=== PATIENT | male | born 1960 | race Caucasian/White ===

== ENCOUNTER → 2017-12-29 07:41 | Outpatient (CLI) | payer BC, SELFPAY ==
--- NOTE | 2017-12-29 13:41 | PFT ---
INTRODUCTION: The patient is a 57-year-old male currently under the care of Bravo Aleman NP that presents for pulmonary function testing secondary to a diagnosis of dyspnea on exertion. Respiratory therapy reports good patient effort. Bronchodilators were used during testing. INTERPRETATION: Forced expiration spirometry demonstrates no evidence of a large airways obstructive ventilatory defect. There was no significant response to aerosolized bronchodilators. Spirograms are of good quality and plateau normally. The respiratory flow volume loop appears normal. Body plethysmography was performed and reveals lung volumes to be within normal limits. Diffusing capacity by single breath CO is preserved at 78% of predicted. IMPRESSION: Grossly normal pulmonary function testing.
== END ==
PROVIDERS: Family Provider Family Medicine; PCP Family Medicine; Visit Provider Nurse Practitioner Family
DX: R06.09 Other forms of dyspnea (principal)
CPT/HCPCS: 94060; 94726; 94729

== ENCOUNTER → 2018-03-06 07:36 | Outpatient (CLI) | payer BC, SELFPAY ==
[2018-03-06 08:53] LABS: AST(SGOT) 19 U/L (15-37); Alanine Aminotransfer ALT/SGPT 20 U/L (16-61); Albumin, Serum 3.3 g/dL (3.2-5.0); Alkaline Phosphatase 61 U/L (45-117); Bilirubin, Direct 0.11 mg/dL (0.00-0.30); Cholesterol 194 mg/dL (200); Globulin 3.7 g/dL (2.2-4.2); High Density Lipoprotein 40 mg/dL; Triglycerides 145 mg/dL; Very Low Density Lipoprotein 29 mg/dL (5-40)
== END ==
PROVIDERS: Family Provider Family Medicine; PCP Family Medicine; Visit Provider Internal Medicine Cardiovascular Disease
DX: E78.00 Pure hypercholesterolemia, unspecified (principal)
CPT/HCPCS: 36415; 80061; 80076

== ENCOUNTER → 2019-02-15 11:13 | Outpatient (CLI) | payer BC, SELFPAY ==
[2019-02-15 11:04] VITALS: BMI 27.2
--- NOTE | 2019-02-15 11:15 | RAD_ITS ---
We are attempting to reach an attending provider to discuss findings. An addendum with communication details will be sent when the communication is complete. STUDY: X-RAY - THORACIC SPINE REASON FOR EXAM: Male, 58 years old. Right posterior shoulder pain 6 weeks TECHNIQUE: 3 view(s) of the thoracic spine were obtained. COMPARISON: None. FINDINGS: Oval masslike process at the right lung apex measuring 5.[address] chest with contrast recommended. Mild thoracic scoliosis. Normal vertebral body height and alignment. No significant spondylosis. Normal cardiomediastinal silhouette. RAD/Thoracic Spine 3 Views IMPRESSION: Mild thoracic spine scoliosis. No significant spondylosis. Ovoid masslike process at the right lung apex. Follow-up CT chest with IV contrast is recommended. Electronically Signed: Clement Queen MD at 12:06 EDT Tel , Service support ,
== END ==
PROVIDERS: Family Provider Family Medicine; PCP Family Medicine; Referring Provider Nurse Practitioner Family; Visit Provider Nurse Practitioner Family
DX: M54.6 Pain in thoracic spine (principal)
CPT/HCPCS: 72072

== ENCOUNTER → 2019-02-16 16:01 | Outpatient (CLI) | payer BC, SELFPAY ==
[2019-02-15 11:04] VITALS: BMI 27.2
--- NOTE | 2019-02-16 16:03 | CT_ITS ---
STUDY: CT CHEST WITH CONTRAST REASON FOR EXAM: Male, 58 years old. Right lung mass RADIATION DOSAGE (If Supplied By Facility): CTDIvol = ( 11.91 ) mGy, DLP = ( 563.19 ) mGycm TECHNIQUE: Transaxial imaging was performed following intravenous administration of 100 IV Isovue 300. Individualized dose optimization techniques were used for this CT. COMPARISON: Chest x-ray 02/15/2019. FINDINGS: There is a 5.1 x 4.7 x 4 cm right apical heterogeneous solid mass. There is mild centrilobular emphysema. There is mild bibasilar linear atelectasis and/or scarring. There is no demonstrated pleural abnormality. Normal heart and pericardium. There is anterior mediastinal adenopathy measuring up to 2.3 x 1.5 cm. There is no hilar or axillary adenopathy. Normal hilar regions. Normal enhanced pulmonary arteries. Normal aorta arch and descending thoracic aorta. Normal osseous structures. No lytic or blastic osseous lesions. There is diffuse fatty infiltration of the liver. There is a subcentimeter right hepatic lobe hypodense lesion too small to characterize. There is a subcentimeter left renal midpole hypodense lesion, likely cyst. CT/Chest WITH Contrast IMPRESSION: * 5.1 x 4.7 x 4 cm right apical heterogeneous solid mass consistent with malignancy. Anterior mediastinal adenopathy is consistent with jass metastases. * Hepatic steatosis. Electronically Signed: Yang Fry, at 16:39 EDT Tel , Service support ,
== END ==
PROVIDERS: Family Provider Family Medicine; PCP Family Medicine; Referring Provider Nurse Practitioner Family; Visit Provider Nurse Practitioner Family
DX: R91.8 Other nonspecific abnormal finding of lung field (principal)
CPT/HCPCS: 71260; Q9967

== ENCOUNTER → 2019-02-27 08:50 | Outpatient (CLI) | payer BC, SELFPAY ==
[2019-02-21 14:56] VITALS: BMI 25.2
--- NOTE | 2019-02-27 14:02 | PFTCOMP ---
COMPLETE PULMONARY FUNCTION TEST INTERPRETATION Brief HPI: Patient is a 58 year old male, currently under the care of Dr. Rodgers, who presents to [facility] for complete pulmonary function tests secondary to diagnosis of chemotherapy. Respiratory therapist reports good effort and reproducible results. Interpretation: Forced expiration spirometry shows no large airways obstructive ventilatory defect with an FEV1 of 81% predicted. There is no significant bronchodilator response by strict ATS criteria. Spirograms are of good quality and plateau normally. The respiratory flow volume loop shows a normal pattern. Lung volumes by body plethysmography show a normal total lung capacity at 5.33 L, 86% predicted. All other lung volumes are within normal limits. Diffusion capacity by carbon monoxide is normal at 85% predicted. The airway resistance is normal. Compared to previous pulmonary function tests from 12/29/2017, there is been a significant reduction in FVC and FEV1 by 19% and 16% respectively. Impression: Pulmonary function tests are grossly within normal limits, but there has been changes compared to previous study.
== END ==
PROVIDERS: Family Provider Family Medicine; PCP Family Medicine; Referring Provider Internal Medicine Hematology & Oncology; Visit Provider Internal Medicine Hematology & Oncology
DX: C34.11 Malignant neoplasm of upper lobe, right bronchus or lung (principal)
CPT/HCPCS: 94060; 94726; 94729

== ENCOUNTER → 2019-03-02 09:56 | Outpatient (CLI) | payer BC, SELFPAY ==
[2019-02-21 14:56] VITALS: BMI 25.2
--- NOTE | 2019-03-02 09:59 | MRI_ITS ---
STUDY: MRI BRAIN WITH AND WITHOUT CONTRAST REASON FOR EXAM: Male, 58 years old. Lung cancer TECHNIQUE: Standardized multiplanar fat and water weighted pulse sequences were obtained. 15 IV Dotarem was administered for the contrast portion of the examination. COMPARISON: None. FINDINGS: Normal size of the ventricles and extra-axial spaces for the patient's age. Normal white matter tracts of the supratentorial brain. There is no evidence for recent intracranial ischemia or other cause of cytotoxic edema on diffusion weighted imaging (DWI). Normal bilateral basal ganglia. Normal thalami. There is no extra-axial fluid accumulation. Normal flow voids within the major intracranial circulation suggesting patency by spin echo criteria. Normal venous enhancement. There is no enhancing intra-axial or extra-axial abnormality. Normal sella turcica, pituitary gland, infundibular stalk, optic chiasm and hypothalamus. Normal tectal plate and pineal gland. Normal midbrain, tsering and medulla. Normal cerebellum. Normal basal cisterns. Normal bilateral temporal bones. Normal bilateral internal auditory canals. No demonstrated orbital abnormality, within the constraints of a routine brain study. Mucous retention cyst in the left maxillary sinus consistent with chronic sinusitis. Normal calvarium and skull base. Normal visualized soft tissue structures. Normal visualized upper cervical spine. MRI/Brain W/WO Contrast IMPRESSION: Normal unenhanced and enhanced MRI of the brain. No MR evidence of metastatic disease. Electronically Signed: Clement Tavares MD at 13:32 EDT Tel , Service support ,
--- NOTE | 2019-03-02 09:59 | MRI_ITS ---
STUDY: MR CHEST WITH T WITHOUT CONTRAST REASON FOR EXAM: Male, 58 years old. Right lung mass TECHNIQUE: Standardized fat and water weighted pulse sequences were obtained in all 3 orthogonal planes, pre-and post contrast administration. 15 IV Dotarem was administered for the contrast portion of the examination. COMPARISON: CT 02/16/2019, PET CT 02/26/2019 FINDINGS: 5 cm T1 isointense, T2 hyperintense and peripherally enhancing mass with central necrosis in the apex of the right lung consistent with known bronchogenic carcinoma. No definite extension of tumor beyond the pleura into the adjacent chest wall or subclavian space. There is no demonstrated pleural abnormality. Normal heart and pericardium. Normal mediastinum. Normal hilar regions. Normal unenhanced pulmonary arteries. Normal aorta arch and descending thoracic aorta. Normal osseous structures. There is no demonstrated abnormality of the visualized upper abdomen. MRI/Upper Ext No Joint W/WO Cont IMPRESSION: Known 5 cm bronchogenic carcinoma in the apex of the right lung as seen on recent CT the chest and PET/CT without invasion of the adjacent chest wall and subclavian space. Electronically Signed: Clement Tavares MD at 13:26 EDT Tel , Service support ,
== END ==
PROVIDERS: Family Provider Family Medicine; PCP Family Medicine; Referring Provider Internal Medicine Hematology & Oncology; Visit Provider Internal Medicine Hematology & Oncology
DX: C34.11 Malignant neoplasm of upper lobe, right bronchus or lung (principal)
CPT/HCPCS: 70553; 73220

== ENCOUNTER → 2019-03-05 08:10 | Outpatient (CLI) | payer BC, SELFPAY ==
[2019-02-21 14:56] VITALS: BMI 25.2
[2019-03-05] VITALS (11 sets, daily range): BP systolic 131–176; BP diastolic 71–96; PULSE 60–70; RESP 16–23; TEMP 36.6; O2SAT 93–97; BMI 25.5
--- NOTE | 2019-03-05 | IMM_PTH ---
PATIENT: HARIKA SALEH LOC: CT U#:[id number] AGE/SX: 64/M ROOM: RE03/05/[address]: Dr. Delilah Rodgers MD : 1960 BED: DIS: SPEC #: [id number] RECD: 03/06/19 10:41 STATUS: DENNIS REQ #: [id number] MORGAN: 03/05/19 00:[address]: Delilah Rodgers DEPT: IMMUNOHISTOCHEMISTRY RECD BY: Obey Menchaca ENTERED: 03/06/19 10:44 SP TYPE: IMMUNO OTHR DR: Dr. Brett Alexander, DO Tissues: Lung, NOS Procedures: RCC (add) NAPSIN A (add) CK20 (add) CK5-6 (add) CK7 (add) CK8 (add) HEP PAR (add) TTF1 (add) Pankeratin (initial) P40 (add) PSAP (add) PHYSICIAN & [address] [address] SPECIMEN INFORMATION: Tissue Source: Right lung biopsy Clinical Info: Right lung biopsy Specimen Number: [id number] CPT code: 85476, 55137 x10 METHODOLOGY: Deparaffinized sections of prefer/formalin-fixed tissue or PAP/DQ stained slides are incubated with monoclonal/polyclonal antibodies/oligonucleotide probes. Localization is made via biotin free immunoperoxidase method. Appropriate controls are performed and reacted as expected. Results on target cell population are indicated in the following table: RESULTS: ANTIBODY / CLONE RESULT AE1-3 (AE1/AE3/PCK26) positive, focal and weak CK7 (OV-TL12/30) negative CK8 (42snibA79) positive, focal and weak CK20 (KS20.8) negative TTF-1 (8G7G3/1) positive Napsin A (Rabbit Polyclonal) negative HepPar (OCh1E5) negative RCC (PN-15) negative PSAP (PASE/4LJ) negative CK5-6 (D5 & 1684) negative P40 (BC28) negative These tests were developed and their performance characteristics determined by [facility]. They may not have been cleared or approved by the U.S. Food and Drug Administration. The FDA has determined that such clearance or approval is not necessary. INTERPRETATION: Right lung, CT guided core biopsy: Non-small cell carcinoma, favor poorly differentiated adenocarcinoma. This case has been reviewed in consultation with Dr. Conley who concurs with the above diagnosis. SJ:cc 03/07/19
--- NOTE | 2019-03-05 | ASPIGT_PTH ---
PATIENT: HARIKA SALEH LOC: CT U#:[id number] AGE/SX: 64/M ROOM: RE03/05/[address]: Dr. Delilah Rodgers MD : 1960 BED: DIS: SPEC #: [id number] RECD: 03/05/19 13:34 STATUS: DENNIS RESamia #: [id number] MORGAN: 03/05/19 00:[address]: Delilah Rodgers DEPT: SURGICAL PATHOLOGY RECD BY: Anthony Babcock ENTERED: 03/05/19 13:35 SP TYPE: ASP RAD OTHR DR: Dr. Brett Alexander, DO Tissues: Lung, NOS Procedures: FNA Specimen Adequacy Special Stain Group II Surgery Specimen Level IV Imprint (control) HEADER OPERATION: Ct guided right lung biopsy PRE-OP DIAGNOSIS: Right lung biopsy TISSUE SUBMITTED: Right lung biopsy MICROSCOPIC DIAGNOSIS Right lung, CT-guided core biopsy: Non-small cell carcinoma, favor poorly differentiated adenocarcinoma. See comment. SUGEY:kacey 03/06/19 COMMENT Immediate evaluation during CT biopsy by Dr. Oshea 03/05/19. Malignant cells present derived from non small cell carcinoma. Immunohistochemistry ([id number]) supports the above diagnosis. Molecular studies on the tumor can be performed, if clinically indicated, please notify the laboratory if they are needed. This case is discussed with Dr. Rodgers on 03/07/19. Case has been reviewed in consultation with Dr. Conley who concurs with the above diagnosis. IDC:AM MICROSCOPIC DESCRIPTION Slides are reviewed. GROSS DESCRIPTION Received is one container labeled with the patient name and designated right lung CT guided core biopsy. The specimen consists of multiple irregular fragments of martinez soft tissue that in aggregate measure 1 x 0.1 x less than 0.1 cm. The specimen is entirely submitted in one cassette. Three touch imprints are prepared at the time of core biopsy. /SUGEY:kacey 03/05/19 TC:0 CPT: 67448, 11296
--- NOTE | 2019-03-05 08:18 | RAD_ITS ---
STUDY: X-RAY CHEST REASON FOR EXAM: Male, 58 years old. 2 hour post right apical lung biopsy. TECHNIQUE: AP inspiration and expiration views. COMPARISON: Comparison is made with prior study done earlier today. FINDINGS: There is no evidence of pneumothorax on the delayed postright apical lung biopsy. Mild degree of increased markings at the lung bases suggestive of bibasilar atelectasis. Blunting of the right costophrenic angle. RAD/Chest Insp/Exp 2 View IMPRESSION: No pneumothorax on the 2 hour post right apical lung biopsy. Electronically Signed: Darrick Delarosa, at 13:34 EDT , Service support ,
--- NOTE | 2019-03-05 08:18 | RAD_ITS ---
STUDY: X-RAY CHEST REASON FOR EXAM: Male, 58 years old. Immediate post right lung biopsy. TECHNIQUE: AP inspiration and expiration views. COMPARISON: Comparison is made with prior examination dated March 02, 2019. FINDINGS: The patient is status post percutaneous biopsy of the right apical nodule. There is no evidence of pneumothorax. RAD/Chest Insp/Exp 2 View IMPRESSION: No evidence of pneumothorax on the immediate post right lung biopsy radiographs. Electronically Signed: Darrick Delarosa, at 11:21 EDT , Service support ,
--- NOTE | 2019-03-05 08:19 | CT_ITS ---
PROCEDURE: CT GUIDED CORE NEEDLE BIOPSY OF A right apical LUNG LESION INDICATION: Male, 58 years old. 5 cm right apical mass. PHYSICIAN: Dr. Washington Spence CONSENT: Written informed consent was obtained having explained the risks, benefits and alternatives in detail with the patient who accepted the risks and agreed to proceed. Laboratory review and clinical assessment was performed. CONSCIOUS SEDATION PROTOCOL: The Drugs used were: 2 mg Versed, IV., and 100 mcg Fentanyl, IV. The sedation time was: 23 minutes. Conscious sedation was started at 10:02 AM and terminated at 10:25 AM. The conscious sedation protocol was independently monitored. RADIATION DOSAGE (If Supplied By Facility): CTDIvol = ( 14 ) mGy, DLP = ( 371.3 ) mGycm Individualized dose optimization techniques were used for this CT. TECHNIQUE: The patient was placed in the prone position. A noncontrast CT was performed to localize the lesion in the right lung apex . The skin surface was prepped and draped in a sterile fashion. 1% lidocaine was used for local anesthesia. Using CT guidance, a 19-gauge coaxial biopsy device was advanced to the periphery of the lesion. A total of 4 core specimens were obtained. The specimens were placed in a formalin solution. A post procedure CT demonstrated no adverse sequelae or pneumothorax. The patient tolerated the procedure well without adverse event. A negative biopsy does not exclude malignancy. Further imaging or clinical followup based on patient condition and degree of clinical suspicion for malignancy. Suggest rebiopsy, if biopsy results do not match with clinical scenario. CT/Biopsy/Inj or Needle Placement IMPRESSION: 1. CT directed core needle biopsy of the right apical pulmonary lesion using CT image guidance with image documentation as described. Pathology results are pending. 2. Conscious Sedation protocol utilized with independent monitoring. Electronically Signed: Darrick Delarosa, at 11:23 EDT , Service support ,
[2019-03-05 08:22] LABS: Absolute Lymphocyte Count 3.93 X10^3/uL (0.83-4.51); Absolute Neutrophil Count 9.4 X10^3/uL (2.0-7.7); Basophil# 0.11 X10^3/uL; Basophil% 0.7 % (0-1); Eosinophil# 0.17 X10^3/uL; Eosinophils% 1.1 % (0-5); Hematocrit 44.9 % (40-54); Hemoglobin 15.1 g/dL (13.0-16.5); Lymphocyte # 3.93 X10^3/ul (4.0); Lymphocyte % 25.5 % (19-41); Mean Corp Hgb Conc 33.6 g/dL (32-36); Mean Corpuscular Hgb 30.8 pg (27.0-32.0); Mean Corpuscular Volume 91.6 fL (80-94); Mean Platelet Vol. 8.7 fl (6.2-12.0); Monocyte# 1.81 X10^3/uL; Monocyte% 11.7 % (0-10); NRBC Flagged by Analyzer 0 % (0-5); Neutrophil # 9.35 X10^3/uL (2.7-7.7); Neutrophil % 60.6 % (47-70); POSITIVE DIFFERENTIAL YES; Platelet Count 445 K/mm3 (150-450); RBC Distribution Width CV 12.8 % (11.6-14.6); RBC Distribution Width SD 43.3 fl (35.1-43.9); White Blood Count 15.4 K/mm3 (4.4-11.0)
[2019-03-05 08:24] LABS: Differential Indicated SCAN CRITERIA MET
[2019-03-05 08:30] LABS: Prothrombin Time (Protime)PT. 13.3 SECONDS (11.7-14.9)
[2019-03-05 08:31] LABS: Partial Thromboplast Time 33.2 Seconds (24.1-36.2)
[2019-03-05 08:46] LABS: Atypical Lymphocyte 1+ %
[2019-03-05] MEDS: fentaNYL 100 MCG/2 ML Ampul IV (10:02)
[2019-03-05] MEDS: Midazolam 2 MG/2 ML Syringe IV (10:02)
[2019-03-07 09:24] LABS: Pathologist Review Reviewed
== END ==
PROVIDERS: Family Provider Family Medicine; PCP Family Medicine; Referring Provider Internal Medicine Hematology & Oncology; Visit Provider Internal Medicine Hematology & Oncology
DX: C34.91 Malignant neoplasm of unspecified part of right bronchus or lung (principal)
CPT/HCPCS: 32405; 36415; 71046; 77012; 85025; 85610; 85730; 88172; 88305; 88313; 88341; 88342; 99156; 99157; J7040

== ENCOUNTER 2019-03-13 09:12 | Day surgery (SDC) | payer BC, SELFPAY ==
[2019-03-06 08:56] VITALS: BMI 24.6
--- NOTE | 2019-03-07 02:01 | HP_ITS ---
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 Is patient in pain?: No Allergies No Known Allergies Allergy (Verified 03/07/19 12:50) Medications nitroglycerin 0.4 mg sublingual tablet 0.4 mg SUBLINGUAL Q5M PRN #21 tab 12/07/17 [Rx Confirmed 03/07/19] aspirin 81 mg tablet,delayed release 81 mg PO QDAY #90 tab 09/07/18 [Rx Confirmed 03/07/19] clopidogrel 75 mg tablet 75 mg PO DAILY #90 tab 09/07/18 [Rx Confirmed 03/07/19] metoprolol tartrate 25 mg tablet 25 mg PO BID #180 tab 09/07/18 [Rx Confirmed 03/07/19] rosuvastatin 10 mg tablet 10 mg PO DAILY #90 tab 09/07/18 [Rx Confirmed 03/07/19] olmesartan 20 mg tablet See Rx Instructions .ROUTE .COMPLEX #90 tab 01/21/19 [Rx Confirmed 03/07/19] oxycodone-acetaminophen 7.5 mg-325 mg tablet 1 tab PO Q6H PRN #60 tab 02/19/19 [Rx Confirmed 03/07/19] Fentanyl 1 ea TD UD 03/06/19 [History Confirmed 03/07/19] PFSH Medical History 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) Hypertension (Chronic) Hyperlipidemia (Chronic) Nicotine dependence (Chronic) Diverticulitis (Chronic) EtOH dependence (Chronic) GERD (gastroesophageal reflux disease) (Chronic) Surgical History History of coronary artery stent placement (Resolved 10/26/16) History of appendectomy (Resolved) History of colonoscopy (Resolved) History of vasectomy (Resolved) Family History Grandfather Cancer Lung cancer Uncle Cancer Lung cancer Social History (Updated 03/07/19 @ 14:01 by Douglas Bueno MD) Smoking Status: Former smoker alcohol intake: current alcohol intake frequency: holidays/special occasions only substance use type: does not use HPI HPI HPI: HARIKA SAELH, is a 58 M who presents to the office today for HPI HPI Surgical H&P: Yes HPI: HARIKA SALEH, is a 58 M who presents to the office today for port placement. Patient has a Pancoast tumor of the right lung. He needs port placement for chemotherapy. Patient will also be undergoing radiation. ROS General General: Yes weight change and fatigue; no appetite, colon cancer, breast cancer or weakness HEENT HEENT: No difficulty swallowing, eye injury, eye surgery, swollen glands or hoarseness Endo Endocrine: No thyroid disease, diabetes mellitus, thyroid cancer, Hair loss, heat intolerance or cold intolerance Skin Skin: No rash or changing moles Breast Breast: No left breast lump, right breast lump, nipple discharge, breast pain, abnormal mammogram, abnormal US or breast enlargement Musc Musculoskeletal: No back problems, arthritis, rheumatoid arthritis, gout or joint pain Cardio Cardiovascular: Yes high blood pressure, heart attack and heart stent; no murmur, pacemaker, heart disease, atrial fibrillation, palpitations, shortness of breat with exertion or chest pain Psych Psychiatric: No depression, anxiety or hearing voices Resp Respiratory: Yes shortness of breath, No sleep apnea, Yes cough, No COPD, No asthma, No emphysema, No wheezing Gastro Gastrointestinal: No abdominal pain, No nausea or vomiting, No diarrhea, Yes constipation, No blood in stool, No acid reflux, No hemorrhoids, No ulcers, No gallbladder problem, No black,tarry stools Alexandro Hematologic: Yes blood thinners, No blood disorders, No bleeding, No anemia, No blood clots Neuro Neurologic: No system reviewed and no additional complaints, except as docu, No as per HPI, No abnormal walking, No abnormal hearing, No abnormal movements, No abnormal speech, No behavioral changes, No burning sensations, No confusion, No seizure-like activity, No unsteadiness, No dizziness, No localized weakness, No frequent falls, No headache(s), No lack of coordination, No loss of vision, No memory loss, No numbness, No other visual disturbances, No radiating pain, No restless legs, No sensory deficit, No fainting, No tingling, No tremor(s), No weakness, No other Exam Const General: cooperative Orientation: alert, oriented x3 Chest Breast Palpation: No nipple discharge Resp Effort & Inspection: normal respiratory effort Auscultation: clear to auscultation bilaterally Cardio Rate: regular rate Rhythm: regular rhythm Heart Sounds: no murmurs GI Inspection: non-distended Palpation: soft, nontender Assessment & Plan Problems 1. Pancoast tumor of right lung C34.11 2. Encounter for insertion of venous access port Z45.2 Plan Patient has tumor in the right lung and needs port for chemotherapy. I will place a left chest port in the patient. The back plan will be to place a right chest port. I discussed port placement with the patient in detail. I discussed the risks including but not limited to bleeding, infection, pneumothorax, line infection, DVT. Patient understands and is willing to proceed with port placement. I will place port next Tuesday and leave the port accessed and he will start treatment on Tuesday. Douglas Bueno MD Pager: [facility] [address] [place] [address], [address] [place] [address] Office: Coding Level of Care Code Off vis,new,level 3 Diagnoses Pancoast tumor of right lung C34.11 Encounter for insertion of venous access port Z45.2 03/07/19 1401 <Electronically signed by Douglas vasquez MD> Date _ Douglas Bolton I have re-examined the patient. There are no clinical changes since date of exam.
[2019-03-07 12:50] VITALS: BMI 24.6
[2019-03-13 08:23] VITALS: BMI 25.1
[2019-03-13 09:28] VITALS: BP 132/74; PULSE 69; RESP 17; TEMP 36.6; O2SAT 98; BMI 25.0
[2019-03-13] MEDS: Lactated Ringers 1,000 ML 75 ML IV (09:48)
[2019-03-13] MEDS: Cefazolin 2 GM in 0.9% Normal Saline 100 ML IV (11:00)
[2019-03-13] MEDS: Bupiv/Epi 0.5% Mpf 30 ML Vial (11:20)
[2019-03-13 11:43] VITALS: BP 110/66; BP 132/74; PULSE 63; RESP 16; TEMP 36.3; O2SAT 94
--- NOTE | 2019-03-13 11:44 | PCM.OPRPT ---
Problem List (1) Encounter for adjustment or management of vascular access device Status: Acute (2) Pancoast tumor of right lung Status: Acute Report of Operation Date of Procedure: 03/13/19 Pre-Operative Diagnosis: Right lung cancer need for vascular access port Post-Operative Diagnosis: Same Surgery/Procedure Performed:: Ultrasound and fluoroscopy guided left chest port placement utilizing left IJ Description of Procedure: After obtaining informed consent patient was brought back to the operating room MAC anesthesia was induced and the left chest and neck were prepped in normal sterile fashion. Ultrasound was used to evaluate both IJs and the left IJ was selected. Next, using a needle, the left IJ was accessed and a guidewire was passed on into the superior vena cava under fluoroscopy guidance. A small incision was made over the puncture site and the dilator introducer was placed over the guidewire. Next this was capped and the pocket was made for the port. 1% lidocaine with epinephrine was injected in the proposed port site. An incision was made with scalpel. Electrocautery was used to make a pocket under the skin and subcutaneous tissue. Hemostasis was obtained. Next, the catheter was tunneled up to the neck incision site and placed through the introducer. The peel-away introducer was removed and the position of the catheter was confirmed on fluoroscopy. Next, the catheter was trimmed and attached to the port with the locking device. Interrupted 2-0 Vicryl sutures were used to anchor the port to the chest wall and then the port was placed inside the pocket. The pocket was then flushed with saline and the port irrigated with saline. There was good blood return and the port flushed easily. The skin was closed with subcutaneous interrupted 3-0 Vicryl sutures and interrupted skin 3-0 nylon sutures. A single 3-0 Vicryl sutures placed under the skin at the neck incision site. The port was then accessed using the included access needle and there was good draw and good flush. Next it was flushed with heparin. Patient's port was left accessed. Steri-Strips were placed as well as op sites. Patient tolerated procedure well, was taken to PACU in stable condition. Chest x-ray will be obtained. Grafts/Implants Used: 8 [place] [employer]
--- NOTE | 2019-03-13 11:46 | DCINST_ITS ---
Discharge Diet: No Restrictions - Pain medication may cause nausea. You should typically eat light foods as you take your pain medication. Discharge Activity: Return to Normal Activity, May Shower - with your bandage in place in 1-2 days after surgery. DO NOT SHOWER WHEN YOUR PORT IS ACCESSED. Call your doctor if your incision/area has: Continuous Slow Oozing, Sudden Increased Bleeding, Increased Pain/ Swelling, Increased Redness Call your doctor if you observe: Fever of 101 or Higher Remove Dressing in (days):: 2 - When you remove the bandage, leave the steri- strips intact until they fall off. Cleanse incision/area with: Soap & Water Allergies/Adverse Reactions: Allergies No Known Allergies Allergy (Verified 03/13/19 09:18) Medications to take at Discharge nitroglycerin 0.4 mg sublingual tablet 0.4 mg SUBLINGUAL Q5M PRN #21 tab 12/07/17 aspirin 81 mg tablet,delayed release 81 mg PO QDAY #90 tab 09/07/18 clopidogrel 75 mg tablet 75 mg PO DAILY #90 tab 09/07/18 oxycodone-acetaminophen 7.5 mg-325 mg tablet 1 tab PO Q6H PRN #60 tab 02/19/19 Fentanyl 1 ea TD UD 03/06/19 Gabapentin [Neurontin] 300 mg PO BID 03/08/19 Metoprolol Tartrate [Lopressor (beta zachary)] 25 mg PO BID 03/08/19 Olmesartan Medoxomil 40 mg PO DAILY 03/08/19 Rosuvastatin Calcium 10 mg PO QHS 03/08/19 Primary Care Physician: Brett Alexander DO [Primary Care Provider] - Test Results: Test results from this visit will be discussed in further detail at your follow- up appointment, if applicable. Please Follow Up With: Codi Newman PA-C When: 1 week for suture removal. call for appt [phone]
[2019-03-13 11:47] VITALS: BP 107/70; BP 132/74; PULSE 61; RESP 16; O2SAT 93
[2019-03-13 11:50] VITALS: BP 119/71; BP 132/74; PULSE 65; RESP 16; O2SAT 93
--- NOTE | 2019-03-13 11:52 | RAD_ITS ---
STUDY: X-RAY CHEST REASON FOR EXAM: Male, 58 years old. Right apical lung mass. Line placement verification. TECHNIQUE: Single frontal view of the chest. COMPARISON: March 05, 2019 FINDINGS: Left internal jugular catheter has been inserted with no complications. Tip is projected over the mid-SVC. Low volume inspiration with bibasilar atelectasis. Stable 6.7 cm mass in the right apex. There is no demonstrated pleural abnormality. Cardiomegaly unchanged. Normal mediastinum and charles. Normal visualized pulmonary arteries. Normal visualized aortic arch and descending thoracic aorta. Normal visualized thoracic spine. Normal visualized ribs, clavicles, and shoulders. There is no demonstrated abnormality of the visualized soft tissue structures of the upper abdomen. RAD/CXR for Line Placement IMPRESSION: Placement of left internal jugular catheter without complications. Cardiomegaly with low volume inspiration. Stable right apical mass. Electronically Signed: Mauricio Javier MD at 12:13 EDT , Service support ,
[2019-03-13 11:58] VITALS: BP 112/84; BP 132/74; PULSE 60; RESP 16; TEMP 36.8; O2SAT 94
[2019-03-13 12:46] VITALS: BP 115/61; BP 132/74; PULSE 62; RESP 18; TEMP 36.9; O2SAT 95
== END 2019-03-13 12:48 | disposition home or self-care (01) ==
LOC: SDC 09:12 → AC 09:14
PROVIDERS: Family Provider Family Medicine; PCP Family Medicine; Referring Provider Surgery; Visit Provider Surgery
PROC: (CPT 36561; principal; 2019-03-13 10:45)
DX: Z45.2 Encounter for adjustment and management of vascular access device (principal); C34.11 Malignant neoplasm of upper lobe, right bronchus or lung; E78.00 Pure hypercholesterolemia, unspecified; I25.10 Atherosclerotic heart disease of native coronary artery without angina pectoris; I25.2 Old myocardial infarction; I10 Essential (primary) hypertension; F10.20 Alcohol dependence, uncomplicated; Y90.9 Presence of alcohol in blood, level not specified; Z95.5 Presence of coronary angioplasty implant and graft; Z87.891 Personal history of nicotine dependence; Z79.82 Long term (current) use of aspirin; E78.5 Hyperlipidemia, unspecified; K21.9 Gastro-esophageal reflux disease without esophagitis
CPT/HCPCS: 00532; 36561; 71045; 77001; J7120; C1788; J2405

== ENCOUNTER → 2019-03-21 09:31 | Outpatient (CLI) | payer BC, SELFPAY ==
[2019-03-06 08:56] VITALS: BMI 24.6
[2019-03-20 08:29] VITALS: BMI 25.7
--- NOTE | 2019-03-21 09:55 | NURSING ---
Sutures x4 removed from port placement incision. Incision well approximated, free from drainage.
== END ==
PROVIDERS: Family Provider Family Medicine; PCP Family Medicine; Referring Provider Surgery; Visit Provider Surgery
DX: Z48.02 Encounter for removal of sutures (principal)

== ENCOUNTER → 2019-04-27 06:53 | Outpatient (CLI) | payer BC, SELFPAY ==
[2019-03-06 08:56] VITALS: BMI 24.6
[2019-04-03 08:42] VITALS: BMI 25.3
[2019-04-10 08:46] VITALS: BMI 25.3
--- NOTE | 2019-04-27 14:19 | STRESSREP ---
Stress Test Report Date: [04/27/2019] Procedure: Pharmacologic stress nuclear imaging study Indications: Preop evaluation Consent: Per the patient Procedure: The patient underwent pharmacologic (Regadenoson) evaluation with a peak heart rate of 107 beats per minute (65 %predicted maximal heart rate) and a peak blood pressure of 128/64 mmHg. The baseline ECG demonstrated normal sinus rhythm. EKG during lexiscan infusion revealed thickened ischemic changes. EKG post infusion revealed significant ischemic changes [There were no cardiac dysrhythmias pretest, during pharmacologic infusion, or recovery]. [There was no complaint of chest discomfort during pharmacologic infusion or recovery]. The examination was discontinued secondary to completion of protocol. Impression: 1. Lexiscan stress test test is negative for Lexiscan infusion induced EKG changes of ischemia. 2. Lexiscan stress test test is negative for Lexiscan infusion induced chest pain. 3. Results of the nuclear portion of the test is as below Myocardial perfusion imaging study: Technique: The patient was injected with 12 millicuries of technetium 99m Cardiolite and subsequently rest SPECT Cardiolite nuclear imaging was obtained in the horizontal long, vertical long, and short axis views. The patient underwent pharmacologic (Regadenoson) evaluation. Please see above for details. The patient was injected with 36 millicuries of technetium 99m Cardiolite and subsequently stress SPECT Cardiolite nuclear imaging was obtained in the horizontal long, vertical long, and short axis views. A gated Cardiolite study at peak stress was obtained. Interpretation: Rest and stress SPECT Cardiolite nuclear imaging status post realignment, normalization, and attenuation correction demonstrate mild decrease in the radioisotope uptake in the apex on both the rest and stress images after attenuation correction. Gated images reveal no significant regional wall motion abnormalities. These findings are suggestive of apical thinning, normal variant. There is no evidence of significant ischemia or infarction. The reported LVEF is 68 %. Impression: 1. There is no evidence of significant ischemia or infarction. 2. Estimated ejection fraction is 68%. This note was generated with [employer] software. It may contain incorrect words, spelling, and punctuation that were not noted in checking the note before signing.
== END ==
PROVIDERS: Family Provider Family Medicine; PCP Family Medicine; Referring Provider Internal Medicine Hematology & Oncology; Visit Provider Internal Medicine Hematology & Oncology
DX: Z01.810 Encounter for preprocedural cardiovascular examination (principal); C34.11 Malignant neoplasm of upper lobe, right bronchus or lung
CPT/HCPCS: 78452; 93017; A9500; A4216; J2785

== ENCOUNTER → 2019-05-01 07:46 | Outpatient (CLI) | payer BC, SELFPAY ==
[2019-03-06 08:56] VITALS: BMI 24.6
[2019-04-03 08:42] VITALS: BMI 25.3
[2019-04-10 08:46] VITALS: BMI 25.3
--- NOTE | 2019-05-01 07:49 | CT_ITS ---
STUDY: CT CHEST WITH CONTRAST REASON FOR EXAM: Male, 58 years old. Follow-up lung cancer RADIATION DOSAGE (If Supplied By Facility): CTDIvol = ( 10.12 ) mGy, DLP = ( 425.79 ) mGycm TECHNIQUE: Transaxial imaging was performed following intravenous administration of IV Isovue 370 100mL. Individualized dose optimization techniques were used for this CT. COMPARISON: 02/16/2019 FINDINGS: Left internal jugular chest port Mild emphysematous changes. There is no change in the size of the mass in the medial aspect the apex of the right lung measuring 4.2 x 4.8 cm consistent with known bronchogenic carcinoma. However, now the mass is of uniformly decreased attenuation suggestive of necrosis. No new noncalcified nodule or mass. There is no demonstrated pleural abnormality. Normal heart and pericardium. Normal mediastinum. Normal hilar regions. Normal enhanced pulmonary arteries. Normal aorta arch and descending thoracic aorta. Normal osseous structures. There is no demonstrated abnormality of the visualized upper abdomen. CT/Chest WITH Contrast IMPRESSION: Suspect interval treatment of right upper lobe bronchogenic carcinoma with no decrease in size but interval development of marked necrosis of the mass. No CT evidence of metastatic disease. Electronically Signed: Clement Tavares MD at 11:42 EDT Tel , Service support ,
== END ==
PROVIDERS: Family Provider Family Medicine; PCP Family Medicine; Referring Provider Internal Medicine Hematology & Oncology; Visit Provider Internal Medicine Hematology & Oncology
DX: Z01.811 Encounter for preprocedural respiratory examination (principal); C34.11 Malignant neoplasm of upper lobe, right bronchus or lung
CPT/HCPCS: 71260; Q9967

== ENCOUNTER → 2019-07-13 16:02 | Outpatient (CLI) | payer BC, SELFPAY ==
[2019-03-06 08:56] VITALS: BMI 24.6
[2019-06-25 14:18] VITALS: BMI 27.1
--- NOTE | 2019-07-13 16:06 | CT_ITS ---
STUDY: CT ABDOMEN WITHOUT CONTRAST REASON FOR EXAM: Male, 59 years old. PT STATED RT SIDE ABDOMEN SWELLING, POST PARTIAL LUNG REMOVAL RADIATION DOSAGE (If Supplied By Facility): CTDIvol = ( 8.91 ) mGy, DLP = ( 293.85 ) mGycm TECHNIQUE: Transaxial images were obtained without intravenous contrast, and without oral contrast. Sagittal and coronal images were reconstructed. Individualized dose optimization techniques were used for this CT. COMPARISON: Whole body PET CT scan 02/26/2019. FINDINGS: The visualized lung bases are unremarkable. The visualized portions of the heart are within normal limits. Normal liver. Normal gallbladder and extrahepatic biliary system. Normal spleen. Normal pancreas. Normal bilateral adrenal glands. Normal right kidney. Normal left kidney. Normal visualized stomach. Normal small intestine. Normal colon. The appendix is not visualized. Mild atherosclerotic calcifications of the abdominal aorta. Normal inferior vena cava. Normal retroperitoneum. Normal abdominal wall. Normal osseous structures. CT/Abdomen without IV Contrast IMPRESSION: 1. Normal unenhanced CT of the abdomen. 2. Minimal right lateral skin and subcutaneous induration is presumably scarring from prior surgery (series 2, images 11-13). This was not present previously. Electronically Signed: Ricci Leal MD at 10:24 EST , Service support ,
== END ==
PROVIDERS: Family Provider Family Medicine; PCP Family Medicine
DX: R14.0 Abdominal distension (gaseous) (principal)
CPT/HCPCS: 74150

== ENCOUNTER → 2019-07-30 12:02 | Outpatient (CLI) | payer BC, SELFPAY ==
[2019-03-06 08:56] VITALS: BMI 24.6
[2019-06-25 14:18] VITALS: BMI 27.1
--- NOTE | 2019-07-30 12:05 | US_ITS ---
STUDY: ABDOMINAL ULTRASOUND REASON FOR EXAM: Male, 59 years old. ABDOMIN PAIN POST SURGERY/ SWELLING RT SIDE TECHNIQUE: Transabdominal ultrasound was performed with real-time and static mason scale imaging. TECHNICAL QUALITY: Adequate. COMPARISON: None. FINDINGS: Liver: The liver measures 17.5 cm. There is increased echogenicity consistent with fatty infiltration. The bile ducts are within normal limits. There is hepatic color flow. The direction of portal flow is hepatopetal. There is no demonstrated mass lesion. Portal vein measurement: Gallbladder: Normal distended gallbladder. The gallbladder wall measures 1.9 mm. There is a negative sonographic Huggins''s sign. There is no pericholecystic fluid. There are no gallstones. Common Bile Duct (C.B.D.): The common bile duct measures 2.2 mm. Pancreas: Normal size of the head, body and tail of the pancreas. There is normal echogenicity of the pancreas. There is no demonstrated pancreatic mass or cyst. Spleen: Normal size of the spleen. The spleen measures 9.1 cm x 3.2 cm x 4.3 cm. Right Kidney: Normal size of the right kidney. The right kidney measures 10.5 cm x 5 cm x 5.4 cm. Normal renal cortex. The right cortex measures 1.4 cm. There is a 1.1 cm x 1.1 cm x 1.2 cm cyst. There is no right hydronephrosis. Left Kidney: Normal size of the left kidney. The left kidney measures 11.4 cm x 6 cm x 6.7 cm. Normal renal cortex. The left cortex measures 1.9 cm. There is no demonstrated renal mass or cyst. There is no left hydronephrosis. Aorta: Unremarkable I.V.C.: The IVC is patent. There is no ascites. US/Abdomen Complete IMPRESSION: Mild degree of fatty infiltration of the liver. Electronically Signed: Darrick Delarosa, at 11:05 EST , Service support ,
== END ==
PROVIDERS: PCP Family Medicine; Referring Provider Student in an Organized Health Care Education/Training Program; Visit Provider Student in an Organized Health Care Education/Training Program
DX: R10.9 Unspecified abdominal pain (principal)
CPT/HCPCS: 76700

== ENCOUNTER → 2019-10-01 | Outpatient (CLI) | payer BC, SELFPAY ==
[2019-03-06 08:56] VITALS: BMI 24.6
[2019-06-25 14:18] VITALS: BMI 27.1
[2019-08-23 15:28] VITALS: BMI 27.8
--- NOTE | 2019-10-01 07:47 | CT_ITS ---
STUDY: CT ABDOMEN WITH CONTRAST REASON FOR EXAM: Male, 59 years old. 3 MON CHEMO CHECK- HAD RT PARTIAL LOBECTOMY, CHEMO, AND RAD TX, HX-HTN RADIATION DOSAGE (If Supplied By Facility): CTDIvol = ( 14.16 ) mGy, DLP = ( 1082.84 ) mGycm TECHNIQUE: Transaxial images were obtained post I.V. administration of 100ML ISOVUE 300, and oral contrast. Sagittal and coronal images were reconstructed. Individualized dose optimization techniques were used for this CT. COMPARISON: Comparison is made with prior examination dated July 13, 2019. FINDINGS: Minimal increased markings in the lateral aspect of the right lower lobe suggestive of atelectasis and/or scarring. Coronary artery calcification. 4 mm hypodensity in the dome of the right lobe of the liver suggestive of probable tiny cyst. 4 mm hypodensity in the right lobe of the liver at the level of the gallbladder fossa suggestive of a small cyst. Diffuse fatty infiltration of the liver. Normal gallbladder and extrahepatic biliary system. Normal spleen. Normal pancreas. Normal bilateral adrenal glands. There is a 9.3 mm cyst in the midportion of the right kidney. There is a 1.3 cm cyst in the lateral anterior aspect of the left kidney. There is a small hiatal hernia. Normal small intestine. There are multiple colonic diverticula consistent with diverticulosis. The appendix is visualized and appears normal. There is diffuse atherosclerotic calcification of the abdominal aorta, without a demonstrated aneurysm. Normal inferior vena cava. Normal retroperitoneum. There is a small umbilical hernia containing fat. Marked degree of disc space narrowing and disc degeneration with subchondral sclerosis and spondylosis at the L5-S1 level. CT/Abdomen WITH IV Contrast IMPRESSION: Fatty infiltration of the liver. 2. Subcentimeters cysts in the liver. Sigmoid diverticulosis. Electronically Signed: Darrick Delarosa, at 9:15 EDT , Service support ,
--- NOTE | 2019-10-01 07:47 | CT_ITS ---
STUDY: CT CHEST WITH CONTRAST REASON FOR EXAM: Male, 59 years old. 3 MON CHEMO CHECK- HAD RT PARTIAL LOBECTOMY, CHEMO, AND RAD TX, HX-HTN RADIATION DOSAGE (If Supplied By Facility): CTDIvol = ( 14.16 ) mGy, DLP = ( 1082.84 ) mGycm TECHNIQUE: Transaxial imaging was performed following intravenous administration of IV 100mL Isovue-300. Multiplanar coronal and sagittal images were reformatted. Individualized dose optimization techniques were used for this CT. COMPARISON: Comparison is made with prior examination dated May 01, 2019. FINDINGS: A left-sided portacatheter is seen with the tip in the superior vena cava. Stable small benign-appearing bilateral axillary lymph nodes. Stable mild degree of emphysematous changes. The previously seen mass in the medial aspect of the right lung apex has been surgically removed. Mild degree of postsurgical scarring is seen in the medial aspect of the right upper lobe. Minimal increased markings at the right lung base laterally suggestive of scarring. Normal heart and pericardium. Normal mediastinum. Normal hilar regions. Normal enhanced pulmonary arteries. Normal aorta arch and descending thoracic aorta. There are mild degenerative changes of the thoracic spine. Stable 6 mm hypodensity in the dome of the right lobe of the liver suggestive of a small cyst. CT/Chest WITH Contrast IMPRESSION: Status post resection of the right upper lobe mass with mild postoperative scarring. Mild scarring at the right lung base. Electronically Signed: Darrick Delarosa, at 9:03 EDT , Service support ,
[2019-10-01 08:01] LABS: CREATININE FINGERSTICK 0.8 mg/dL (0.70-1.30); EGFR FINGERSTICK > 60.0000 mL/min (>60)
[2019-10-01] MEDS: 0.9% Saline Lock 10 ML Syringe IV (08:07)
== END | disposition home or self-care (01) ==
LOC: CT 07:40
PROVIDERS: Family Provider Family Medicine; PCP Family Medicine; Referring Provider Internal Medicine Hematology & Oncology; Visit Provider Internal Medicine Hematology & Oncology
DX: C34.11 Malignant neoplasm of upper lobe, right bronchus or lung (principal)
CPT/HCPCS: 71260; 74160; Q9967; A4216

== ENCOUNTER 2019-12-18 07:19 | Day surgery (SDC) | payer BC, SELFPAY ==
[2019-03-06 08:56] VITALS: BMI 24.6
[2019-11-22 08:34] VITALS: BMI 30.2
[2019-12-18 07:38] VITALS: BP 135/82; PULSE 70; RESP 15; TEMP 36.3; O2SAT 100; BMI 28.8
[2019-12-18] MEDS: Lactated Ringers 1,000 ML 100 ML IV (07:46)
--- NOTE | 2019-12-18 08:15 | HP.PCM_ITS ---
History of Present Illness Date of Admission: 12/18/19 The patient is a 59 year old M presents for colonoscopy due to abnormal imaging. The patient had lung cancer and underwent chemotherapy for this. The patient had a PET scan during that time which revealed increased uptake in the area of the rectum. The patient had his last colonoscopy a few years ago and there were polyps. He is not having any abdominal pain at this time. Past Medical/Surgical History - Planned Operation Planned Operative Procedure/s: cscope Date of Operative Procedure: 12/18/19 Permit Signed: No S.O.S: No Is This Patient Having a Total Joint: No - Previous Hospitalizations/Surgeries HX Hospitalizations: No HX of Surgeries: APPENDECTOMY. HEART STENT 2016. VASECTOMY. COLONOSCOPY. port insertion 2018. port removed 2019. right upper lobectomy for lung ca Any Problems With Anesthesia: No You/Your Family Experience Fever (Hyperthermia) With Anes: No Cholinesterase deficiency: No - Cardiovascular Hx Chest Pain within Last 2 months: No - LUNG CA Hx of Irregular Heartbeat and/or Afib: No - cad/saw dr eng last 07/2019 Hx Heart Attack: Yes - 2017/STENTED Hx Congestive Heart Failure: No Hx Rheumatic Fever: No Hx Hypertension: Yes - states controlled with med Hx Internal Defibrillator: No Hx Pacemaker: No Hx Cardiac Catheterization: Yes - 2017/ [facility] What facility was last heart cath performed: [facility] Date of last Heart Cath: 2016 Hx Cardiac Surgery/Stents/Etc.: Yes - stents 2016 Hx Stress Test: Yes - stress 2018 HX Edema: No Hx Pain in Legs when Walking/Leg Cramps: No - Respiratory Chronic Cough: No HX of Shortness of Breath: Yes - sob with 2 flights stairs Hoarseness: No Hx Chronic Obstructive Pulmonary Disease (COPD): No - LUNG CA/ Hx Asthma: No Hx Emphysema: No Hx Sleep Apnea: No CPAP: No BIPAP: Yes Hx Oxygen Use at Home: No Hx Respiratory Tract Infection/Cold (presently): No Do You Snore Loudly (louder than talking or can be heard): No Do You Often Feel Tired/ Fatigued/ Sleepy Dring Daytime?: No Has Anyone Observed You Stop Breathing During Sleep?: No Result (for STOP score): Negative Hx Smoking: Yes - quit 02/2019. former 25 yr hx Smoking Status: Former smoker - Gastrointestinal Hx Gastroesophageal Reflux: Yes - not recent Controlled With Meds: No - states controlled Hx Gastrointestinal Disorders: Yes - diverticulitis per hx Hx Gastrointestinal Bleed: No Hx Ulcer: No Hx Hiatal Hernia: No Difficulty Chewing/Swallowing: No Recent Onset of Swallowing Problems: No Special diet followed at home: No Hx Unplanned Weight Loss of 20#: No HX Unplanned Weight Gain of 20#: No - Neurological Hx Seizures: No HX Syncope/Blackout Spells/Unconsciousness: No Hx CVA/Stroke: No Hx Transient Ischemic Attacks (TIA): No Hx Multiple Sclerosis: No Hx Parkinson's Disease: No Hx Head/Neck Injury: No - . Hx Headaches: No Hx Back Injury/Pain: No Recent Onset of Speech Difficulty: No Restless Legs: No Does patient have nerve stimulator: No Patient instructed to have device shut off: No Rep notified?: No - Blood Disorder Hx Leukemia: No Bleeding Tendencies: No - not prior to plavix or asa Hx Deep Vein Thrombosis: No Hx High Cholesterol: Yes - on med Blood Transmitted Disease: No Hx Hepatitis: No Hx Cirrhosis: No Hx Anemia: No Hx Blood Disorders: No - Genitourinary Hx Renal Disease: No Hx Dialysis: No - Musculoskeletal Hx Arthritis: No Hx Rheumatoid Arthritis: No Hx Gout: No Recent Onset of an Orthopedic Problem: No - Endocrine Hx Diabetes: No Thyroid Disease: No Hx Steroid Therapy: No - Psycho/Social Hx Substance Use: No Hx Alcohol Use: Yes - 2 beers daily Hx Anxiety: No Hx Depression: No Mental Illness: No Hx Dementia: No - Miscellaneous Hx Cancer: Yes - new dx lung ca/chemo/radiation/last 04/2019 Recent Exposure to Contagious Disease: No Active MRSA: No Hx of C-Diff: No Any Loose Teeth: No Allergies sulfamethoxazole [From Bactrim] Allergy (Intermediate, Verified 12/18/19 07:26) hives trimethoprim [From Bactrim] Allergy (Intermediate, Verified 12/18/19 07:26) hives Maternal Family History: Family History (Last Reviewed 11/22/19 @ 10:28 by Tere Church) Grandfather Cancer Lung cancer Uncle Cancer Lung cancer - - mother with diverticulitis Paternal Family History: Family History (Last Reviewed 11/22/19 @ 10:28 by Tere Church) Grandfather Cancer Lung cancer Uncle Cancer Lung cancer - - father had some type of cancer - Discharge Is Pt Admitted From a [facility], or a Senior Living: No After D/C, Where Do you Plan to Go: Return Home - Physical Exam Vitals/I&O's: Vital Signs Temp Pulse Resp BP Pulse Ox 97.3 F L 70 15 135/82 H 100 12/18/19 07:38 12/18/19 07:38 12/18/19 07:38 12/18/19 07:38 12/18/19 07:38 Oxygen Delivery Method Room Air Weight: 189 lb 9.561 oz Body Mass Index (BMI) 28.8 General: Alert, Oriented x3 Neck: No JVD Lungs: Normal air movement Cardiovascular: Regular rate, Regular Rhythm Abdomen: Soft, Non Tender, Non-Distended Laboratory Results 12/17/19 09:10: COVID-19 (BRISA) Not Detected Current Medications Lactated Ringer's () 1,000 mls @ 100 mls/hr IV .Q10H YA Last Admin: 12/18/19 07:46 Dose: 100 mls/hr Documented by: Assessment/Plan All Active Problems (Last Reviewed 11/22/19 @ 10:28 by Tere Church) History of lobectomy of lung (Resolved) History of coronary artery stent placement (Resolved 10/26/16) Encounter for adjustment or management of vascular access device (Resolved) 59-year-old male for colonoscopy due to abnormal imaging 1. Patient had a PET scan during his work-up for his lung cancer which showed increased uptake in the rectum and the patient's oncologist would like a colonos copy. His last colonoscopy was a few years ago and there were polyps found. I explained endoscopy in detail to the patient. I explained the risks including but not limited to stroke or heart attack with anesthesia, perforation of the GI tract, bleeding, infection. I explained that any of these could necessitate further emergency surgery. The patient understands and all questions were answered sufficiently. The patient wishes to proceed with procedure. We discussed the current risks associated with COVID-19. While it is understood that there is a community spread of COVID-19, the risk of shaniqua COVID-19 while at [facility] ([facility]) is very low; however, the risk cannot be completely mitigated because of the community spread of the disease. We discussed in detail the risk of exposure to and/or potential harm posed by the COVID-19 virus with having a surgery/procedure at this time versus the risk of delaying the surgery/procedure. It is not possible to know either the risk of delaying the surgery or procedure or chance of getting an infection with perfect accuracy, but a joint decision was made to proceed at this time with the scheduled surgery/procedure as indicated on the consent form. Patient was notified that we will need to comply with any screening or testing [facility] wishes to perform or that surgery may be delayed for any positive results. Douglas Bueno MD Pager: [facility] [address] [place] [address] [address] [place] [address] Office: Surgery Risks - Colonoscopy Risks Include but are not Limited To: Risks include but are not limited to: Bleeding, perforation requiring further surgery, inability to complete colonoscopy requiring barium enema.
--- NOTE | 2019-12-18 08:42 | OP.COLON_ITS ---
Patient Name: Tim Sahu Procedure Date: 12/18/2019 8:13 AM Date of : 1960 Age: 59 Procedure: Colonoscopy Indications: Abnormal PET scan of the GI tract Providers: Douglas Bueno MD Referring MD: Brett Alexander Medicines: Monitored Anesthesia Care Patient Profile: This is a 59 year old male. Refer to note in patient chart for documentation of history and physical. Last Colonoscopy: more than 3 years ago. Complications: No immediate complications. Procedure: Pre-Anesthesia Assessment: - Prior to the procedure, a History and Physical was performed, and patient medications and allergies were reviewed. The patient's tolerance of previous anesthesia was also reviewed. The risks and benefits of the procedure and the sedation options and risks were discussed with the patient. All questions were answered, and informed consent was obtained. Prior Anticoagulants: The patient has taken Plavix (clopidogrel), last dose was 5 days prior to procedure. After reviewing the risks and benefits, the patient was deemed in satisfactory condition to undergo the procedure. After I obtained informed consent, the scope was passed under direct vision. Throughout the procedure, the patient's blood pressure, pulse, and oxygen saturations were monitored continuously. The pediatric colonoscope was introduced through the anus and advanced to the cecum, identified by appendiceal orifice and ileocecal valve. The colonoscopy was performed without difficulty. The patient tolerated the procedure well. The quality of the bowel preparation was good. Scope In: 8:24:01 AM Scope Withdrawal Time 0 hours 8 minutes 47 seconds Scope Out: 8:38:37 AM Total Procedure Duration Time 0 hours 14 minutes 36 seconds Findings: The entire examined colon appeared normal on direct and retroflexion views. Impression: - The entire examined colon is normal on direct and retroflexion views. - No specimens collected. Recommendation: - Discharge patient to home. - Resume previous diet. - Continue present medications. - Repeat colonoscopy in 10 years for screening purposes. - Resume Plavix (clopidogrel) at prior dose today. Procedure Code(s): --- Professional --- 27679, Colonoscopy, flexible; diagnostic, including collection of specimen(s) by brushing or washing, when performed (separate procedure) Diagnosis Code(s): --- Professional --- R93.3, Abnormal findings on diagnostic imaging of other parts of digestive tract CPT copyright 2017 [employer]. All rights reserved. The codes documented in this report are preliminary and upon medical office secretary review may be revised to meet current compliance requirements. Douglas Bueno MD 12/18/2019 8:41:37 AM This report has been signed electronically. Number of Addenda: 0 Note Initiated On: 12/18/2019 8:13 AM
--- NOTE | 2019-12-18 08:42 | OP.CCLET_ITS ---
12/18/2019 Brett Alexander Re : Colonoscopy procedure for Tim Sahu Dear Dr. Alexander This procedure was performed on Wednesday, December 18, 2019. My impressions and recommendations are as follows: Impressions : - The entire examined colon is normal on direct and retroflexion views. - No specimens collected. Recommendations : - Discharge patient to home. - Resume previous diet. - Continue present medications. - Repeat colonoscopy in 10 years for screening purposes. - Resume Plavix (clopidogrel) at prior dose today. My findings are described in the full procedure note, which is enclosed. If I can be of further assistance, please feel free to contact me at Doctor phone number(s): , Work: . Sincerely, Douglas Bueno MD 12/18/2019 8:41:37 AM This report has been signed electronically.
[2019-12-18 08:43] VITALS: BP 112/73; BP 135/82; PULSE 64; RESP 16; TEMP 36.4; O2SAT 97
[2019-12-18 08:48] VITALS: BP 117/78; BP 135/82; PULSE 59; RESP 16; O2SAT 99
[2019-12-18 08:53] VITALS: BP 126/84; BP 135/82; PULSE 57; RESP 16; O2SAT 100
[2019-12-18 08:58] VITALS: BP 132/72; BP 135/82; PULSE 55; RESP 16; TEMP 36.4; O2SAT 100
[2019-12-18 09:18] VITALS: BP 135/82
== END 2019-12-18 09:21 | disposition home or self-care (01) ==
LOC: EN 07:20 → AC 07:20
PROVIDERS: Physician Assistant; PCP Family Medicine; Referring Provider Family Medicine; Visit Provider Surgery
PROC: 0DJD8ZZ Inspection of Lower Intestinal Tract, Via Natural or Artificial Opening Endoscopic (ICD-10-PCS; CPT 45378; principal; 2019-12-18 08:25)
DX: R93.3 Abnormal findings on diagnostic imaging of other parts of digestive tract (principal); I25.10 Atherosclerotic heart disease of native coronary artery without angina pectoris; I25.2 Old myocardial infarction; I10 Essential (primary) hypertension; E78.00 Pure hypercholesterolemia, unspecified; C34.90 Malignant neoplasm of unspecified part of unspecified bronchus or lung; Z95.5 Presence of coronary angioplasty implant and graft; Z86.010 Personal history of colon polyps; Z79.02 Long term (current) use of antithrombotics/antiplatelets; Z79.82 Long term (current) use of aspirin; Z79.899 Other long term (current) drug therapy; Z87.891 Personal history of nicotine dependence; Z11.59 Encounter for screening for other viral diseases
CPT/HCPCS: 45378; 87635; G2023; J7120; U0003

== ENCOUNTER → 2020-01-02 | Outpatient (CLI) | payer BC, SELFPAY ==
[2019-03-06 08:56] VITALS: BMI 24.6
[2019-11-22 08:34] VITALS: BMI 30.2
[2019-12-18 07:38] VITALS: BMI 28.8
--- NOTE | 2020-01-02 14:12 | PFTCOMP_ITS ---
COMPLETE PULMONARY FUNCTION TEST INTERPRETATION Brief HPI: Patient is a 59 year old male, currently under the care of myself, who presents to [facility] [place] for complete pulmonary function tests secondary to diagnosis of status post lung resection. Respiratory therapist reports good effort and reproducible results. Interpretation: Forced expiration spirometry shows no large airways obstructive ventilatory defect with an FEV1 of 77% predicted. There is no significant bronchodilator response by strict ATS criteria. Spirograms are of good quality and plateau normally. The respiratory flow volume loop shows a normal pattern. Lung volumes by body plethysmography show a normal total lung capacity at 7.1 L, 114% predicted. FRC and RV are elevated out of proportion. Lung volume measurements are consistent with hyperinflation and air-trapping. Diffusion capacity by carbon monoxide is normal at 74% predicted. The airway resistance is normal. Compared to previous pulmonary function tests from 02/27/2019, there is been a significant improvement in total lung capacity by 33%. Impression: Grossly normal pulmonary function testing with improvement compared to previous study in February 2019
== END | disposition home or self-care (01) ==
LOC: PSN 09:51
PROVIDERS: PCP Family Medicine; Referring Provider Internal Medicine Critical Care Medicine; Visit Provider Internal Medicine Critical Care Medicine
DX: C34.11 Malignant neoplasm of upper lobe, right bronchus or lung (principal); Z90.2 Acquired absence of lung [part of]
CPT/HCPCS: 94060; 94726; 94729

== ENCOUNTER → 2020-01-14 | Outpatient (CLI) | payer BC, SELFPAY ==
[2019-03-06 08:56] VITALS: BMI 24.6
[2019-11-22 08:34] VITALS: BMI 30.2
[2019-12-18 07:38] VITALS: BMI 28.8
[2020-01-14 10:38] VITALS: PULSE 67; PULSE 69; PULSE 78; PULSE 79; O2SAT 95; O2SAT 96; O2SAT 97; O2SAT 98
--- NOTE | 2020-01-14 12:05 | PCM.PSN.6M ---
PSN 6 Minute Walk Test - 6 Minute Walk Test 6 Minute Walk Test: 6 Minute Walk Test PSN:6-Minute Walk Test Start: 01/14/20 10:38 Freq: Status: Active Protocol: RESP.6MINW Document 01/14/20 10:38 DEBORAGOLDY (Rec: 01/14/20 10:40 SABAFLAQUITAGOLDY [id number]) 6 Minute Walk Test Date Performed 01/14/20 Time Performed 10:30 Height 5 ft 8 in Weight: 88.451 kg Weight in Pounds 195.[address]: Nilton Parker Assistive device used: None Pre-test Oxygen Delivery Method Room Air Pulse Ox (%) 96 Pulse Rate (60-100 beats/min) 67 Dyspnea Melvin Scale (0-10) 0 Exertion Melvin Scale (6-20) 6 1st minute Oxygen Delivery Method Room Air Pulse Ox (%) 97 Pulse Rate (60-100 beats/min) 78 2nd minute Oxygen Delivery Method Room Air Pulse Ox (%) 96 Pulse Rate (60-100 beats/min) 78 3rd minute Oxygen Delivery Method Room Air Pulse Ox (%) 96 Pulse Rate (60-100 beats/min) 78 4th minute Oxygen Delivery Method Room Air Pulse Ox (%) 96 Pulse Rate (60-100 beats/min) 79 5th minute Oxygen Delivery Method Room Air Pulse Ox (%) 97 Pulse Rate (60-100 beats/min) 79 6th minute Oxygen Delivery Method Room Air Pulse Ox (%) 95 Pulse Rate (60-100 beats/min) 79 Dyspnea Melvin Scale (0-10) 1 Exertion Melvin Scale (6-20) 11 Post-test Oxygen Delivery Method Room Air Pulse Ox (%) 98 Pulse Rate (60-100 beats/min) 69 Full Laps Walked 24 Partial Lap, Number of Tiles Walked 4 Total Distance Walked (ft) 1420 - Interpretation Interpretation: The patient was able to ambulate 1420 feet over the course of 6 minutes on room air with no assistive devices or breaks. The patient experienced no significant desaturation or tachycardia. These findings are consistent with a normal walking oximetry. - Recommendations Recommendations: No supplemental oxygen is indicated at this time.
== END | disposition home or self-care (01) ==
LOC: PSN 10:20
PROVIDERS: PCP Family Medicine; Referring Provider Internal Medicine Critical Care Medicine; Visit Provider Internal Medicine Critical Care Medicine
DX: C34.11 Malignant neoplasm of upper lobe, right bronchus or lung (principal); Z90.2 Acquired absence of lung [part of]
CPT/HCPCS: 94618

== ENCOUNTER → 2020-04-18 | Outpatient (CLI) | payer BC, SELFPAY ==
[2019-03-06 08:56] VITALS: BMI 24.6
[2020-03-06 16:00] VITALS: BMI 30.1
== END | disposition home or self-care (01) ==
LOC: MTDU 17:34
PROVIDERS: PCP Family Medicine; Referring Provider Internal Medicine; Visit Provider Internal Medicine
DX: Z20.828 Contact with and (suspected) exposure to other viral communicable diseases (principal)
CPT/HCPCS: 87635; C9803; U0003

== ENCOUNTER → 2020-05-06 | Outpatient (CLI) | payer BC, SELFPAY ==
[2019-03-06 08:56] VITALS: BMI 24.6
[2020-02-12 15:19] VITALS: BMI 30.4
[2020-03-06 16:00] VITALS: BMI 30.1
--- NOTE | 2020-05-06 14:12 | CT_ITS ---
STUDY: CT ABDOMEN WITH CONTRAST REASON FOR EXAM: Male, 59 years old. Lung cancer follow up, 1 year post treatment-chemotherapy and amp; radiation, partial right lobectomy, Power Port removal. RADIATION DOSAGE (If Supplied By Facility): CTDIvol = ( 15.74 ) mGy, DLP = ( 1143.86 ) mGycm TECHNIQUE: Transaxial images were obtained post I.V. administration of IV 100mL Isovue-300, and oral contrast. Sagittal and coronal images were reconstructed. Individualized dose optimization techniques were used for this CT. COMPARISON: 07/13/2019 and 10/01/2019. FINDINGS: There is stable bibasilar atelectasis and/or scarring. There is a stable right basilar 3 mm nodule which may reflect an underlying lymph node. There are coronary artery calcifications present. There is a stable too small to characterize low-attenuation focus within segment 4 the liver which may reflect a cyst or hemangioma. Normal gallbladder and extrahepatic biliary system. Normal spleen. Normal pancreas. Normal bilateral adrenal glands. There are bilateral renal cysts. Normal visualized stomach. Normal small intestine. There are multiple colonic diverticula consistent with diverticulosis. There is non-visualization of the appendix. There is diffuse atherosclerotic calcification of the abdominal aorta, without a demonstrated aneurysm. Normal inferior vena cava. Normal retroperitoneum. Normal abdominal wall. There are diffuse degenerative changes of the visualized lumbar spine. CT/Abdomen WITH IV Contrast IMPRESSION: Atherosclerosis. Colonic diverticulosis. Bilateral renal cysts. Electronically Signed: Anh Harkins MD at 21:49 EDT Tel , Service support ,
--- NOTE | 2020-05-06 14:16 | CT_ITS ---
STUDY: CT CHEST WITH CONTRAST REASON FOR EXAM: Male, 59 years old. Lung cancer follow up, 1 year post treatment-chemotherapy and amp; radiation, partial right lobectomy, Power Port removal. RADIATION DOSAGE (If Supplied By Facility): CTDIvol = ( 15.74 ) mGy, DLP = ( 1143.86 ) mGycm TECHNIQUE: Transaxial imaging was performed following intravenous administration of IV 100mL Isovue-300. Multiplanar coronal and sagittal images were reformatted. Individualized dose optimization techniques were used for this CT. COMPARISON: Comparison is made with prior study dated 10/01/2019. FINDINGS: Stable small benign-appearing bilateral axillary lymph nodes. Stable mild increased linear markings at the right lung base. The patient has a history of prior resection at the right lung apex. There has been no change. There is no demonstrated pleural abnormality. Normal heart and pericardium. There are multiple small lymph nodes within the mediastinum, which are normal in size and morphology most compatible with reactive lymph hyperplasia. Normal hilar regions. Normal enhanced pulmonary arteries. Normal aorta arch and descending thoracic aorta. There are mild degenerative changes of the thoracic spine. There is a 1.4 cm enhancing nodule in the dome of the left lobe of the liver. This is unchanged and may represent a small hemangioma. CT/Chest WITH Contrast IMPRESSION: Stable examination. Electronically Signed: Darrick Delarosa, at 15:21 EDT , Service support ,
[2020-05-06 14:36] LABS: CREATININE FINGERSTICK 0.8 mg/dL (0.70-1.30)
== END | disposition home or self-care (01) ==
LOC: CT 14:12
PROVIDERS: PCP Family Medicine; Referring Provider Internal Medicine Hematology & Oncology; Visit Provider Internal Medicine Hematology & Oncology
DX: C34.11 Malignant neoplasm of upper lobe, right bronchus or lung (principal)
CPT/HCPCS: 71260; 74160; Q9967

== ENCOUNTER → 2021-03-06 07:48 | Outpatient (CLI) | payer BC, SELFPAY ==
[2019-03-06 08:56] VITALS: BMI 24.6
--- NOTE | 2021-03-06 07:49 | MRI_ITS ---
EXAM: MR HEAD WITHOUT AND WITH INTRAVENOUS CONTRAST CLINICAL INDICATION: follow up treated brain metastasis, Surgery October 2020 TECHNIQUE: Multiplanar and multisequence MR images of the brain were obtained without and with intravenous contrast. This report was created using [employer] report [employer] technology. CONTRAST: IV 19cc Dotarem COMPARISON: MRI brain with and without contrast 11/30/2018. The MRI brain with the brain metastases was not submitted for comparison. FINDINGS: BRAIN AND EXTRA-AXIAL SPACES: Tiny 2 mm enhancing metastatic mass in the left central pontine tegmentum (series 10, images 9). No intra- or extra-axial hemorrhage. SELLA: Unremarkable. Normal sella turcica, pituitary gland, infundibular stalk, optic chiasm and hypothalamus. AUDITORY SYSTEM: Unremarkable. The internal auditory canals are patent. BONES/JOINTS: Right parietal convexity craniotomy defect with focal atrophy and encephalomalacia of the right prior lobe convexity. No discrete lytic or blastic abnormalities. SINUSES: Unremarkable as visualized. Clear. MASTOID AIR CELLS: Unremarkable as visualized. Clear. ORBITS: Unremarkable as visualized. Both globes, extraocular muscles, optic nerves and retrobulbar fat appear unremarkable. VASCULATURE: Unremarkable as visualized. Normal flow voids in the major intracranial circulation. MRI/Brain W/WO Contrast IMPRESSION: 1. 2 mm enhancing metastatic mass in the left central pontine tegmentum (series 10, image 9). 2. Focal atrophy in the left parietal lobe convexity underneath the craniotomy site from previous metastatic tumor resection. 3. No other additional findings or changes when compared to 03/02/2019. COMMENT: The previous MRI of the brain that demonstrated the metastatic mass in the left parietal lobe was not submitted for comparison. Only MRI brain of 03/02/2019 without visible brain metastases was submitted for comparison. Electronically Signed: Ricci Leal MD at 12:40 EDT , Service support ,
== END ==
PROVIDERS: PCP Family Medicine; Referring Provider Student in an Organized Health Care Education/Training Program; Visit Provider Student in an Organized Health Care Education/Training Program
DX: C34.11 Malignant neoplasm of upper lobe, right bronchus or lung (principal); C79.31 Secondary malignant neoplasm of brain
CPT/HCPCS: 70553; A9575

== ENCOUNTER → 2021-03-26 17:43 | Outpatient (CLI) | payer BC, SELFPAY ==
[2019-03-06 08:56] VITALS: BMI 24.6
--- NOTE | 2021-03-26 17:57 | MRI_ITS ---
STUDY: MRI LUMBAR SPINE WITH AND WITHOUT CONTRAST REASON FOR EXAM: Male, 60 years old. LE numbness, eval for metastatic disease TECHNIQUE: Standardized fat and water weighted pulse sequences were obtained in the sagittal and axial planes. IV DOTAREM 20ML was administered for the contrast portion of the examination. COMPARISON: None FINDINGS: T12-L1: Normal endplates. Normal disc height, hydration and morphology. Normal bilateral facet joints. Normal central canal and bilateral lateral recesses. Normal bilateral intervertebral neural foramina. Normal lumbar lordosis. There is no substantial scoliosis. Normal conus medullaris that terminates at the L1/L2. L1-2: Normal endplates. Normal disc height, hydration and morphology. Normal bilateral facet joints. Normal central canal and bilateral lateral recesses. Normal bilateral intervertebral neural foramina. L2-3: Normal endplates. Normal disc height, hydration and morphology. Normal bilateral facet joints. Normal central canal and bilateral lateral recesses. Normal bilateral intervertebral neural foramina. L3-4: Normal endplates. Normal disc height, hydration and morphology. Normal bilateral facet joints. Normal central canal and bilateral lateral recesses. Normal bilateral intervertebral neural foramina. L4-5: Normal endplates. Normal disc height, hydration and morphology. Normal bilateral facet joints. Normal central canal and bilateral lateral recesses. Normal bilateral intervertebral neural foramina. L5-S1: Severe loss of disc height with a moderate broad disc protrusion and a moderate left paracentral disc protrusion produces moderate spinal stenosis, moderate right lateral recess stenosis with abutment of the right S1 nerve root, severe left lateral recess stenosis with effacement of the left S1 nerve root and moderate bilateral neural foraminal stenosis with abutment of the exiting L5 nerve roots bilaterally. Normal visualized sacral ala. Normal visualized paraspinous soft tissue structures. There is no demonstrated abnormal enhancement. MRI/Spine Lumbar W/WO Contrast IMPRESSION: Focal degenerative disc disease at L5/S1 as described above. Electronically Signed: Clement Tavares MD at 13:11 EDT Tel , Service support ,
== END ==
PROVIDERS: PCP Family Medicine; Referring Provider Student in an Organized Health Care Education/Training Program; Visit Provider Student in an Organized Health Care Education/Training Program
DX: R20.0 Anesthesia of skin (principal); C34.11 Malignant neoplasm of upper lobe, right bronchus or lung
CPT/HCPCS: 72158; A9575

== ENCOUNTER → 2021-05-01 10:03 | Outpatient (CLI) | payer BC, SELFPAY ==
[2019-03-06 08:56] VITALS: BMI 24.6
--- NOTE | 2021-05-01 10:04 | MRI_ITS ---
EXAM: MR HEAD WITHOUT AND WITH INTRAVENOUS CONTRAST : 1960 CLINICAL INDICATION: brain metastasis -- evaluate tsering lesion and for any new changes TECHNIQUE: Multiplanar and multisequence MR images of the brain were obtained without and with intravenous contrast. This report was created using [employer] report generation technology. CONTRAST: IV 19cc dotarem COMPARISON: March 06, 2021 FINDINGS: BRAIN AND EXTRA-AXIAL SPACES: Small focus of increased T2 signal intensity within the left frontal white matter unchanged likely representing an area of gliosis. No change in the increased T2 signal intensity within the region of biopsy left parietal lobe. No intracranial mass. No abnormal contrast enhancement. No intra- or extra-axial hemorrhage. No evidence of acute infarct. There is preservation of the mason/white matter interface. Posterior fossa structures are unremarkable. Ventricles are appropriate for age. No hydrocephalus. Basal cisterns are patent. SELLA: Unremarkable. Normal sella turcica, pituitary gland, infundibular stalk, optic chiasm and hypothalamus. AUDITORY SYSTEM: Unremarkable. The internal auditory canals are patent. BONES/JOINTS: Unremarkable. No discrete lytic or blastic abnormalities. SINUSES: Mucus retention cyst again noted within both maxillary sinuses. MASTOID AIR CELLS: Unremarkable as visualized. Clear. ORBITS: Unremarkable as visualized. Both globes, extraocular muscles, optic nerves and retrobulbar fat appear unremarkable. VASCULATURE: Unremarkable as visualized. Normal flow voids in the major intracranial circulation. MRI/Brain W/WO Contrast IMPRESSION: 1. No evidence of metastatic brain disease. 2. No pontine lesion noted on the current exam. 3. Postoperative changes of left parietal lobe. at 1631 Reported and signed by: Andrews Portillo MD Electronically Signed: Andrews Portillo MD at 16:30 EDT Tel , Service support ,
[2021-05-01 10:25] LABS: EGFR FINGERSTICK > 60.0000 mL/min (>60)
== END ==
PROVIDERS: PCP Family Medicine; Referring Provider Student in an Organized Health Care Education/Training Program; Visit Provider Student in an Organized Health Care Education/Training Program
DX: C79.31 Secondary malignant neoplasm of brain (principal)
CPT/HCPCS: 70553; A9585

== ENCOUNTER → 2021-06-10 08:59 | Outpatient (CLI) | payer BC, SELFPAY ==
[2019-03-06 08:56] VITALS: BMI 24.6
--- NOTE | 2021-06-10 09:00 | RAD_ITS ---
STUDY: X-RAY CHEST REASON FOR EXAM: Male, 60 years old. Cough. History of resection of right lung cancer. TECHNIQUE: Frontal and lateral views of the chest. COMPARISON: 03/05/2019. FINDINGS: Stable postsurgical changes of the right lung with loss of volume. There is no demonstrated pleural abnormality. Normal size heart. Normal mediastinum and charles. Normal visualized pulmonary arteries. Normal visualized aortic arch and descending thoracic aorta. Normal visualized thoracic spine. Normal visualized ribs, clavicles, and shoulders. There is no demonstrated abnormality of the visualized soft tissue structures of the upper abdomen. RAD/Chest PA and Lateral IMPRESSION: Stable chest with no acute abnormality. No focal consolidation. Electronically Signed: Mauricio Javier MD at 11:56 EST , Service support ,
== END ==
PROVIDERS: PCP Family Medicine; Visit Provider Nurse Practitioner Family
DX: J40 Bronchitis, not specified as acute or chronic (principal)
CPT/HCPCS: 71046

== ENCOUNTER 2021-08-07 12:25 | Outpatient (CLI) | payer BC, SELFPAY ==
[2019-03-06 08:56] VITALS: BMI 24.6
--- NOTE | 2021-08-07 12:28 | MRI_ITS ---
EXAM: MR HEAD WITHOUT AND WITH INTRAVENOUS CONTRAST CLINICAL INDICATION: brain metastases -- monitoring, please compare to prior TECHNIQUE: Multiplanar and multisequence MR images of the brain were obtained without and with intravenous contrast. This report was created using [employer] report [employer] technology. CONTRAST: IV 19mL Dotarem COMPARISON: 05.01.21 FINDINGS: BRAIN AND EXTRA-AXIAL SPACES: No enhancing pontine lesion. No intra- or extra-axial hemorrhage. No evidence of acute infarct. No intracranial mass or mass effect. There is preservation of the mason/white matter interface. Posterior fossa structures are unremarkable. Ventricles are appropriate for age. No hydrocephalus. Basal cisterns are patent. SELLA: Unremarkable. Normal sella turcica, pituitary gland, infundibular stalk, optic chiasm and hypothalamus. AUDITORY SYSTEM: Unremarkable. The internal auditory canals are patent. BONES/JOINTS: Left occipital craniotomy changes. No discrete lytic or blastic abnormalities. SINUSES: Unremarkable as visualized. Clear. MASTOID AIR CELLS: There is left mastoid air cell disease. There is mastoid sinus disease. ORBITS: Unremarkable as visualized. Both globes, extraocular muscles, optic nerves and retrobulbar fat appear unremarkable. VASCULATURE: Unremarkable as visualized. Normal flow voids in the major intracranial circulation. OTHER FINDINGS: Stable areas of GRE signal. MRI/Brain W/WO Contrast IMPRESSION: 1. There is left mastoid air cell disease. There is mastoid sinus disease. 2. No enhancing pontine lesion. Electronically Signed: nAoop Tsai MD at 14:15 EST ,
== END 2021-08-07 23:59 | disposition short-term general hospital (02) ==
PROVIDERS: PCP Family Medicine; Referring Provider Student in an Organized Health Care Education/Training Program; Visit Provider Student in an Organized Health Care Education/Training Program
DX: C79.31 Secondary malignant neoplasm of brain (principal)
CPT/HCPCS: 70553; A9575

== ENCOUNTER 2021-09-08 12:05 | Outpatient (CLI) | payer BC, SELFPAY ==
[2019-03-06 08:56] VITALS: BMI 24.6
--- NOTE | 2021-09-08 12:07 | RAD_ITS ---
STUDY: X-RAY - LEFT ELBOW REASON FOR EXAM: Male, 61 years old. Left elbow pain. TECHNIQUE: 3 view(s) of the elbow. COMPARISON: None. FINDINGS: Normal visualized humerus, radius and ulna. Normal radiocapitellar and ulnotrochlear articulations. The soft tissue structures are unremarkable. RAD/Elbow min 3 Views IMPRESSION: Normal x-ray examination of the elbow. Electronically Signed: Mauricio Javier MD at 12:33 EST ,
== END 2021-09-08 23:59 | disposition home or self-care (01) ==
LOC: MTRAD 12:05
PROVIDERS: PCP Family Medicine; Referring Provider Nurse Practitioner Family; Visit Provider Nurse Practitioner Family
DX: M25.552 Pain in left hip (principal)
CPT/HCPCS: 73080

== ENCOUNTER 2021-10-02 07:16 | Outpatient (CLI) | payer BC, SELFPAY ==
[2019-03-06 08:56] VITALS: BMI 24.6
--- NOTE | 2021-10-02 07:29 | NM_ITS ---
CLINICAL: 61-year-old male with reported history of primary lung carcinoma. WHOLE BODY 99m Tc MDP RADIONUCLIDE BONE SCINTIGRAPHY COMPARISON: None available FINDINGS: Following the intravenous administration of 26.0 mCi of 99m Tc MDP, whole body bone images reveal: 1. Increased radiopharmaceutical concentration is identified in the left proximal humeral metaphysis. 2. Enhanced tracer activity is visualized in the mid cervical spine posteriorly on the left, third thoracic vertebra posteriorly on the left, the acromioclavicular and sternoclavicular compartments of both shoulders, glenohumeral compartment of the right shoulder, bilateral knees. 3. The remaining skeletal structures are scintigraphically unremarkable with normal-appearing renal images and urinary bladder activity identified. NM/Bone Scan Whole Body IMPRESSION: 1. The increase in tracer concentration observed in the left proximal humeral metaphysis may be further investigated with plain film radiography in the setting of known lung carcinoma. 2. Degenerative arthritis appears expressed in the cervical and thoracic spine, bilateral shoulders, right and left knee articulations. 3. There is no definitive typical scintigraphic evidence of diffuse axial skeletal metastatic disease on the current examination. Electronically Signed: Clement Dejesus DO at 7:42 EDT ,
== END 2021-10-02 23:59 | disposition home or self-care (01) ==
PROVIDERS: PCP Family Medicine; Referring Provider Internal Medicine Hematology & Oncology; Visit Provider Internal Medicine Hematology & Oncology
DX: C34.90 Malignant neoplasm of unspecified part of unspecified bronchus or lung (principal); C79.51 Secondary malignant neoplasm of bone; M47.812 Spondylosis without myelopathy or radiculopathy, cervical region; M47.814 Spondylosis without myelopathy or radiculopathy, thoracic region; M17.0 Bilateral primary osteoarthritis of knee; M19.011 Primary osteoarthritis, right shoulder; M19.012 Primary osteoarthritis, left shoulder
CPT/HCPCS: 78306; A9503

== ENCOUNTER 2021-10-06 12:33 | Outpatient (CLI) | payer BC, SELFPAY ==
[2019-03-06 08:56] VITALS: BMI 24.6
--- NOTE | 2021-10-06 12:36 | CT_ITS ---
STUDY: CT CHEST T ABDOMEN WITH CONTRAST REASON FOR EXAM: Male, 61 years old. RESTAGING NSCLC. History of brain metastasis. Status post radiation and chemotherapy. RADIATION DOSAGE (If Supplied By Facility): CTDIvol = ( 15.04 ) mGy, DLP = ( 1347.43 ) mGycm TECHNIQUE: Transaxial imaging was performed following intravenous administration of IV 100mL Isovue-300. Individualized dose optimization techniques were used for this CT. COMPARISON: Comparison is made with prior study dated 05/06/2020. FINDINGS: CHEST Stable small benign-appearing bilateral axillary lymph nodes. Stable mild degree of increased linear markings at the right lung base suggestive of scarring. The patient is status post resection of the right lung apex. There is no demonstrated pleural abnormality. Normal heart and pericardium. Normal mediastinum. Normal hilar regions. Normal unenhanced pulmonary arteries. There is atherosclerotic calcification of the aortic arch. There are mild degenerative changes of the thoracic spine. Stable 1.4 cm enhancing nodule in the dome of the left lobe of the liver laterally. ABDOMEN Stable 1.4 cm enhancing nodule in the dome of the left lobe of the liver laterally. Fatty infiltration of the liver. Normal gallbladder and extrahepatic biliary system. Normal spleen. Normal pancreas. Normal bilateral adrenal glands. There is a 1.1 cm cyst in the midportion of the right kidney. There is a 1.3 cm cyst in the lateral aspect of the left kidney. Normal visualized stomach. Normal small intestine. There are multiple colonic diverticula consistent with diverticulosis. The appendix is visualized and appears normal. There is scattered atherosclerotic calcification of the abdominal aorta, without a demonstrated aneurysm. Normal inferior vena cava. Normal retroperitoneum. There is a small umbilical hernia containing fat. Disc space narrowing and degenerative changes at the L5-S1 level. CT/CT Chest AND Abd W/ Contrast IMPRESSION: Stable 1.4 cm enhancing nodule in the left lobe of the liver laterally. Mild degree of fatty infiltration of the liver. Electronically Signed: Darrick Delarosa MD at 15:17 EDT ,
[2021-10-06 12:56] LABS: CREATININE FINGERSTICK 0.9 mg/dL (0.70-1.30); EGFR FINGERSTICK > 60.0000 mL/min (>60)
== END 2021-10-06 23:59 | disposition home or self-care (01) ==
PROVIDERS: PCP Family Medicine; Referring Provider Internal Medicine Hematology & Oncology; Visit Provider Internal Medicine Hematology & Oncology
DX: I10 Essential (primary) hypertension (principal); C79.31 Secondary malignant neoplasm of brain; C34.90 Malignant neoplasm of unspecified part of unspecified bronchus or lung; D13.4 Benign neoplasm of liver; Z92.21 Personal history of antineoplastic chemotherapy
CPT/HCPCS: 71260; 74160; Q9967

== ENCOUNTER 2021-10-14 15:35 | Outpatient (CLI) | payer BC, SELFPAY ==
[2019-03-06 08:56] VITALS: BMI 24.6
--- NOTE | 2021-10-14 15:41 | RAD_ITS ---
STUDY: X-RAY - LEFT HUMERUS REASON FOR EXAM: Male, 61 years old. PAIN -- COMPARE TO BONE SCAN 10-02-21 TECHNIQUE: 2 view(s) of the humerus. COMPARISON: None. FINDINGS: BONES: No fracture demonstrated. No lytic or blastic lesion. No periosteal reaction. JOINTS: No dislocation. SOFT TISSUES: Unremarkable. RAD/Humerus min 2 Views IMPRESSION: No acute findings. No evidence of bone lesion. Electronically Signed: Teresa Buchanan MD at 5:04 EDT ,
--- NOTE | 2021-10-14 15:41 | RAD_ITS ---
STUDY: X-RAY - LEFT SHOULDER REASON FOR EXAM: Male, 61 years old. PAIN -- PLEASE COMPARE TO BONE SCAN 10-02-21 TECHNIQUE: 4 view(s) of the shoulder. COMPARISON: None. FINDINGS: There is mild degenerative arthrosis of the glenohumeral articulation. There is mild arthrosis of the acromioclavicular joint without inferior osseous spur formation. Normal acromion. Normal humeral head and visualized proximal humerus. The soft tissue structures are unremarkable. Normal visualized pulmonary apex. RAD/Shoulder min 2 Views IMPRESSION: Mild arthrosis, no demonstrated fracture or suspicious osseous lesion. No plain film evidence to suspect metastasis Electronically Signed: Nikolas Key MD at 16:13 EDT ,
== END 2021-10-14 23:59 | disposition home or self-care (01) ==
LOC: RAD 15:36
PROVIDERS: PCP Family Medicine; Visit Provider Internal Medicine Hematology & Oncology
DX: M25.519 Pain in unspecified shoulder (principal)
CPT/HCPCS: 73030; 73060

== ENCOUNTER → 2021-11-05 | Outpatient (CLI) | payer BC, SELFPAY ==
[2019-03-06 08:56] VITALS: BMI 24.6
--- NOTE | 2021-11-05 12:54 | MRI_ITS ---
EXAM: MR HEAD WITHOUT AND WITH INTRAVENOUS CONTRAST CLINICAL INDICATION: brain metastases, monitor, no new complaints TECHNIQUE: Multiplanar and multisequence MR images of the brain were obtained without and with intravenous contrast. This report was created using [employer] report generation technology. CONTRAST: IV 19CC DOTAREM COMPARISON: August 07, 2021 report from March 02, 2019 showed no acute abnormality, but 2 mm enhancing lesion in the left central pontine tegmentum was described on March 09, 2021, with focal atrophy in left parietal lobe consistent with prior metastatic tumor resection. FINDINGS: BRAIN AND EXTRA-AXIAL SPACES: There are stable postoperative changes of left posterior parietal region. No residual or new enhancing lesions. No intra- or extra-axial hemorrhage. No evidence of acute infarct. No intracranial mass or mass effect. There is preservation of the mason/white matter interface. Posterior fossa structures are unremarkable. Ventricles are appropriate for age. No hydrocephalus. Basal cisterns are patent. SELLA: Unremarkable. Normal sella turcica, pituitary gland, infundibular stalk, optic chiasm and hypothalamus. AUDITORY SYSTEM: Unremarkable. The internal auditory canals are patent. BONES/JOINTS: Unremarkable. No discrete lytic or blastic abnormalities. SINUSES: Similar mucous retention cyst in the left maxillary sinus. MASTOID AIR CELLS: Unremarkable as visualized. Clear. ORBITS: Unremarkable as visualized. Both globes, extraocular muscles, optic nerves and retrobulbar fat appear unremarkable. VASCULATURE: Unremarkable as visualized. Normal flow voids in the major intracranial circulation. OTHER FINDINGS: MRI/Brain W/WO Contrast IMPRESSION: No suspicious intracranial lesions. Stable postoperative changes. Electronically Signed: Vonnie Campos MD at 6:31 EDT ,
== END | disposition home or self-care (01) ==
LOC: MRI 12:54
PROVIDERS: PCP Family Medicine; Referring Provider Student in an Organized Health Care Education/Training Program; Visit Provider Student in an Organized Health Care Education/Training Program
DX: C79.31 Secondary malignant neoplasm of brain (principal); C80.1 Malignant (primary) neoplasm, unspecified
CPT/HCPCS: 70553; A9575

== ENCOUNTER → 2022-01-02 | Outpatient (CLI) | payer BC, SELFPAY ==
[2019-03-06 08:56] VITALS: BMI 24.6
--- NOTE | 2022-01-02 07:51 | MRI_ITS ---
EXAM: MR CERVICAL SPINE WITHOUT INTRAVENOUS CONTRAST CLINICAL INDICATION: pain TECHNIQUE: Multiplanar and multisequence MR images of the cervical spine without intravenous contrast were performed. This report was created using [employer] report generation technology. COMPARISON: None. FINDINGS: VERTEBRAE: Straightening and mild reversal of the usual lordotic curvature centered at C4-C6. SPINAL CORD: Abnormal cord signal intensity. SOFT TISSUES: Unremarkable. No prevertebral soft tissue swelling. LYMPH NODES: Unremarkable. There is no cervical adenopathy. SINUSES: Mucous retention cyst in the left maxillary sinus. DISCS/SPINAL CANAL/NEURAL FORAMINA: C2-C3: Decreased T2 signal intensity. Normal disc height and morphology. Normal spinal canal. Normal neuroforamina. C3-C4: Decreased T2 signal intensity. Normal disc height and morphology. Normal spinal canal. Normal neuroforamina. C4-C5: Decreased T2 signal intensity. Normal disc height and morphology. Normal spinal canal. Normal neuroforamina. C5-C6: Marked disc space narrowing at C5-C6 with mild anterior spondylosis. Mild narrowing of the canal at C5-C6, roughly 8 mm AP but there is a thin line CSF anterior and posterior to the cord, no nidhi cord impingement. Marked right and moderate left neural foraminal stenosis at C5-C6 due to uncovertebral osteophytes. At least moderate left and mild right C6-7 neural foraminal stenosis. C6-C7: See above. C7-T1: Unremarkable. Normal disc height and morphology. Normal spinal canal. Normal neuroforamina. MRI/Spine Cervical (Routine) IMPRESSION: Marked disc space narrowing at C5-6. No significant herniated disc. Mild spinal stenosis without nidhi cord impingement at C5-6. Marked bilateral C5-6 neural foraminal stenosis. Milder changes at other levels. Electronically Signed: Vonnie Campos MD at 6:09 EDT ,
== END | disposition home or self-care (01) ==
PROVIDERS: PCP Family Medicine; Visit Provider Nurse Practitioner
DX: M48.02 Spinal stenosis, cervical region (principal); M54.12 Radiculopathy, cervical region
CPT/HCPCS: 72141

== ENCOUNTER → 2022-03-08 | Outpatient (CLI) | payer BC, SELFPAY ==
[2019-03-06 08:56] VITALS: BMI 24.6
--- NOTE | 2022-03-08 13:09 | MRI_ITS ---
STUDY: MRI BRAIN WITH AND WITHOUT CONTRAST REASON FOR EXAM: Male, 61 years old. follow up treated brain metastasis Past medical history: CHEMO CHECK- HAD RT PARTIAL LOBECTOMY, CHEMO, AND RAD TX, HX-HTN TECHNIQUE: Standardized multiplanar fat and water weighted pulse sequences were obtained. 18ML IV CLARISCAN was administered for the contrast portion of the examination. COMPARISON: MRI of the brain dated NOVEMBER 05, 2021. FINDINGS: Stable craniotomy defect in the superior and posterior aspect of the left parietal bone and the underlying parenchymal gliotic changes and slight atrophy in the surgical bed in the posterior superior aspect of the left parietal lobe. There are no focal or recurrent lesions or enhancement or edema or effacement of the parenchyma in the surgical bed or in the remaining aspects of the brain. No abnormal thickening or dura or meninges is seen on the current study. There is mild cerebral atrophy with widening of the extra-axial spaces and ventricular dilatation. There are a limited number of small white matter hyperintensities, distributed throughout the deep white matter tracts of the cerebral hemispheres, consistent with mild chronic white matter ischemic changes. Normal bilateral basal ganglia. Normal thalami. There is no extra-axial fluid accumulation. Normal flow voids within the major intracranial circulation suggesting patency by spin echo criteria. Normal venous enhancement. There is no enhancing intra-axial or extra-axial abnormality. Normal sella turcica, pituitary gland, infundibular stalk, optic chiasm and hypothalamus. Normal tectal plate and pineal gland. Normal midbrain, tsering and medulla. Normal cerebellum. Normal basal cisterns. Normal bilateral temporal bones. Normal bilateral internal auditory canals. No demonstrated orbital abnormality, within the constraints of a routine brain study. Moderate size mucus retention cyst of the left maxillary sinus noted. There is moderate opacification of the bilateral mastoid air cells. Normal visualized soft tissue structures. Normal visualized upper cervical spine. MRI/Brain W/WO Contrast IMPRESSION: 1. Stable craniotomy defect in the superior and posterior aspect of the left parietal bone and the underlying parenchymal gliotic changes and slight atrophy in the surgical bed in the posterior superior aspect of the left parietal lobe. 2. There are no focal or recurrent lesions or enhancement or edema or effacement of the parenchyma in the surgical bed or in the remaining aspects of the brain. 3. No abnormal thickening or dura or meninges is seen on the current study. Electronically Signed: Tian Ling MD at 15:39 EDT ,
[2022-03-08 13:40] LABS: EGFR FINGERSTICK > 60.0000 mL/min (>60)
== END | disposition home or self-care (01) ==
PROVIDERS: PCP Family Medicine; Referring Provider Student in an Organized Health Care Education/Training Program; Visit Provider Student in an Organized Health Care Education/Training Program
DX: C79.31 Secondary malignant neoplasm of brain (principal)
CPT/HCPCS: 70553; A9575

== ENCOUNTER → 2022-04-01 | Outpatient (CLI) | payer BC, SELFPAY ==
[2019-03-06 08:56] VITALS: BMI 24.6
--- NOTE | 2022-04-01 13:55 | CT_ITS ---
INDICATION: NSCLC F/U EXAMINATION: CT CHEST AND ABDOMEN WITH CONTRAST - CT Chest And Abdomen W/ Contrast Injection TECHNIQUE: Helically acquired images were obtained of the chest and abdomen. A radiation dose optimization technique was used for this scan. IV Contrast dosage and agent: 100 ml of isovue 300. Oral contrast: Yes. COMPARISON: 10/06/2021. FINDINGS: ----Chest: LUNGS, PLEURA AND LARGE AIRWAYS: Subtle emphysematous changes visualized. No masses, consolidation, or edema. No pleural effusion or thickening. No pneumothorax. THYROID: No thyroid lesions. HEART AND PERICARDIUM: Heart size is normal. No pericardial effusion. VESSELS: Thoracic aorta is not dilated. MEDIASTINUM AND MICHELE: Well-circumscribed area of low attenuation/water density visualized in the right anterior superior mediastinum measuring 3.4 x 1.8 x 1.6 cm seen on axial series 2 image 60 and coronal series 601 image 89 demonstrates no significant change in comparison to the prior study. Esophagus is unremarkable. No hiatal hernia. BONES: No suspicious lytic or blastic abnormality. Prominence of the right nipple and subareolar soft tissues best visualized on axial series 2 image 60 measuring 2.1 x 1.0 cm, this demonstrates slight prominence/increase in size in comparison to the prior study would recommend further evaluation. ----Abdomen (without Pelvis): LIVER: Homogeneous. 1.4 cm hypervascular lesion visualized in the left lobe of the liver demonstrates no significant change in comparison to the prior study, differential diagnosis would include a hemangioma. GALLBLADDER AND BILIARY TREE: No calcified gallstones. No gallbladder distension or wall edema. No intra- or extrahepatic biliary ductal dilation. PANCREAS: No focal cystic or solid mass. SPLEEN: Normal size without focal cystic or solid mass. ADRENAL GLANDS: No nodules. KIDNEYS AND URETERS: Normal renal size and position. No hydronephrosis. Subtle simple cyst visualized in bilateral kidneys. PERITONEUM: No ascites or free air. No other fluid collection. BOWEL: No stomach or bowel distension. No focal inflammatory change. LYMPH NODES: No enlarged mesenteric or retroperitoneal lymph nodes. VESSELS: Aorta is non-dilated. ABDOMINAL WALL: No discrete abdominal wall hernia. BONES: No lytic or blastic abnormality. CT/CT Chest AND Abd W/ Contrast IMPRESSION: 3.4 cm superior mediastinal cystic lesion demonstrates no change in comparison to the prior study. 1.4 cm hypervascular area in the left lobe of the liver demonstrates no change in comparison to the prior study most likely representing a hemangioma. Prominence of the right nipple and subareolar soft tissues, this demonstrates slight prominence/increase in size in comparison to the prior study would recommend further evaluation. Electronically Signed: Tyler Davis MD at 8:12 EDT Reading Location ID and State: [facility] / [place] Tel , Service support ,
[2022-04-01 14:35] LABS: EGFR FINGERSTICK > 60.0000 mL/min (>60)
== END | disposition home or self-care (01) ==
PROVIDERS: PCP Family Medicine; Visit Provider Internal Medicine Hematology & Oncology
DX: N28.1 Cyst of kidney, acquired (principal); R91.8 Other nonspecific abnormal finding of lung field; K76.9 Liver disease, unspecified
CPT/HCPCS: 71260; 74160; Q9967

== ENCOUNTER 2022-04-08 12:56 | Outpatient (CLI) | payer BC, SELFPAY ==
[2019-03-06 08:56] VITALS: BMI 24.6
--- NOTE | 2022-04-08 13:15 | BI_ITS ---
MAMMOGRAPHY - BILATERAL DIAGNOSTIC REASON FOR EXAM: Male, 61 years old. History of non-small cell lung cancer. Prominence of the right subareolar region. PERTINENT HISTORY: Non-contributory. TECHNIQUE: Digital bilateral breast arturo (3D mammographic acquisition) in the CC and MLO projections. 2-D mediolateral oblique (MLO) and craniocaudad (CC) views of both breasts were obtained. CAD: Full Field Digital Mammography with Computer Added Detection was performed. COMPARISON: None. Baseline examination. FINDINGS: Breast Composition: There are scattered areas of fibroglandular density. There are no dominant masses or suspicious calcifications. No other significant abnormalities are identified. BI/DIAG MAMM W/CAD, BILAT IMPRESSION: Negative diagnostic mammogram. With the patient''s history of prominence of the right retroareolar region, correlation with ultrasound is recommended. ASSESSMENT CATEGORY: BIRADS Category 0: Incomplete. Need additional imaging evaluation. A letter regarding these results will be sent to the patient by the facility within 30 days. Approximately 10% of breast cancers are not detected by mammography. A normal mammogram should not delay biopsy of a clinically suspicious abnormality. Electronically Signed: Darrick Delarosa MD at 14:17 EDT ,
[2022-04-08 13:26] LABS: Absolute Lymphocyte Count 2.62 X10^3/uL (0.83-4.51); Basophil# 0.11 X10^3/uL; Basophil% 1.1 % (0-1); Eosinophil# 0.08 X10^3/uL; Eosinophils% 0.8 % (0-5); Hematocrit 50.7 % (40-54); Hemoglobin 17.7 g/dL (13.0-16.5); Lymphocyte # 2.62 X10^3/ul (0.83-4.51); Lymphocyte % 26.6 % (19-41); Mean Corp Hgb Conc 34.9 g/dL (32-36); Mean Corpuscular Hgb 31.9 pg (27.0-32.0); Mean Corpuscular Volume 91.5 fL (80-94); Mean Platelet Vol. 9.2 fl (6.2-12.0); Monocyte# 1.02 X10^3/uL; Monocyte% 10.4 % (0-10); NRBC Flagged by Analyzer 0 % (0-5); Neutrophil # 5.97 X10^3/uL (2.7-7.7); Neutrophil % 60.6 % (47-70); Platelet Count 297 K/mm3 (150-450); RBC Distribution Width CV 14.1 % (11.6-14.6); RBC Distribution Width SD 47.5 fl (35.1-43.9); Red Blood Count 5.54 M/mm3 (4.6-6.2); White Blood Count 9.9 K/mm3 (4.4-11.0)
[2022-04-08 13:38] LABS: ALB/GLOB Ratio 0.9 RATIO (0.9-2.4); AST(SGOT) 17 U/L (15-37); Alanine Aminotransfer ALT/SGPT 23 U/L (16-61); Albumin, Serum 3.5 g/dL (3.2-5.0); Alkaline Phosphatase 75 U/L (45-117); Anion Gap 6 (5-15); BUN 13 mg/dL (7-18); BUN/Creat Ratio 13.5 RATIO (10-20); Calcium,Total 9.1 mg/dL (8.5-10.1); Chloride 107 mmol/L (98-107); Creatinine, Serum 0.96 mg/dL (0.70-1.30); EST Glomerular Filtration Rate 84 mL/min (>60); Est Glom Filt Rate - Afr Amer 102 mL/min (>60); Globulin 3.9 g/dL (2.2-4.2); Glucose 101 mg/dL (74-106); Potassium 4.3 mmol/L (3.5-5.1); Protein, Total 7.4 g/dL (6.4-8.2); Sodium Level 141 mmol/L (136-145)
--- NOTE | 2022-04-08 14:08 | US_ITS ---
STUDY: ULTRASOUND BREAST - RIGHT REASON FOR EXAM: Male, 61 years old. Right areolar prominence. TECHNIQUE: Axial and longitudinal images of the RIGHT breast were performed with a high resolution ultrasound transducer. # OF IMAGES: 21 COMPARISON: Comparison is made with prior mammogram done earlier today. FINDINGS: RIGHT Breast: The retroareolar region of the breast was examined with ultrasound. Small amount of fibroglandular tissue. No significant abnormality is seen. US/Breast Limited Unilateral IMPRESSION: No significant abnormality is seen. ASSESSMENT CATEGORY: BIRADS Category 1: Negative. A letter regarding these results will be sent to the patient by the facility within 30 days. Electronically Signed: Darrick Delarosa MD at 15:11 EDT ,
[2022-04-08 21:07] LABS: Xtra Tube EP Lab EXTRA TUBE
== END 2022-04-08 23:59 | disposition home or self-care (01) ==
PROVIDERS: PCP Family Medicine; Referring Provider Internal Medicine Hematology & Oncology; Visit Provider Internal Medicine Hematology & Oncology
DX: C79.31 Secondary malignant neoplasm of brain (principal); C34.11 Malignant neoplasm of upper lobe, right bronchus or lung; R93.89 Abnormal findings on diagnostic imaging of other specified body structures
CPT/HCPCS: 36415; 76642; 77062; 77066; 80053; 85025; G0279

== ENCOUNTER → 2022-06-23 | Outpatient (CLI) | payer BC, SELFPAY ==
[2019-03-06 08:56] VITALS: BMI 24.6
== END | disposition home or self-care (01) ==
LOC: LABSPEC 14:56
PROVIDERS: PCP Family Medicine; Referring Provider Nurse Practitioner Family; Visit Provider Nurse Practitioner Family
DX: Z20.822 Contact with and (suspected) exposure to COVID-19 (principal)
CPT/HCPCS: 87635; U0003; U0005

== ENCOUNTER → 2022-07-14 | Outpatient (CLI) | payer BC, SELFPAY ==
[2019-03-06 08:56] VITALS: BMI 24.6
--- NOTE | 2022-07-14 08:29 | RAD_ITS ---
HISTORY: constipation. TECHNIQUE: XR Abdomen 1 View. COMPARISON: CT 04/01/2022. FINDINGS: BOWEL GAS PATTERN: No dilated bowel loops identified. Mild stool in the rectum. FREE AIR: Not assessed on supine view. CALCIFICATIONS: No abnormal calcifications observed. BONES: Unremarkable. SOFT TISSUES: Clear lung bases. Chronic mild elevation of the right hemidiaphragm. RAD/Abdomen Single View IMPRESSION: Non-obstructive bowel gas pattern. Electronically Signed: Liberty Valencia MD at 9:43 EST ,
--- NOTE | 2022-07-14 08:35 | RAD_ITS ---
HISTORY: cough. TECHNIQUE: XR Chest 2 Views. COMPARISON: 06/10/2021. CT 04/01/2022. FINDINGS: CARDIOMEDIASTINAL BORDERS: Cardiac silhouette within normal limits in size. Unchanged right hilar fullness with suture and mild adjacent scarring. LUNGS: Mild scarring in the right lung base noted. PLEURA: No pleural effusion or pneumothorax seen. OSSEOUS STRUCTURES: Unremarkable. RAD/Chest PA and Lateral IMPRESSION: No acute cardiopulmonary process identified. Chronic postoperative changes with scarring in the right lung. Electronically Signed: Liberty Valencia MD at 9:12 EST ,
== END | disposition home or self-care (01) ==
LOC: RAD 08:28
PROVIDERS: PCP Family Medicine; Visit Provider Nurse Practitioner Family
DX: R06.00 Dyspnea, unspecified (principal); K59.00 Constipation, unspecified
CPT/HCPCS: 71046; 74018

== ENCOUNTER → 2022-07-24 | Outpatient (CLI) | payer BC, SELFPAY ==
[2019-03-06 08:56] VITALS: BMI 24.6
[2022-07-24 08:23] LABS: Absolute Lymphocyte Count 2.27 X10^3/uL (0.83-4.51); Absolute Neutrophil Count 7.4 X10^3/uL (2.0-7.7); Basophil# 0.13 X10^3/uL; Basophil% 1.1 % (0-1); Eosinophil# 0.11 X10^3/uL; Eosinophils% 0.9 % (0-5); Hematocrit 44.4 % (40-54); Hemoglobin 15.1 g/dL (13.0-16.5); Lymphocyte # 2.27 X10^3/ul (0.83-4.51); Lymphocyte % 19.4 % (19-41); Mean Corpuscular Hgb 31.5 pg (27.0-32.0); Mean Corpuscular Volume 92.5 fL (80-94); Mean Platelet Vol. 9.1 fl (6.2-12.0); Monocyte# 1.72 X10^3/uL; Monocyte% 14.7 % (0-10); NRBC Flagged by Analyzer 0 % (0-5); Neutrophil # 7.37 X10^3/uL (2.7-7.7); POSITIVE DIFFERENTIAL YES; Platelet Count 321 K/mm3 (150-450); RBC Distribution Width CV 13.1 % (11.6-14.6); RBC Distribution Width SD 44.8 fl (35.1-43.9); White Blood Count 11.7 K/mm3 (4.4-11.0)
[2022-07-24 08:28] LABS: Differential Indicated SCAN CRITERIA MET
[2022-07-24 08:41] LABS: ALB/GLOB Ratio 0.9 RATIO (0.9-2.4); AST(SGOT) 9 U/L (15-37); Alanine Aminotransfer ALT/SGPT 19 U/L (16-61); Albumin, Serum 3.1 g/dL (3.2-5.0); Alkaline Phosphatase 76 U/L (45-117); Anion Gap 3 (5-15); BUN 10 mg/dL (7-18); BUN/Creat Ratio 12.2 RATIO (10-20); Calcium,Total 8.3 mg/dL (8.5-10.1); Chloride 109 mmol/L (98-107); Creatinine, Serum 0.82 mg/dL (0.70-1.30); EST Glomerular Filtration Rate 102 mL/min (>60); Est Glom Filt Rate - Afr Amer 123 mL/min (>60); Globulin 3.6 g/dL (2.2-4.2); Glucose 108 mg/dL (74-106); Protein, Total 6.7 g/dL (6.4-8.2); Sodium Level 140 mmol/L (136-145)
[2022-07-24 08:42] LABS: BNP,B-Type NATRIURETIC PEPTIDE 6.1 pg/mL (0-100)
[2022-07-24 08:48] LABS: AST(SGOT) 9 U/L (15-37); Alanine Aminotransfer ALT/SGPT 18 U/L (16-61); Alkaline Phosphatase 74 U/L (45-117); Anion Gap 5 (5-15); BUN 11 mg/dL (7-18); BUN/Creat Ratio 14.2 RATIO (10-20); Bilirubin, Direct 0.14 mg/dL (0.00-0.30); Calcium,Total 8.2 mg/dL (8.5-10.1); Chloride 108 mmol/L (98-107); Cholesterol 205 mg/dL (200); Creatinine, Serum 0.77 mg/dL (0.70-1.30); EST Glomerular Filtration Rate 109 mL/min (>60); Est Glom Filt Rate - Afr Amer 132 mL/min (>60); Globulin 3.8 g/dL (2.2-4.2); Glucose 107 mg/dL (74-106); High Density Lipoprotein 38 mg/dL; Protein, Total 6.8 g/dL (6.4-8.2); Sodium Level 140 mmol/L (136-145); Triglycerides 88 mg/dL; Very Low Density Lipoprotein 18 mg/dL (5-40)
[2022-07-24 09:28] LABS: Platelet Estimate ADEQUATE (ADEQ); Red Cell Morphology NORM C+C NORMAL (NORM C&C)
[2022-07-27 09:23] LABS: Pathologist Review Reviewed
== END | disposition home or self-care (01) ==
LOC: LAB 07:26
PROVIDERS: Internal Medicine Hematology & Oncology; PCP Family Medicine; Visit Provider Nurse Practitioner Gerontology
DX: C34.11 Malignant neoplasm of upper lobe, right bronchus or lung (principal); C79.31 Secondary malignant neoplasm of brain; R06.09 Other forms of dyspnea; E78.00 Pure hypercholesterolemia, unspecified
CPT/HCPCS: 36415; 80048; 80053; 80061; 80076; 83880; 85025

== ENCOUNTER → 2022-07-27 | Outpatient (CLI) | payer BC, SELFPAY ==
[2019-03-06 08:56] VITALS: BMI 24.6
--- NOTE | 2022-07-27 13:13 | MRI_ITS ---
INDICATION: brain metastases, continued monitoring EXAMINATION: MRI - MR Brain WO/W Contrast TECHNIQUE: Multiplanar and multisequence MR images of the brain were obtained without and with gadolinium. IV Contrast Dosage and Agent: None. COMPARISON: February 27, 2022. FINDINGS: BRAIN PARENCHYMA: No MRI evidence of hemorrhage. Minimal periventricular white matter disease indeterminate etiology or clinical significance without evidence for mass effect or restricted diffusion . Mild gliosis noted within the left parietal lobe at site of prior craniotomy and nodule resection. No intracranial mass or mass effect. There is preservation of the mason/white matter interface. Normal sella turcica, pituitary gland, infundibular stalk, optic chiasm and hypothalamus. Posterior fossa structures are unremarkable. INTERNAL AUDITORY CANALS: The internal auditory canals are well visualized and patent. No mass identified. Fluid signal noted within the mastoid air cells bilaterally consistent with inflammatory disease CSF SPACES: Appropriate for age. No hydrocephalus. Basal cisterns are patent. VASCULAR SYSTEM: Normal flow voids in the major intracranial circulation. CALVARIUM, SKULL BASE, PARANASAL SINUSES AND MASTOID AIR CELLS: There are polyps or mucous retention cyst within the maxillary sinuses bilaterally.. No expansile changes. ORBITS: Both globes, extraocular muscles, optic nerves and retrobulbar fat appear unremarkable. No enhancing lesions are seen following contrast administration. No significant change since prior exam MRI/Brain W/WO Contrast IMPRESSION: Stable appearance to the brain status post resection of left parietal metastasis without evidence for recurrent or new lesions. Minimal nonspecific white matter changes without evidence for acute infarct Other lines as above Electronically Signed: Hayes Cortez MD at 16:52 EST ,
== END | disposition home or self-care (01) ==
LOC: MRI 13:13
PROVIDERS: PCP Family Medicine; Referring Provider Student in an Organized Health Care Education/Training Program; Visit Provider Student in an Organized Health Care Education/Training Program
DX: C79.31 Secondary malignant neoplasm of brain (principal)
CPT/HCPCS: 70553; A9575

== ENCOUNTER → 2022-08-23 | Outpatient (CLI) | payer BC, SELFPAY ==
[2019-03-06 08:56] VITALS: BMI 24.6
--- NOTE | 2022-08-23 07:19 | ECHOD_ITS ---
Reason For Study: Dyspnea/SOB Procedure This was a 2D Doppler, Color Flow transthoracic echocardiogram. Exam performed in department. Left Ventricle Normal LV size. Left ventricular systolic function is normal. Stage 1 diastolic dysfunction. No regional wall motion abnormalities noted. Right Ventricle Normal RV size. Normal systolic function. Atria Normal left atrium. Normal right atrium. Mitral Valve Normal mitral valve. Tricuspid Valve Normal tricuspid valve. Mild tricuspid valve insufficiency. Pulmonary artery systolic pressure is 36 mmHg. Aortic Valve Normal aortic valve. Trisinus/trileaflet aortic valve. Pulmonic Valve Normal pulmonic valve. Great Vessels Normal aortic root. The pulmonary artery is normal size. Normal inferior vena cava. Pericardium/Pleural No pericardial effusion. MMode/2D Measurements & Calculations LVIDd: 4.9 cm IVSd: 1.00 cm Ao root diam: 2.9 cm LVIDs: 3.3 cm LVPWd: 0.97 cm RVDd: 3.4 cm FS: 32.3 % LAV(MOD-bp): 24.4 ml LVAd ap4: 28.4 cm2 SV(MOD-sp4): 55.2 ml LAV(MOD-bp) Indexed: 12.2 ml/m2 LVLd ap4: 7.9 cm LAV(MOD-sp2): 27.4 ml EDV(MOD-sp4): 85.1 ml LAV(MOD-sp4): 22.1 ml EDV(sp4-el): 86.9 ml LVAs ap4: 15.5 cm2 LVLs ap4: 6.6 cm ESV(MOD-sp4): 29.8 ml ESV(sp4-el): 30.8 ml EF(MOD-sp4): 64.9 % EF(sp4-el): 64.6 % SV(sp4-el): 56.1 ml LA A4 area: 11.5 cm2 LA dimension(2D): 3.3 cm RA A4 area: 13.8 cm2 Time Measurements MV dec time: 0.26 sec Doppler Measurements & Calculations MV E max angel: 81.0 cm/sec Lat Peak E' Angel: 10.8 cm/sec Med Peak E' Angel: 11.0 cm/sec MV A max angel: 90.9 cm/sec E/E' lat: 7.5 E/E' med: 7.4 MV E/A: 0.89 Ao V2 max: 152.9 cm/sec LV V1 max: 131.4 cm/sec MV dec slope: 308.6 cm/sec2 Ao max P.4 mmHg LV V1 max P.9 mmHg Ao V2 mean: 111.1 cm/sec Ao mean P.4 mmHg Ao V2 VTI: 37.6 cm PA V2 max: 83.0 cm/sec TR max angel: 278.6 cm/sec TR max P.0 mmHg ECHO/Echo Complete Interpretation Summary Normal LV size. Left ventricular systolic function is normal. Pulmonary artery systolic pressure is 36 mmHg. Stage 1 diastolic dysfunction. Ordering Physician: Deyanira Ford Referring Physician: Brett Alexander Performed By: Chyna Ruiz, JOY, RVT
--- NOTE | 2022-08-23 12:43 | STRESSREP ---
Stress Test Report Pharmacologic myocardial perfusion stress test. 62-year-old man with a history of chest tightness Resting EKG demonstrates sinus bradycardia with a rate of 57 bpm. Resting blood pressure is 134/70 mmHg. 0.4 mg of regadenoson was infused per usual protocol followed by rapid intravenous saline flush injection. Continuous EKG monitoring was performed. The maximum heart rate was 77 bpm which was 48% of max impacted heart rate the maximum workload was 1 metabolic equivalent. At rest there were no ST or T wave changes noted to suggest ischemia and at peak infusion nonspecific ST changes were noted which did not meet the criteria for ischemia. No clinical angina is noted. The final blood pressure was 124/70 mmHg. Myocardial perfusion protocol. 11.8 mCi of technetium 99m sestamibi was injected at rest. 0.4 mg of regadenoson was infused per usual protocol. At peak infusion 34.5 mCi of technetium 99m sestamibi was injected stress images were obtained stress and rest images were reconstructed and compared in the short axis vertical long and horizontal long axis. Gated images were also obtained. Perfusion SPECT analysis: Review of the stress images demonstrate normal uptake of tracer noted in all areas of the myocardium. The resting images similar demonstrated normal uptake of tracer noted in all areas of the myocardium. No areas of reversibility are noted to suggest ischemia and no previous infarct is noted. Gated SPECT analysis: The gated ejection fraction is 67%. Conclusion: Normal pharmacologic myocardial perfusion stress test. Preserved ejection fraction.
== END | disposition home or self-care (01) ==
LOC: CVS 07:17
PROVIDERS: PCP Family Medicine; Visit Provider Nurse Practitioner Gerontology
DX: R06.02 Shortness of breath (principal)
CPT/HCPCS: 78452; 93017; 93306; A9500; A4216; J2785

== ENCOUNTER → 2022-10-29 | Outpatient (CLI) | payer BC, SELFPAY ==
[2019-03-06 08:56] VITALS: BMI 24.6
--- NOTE | 2022-10-29 07:39 | CT_ITS ---
STUDY: CT CHEST T ABDOMEN WITH CONTRAST REASON FOR EXAM: Male, 62 years old. F/U NSCLC. Status post chemotherapy and radiation therapy. Prior right upper lobe resection. RADIATION DOSAGE (If Supplied By Facility): CTDIvol = ( 16.20 ) mGy, DLP = ( 1129.48 ) mGycm TECHNIQUE: Transaxial imaging was performed following intravenous administration of IV 100mL Isovue-370. Multiplanar coronal and sagittal images were reformatted. Individualized dose optimization techniques were used for this CT. COMPARISON: Comparison is made with prior study dated April 01, 2022. FINDINGS: CHEST Stable mild degree of emphysematous changes with small bullous formation in the left lung apex. Stable minimal linear scarring in the peripheral aspect of the right lower lobe. There is no demonstrated pleural abnormality. There are calcifications of the coronary arteries. There are multiple small lymph nodes within the mediastinum, which are normal in size and morphology most compatible with reactive lymph hyperplasia. There is a 1.6 x 1.7 cm well-defined rounded hypodense nodule in the anterior mediastinal fat on the right side of midline. This is essentially unchanged.. Normal hilar regions. Normal unenhanced pulmonary arteries. Normal aorta arch and descending thoracic aorta. Normal osseous structures. ABDOMEN Stable faint focal area of increased vascularity in the lateral aspect of the left lobe of the liver. This most likely represents a small hemangioma. Normal gallbladder and extrahepatic biliary system. Normal spleen. Normal pancreas. Normal bilateral adrenal glands. 20.5 semi a cyst in the midportion of the right kidney. 2.3 cm cyst in the medial aspect of the left kidney. Normal visualized stomach. Normal small intestine. There are multiple colonic diverticula consistent with diverticulosis. The appendix is visualized and appears normal. There is diffuse atherosclerotic calcification of the abdominal aorta, without a demonstrated aneurysm. Normal inferior vena cava. Normal retroperitoneum. Normal abdominal wall. Disc space narrowing and disc degeneration with spondylosis at the L5-S1 level. Loss of the normal lumbar lordosis. CT/CT Chest AND Abd W/ Contrast IMPRESSION: Stable examination. Electronically Signed: Darrick Delarosa MD at 13:22 EDT ,
[2022-10-29 08:11] LABS: EGFR FINGERSTICK > 60.0000 mL/min (>60)
== END | disposition home or self-care (01) ==
PROVIDERS: PCP Family Medicine; Referring Provider Internal Medicine Hematology & Oncology; Visit Provider Internal Medicine Hematology & Oncology
DX: C34.90 Malignant neoplasm of unspecified part of unspecified bronchus or lung (principal)
CPT/HCPCS: 71260; 74160; Q9967

== ENCOUNTER → 2022-11-23 | Outpatient (CLI) | payer BC, SELFPAY ==
[2019-03-06 08:56] VITALS: BMI 24.6
--- NOTE | 2022-11-23 13:58 | MRI_ITS ---
STUDY: MRI BRAIN WITH AND WITHOUT CONTRAST REASON FOR EXAM: Male, 62 years old. follow up treated brain metastasis -- please compare to prior; ? SEIZURE 11/21/22 TECHNIQUE: Standardized multiplanar fat and water weighted pulse sequences were obtained. IV 17ml Clariscan was administered for the contrast portion of the examination. COMPARISON: July 27, 2022 FINDINGS: Normal size of the ventricles and extra-axial spaces for the patient''s age. Minor nonspecific white matter disease without mass effect or restricted diffusion. Mild gliosis of the left parietal lobe status post left parietal craniotomy and resection of neoplasm as per clinical history. Normal bilateral basal ganglia. Normal thalami. There is no extra-axial fluid accumulation. Normal flow voids within the major intracranial circulation suggesting patency by spin echo criteria. Normal venous enhancement. There is no enhancing intra-axial or extra-axial abnormality. Normal sella turcica, pituitary gland, infundibular stalk, optic chiasm and hypothalamus. Normal tectal plate and pineal gland. Normal midbrain, tsering and medulla. Normal cerebellum. Normal basal cisterns. Normal bilateral temporal bones. Normal bilateral internal auditory canals. No demonstrated orbital abnormality, within the constraints of a routine brain study. Normal visualized paranasal sinuses. Normal calvarium and skull base. Normal visualized soft tissue structures. Normal visualized upper cervical spine. No significant change since prior exam MRI/Brain W/WO Contrast IMPRESSION: Postsurgical changes of the left parietal lobe without evidence for residual or recurrent tumor.. Minor nonspecific white matter disease without evidence for acute infarct Electronically Signed: Hayes Cortez MD at 19:31 EDT ,
[2022-11-23 15:01] LABS: CREATININE FINGERSTICK 1.1 mg/dL (0.70-1.30); EGFR FINGERSTICK > 60.0000 mL/min (>60)
== END | disposition home or self-care (01) ==
LOC: MRI 13:55
PROVIDERS: PCP Family Medicine; Referring Provider Student in an Organized Health Care Education/Training Program; Visit Provider Student in an Organized Health Care Education/Training Program
DX: C79.31 Secondary malignant neoplasm of brain (principal)
CPT/HCPCS: 70553; A9575

== ENCOUNTER → 2022-12-07 | Outpatient (CLI) | payer BC, SELFPAY ==
[2019-03-06 08:56] VITALS: BMI 24.6
[2022-12-07 17:41] LABS: Hematocrit 46.9 % (40-54); Hemoglobin 15.7 g/dL (13.0-16.5); Mean Corp Hgb Conc 33.5 g/dL (32-36); Mean Corpuscular Hgb 31.3 pg (27.0-32.0); Mean Corpuscular Volume 93.4 fL (80-94); Mean Platelet Vol. 9.3 fl (6.2-12.0); Platelet Count 314 K/mm3 (150-450); RBC Distribution Width CV 13.4 % (11.6-14.6); Red Blood Count 5.02 M/mm3 (4.6-6.2); White Blood Count 7.8 K/mm3 (4.4-11.0)
[2022-12-07 17:55] LABS: AST(SGOT) 24 U/L (15-37); Alanine Aminotransfer ALT/SGPT 31 U/L (16-61); Albumin, Serum 3.2 g/dL (3.2-5.0); Alkaline Phosphatase 66 U/L (45-117); Bilirubin, Direct 0.08 mg/dL (0.00-0.30); Cholesterol 222 mg/dL (200); Globulin 3.5 g/dL (2.2-4.2); High Density Lipoprotein 44 mg/dL; Protein, Total 6.7 g/dL (6.4-8.2); Triglycerides 222 mg/dL; Very Low Density Lipoprotein 44 mg/dL (5-40)
[2022-12-07 18:02] LABS: Vitamin B12 251 pg/mL (211-911)
[2022-12-07 18:04] LABS: AST(SGOT) 21 U/L (15-37); Alanine Aminotransfer ALT/SGPT 28 U/L (16-61); Albumin, Serum 3.3 g/dL (3.2-5.0); Alkaline Phosphatase 65 U/L (45-117); Anion Gap 6 (5-15); BUN 15 mg/dL (7-18); BUN/Creat Ratio 12.9 RATIO (10-20); Calcium,Total 8.5 mg/dL (8.5-10.1); Chloride 107 mmol/L (98-107); Creatinine, Serum 1.16 mg/dL (0.70-1.30); EST Glomerular Filtration Rate 68 mL/min (>60); Est Glom Filt Rate - Afr Amer 82 mL/min (>60); Globulin 3.3 g/dL (2.2-4.2); Glucose 116 mg/dL (74-106); Potassium 4.1 mmol/L (3.5-5.1); Protein, Total 6.6 g/dL (6.4-8.2); Sodium Level 138 mmol/L (136-145); Thyroid Stim Hormone (TSH) 2.37 uIU/mL (0.358-3.74)
[2022-12-12 15:07] LABS: KEPPRA (LEVETIRACETAM) 20.6 ug/mL (10.0-40.0); Vitamin B1, Thiamine 116.6 nmol/L (66.5-200.0)
== END | disposition home or self-care (01) ==
LOC: MTLAB 15:07
PROVIDERS: Nurse Practitioner Gerontology; PCP Family Medicine; Referring Provider Psychiatry & Neurology Neurology; Visit Provider Psychiatry & Neurology Neurology
DX: G40.909 Epilepsy, unspecified, not intractable, without status epilepticus (principal); E78.00 Pure hypercholesterolemia, unspecified
CPT/HCPCS: 36415; 80053; 80061; 80076; 80177; 82140; 82607; 82746; 84425; 84443; 85027

== ENCOUNTER → 2022-12-21 | Outpatient (CLI) | payer BC, SELFPAY ==
[2019-03-06 08:56] VITALS: BMI 24.6
== END | disposition home or self-care (01) ==
LOC: PSN 08:15
PROVIDERS: PCP Family Medicine; Referring Provider Psychiatry & Neurology Neurology; Visit Provider Psychiatry & Neurology Neurology
DX: G40.909 Epilepsy, unspecified, not intractable, without status epilepticus (principal); C79.31 Secondary malignant neoplasm of brain
CPT/HCPCS: 95819

== ENCOUNTER 2023-01-24 10:41 | Emergency (ER) | payer BC, SELFPAY ==
[2019-03-06 08:56] VITALS: BMI 24.6
[2023-01-24 10:41] VITALS: BP 159/86; PULSE 67; RESP 18; TEMP 36.6; O2SAT 100; BMI 28.5
--- NOTE | 2023-01-24 10:55 | CT_ITS ---
STUDY: CT ABDOMEN AND PELVIS WITH CONTRAST - URINARY TRACT REASON FOR EXAM: Male, 62 years old. right sided abd pain RADIATION DOSAGE (If Supplied By Facility): CTDIvol = ( 17.23 ) mGy, DLP = ( 895.01 ) mGycm TECHNIQUE: IV 100mL Isovue-300 was administered. Transaxial images were obtained from the dome of the diaphragm to the symphysis pubis in the arterial, nephrographic and excretory phases. Multiplanar coronal and sagittal images were reformatted. Individualized Dose Optimization Techniques Were Used For This CT. COMPARISON: October 29, 2022 FINDINGS: There is a 7 mm nodule at the right lung base appearing stable. There is a 3 mm nodule in the lingula appearing stable. The visualized portions of the heart are within normal limits. There is a 1.3 cm hypodensity in the right lobe of the liver immediately nodule seen on the prior study possibly representing an hemangioma. Normal gallbladder and extrahepatic biliary system. Normal spleen. Normal pancreas. Normal bilateral adrenal glands. Normal visualized stomach. Normal small intestine. Normal colon. Appendix is not well-visualized, possibly resected. There is mild atherosclerosis in the aorta. No retroperitoneal adenopathy. There is a small 1.5 cm cyst in the midpole of the right kidney. There are multiple small cysts in the left kidney, the largest measuring 2.4 cm in the mid to upper pole. Normal urinary bladder. Normal abdominal wall. Normal osseous structures. CT/Abdomen/Pelvis W IV Cont ONLY IMPRESSION: No evidence for acute intra-abdominal or pelvic pathology. Small hypodensity in the right lobe of the liver may represent hemangioma not as well seen on the prior study. CT or MRI with multiphase imaging can be obtained for further characterization. Small stable lung nodules. Clinical correlation and follow up recommended. Electronically Signed: Jaime Conn, at 12:09 EDT ,
--- NOTE | 2023-01-24 10:57 | EDS_ITS ---
HPI HPI - GI History of Present Illness Chief Complaint: Abd Pain Detail of Chief Complaint: Right-sided abdominal pain. Informant: patient and spouse/S.O. Abdominal Pain/Flank Pain Onset: Weeks Context: Gradual Onset Timing: Intermittent Quality: Aching Location: RUQ and RLQ Current Severity: Mild Maximum Severity: Mild Worsened by: Nothing Relieved by: Nothing Nausea/Vomiting/Emesis GI Symptom: Positive for Nausea Onset: Days Severity: Mild Diarrhea/Melena/Hematochezia GI Symptom: Negative for Diarrhea, Melena or Hematochezia Associated Symptoms Associated Symptoms: Negative for Dysuria, Frequency, Hematuria or Urgency Narrative Narrative: 62-year-old male history of CAD, [place], lung cancer diagnosed in 2018 with brain mets in 2020. He had surgery for both. His only prior abdominal surgery was for an appendectomy. States the last several weeks he has had intermittent right-sided abdominal pain both lower and upper. Seems to be more upper. Associated nausea no vomiting. No diarrhea or documented fever. No dysuria or hematuria. Prior similar symptoms: Yes Recent Illness/Hospitalization: No PFSH PFSH Medical History Abdominal hernia Atherosclerosis of coronary artery of [place] heart without angina pectoris Brain metastases Bronchitis Cervical radiculitis Cervical stenosis of spine Chronic sinusitis Constipation Degenerative joint disease of spine Diverticular disease Diverticulitis Dyspnea Dyspnea on exertion Encounter for adjustment or management of vascular access device Essential (primary) hypertension EtOH dependence GERD (gastroesophageal reflux disease) HH (hiatus hernia) Hyperlipidemia Left shoulder pain Medial epicondylitis Nicotine dependence Old inferior wall myocardial infarction Pancoast tumor of right lung Paresthesia of left upper extremity Home Medications gabapentin 300 mg capsule 300 mg PO DAILY 03/22/22 [History Last Taken Unknown] ezetimibe 10 mg tablet (Zetia) 10 mg PO DAILY #30 tabs 08/23/22 [Rx Last Taken Unknown] amlodipine 5 mg tablet (Norvasc) 5 mg PO DAILY #90 tabs 08/30/22 [Rx Last Taken Unknown] clopidogrel 75 mg tablet 75 mg PO DAILY #90 tabs 10/12/22 [Rx Last Taken Unknown] olmesartan 40 mg tablet 40 mg PO DAILY HTN #90 tabs 10/12/22 [Rx Last Taken Unknown] flurbiprofen 100 mg tablet 100 mg PO TID PRN pain #90 tabs 11/29/22 [Rx Last Taken Unknown] levetiracetam 1,000 mg tablet (Keppra) 1,000 mg PO BID #60 tabs 11/29/22 [Rx Last Taken Unknown] icosapent ethyl 1 gram capsule (Vascepa) 2 g (2 x 1 gram) PO BID #120 caps 12/17/22 [Rx Last Taken Unknown] metoprolol tartrate 25 mg tablet 25 mg PO BID #180 tabs 01/12/23 [Rx Last Taken Unknown] amoxicillin 500 mg-potassium clavulanate 125 mg tablet (Augmentin) 1 tab PO TID #30 tabs 01/19/23 [Rx Last Taken Unknown] nitroglycerin 0.4 mg sublingual tablet 0.4 mg sublingual Q5M PRN chest pain #21 tabs 01/19/23 [Rx Last Taken Unknown] Allergy/AdvReac Type Severity Reaction Status Date / Time sulfamethoxazole AdvReac Intermediate hives Verified 01/24/23 10:41 [From Bactrim] trimethoprim [From Bactrim] AdvReac Intermediate hives Verified 01/24/23 10:41 Family History Grandfather Cancer Lung cancer Uncle Cancer Lung cancer Surgical History History of appendectomy History of colonoscopy History of coronary artery stent placement (10/26/16) History of craniotomy (10/2020) History of lobectomy of lung (05/2019) History of removal of Port-a-Cath History of vasectomy Social History Smoking Status: Light Smoker (<10/day) Tobacco: How many years used: 39 alcohol intake: current alcohol intake frequency: holidays/special occasions only details: occasionally substance use type: does not use caffeine: Yes Type: coffee Number of servings: 2 seatbelt use: always do you feel safe at home: Yes ROS ROS ED ROS Narrative Abdominal pain. Nausea. Review of Systems ROS Unobtainable: Denies due to encephalopathy Constitutional Constitutional ED: Denies chills or fever(s) ENT ENT ED: Denies ear pain Cardiovascular Cardiovascular: Denies chest pain Respiratory/Chest Respiratory/Chest: Denies cough or dyspnea Gastrointestinal Gastrointestinal: Reports abdominal pain, constipation and nausea; Denies diarrhea, melena or vomiting Genitourinary Genitourinary ED: Denies dysuria or hematuria Musculoskeletal Musculoskeletal: Denies arthralgias Integumentary Denies abscess Neurologic Neurologic: Denies headache(s) Psychiatric Psychiatric: Denies anxiety Endocrine Endocrinology: Denies polydipsia Hematologic/Lymphatic Hematologic/Lymphatic: Denies easy bleeding Allergic/Immunologic Allergic/Immunologic ED: Denies mouth swelling or tongue swelling EXAM Physical Exam Narrative Exam Narrative: Well-appearing 62-year-old male. Vital signs stable afebrile. Sitting upright in bed. at bedside. HEENT exam unremarkable. Moist with membranes. Lungs clear to auscultation. Heart regular rhythm rate about 70 no murmur. Chest wall nontender. Abdomen soft mild right upper quadrant tenderness. No peritoneal signs. No Huggins sign. No McBurney's point tenderness. No distention. No signs of obstruction. Positive bowel sounds. Moving all 4 extremities. No edema. He is awake alert. Normal motor strength. Const Vital Signs: 01/24/23 10:41 Temperature 97.8 F Temperature Source Temporal Pulse Rate 67 Respiratory Rate 18 Blood Pressure 159/86 H Blood Pressure Mean 110 Pulse Ox 100 Oxygen Delivery Method Room Air Positive well nourished and well developed; Negative for cachectic, contractures or unkempt General Appearance ED: well developed and NAD; Negative for unkempt, cachectic, contractures or pallor Nutritional Appearance: Negative for cachectic HEENT Reports moist mucous membranes normocephalic and atraumatic; Negative for trauma or tenderness Eyes PERRL and EOMs intact bilaterally General Eye ED: Negative for pale conjunctiva or scleral icterus Neck no lymphadenopathy, supple and no JVD General: Negative for tenderness Carotids: Negative for other Lymph Lymphatic: Negative for other Resp normal respiratory effort and clear to auscultation bilaterally Effort and Inspection: Negative for respiratory distress Auscultation: Negative for rales, rhonchi or wheezes Cardio regular rate, regular rhythm, S1 normal heart sound, S2 normal heart sound and no murmurs GI non-distended; Negative for non-tender GI Narrative: Mild right upper quadrant tenderness. No peritoneal signs. Auscultation: normoactive bowel sounds Palpation: soft and tender Back/Spine no CVA tenderness General Back: Negative for CVA tenderness Cervical Spine: Negative for cervical spine tenderness Thoracic Spine / Upper Back: Negative for thoracic spinal tenderness Lumbar Spine / Lower Back: Negative for lumbar spinal tenderness Coccyx: Negative for other Extremity full ROM General Extremety ED: Negative for edema or tenderness General Extremity: Negative for edema Neuro CN's II-XII intact bilaterally and moves all extremities Sensorium / Orientation: alert, oriented to person, oriented to place and oriented to time; Negative for orientation impaired, confused, lethargic or stuporous Motor Exam: strength 5/5 throughout Psych mental status grossly normal and thought process normal Appearance: Negative for unkempt Attitude: No agitated Mood & Affect: Negative for depressed, anxious or tearful Skin General Skin Exam: Negative for jaundice or pallor Lesions: no lesions Rashes: no rashes Trauma: Negative for abrasion Nails: Negative for discolored MDM MDM MDM Narrative Medical decision making narrative: 62-year-old male with a history of a prior appendectomy, lung cancer with brain mets both surgically removed. Complaining of abdominal pain for the last several weeks primarily right upper quadrant. Differential would include gallbladder disease, liver disease versus other etiologies. CAT scan and labs are being obtained. He did request some for pain and nausea be given IV morphine and Zofran. Repeat exam at 1:15 PM patient doing well. We went over all his test results. His CAT scan was unremarkable. Normal white count. Normal liver enzymes. Nor mal lipase. I do not think he needs any further testing today. He can follow- up with his primary care physician for further outpatient testing as needed. History & Record Review Discussion w/independent historian: Patient and Family Lab Data Attestation: I reviewed the patient's lab results. Lab results narrative: CBC unremarkable. White count 9.4. H&H is 16 and 48. Platelets 261. Chemistries unremarkable gap 3. Normal BUN and creatinine. Glucose 104. Liver enzymes normal. Lipase normal at 57. CAT scan of his abdomen and pelvis showed no acute abnormality as read by the radiologist and reviewed by me. Labs: Laboratory Results - last 24 hr 01/24/23 10:50 WBC 9.4 RBC 5.22 Hgb 16.5 Hct 48.4 MCV 92.7 MCH 31.6 MCHC 34.1 RDW Std Deviation 46.9 H RDW Coeff of Morena 13.6 Plt Count 261 MPV 9.3 Immature Gran % (Auto) 0.400 Neut % (Auto) 49.6 Lymph % (Auto) 33.9 [place] % (Auto) 11.9 H Eos % (Auto) 3.0 Baso % (Auto) 1.2 H Absolute Neuts (auto) 4.7 Absolute Lymphs (auto) 3.20 Nucleated RBC % 0 Sodium 141 Potassium 3.7 Chloride 108 H Carbon Dioxide 30.0 Anion Gap 3 L BUN 14 Creatinine 0.96 Estim Creat Clear Calc 78.18 Est GFR (MDRD) Af Amer 102 Est GFR (MDRD) Non-Af 84 BUN/Creatinine Ratio 14.6 Glucose 104 Calcium 8.4 L Total Bilirubin 0.40 AST 17 ALT 24 Alkaline Phosphatase 64 Total Protein 6.9 Albumin 3.4 Globulin 3.5 Albumin/Globulin Ratio 1.0 Lipase 57 Radiography Diagnostic Testing: Clinical Impression(s) from Imaging Studies Abdomen/Pelvis CT 01/24/23 10:55 IMPRESSION: No evidence for acute intra-abdominal or pelvic pathology. Small hypodensity in the right lobe of the liver may represent hemangioma not as well seen on the prior study. CT or MRI with multiphase imaging can be obtained for further characterization. Small stable lung nodules. Clinical correlation and follow up recommended. Electronically Signed: Jaime Conn, at 12:09 EDT Reading Location ID and State: [facility] / [place] Tel , Service support , Discharge Plan Triage Chief Complaint: Abd Pain ED Provider: Jacob Bryant Dx/Rx/DC Orders Clinical Impression: Abdominal pain Instructions: Abdominal Pain Prescriptions: No Action levetiracetam [Keppra] 1,000 mg tablet 1,000 mg PO BID Qty: 60 5RF flurbiprofen 100 mg tablet 100 mg PO TID PRN (Reason: pain) Qty: 90 4RF amoxicillin-pot clavulanate [Augmentin] 500-125 mg tablet 1 tab PO TID Qty: 30 0RF nitroglycerin 0.4 mg tablet, sublingual 0.4 mg SUBLINGUAL Q5M PRN (Reason: chest pain) Qty: 21 1RF Rx Instructions: until response; do not exceed 3 doses per event gabapentin 300 mg capsule 300 mg PO DAILY ezetimibe [Zetia] 10 mg tablet 10 mg PO DAILY Qty: 30 11RF amlodipine [Norvasc] 5 mg tablet 5 mg PO DAILY Qty: 90 3RF olmesartan 40 mg tablet 40 mg PO DAILY Qty: 90 3RF Rx Instructions: TAKE 1 TABLET DAILY clopidogrel 75 mg tablet 75 mg PO DAILY Qty: 90 3RF Patient Comments: STOPPED FOR PORT PLACEMENT icosapent ethyl [Vascepa] 1 gram capsule 2 g PO BID Qty: 120 11RF metoprolol tartrate 25 mg tablet 25 mg PO BID Qty: 180 3RF Primary Care Provider: Brett Alexander Referrals: Brett Alexander, DO [Primary Care Provider] - 1 Week if not improving Activity Restrictions/Additional Instructions: Your labs and CAT scan today are unremarkable. We do not have a specific cause for your pain. Motrin and Tylenol for pain. Follow-up with your primary care physician if not improving. Disposition Disposition: Home, Self Care
[2023-01-24] MEDS: morphine 8 MG/ML Syringe 6 MG IV (11:02)
[2023-01-24] MEDS: Ondansetron 4 MG/2 ML Vial IV (11:03)
[2023-01-24 11:07] LABS: Absolute Neutrophil Count 4.7 X10^3/uL (2.0-7.7); Basophil# 0.11 X10^3/uL; Basophil% 1.2 % (0-1); Eosinophil# 0.28 X10^3/uL; Hematocrit 48.4 % (40-54); Hemoglobin 16.5 g/dL (13.0-16.5); Lymphocyte % 33.9 % (19-41); Mean Corp Hgb Conc 34.1 g/dL (32-36); Mean Corpuscular Hgb 31.6 pg (27.0-32.0); Mean Corpuscular Volume 92.7 fL (80-94); Mean Platelet Vol. 9.3 fl (6.2-12.0); Monocyte# 1.12 X10^3/uL; Monocyte% 11.9 % (0-10); NRBC Flagged by Analyzer 0 % (0-5); Neutrophil # 4.68 X10^3/uL (2.7-7.7); Neutrophil % 49.6 % (47-70); Platelet Count 261 K/mm3 (150-450); RBC Distribution Width CV 13.6 % (11.6-14.6); RBC Distribution Width SD 46.9 fl (35.1-43.9); Red Blood Count 5.22 M/mm3 (4.6-6.2); White Blood Count 9.4 K/mm3 (4.4-11.0)
[2023-01-24 11:22] LABS: AST(SGOT) 17 U/L (15-37); Alanine Aminotransfer ALT/SGPT 24 U/L (16-61); Albumin, Serum 3.4 g/dL (3.2-5.0); Alkaline Phosphatase 64 U/L (45-117); Anion Gap 3 (5-15); BUN 14 mg/dL (7-18); BUN/Creat Ratio 14.6 RATIO (10-20); Calcium,Total 8.4 mg/dL (8.5-10.1); Chloride 108 mmol/L (98-107); Creatinine, Serum 0.96 mg/dL (0.70-1.30); EST Glomerular Filtration Rate 84 mL/min (>60); Est Glom Filt Rate - Afr Amer 102 mL/min (>60); Estimated Creatinine Clearance 78.18 ml/min; Globulin 3.5 g/dL (2.2-4.2); Glucose 104 mg/dL (74-106); Lipase 57 U/L (13-75); Potassium 3.7 mmol/L (3.5-5.1); Protein, Total 6.9 g/dL (6.4-8.2); Sodium Level 141 mmol/L (136-145)
[2023-01-24 13:27] VITALS: BP 153/69; PULSE 52; RESP 16; O2SAT 98
== END 2023-01-24 13:28 | disposition home or self-care (01) ==
PROVIDERS: Emergency Provider Emergency Medicine; PCP Family Medicine; Visit Provider Emergency Medicine
DX: R10.9 Unspecified abdominal pain (principal); R11.0 Nausea; F17.200 Nicotine dependence, unspecified, uncomplicated; I25.10 Atherosclerotic heart disease of native coronary artery without angina pectoris; E78.5 Hyperlipidemia, unspecified; Z90.49 Acquired absence of other specified parts of digestive tract; Z85.841 Personal history of malignant neoplasm of brain; Z85.118 Personal history of other malignant neoplasm of bronchus and lung
CPT/HCPCS: 74177; 80053; 83690; 85025; 96374; 96375; 99283; Q9967; A4216; J2405

== ENCOUNTER → 2023-02-25 | Outpatient (CLI) | payer BC, SELFPAY ==
[2019-03-06 08:56] VITALS: BMI 24.6
--- NOTE | 2023-02-25 10:05 | MRI_ITS ---
STUDY: MRI BRAIN WITH AND WITHOUT CONTRAST REASON FOR EXAM: Male, 62 years old. follow up treated brain metastasis -- compare to prior TECHNIQUE: Standardized multiplanar fat and water weighted pulse sequences were obtained. IV 17 ml CLARISCAN was administered for the contrast portion of the examination. COMPARISON: MRI of the brain November 23, 2022 FINDINGS: Normal size of the ventricles and extra-axial spaces for the patient''s age. Small foci of increased signal intensity in left parietal lobe without mass effect or restricted diffusion which do not enhance following contrast demonstration. . Normal bilateral basal ganglia. Normal thalami. There is no extra-axial fluid accumulation. Normal flow voids within the major intracranial circulation suggesting patency by spin echo criteria. Normal venous enhancement. There is no enhancing intra-axial or extra-axial abnormality. Normal sella turcica, pituitary gland, infundibular stalk, optic chiasm and hypothalamus. Normal tectal plate and pineal gland. Normal midbrain, tsering and medulla. Normal cerebellum. Normal basal cisterns. Normal bilateral temporal bones. Normal bilateral internal auditory canals. No demonstrated orbital abnormality, within the constraints of a routine brain study. Bilateral mucosal thickening of the maxillary and ethmoid sinuses slightly worse on the right. There are postsurgical changes of the left parietal bone. Normal visualized soft tissue structures. Normal visualized upper cervical spine. No significant change since prior exam MRI/Brain W/WO Contrast IMPRESSION: Patchy foci of increased signal intensity within left parietal lobe consistent with mild residual gliosis status post resection of neoplasm without evidence for residual or recurrent metastasis.. Electronically Signed: Hayes Cortez MD at 20:36 EDT ,
== END | disposition home or self-care (01) ==
PROVIDERS: PCP Family Medicine; Referring Provider Student in an Organized Health Care Education/Training Program; Visit Provider Student in an Organized Health Care Education/Training Program
DX: C79.31 Secondary malignant neoplasm of brain (principal)
CPT/HCPCS: 70553; A9575

== ENCOUNTER → 2023-04-29 | Outpatient (CLI) | payer BC, SELFPAY ==
[2019-03-06 08:56] VITALS: BMI 24.6
--- NOTE | 2023-04-29 07:45 | CT_ITS ---
EXAM: CT CHEST AND ABDOMEN WITH INTRAVENOUS CONTRAST CLINICAL INDICATION: Follow NSCLC TECHNIQUE: Helically acquired images were obtained of the chest and abdomen with intravenous contrast. This CT exam was performed using one or more of the following dose reduction techniques: automated exposure control, adjustment of the mA and/or kV according to patient size, and/or use of iterative reconstruction technique. CONTRAST: IV 100mL Isovue-370 RADIATION DOSE: CTDIvol = 16.22 mGy, DLP = 1279.43 mGy-cm COMPARISON: CT chest and abdomen with contrast 10/29/2022. FINDINGS: CHEST: LUNGS AND PLEURAL SPACES: Paraseptal cysts in the left lung apex. Minimal subpleural scarring in the peripheral aspect of the right lower lobe is unchanged. 2.1 cm thin-walled cyst in the right medial lung base is unchanged. No pneumothorax. No suspicious pulmonary nodules. HEART: Minimal calcified plaques in the left main coronary artery, left proximal LAD branch and left circumflex artery present previously. Normal cardiac size. Normal pericardium. Heart size is normal. MEDIASTINUM: 1.9 x 1.5 cm right anterior mediastinal mass, previously 1.7 x 1.4 cm. The slice levels are not identical. This is most likely unchanged. No mediastinal or hilar adenopathy. Esophagus is unremarkable. No hiatal hernia. THYROID: Unremarkable. No thyroid lesions. ABDOMEN: LIVER: Mild diffuse fatty infiltration liver is unchanged. Less obvious focal area of increased vascularity in the lateral aspect of the left hepatic lobe. This is most likely hemangioma. GALLBLADDER AND BILE DUCTS: Unremarkable. No calcified gallstones. No gallbladder distention or wall edema. No intra- or extrahepatic biliary ductal dilation. PANCREAS: Unremarkable. No focal cystic or solid mass. SPLEEN: Unremarkable. Normal size without focal cystic or solid mass. ADRENALS: Unremarkable. No nodules. KIDNEYS AND URETERS: Small nonenhancing cysts in the right kidney is unchanged. Nonenhancing cysts in the left kidney are unchanged. No stones or hydronephrosis in both kidneys. Normal renal size and position. STOMACH AND BOWEL: Scattered diverticula in the colon without diverticulitis. No stomach or bowel distention. APPENDIX: Postsurgical absence of the appendix. INTRAPERITONEAL SPACE: Unremarkable. No ascites or other fluid collection. No free air. CHEST and ABDOMEN: BONES/JOINTS: Unremarkable. No suspicious lytic or blastic abnormality. SOFT TISSUES: Unremarkable. No discrete abdominal wall hernia. VASCULATURE: LYMPH NODES: Small solid lymph nodes in the right axilla more than left axilla are benign reactive nodes and unchanged. CT/CT Chest AND Abd W/ Contrast IMPRESSION: 1. 1.9 x 1.5 cm right anterior mediastinal mass, previously 1.7 x 1.4 cm. The slice levels are however not identical. In my opinion, this is stable and unchanged. 2. No suspicious metastatic pulmonary nodules. 3. Nonenhancing bilateral renal cysts, one on the left and 2 on the right. 4. Less obvious enhancing lesion in the left hepatic lobe is presumably hemangioma. 5. A few small solid lymph nodes in both axilla, right more than left. These were present previously and unchanged. They are most likely benign reactive nodes. 6. Scattered colonic diverticulosis without diverticulitis. 7. Faint ring calcification in the gallbladder neck is uncertain for gallstone. This was faintly visualized in the previous study and is unchanged. Gallbladder ultrasound will help clarify if desired. 8. No significant interval change when compared to CT chest and abdomen with contrast 10/29/2022. Electronically Signed: Ricci Leal MD at 9:56 EDT ,
[2023-04-29 08:10] LABS: EGFR FINGERSTICK > 60.0000 mL/min (>60)
== END | disposition home or self-care (01) ==
PROVIDERS: PCP Family Medicine; Referring Provider Internal Medicine Hematology & Oncology; Visit Provider Internal Medicine Hematology & Oncology
DX: C34.11 Malignant neoplasm of upper lobe, right bronchus or lung (principal); C79.31 Secondary malignant neoplasm of brain
CPT/HCPCS: 71260; 74160; Q9967

== ENCOUNTER → 2023-05-05 | Outpatient (CLI) | payer BC, SELFPAY ==
[2019-03-06 08:56] VITALS: BMI 24.6
--- NOTE | 2023-05-05 09:14 | US_ITS ---
STUDY: ABDOMINAL ULTRASOUND - RIGHT UPPER QUADRANT REASON FOR VISIT: Male, 62 years old ???GB STONE ON CT -- U/S LIVER BILIARY TREE TECHNIQUE: Ultrasound evaluation of the right upper quadrant was performed with real-time and static mason-scale imaging. TECHNICAL QUALITY: Adequate. COMPARISON: Comparison is made with prior CT scan abdomen and pelvis dated January 24, 2023 and prior sonogram of the right upper quadrant dated July 30, 2019. FINDINGS: Liver: The liver measures 17.4 cm. There is increased echogenicity consistent with fatty infiltration. The bile ducts are within normal limits. There is hepatic color flow. The direction of portal flow is hepatopetal. There is no demonstrated mass lesion. Gallbladder: Normal distended gallbladder. The gallbladder wall measures 1.2 mm. There is a negative sonographic Huggins''s sign. There is no pericholecystic fluid. There are no gallstones. Common Bile Duct (C.B.D.): The common bile duct measures 4.3 mm. Pancreas: Normal size of the head, body and tail of the pancreas. There is normal echogenicity of the pancreas. There is no demonstrated pancreatic mass or cyst. Right Kidney: Normal size of the right kidney. The right kidney measures 11.3 cm x 6.5 cm x 5.3 cm. Normal renal cortex. The right cortex measures 1.1 cm. There is a 1.5 cm x 1.9 cm x 1.6 cm cyst in the midpole of the right kidney. There is no right hydronephrosis. US/Abdomen Limited IMPRESSION: Fatty infiltration of the liver. Electronically Signed: Darrick Delarosa MD at 15:30 EDT ,
== END | disposition home or self-care (01) ==
LOC: OPUS 09:04
PROVIDERS: PCP Family Medicine; Referring Provider Internal Medicine Hematology & Oncology; Visit Provider Internal Medicine Hematology & Oncology
DX: R93.89 Abnormal findings on diagnostic imaging of other specified body structures (principal)
CPT/HCPCS: 76705

== ENCOUNTER → 2023-06-27 | Outpatient (CLI) | payer BC, SELFPAY ==
[2019-03-06 08:56] VITALS: BMI 24.6
--- NOTE | 2023-06-27 16:14 | MRI_ITS ---
EXAM: MR HEAD WITHOUT AND WITH INTRAVENOUS CONTRAST CLINICAL INDICATION: treated brain metastasis, monitoring -- eval for disease, compare to prior TECHNIQUE: Multiplanar and multisequence MR images of the brain were obtained without and with intravenous contrast. CONTRAST: IV 17cc Clariscan COMPARISON: MRI brain, 02/25/2023 FINDINGS: BRAIN AND EXTRA-AXIAL SPACES: Posttreatment changes in the left parietal lobe with area of encephalomalacia and adjacent gliosis. Encephalomalacia involving the anterior aspects of the bilateral gyrus rectus. Within the left external capsule, there is a subcentimeter focus of T2 FLAIR hyperintensity which is nonspecific. No pathologic intracranial enhancement is present. No abnormal dural thickening or enhancement. No hydrocephalus. Patent basal cisterns. No intra- or extra-axial hemorrhage. No intracranial mass or mass effect. Posterior fossa structures are unremarkable. No restricted diffusion is identified in the brain parenchyma to indicate recent infarct or other pathology. SELLA: No significant abnormality. Normal sella turcica, pituitary gland, infundibular stalk, optic chiasm and hypothalamus. AUDITORY SYSTEM: No significant abnormality. The internal auditory canals are patent. BONES/JOINTS: Left parietal craniotomy change. No discrete lytic or blastic abnormalities. SINUSES: Mucus retention cyst in the left maxillary sinus. MASTOID AIR CELLS: Trace bilateral mastoid effusion. ORBITS: Normal as visualized. Both globes, extraocular muscles, optic nerves and retrobulbar fat appear unremarkable. VASCULATURE: Normal as visualized. Normal flow voids in the major intracranial circulation. MRI/Brain W/WO Contrast IMPRESSION: 1. Postresection changes in the left parietal region. No evidence of recurrent or residual neoplasm. 2. Nonspecific focus of white matter signal abnormality in the left external capsule region which may be a sequela of chronic microvascular ischemic change, trauma, infection, or inflammation. 3. Bilateral minimal mastoid effusion. Electronically Signed: Santos Haque DO at 20:31 EST ,
[2023-06-27 17:14] LABS: CREATININE FINGERSTICK 1.2 mg/dL (0.70-1.30); EGFR FINGERSTICK > 60.0000 mL/min (>60)
== END | disposition home or self-care (01) ==
LOC: MRI 16:07
PROVIDERS: PCP Family Medicine; Referring Provider Student in an Organized Health Care Education/Training Program; Visit Provider Student in an Organized Health Care Education/Training Program
DX: C79.31 Secondary malignant neoplasm of brain (principal)
CPT/HCPCS: 70553; A9575

== ENCOUNTER → 2023-08-09 | Outpatient (CLI) | payer BC, SELFPAY ==
[2019-03-06 08:56] VITALS: BMI 24.6
--- NOTE | 2023-08-09 13:45 | RAD_ITS ---
STUDY: X-RAY - PELVIS AND LEFT HIP REASON FOR EXAM: Male, 63 years old. pain TECHNIQUE: 3 views of the pelvis and hip. COMPARISON: None. FINDINGS: There is a non-specific bowel gas pattern. Normal visualized soft tissue structures. Normal bilateral iliac wings, sacroiliac joints and visualized sacrum. Normal bilateral superior and inferior pubic rami. Normal pubic symphysis. Normal bilateral ischial tuberosities. Normal visualized femoral head. Normal acetabulum. Normal hip joint. RAD/HIP, UNI W/ Pelvis 2-3 Views IMPRESSION: Normal x-ray examination of the pelvis and hip. Electronically Signed: Nikolas Key MD at 14:01 EST ,
== END | disposition home or self-care (01) ==
LOC: MTRAD 13:44
PROVIDERS: PCP Family Medicine; Referring Provider Physician Assistant; Visit Provider Physician Assistant
DX: M25.552 Pain in left hip (principal); M70.72 Other bursitis of hip, left hip
CPT/HCPCS: 73502

== ENCOUNTER → 2023-10-24 | Outpatient (CLI) | payer BC, SELFPAY ==
[2019-03-06 08:56] VITALS: BMI 24.6
--- NOTE | 2023-10-24 07:53 | CT_ITS ---
STUDY: CT CHEST T ABDOMEN WITH CONTRAST REASON FOR EXAM: Male, 63 years old. F/U NSCLC. Status post chemotherapy and radiation therapy. RADIATION DOSAGE (If Supplied By Facility): CTDIvol = ( 14.61 ) mGy, DLP = ( 1062.25 ) mGycm TECHNIQUE: Transaxial imaging was performed following intravenous administration of IV 100mL Isovue-300. Multiplanar coronal and sagittal images were reformatted. Individualized dose optimization techniques were used for this CT. COMPARISON: Comparison is made with prior study dated April 29, 2023. FINDINGS: CHEST Stable small bilateral benign-appearing axillary lymph nodes. Mild degree of emphysematous changes. There is evidence of a volume loss in the right hemithorax. Bronchiectasis in the medial aspect of the right upper lobe and right suprahilar region most likely secondary to prior radiation therapy. This is unchanged. Stable linear scarring in the lateral aspect of the right lower lobe. There is no demonstrated pleural abnormality. There are calcifications of the coronary arteries. Stable 1.9 cm x 1.5 cm soft tissue nodule in the right anterior mediastinal. Normal hilar regions. Normal unenhanced pulmonary arteries. Normal aorta arch and descending thoracic aorta. There are mild degenerative changes of the thoracic spine. ABDOMEN There is decreased attenuation of the liver consistent with steatosis. Normal gallbladder and extrahepatic biliary system. Normal spleen. Normal pancreas. Normal bilateral adrenal glands. There is a 2.1 cm x 2.8 cm cyst in the mid lateral aspect of the right kidney. Subcentimeter cyst in the lower pole. Stable cysts in the left kidney. The larger one measures 2.8 cm. Small cyst in the lower pole of the left kidney. Normal visualized stomach. Normal small intestine. There are multiple colonic diverticula consistent with diverticulosis. The appendix is visualized and appears normal. There is diffuse atherosclerotic calcification of the abdominal aorta, without a demonstrated aneurysm. Normal inferior vena cava. Normal retroperitoneum. Normal abdominal wall. There are degenerative changes of the visualized lumbar spine. CT/CT Chest AND Abd W/ Contrast IMPRESSION: Stable examination. Electronically Signed: Darrick Delarosa MD at 13:04 EDT ,
[2023-10-24 08:29] LABS: CREATININE FINGERSTICK 1.1 mg/dL (0.70-1.30); EGFR FINGERSTICK > 60.0000 mL/min (>60)
== END | disposition home or self-care (01) ==
PROVIDERS: PCP Family Medicine; Referring Provider Internal Medicine Hematology & Oncology; Visit Provider Internal Medicine Hematology & Oncology
DX: C34.11 Malignant neoplasm of upper lobe, right bronchus or lung (principal); C79.31 Secondary malignant neoplasm of brain
CPT/HCPCS: 71260; 74160; Q9967

== ENCOUNTER → 2023-10-26 | Outpatient (CLI) | payer BC, SELFPAY ==
[2019-03-06 08:56] VITALS: BMI 24.6
--- NOTE | 2023-10-26 10:27 | MRI_ITS ---
STUDY: MRI BRAIN WITH AND WITHOUT CONTRAST REASON FOR EXAM: Male, 63 years old. follow up treated brain metastases -- please compare to prior TECHNIQUE: Standardized multiplanar fat and water weighted pulse sequences were obtained. clariscan 17ml was administered for the contrast portion of the examination. COMPARISON: June 27, 2023 FINDINGS: Normal size of the ventricles and extra-axial spaces for the patient''s age. Nonspecific solitary white matter lesion in the left frontal lobe without mass effect or restricted diffusion. . There is mild gliosis in the left parietal lobe at site of prior craniotomy and nodule resection. There is no enhancement to suggest acute residual or recurrent nodule. There are also no new enhancing lesions. Normal bilateral basal ganglia. Normal thalami. There is no extra-axial fluid accumulation. Normal flow voids within the major intracranial circulation suggesting patency by spin echo criteria. Normal venous enhancement. . Normal sella turcica, pituitary gland, infundibular stalk, optic chiasm and hypothalamus. Normal tectal plate and pineal gland. Normal midbrain, tsering and medulla. Normal cerebellum. Normal basal cisterns. Normal bilateral temporal bones. Normal bilateral internal auditory canals. Mildly increased signal within the mastoid which may be consistent with inflammatory changes. No demonstrated orbital abnormality, within the constraints of a routine brain study. Polypoid mucosal thickening in maxillary sinuses bilaterally and minor mucosal thickening of the ethmoid air cells bilaterally.. Normal calvarium and skull base. Normal visualized soft tissue structures. Normal visualized upper cervical spine. No significant change since prior exam MRI/Brain W/WO Contrast IMPRESSION: No evidence for residual, recurrent or new brain metastases status post left parietal craniotomy and resection.. Persistent solitary white matter lesion of uncertain significance most likely due to chronic small vessel ischemic changes Electronically Signed: Hayes Cortez MD at 19:30 EDT ,
== END | disposition home or self-care (01) ==
PROVIDERS: PCP Family Medicine; Referring Provider Student in an Organized Health Care Education/Training Program; Visit Provider Student in an Organized Health Care Education/Training Program
DX: C79.31 Secondary malignant neoplasm of brain (principal)
CPT/HCPCS: 70553; A9575

== ENCOUNTER → 2024-04-05 | Outpatient (CLI) | payer BC, SELFPAY ==
[2019-03-06 08:56] VITALS: BMI 24.6
[2024-04-05 10:02] LABS: Bacteria 0 SEEN /hpf (None Seen); Mucous, Urine 0 SEEN /hpf (<or=2+); Red Blood Cells-Urine 0 SEEN /hpf (0-5); Squamous Epithelial Cells - UA 0 SEEN /hpf (0-5); White Blood Cells 0 SEEN /hpf (0-5)
[2024-04-05 12:32] LABS: Color, Urine Yellow (Yellow); Glucose, Dipstick Normal (Normal); Ketone-Dipstick Negative (Negative); Leukocyte Esterase-Dipstick Negative /ul (Negative); Nitrite-Dipstick Negative (Negative); Occult Blood-Urine 10 /ul (Negative); Protein-Dipstick Negative (Negative); Urine Bilirubin Dipstick Negative (Negative); Urine Clarity Clear (Clear); Urine Urobilinogen Normal (Normal); Urine pH 6.5 (5.0 - 8.0)
== END | disposition home or self-care (01) ==
LOC: LABSPEC 10:01
PROVIDERS: PCP Family Medicine; Referring Provider Physician Assistant; Visit Provider Physician Assistant
DX: R35.0 Frequency of micturition (principal)
CPT/HCPCS: 81001; 87086

== ENCOUNTER → 2024-04-12 | Outpatient (CLI) | payer BC, SELFPAY ==
[2019-03-06 08:56] VITALS: BMI 24.6
[2024-04-16 14:09] LABS: KEPPRA (LEVETIRACETAM) 13.6 ug/mL (10.0-40.0)
== END | disposition home or self-care (01) ==
PROVIDERS: PCP Family Medicine; Referring Provider Psychiatry & Neurology Neurology; Visit Provider Psychiatry & Neurology Neurology
DX: G40.909 Epilepsy, unspecified, not intractable, without status epilepticus (principal)
CPT/HCPCS: 36415; 80177; 82140

== ENCOUNTER → 2024-04-27 | Outpatient (CLI) | payer BC, SELFPAY ==
[2019-03-06 08:56] VITALS: BMI 24.6
--- NOTE | 2024-04-27 08:01 | MRI_ITS ---
EXAM: MR HEAD WITHOUT AND WITH INTRAVENOUS CONTRAST CLINICAL INDICATION: treated brain metastasis -- monitoring TECHNIQUE: Multiplanar and multisequence MR images of the brain were obtained without and with intravenous contrast. CONTRAST: IV CLARISCAN 17ML COMPARISON: MRI brain, 10/26/2023. FINDINGS: BRAIN AND EXTRA-AXIAL SPACES: Postoperative changes in the left parietal lobe are identified with area of gliosis and apparent encephalomalacia. There is no restricted diffusion in the brain parenchyma to indicate recent infarct or other pathology. T2 FLAIR hyperintensity within the white matter of the left frontal lobe is similar to the prior examination. Minimal hemosiderin staining in the left parietal lobe likely related to operative change. No pathologic brain parenchymal or meningeal enhancement is identified. There is no discrete mass or mass effect and there is no shift of midline structures. The basal cisterns are patent. There is no hydrocephalus. No intra- or extra-axial hemorrhage. Posterior fossa structures are unremarkable. SELLA: No significant abnormality. Normal sella turcica, pituitary gland, infundibular stalk, optic chiasm and hypothalamus. AUDITORY SYSTEM: No significant abnormality. The internal auditory canals are patent. BONES/JOINTS: Left parietal craniotomy change. No additional calvarial or skull base signal abnormality. No discrete lytic or blastic abnormalities. SINUSES: Mucosal thickening and scattered mucus retention cyst in the paranasal sinuses. MASTOID AIR CELLS: Normal as visualized. Clear. ORBITS: Normal as visualized. Both globes, extraocular muscles, optic nerves and retrobulbar fat appear unremarkable. VASCULATURE: Normal as visualized. Normal flow voids in the major intracranial circulation. MRI/Brain W/WO Contrast IMPRESSION: Post therapeutic changes as above. No evidence of residual or recurrent malignancy. Nonspecific white matter signal abnormality is unchanged. Electronically Signed: Santos Haque DO at 21:58 EDT ,
[2024-04-27 08:35] LABS: CREATININE FINGERSTICK < 1.0 mg/dL (0.70-1.30); EGFR FINGERSTICK > 60.0000 mL/min (>60)
== END | disposition home or self-care (01) ==
LOC: MRI 08:00
PROVIDERS: PCP Family Medicine; Referring Provider Student in an Organized Health Care Education/Training Program; Visit Provider Student in an Organized Health Care Education/Training Program
DX: C79.31 Secondary malignant neoplasm of brain (principal)
CPT/HCPCS: 70553; A9575

== ENCOUNTER → 2024-10-26 | Outpatient (CLI) | payer BC, SELFPAY ==
[2019-03-06 08:56] VITALS: BMI 24.6
--- NOTE | 2024-10-26 07:06 | CT_ITS ---
PROCEDURE: CT CHEST AND ABD W/ CONTRAST 10/26/2024 REASON FOR EXAM: F/U NSCLC IV CONTRAST ONLY TECHNIQUE: Chest and abdomen CT with intravenous contrast. Coronal and Sagittal reconstruction series were provided. One or more dose reduction techniques were used (e.g., Automated exposure control, adjustment of the mA and/or kV according to patient size, use of iterative reconstruction technique. PATIENT PREPARATION: Per protocol ORAL CONTRAST TYPE: None. CONTRAST: Isovue-300 VOLUME: 100mL RADIATION DOSE SUMMARY: CTDlvol: 17 mGy DLP: 1366.21 mGycm COMPARISON: Comparison is made with prior study dated October 24, 2023. FINDINGS: CT CHEST: Hardware: None Lymph nodes: Stable small benign-appearing bilateral axillary lymph nodes. Heart and Vasculature: The heart is not enlarged. Coronary artery calcification. Atherosclerotic calcific plaques of the aortic arch. Lungs and Airways: Stable mild volume loss in the right hemithorax. Stable mild scarring in the right perihilar region most likely secondary to prior radiation fibrosis. There has been essentially no change. Pleura: Unremarkable. CT ABDOMEN: Liver: Normal size. No mass. Gallbladder: Unremarkable Spleen: Normal size. Pancreas: Normal size without evidence of mass surrounding inflammation or ductal dilation. Adrenals: No adrenal mass seen. Kidneys: Stable 3.1 cm cyst in the medial aspect of the left kidney. Stable 1.4 cm cyst in the midportion of the right kidney. Bowel: Sigmoid diverticulosis. Lymph nodes: Unremarkable. Vasculature: Mild diffuse atherosclerotic calcifications are noted. Peritoneum / Retroperitoneum: Unremarkable Bones: Degenerative changes of the spine. CT/CT Chest AND Abd W/ Contrast IMPRESSION: Stable examination. Reading Location: [id number]
--- NOTE | 2024-10-26 07:09 | MRI_ITS ---
PROCEDURE: BRAIN W/WO CONTRAST 10/26/2024 REASON FOR EXAM: FOLLOW UP TREATED BRAIN METASTASIS TECHNIQUE: Routine brain MRI without and with intravenous contrast. Multiplanar and multisequence images were obtained. CONTRAST: Clear scan VOLUME: 17 mL IV COMPARISON: None FINDINGS: Brain: Old left parietal craniotomy with underlying high left frontoparietal subcortical white matter T2/FLAIR hyperintensity and foci of susceptibility artifact. No abnormal enhancement. Midline structures appear within normal limits. Diffusion weighted images: In the restricted diffusion. Ventricles: No findings of hydrocephalus. Major Intracranial Vessels: Enhance normally Sinuses: Scattered mucosal thickening. Mastoids: Small amount of fluid signal is identified within both mastoid air cells. MRI/Brain W/WO Contrast IMPRESSION: Postoperative appearance of the left parietal bone and underlying brain. No fi nding of disease recurrence. Reading [facility]
== END | disposition home or self-care (01) ==
LOC: MRI 07:02
PROVIDERS: PCP Family Medicine; Referring Provider Student in an Organized Health Care Education/Training Program; Visit Provider Internal Medicine Hematology & Oncology
DX: Z08 Encounter for follow-up examination after completed treatment for malignant neoplasm (principal); C79.31 Secondary malignant neoplasm of brain; C34.11 Malignant neoplasm of upper lobe, right bronchus or lung
CPT/HCPCS: 70553; 71260; 74160; A9575; Q9967; A4216

== ENCOUNTER → 2025-02-12 | Outpatient (CLI) | payer BC, SELFPAY ==
[2019-03-06 08:56] VITALS: BMI 24.6
[2025-02-12 11:43] LABS: AST(SGOT) 20 U/L (<=37); Alanine Aminotransfer ALT/SGPT 16 U/L (<=46); Albumin, Serum 4.0 g/dL (3.4-4.8); Alkaline Phosphatase 46 U/L (40-129); Bilirubin, Direct 0.13 mg/dL (0.00-0.30); Cholesterol 231 mg/dL (<=200); Globulin 2.7 g/dL (2.2-4.2); Low Density Lipoprotein Calc. 164 mg/dL; Triglycerides 96 mg/dL; Very Low Density Lipoprotein 19 mg/dL (5-40); cholesterol:hdl ratio screen 4.81
== END | disposition home or self-care (01) ==
LOC: LAB 08:48
PROVIDERS: PCP Family Medicine; Referring Provider Nurse Practitioner Gerontology; Visit Provider Nurse Practitioner Gerontology
DX: E78.00 Pure hypercholesterolemia, unspecified (principal)
CPT/HCPCS: 36415; 80061; 80076

== ENCOUNTER → 2025-04-26 | Outpatient (CLI) | payer BC, SELFPAY ==
[2019-03-06 08:56] VITALS: BMI 24.6
--- NOTE | 2025-04-26 06:49 | MRI_ITS ---
PROCEDURE: BRAIN W/WO CONTRAST 04/26/2025 REASON FOR EXAM: FOLLOW UP TREATED BRAIN METASTASES TECHNIQUE: Procedure Code: [id number] Modality: MR Procedure: BRAIN W/WO CONTRAST Multiplanar and multisequence images were obtained. CONTRAST: Clariscan VOLUME: 17 mL COMPARISON: MRI brain with and without contrast, 10/26/2024 FINDINGS: Status post left posterior parietal craniotomy. There is associated contrast enhancement in the associated scalp. There is an area of encephalomalacia in the underlying left parietal lobe. There are stable foci of white matter signal abnormality in the subcortical and periventricular white matter of the left cerebral hemisphere. There is no abnormal intracranial contrast enhancement. There is a normal sulcal pattern and gyral configuration. There is no evidence of acute intracranial hemorrhage or infarction. The mason-white differentiation is well preserved. There is no evidence of restricted diffusion. The ventricles and basilar cisterns are normal. There are normal flow voids demonstrated in the recognized intracranial vessels. The cerebellum and brainstem are unremarkable. The cerebellar pontine angles are normal. The craniovertebral junction is normal. The sella and suprasellar regions are normal. The orbits and retro-orbital regions are unremarkable. There is nasal septal deviation to the left. There is a nasal spur extending into the left middle meatus. There is a 2.2 cm mucous retention cyst in the left maxillary sinus and a 1.4 cm mucous retention cyst in the right maxillary sinus. There is diffuse mucoperiosteal thickening of the paranasal sinuses. There are few fluid-filled mastoid air cells on the right. There is normal bone marrow signal in the skull base. MRI/Brain W/WO Contrast IMPRESSION: 1. There are no foci of abnormal intracranial signal or contrast enhancement t o suggest metastatic disease. 2. Status post left posterior parietal craniotomy. There is focal encephaloma lacia in the parietal lobe at the site of the craniotomy. 3. Paranasal sinus disease and right mastoiditis. 4. No significant change. Reading Location: [place] [id number]
--- OUTSIDE RECORDS SUMMARY | 2025-04-26 07:24 | XMS RPT_ITS | CCD ---
Author Organization [facility] Care Team Providers Care Environmental Sustainability Manager Name Role Phone Dr. Jim Perez Primary Care Provider [phone] Dr. Jim Perez Referring Provider Ash FRENCH, PLASTIC PRINTER-C Bravo Attending Provider Dr. Delilah Rodgers Attending Provider Dr. Xiang Erickson Attending Provider Dr. Jim Perez Primary Care Provider Dr. Jim Perez Referring Provider [phone] Ash FRENCH NP-C Bravo Attending Provider [phone] Dr. Jim Perez Primary Care Provider Dr. Jim Perez Referring Provider [phone] Dr. Delilah Rodgers Attending Provider Dr. Jim Perez Primary Care Provider [phone] Dr. Jim Perez Referring Provider [phone] Dr. Xiang Erickson Attending Provider DELLA Cordova Attending Provider Dr. Esau Lai Attending Provider Dr. Norberto Kilgore Attending Provider [phone] Dr. Jim Perez Primary Care Provider [phone] Dr. Jim Perez Referring Provider Ash FRENCH, PLASTIC PRINTER-C Bravo Attending Provider [phone] Dr. Delilah Rodgers Attending Provider Dr. Leland Blancas Attending Provider Dr. Jim Perez Primary Care Provider [phone] Dr. Jim Perez Referring Provider Dr. Xiang Erickson Attending Provider Dr. Jim Perez Primary Care Provider Dr. Jim Perez Referring Provider Dr. Xiang Erickson Attending Provider Dr. Delilah Rodgers Attending Provider Ash PLASTIC PRINTER, PLASTIC PRINTER-C Bravo Attending Provider [phone] Dr. Jim Perez Primary Care Provider [phone] Dr. Jim Perez Referring Provider Logan FRENCH, PLASTIC PRINTER-C Deyanira Attending Provider Dr. Xiang Erickson Attending Provider Dr. Jim Perez Primary Care Provider Dr. Jim Perez Referring Provider Dr. Delilah Rodgers Attending Provider Dr. Esau Lai Attending Provider Dr. Jim Perez Primary Care Provider [phone] Dr. Jim Perez Referring Provider Ash PLASTIC PRINTER, PLASTIC PRINTER-C Bravo Attending Provider Logan FRENCH, PLASTIC PRINTER-C Deyanira Attending Provider Dr. Xiang Erickson Attending Provider Dr. Delilah Rodgers Attending Provider Dr. Esau Lai Attending Provider Dr. Esau Lai Referring Provider Dr. Jim Perez Primary Care Provider [phone] Dr. Jim Perez Referring Provider Dr. Delilah Rodgers Attending Provider Dr. Jim Perez Attending Provider Dr. Xiang Erickson Attending Provider Dr. Conner Carpenter Attending Provider [phone] Jim Perez Primary Care Provider [phone] Dr. Jim Perez Referring Provider [phone] Dr. Jim Perez Primary Care Provider [phone] Dr. Jim Perez Attending Provider Dr. Jim Perez Referring Provider [phone] Xiang Erickson Attending Provider Dr. Conner Carpenter Attending Provider Dr. Delilah Rodgers Attending Provider Dr. Jim Perez Primary Care Provider [phone] Dr. Jim Perez Referring Provider [phone] Conner Carpenter Attending Provider EMPERATRIZ Rojas Attending Provider Dr. Conner Carpenter Referring Provider Dr. Delilah Rodgers Attending Provider Dr. Xiang Erickson Attending Provider JIM PEREZ DO Primary Care Physician MARYANN CLARK, RENÉ Gore Attending Unavail able JIM PEREZ DO Primary Care Unavailable Dr. Jim Perez DO Primary Care Provider Dr. Delilah Rodgers MD Attending Provider Dr. Xiang Erickson DO Referring Provider Dr. Xiang Erickson DO Other Provider Dr. Jim Perez DO Referring Provider Dr. Xiang Erickson DO Attending Provider Dr. Delilah Rodgers MD Referring Provider Logan PLASTIC PRINTER-CDeyanira Attending Provider Logan PLASTIC PRINTERNazCDeyanira Referring Provider [phone] Brown, Jim R Primary Care Unavailable Xiang Erickson Attending Unavailable Brown, Jim R Referring Unavailable Brown, Jim R Primary Care Unavailable Deyanira Ford Attending Unavailable Brown, Jim R Primary Care Unavailable Brown, Jim R Referring Unavailable Xiang Erickson Attending Unavailable Delilah Rodgers Attending Unavailable Brown, Jim R Referring Unavailable Brown, Jim R Primary Care Unavailable Brown, Jim R Primary Care Unavailable Delilah Rodgers Attending Unavailable Delilah Rodgers Referring Unavailable Delilah Rodgers Attending Unavailable Brown, Jim R Referring Unavailable Brown, Jim R Primary Care Unavailable Brown, Jim R Primary Care Unavailable Deyanira Ford Attending Unavailable Deyanira Ford Referring Unavailable Brown, Jim R Primary Care Unavailable Xiang Erickson Attending Unavailable Xiang Erickson Referring Unavailable Xiang Erickson Consulting Unavailable Delilah Rodgers Attending Unavailable Brown, Jim R Primary Care Unavailable DreXiang rincon Referring Unavailable Brown, Jim R Primary Care Unavailable Xiang Erickson Attending Unavailable Tomas Ericksone Referring Unavailable Allergies Allergy Classification Reported Allergen(s) Allergy Type Date of Onset Reaction(s) Facility (20 sources) Sulfamethoxazole Drug Allergy 2 [facility] (20 sources) Trimethoprim Drug Allergy 2 [facility] (1 source) Sulfamethoxazole / Trimethoprim; Translations: [sulfamethoxazole-tr imethoprim] Drug Allergy [facility] (1 source) Sulfamethoxazole Drug Allergy [address] [place] [address] Repository (1 source) Trimethoprim Drug Allergy [address] [facility] Repository Medications Current Medications Medication Drug Class(es) Dates Sig (Normalized) Sig (Original) acetaminophen 325 mg oral capsule (1 source) Start: 10-24-2020 take 1 capsule by mouth every four hours as needed for pain Tylenol 325 mg oral capsule Dose : 650 mg =, Oral, q4h, PRN Pain, scale 1-3, not to exceed 4000 mg/day., 0 Refill(s) Start Date: 10/24/20 Status: Ordered acetaminophen 325 mg / oxyCODONE hydrochloride 5 mg oral tablet (20 sources) Opioid Agonist Start: 03-20-2024 End: 03-23-2024 take 1 tablet by mouth every six hours as needed for pain Percocet 5 mg-325 mg oral tablet Dose = 1 tab(s), Oral, q6h, PRN Pain, X 3 day(s), # 12 tab(s), 0 Refill(s), Diverticulitis, 98.6 Start Date: 03/20/24 Stop Date: 03/23/24 Status: Ordered Start: 02-19-2019 End: 04-03-2019 Oxycodone-Acetaminophen 7.5- 325 mg tablet Discontinued 1 {tbl} PO EVERY 6 HOURS as needed for pain 60 0 February 19, 2019 April 03, 2019 8:41am Malignant neoplasm of unspecified part of unspecified bronchus or lung Start: 02-19-2019 End: 04-03-2019 take 1 tablet by mouth every six hours Oxycodone-Acetaminophen Discontinued 1 TABLET PO EVERY 6 HOURS 60 February 19, 2019 April 03, 2019 8:41am Start: 02-17-2019 End: 02-19-2019 Oxycodone-Acetaminophen 5-32 5 mg tablet Discontinued 1 {tbl} PO EVERY 6 HOURS as needed for pain 28 0 February 17, 2019 February 19, 2019 8:26am Malignant neoplasm of unspecified part of right bronchus or lung Start: 02-17-2019 End: 02-19-2019 take 1 tablet by mouth every six hours Oxycodone-Acetaminophen Discontinued 1 TABLET PO EVERY 6 HOURS 28 February 17, 2019 February 19, 2019 8:26am amoxicillin 875 mg / clavulanate 125 mg oral tablet (10 sources) Penicillin-class Antibacterial Start: 03-20-2024 End: 03-25-2024 take 1 tablet by mouth every eight hours amoxicillin-clavulanate 875 mg-125 mg oral tablet 1 tab(s), Oral, q8h, X 5 day(s), # 15 tab(s), 0 Refill(s), 03/25/24 8:44:00 AM EDT, 98.6 Start Date: 03/20/24 Stop Date: 03/25/24 Status: Ordered Start: 01-19-2023 End: 08-08-2023 Amoxicillin-Pot Clavulanate (Augmentin) 500-125 mg tablet Discontinued 1 {tbl} PO THREE TIMES A DAY 30 0 January 19, 2023 12:00am August 08, 2023 9:22am famotidine 20 mg oral tablet (1 source) Histamine-2 Receptor Antagonist Start: 10-24-2020 Pepcid 20 mg oral tablet Dose : 20 mg = 1 tab(s), Oral, BID, # 60 tab(s), 0 Refill(s), Pharmacy: [facility]/pharmacy #[id number], 172.7, cm, 10/23/20 5:51:00 EDT, Height, kg, 10/23/20 5:51:00 EDT, Dosing Weight Start Date: 10/24/20 Status: Ordered rosuvastatin 10 mg oral capsule (20 sources) HMG-CoA Reductase Inhibitor Start: 10-10-2020 rosuvastatin 10 mg oral capsule Dose : 10 mg = 1 cap(s), Oral, qHS, # 30 cap(s), 0 Refill(s) Start Date: 10/10/20 Status: Ordered Start: 07-09-2019 End: 07-27-2022 take 1 tablet by mouth once daily Rosuvastatin (Crestor) 10 mg tablet Discontinued 10 mg PO DAILY 90 3 June 19, 2020 5:04pm July 27, 2022 5:04pm Start: 09-07-2018 End: 03-08-2019 take 1 tablet by mouth once daily Rosuvastatin 10 mg tablet Discontinued 10 mg PO DAILY 90 2 September 07, 2018 5:01pm March 08, 2019 3:44pm Start: 03-07-2018 End: 09-07-2018 take 1 tablet by mouth once daily Rosuvastatin 5 mg tablet Discontinued 5 mg PO DAILY 90 2 March 07, 2018 12:00am September 07, 2018 5:03pm Completed/Discontinued Medications Medication Drug Class(es) Dates Sig (Normalized) Sig (Original) acetaminophen 325 mg / HYDROcodone bitartrate 5 mg oral tablet (20 sources) Opioid Agonist Start: 02-15-2019 End: 02-17-2019 Hydrocodone-Acetam inophen ([place]) 5-325 mg tablet Discontinued 1 {tbl} PO Q8H as needed for pain (scale score 7-10) February 15, 2019 February 17, 2019 10:28am [id number] 200 actuat albuterol 0.09 mg/actuat metered dose inhaler (20 sources) beta2-Adrenergic Agonist Start: 10-06-2021 take 1 puff(s) by inhalation every six hours Albuterol Sulfate (Proair Hfa) 90 mcg/actuation HFA aerosol inhaler Active 1 - 2 PUFF INHALATION EVERY 6 HOURS 8.5 October 06, 2021 11:25am Start: 06-10-2021 End: 10-06-2021 take 1 puff(s) by inhalation every six hours Albuterol Sulfate (Proair Hfa) 90 mcg/actuation HFA aerosol inhaler Discontinued 1 - 2 PUFF INHALATION EVERY 6 HOURS 8.5 June 10, 2021 12:23pm October 06, 2021 11:25am Start: 06-10-2021 End: 06-10-2021 take 1 puff(s) by inhalation every six hours Albuterol Sulfate (Proair Hfa) 90 mcg/actuation HFA aerosol inhaler Discontinued 1 - 2 PUFF INHALATION EVERY 6 HOURS 8.5 June 10, 2021 9:44am June 10, 2021 12:24pm Start: 06-10-2021 End: 01-19-2023 Albuterol Sulfate (Proair Hf a) 90 mcg/actuation HFA aerosol inhaler Discontinued 1 - 2 NMA INHALATION EVERY 6 HOURS as needed for shortness of breath or wheezing 8.5 October 06, 2021 11:25am December 02, 2021 9:14am Start: 06-10-2021 End: 01-19-2023 take 1 puff(s) by inhalation every six hours Albuterol Sulfate (Proair Hfa) 90 mcg/actuation HFA aerosol inhaler Discontinued 1 - 2 PUFF INHALATION EVERY 6 HOURS 8.5 October 06, 2021 11:25am December 02, 2021 9:14am amLODIPine 5 mg oral tablet (20 sources) Dihydropyridine Calcium Channel Kwasi Start: 03-06-2020 End: 08-28-2024 take 1 tablet by mouth once daily Amlodipine (Norvasc) 5 mg tablet Discontinued 5 mg PO DAILY 90 3 September 05, 2023 8:55am August 28, 2024 5:21pm ascorbic acid 500 mg oral tablet (20 sources) Vitamin C Start: 12-06-2017 End: 12-06-2017 take 1 tablet by mouth once daily Ascorbic Acid (Vitamin C) 500 mg tablet Discontinued 500 mg PO daily December 06, 2017 12:00am December 06, 2017 4:56pm aspirin 81 mg delayed release oral tablet (20 sources) Platelet Aggregation Inhibitor, Nonsteroidal Anti-inflammatory Drug Start: 11-22-2019 End: 11-18-2020 take 1 tablet by mouth once daily Aspirin 81 mg tablet,delayed release (DR/EC) Discontinued 81 mg PO DAILY November 22, 2019 12:00am November 18, 2020 2:31pm Start: 12-06-2017 End: 09-07-2018 take 1 tablet by mouth once daily Aspirin 81 mg tablet,delayed release (DR/EC) Discontinued 81 mg PO daily December 07, 2017 12:00am September 07, 2018 4:44pm atorvastatin 20 mg oral tablet (20 sources) HMG-CoA Reductase Inhibitor Start: 12-06-2017 End: 09-07-2018 take 1 tablet by mouth at bedtime Atorvastatin 20 mg tablet Discontinued 20 mg PO AT BEDTIME 90 3 March 01, 2018 4:58pm September 07, 2018 4:44pm On Hold: None Start: 08-05-2015 End: 12-06-2017 take 1 tablet by mouth once daily Atorvastatin 10 MG tablet Discontinued 10 mg PO DAILY August 05, 2015 1:00am December 06, 2017 4:24pm azithromycin 250 mg oral tablet (20 sources) Macrolide Antimicrobial Start: 06-17-2021 End: 09-08-2021 Azithromycin 250 mg tablet Discontinued 0 PO .COMPLEX 6 0 June 17, 2021 1:00am September 08, 2021 11:58am Take two tablets by mouth on day one then one tablet by mouth on days 2-5 benzonatate 100 mg oral capsule (20 sources) Non-narcotic Antitussive Start: 06-10-2021 End: 09-08-2021 take 1 capsule by mouth three times daily as needed for cough Benzonatate 100 mg capsule Discontinued 100 mg PO THREE TIMES A DAY as needed for cough 30 0 June 10, 2021 12:23pm September 08, 2021 11:58am clopidogrel 75 mg oral tablet (20 sources) [id number] Platelet Inhibitor Start: 04-08-2021 End: 01-21-2025 take 1 tablet by mouth once daily Clopidogrel 75 mg tablet Discontinued 75 mg PO DAILY 90 0 October 22, 2024 9:10am January 21, 2025 4:18pm Start: 09-07-2018 End: 11-18-2020 take 1 tablet by mouth once daily Clopidogrel 75 mg tablet Discontinued 75 mg PO DAILY 90 3 September 08, 2020 11:25am November 18, 2020 2:32pm cyclobenzaprine hydrochloride 5 mg oral tablet (20 sources) Muscle Relaxant Start: 04-05-2024 End: 02-04-2025 take 1 tablet by mouth three times daily Cyclobenzaprine 5 mg tablet Discontinued 5 mg PO THREE TIMES A DAY 21 April 05, 2024 12:00am February 04, 2025 3:19pm Start: 02-07-2019 End: 02-17-2019 take 5-10 mg by mouth three times daily as needed for muscle spasms Cyclobenzaprine 10 mg tablet Discontinued 5 - 10 mg PO THREE TIMES A DAY as needed for muscle spasm 30 February 07, 2019 12:00am February 17, 2019 10:28am doxycycline monohydrate 100 mg oral tablet (20 sources) Tetracycline-class Drug Start: 09-08-2021 End: 12-02-2021 take 1 tablet by mouth twice daily Doxycycline Monohydrate 100 mg tablet Discontinued 100 mg PO TWICE A DAY 42 September 08, 2021 1:00am December 02, 2021 8:56am DULoxetine 60 mg delayed release oral capsule (20 sources) Serotonin and Norepinephrine Reuptake Inhibitor Start: 12-06-2017 End: 12-06-2017 take 1 capsule by mouth once daily Duloxetine 60 mg capsule,delayed release(DR/EC) Discontinued 60 mg PO daily December 06, 2017 12:00am December 06, 2017 4:56pm ezetimibe 10 mg oral tablet (20 sources) Dietary Cholesterol Absorption Inhibitor Start: 07-27-2022 End: 08-28-2024 take 1 tablet by mouth once daily Ezetimibe (Zetia) 10 mg tablet Discontinued 10 mg PO DAILY 30 September 05, 2023 8:54am August 28, 2024 5:21pm Fish,Bora,Flax Oils-Om3,6,9no1 ([place] 3-6-9 Complex) 400-400-400 mg capsule (20 sources) Start: 12-06-2017 End: 12-06-2017 Fish,Bora,Flax Oils-Om3,6,9no1 ([place] 3-6-9 Complex) 400-400-400 mg capsule Discontinued 1 CAP PO daily December 06, 2017 4:37pm December 06, 2017 4:56pm Start: 12-06-2017 End: 12-06-2017 take 3-6 capsules by mouth once daily Fish,Bora,Flax Oils-Om3,6,9no1 ([place] 3-6-9 Complex) 400-400-400 mg capsule Discontinued 1 NMA PO daily December 06, 2017 12:00am December 06, 2017 4:56pm Start: 12-06-2017 End: 12-06-2017 Fish,Bora,Flax Oils-Om3,6,9n o1 ([place] 3-6-9 Complex) 400-400-400 mg capsule Discontinued 1 CAP PO daily December 05, 2017 11:00pm December 06, 2017 3:56pm Start: 12-06-2017 End: 12-06-2017 Fish,Bora,Flax Oils-Om3,6,9n o1 ([place] 3-6-9 Complex) 400-400-400 mg capsule Discontinued 1 CAP PO daily December 06, 2017 12:00am December 06, 2017 4:56pm flurbiprofen 100 mg oral tablet (11 sources) Nonsteroidal Anti-inflammatory Drug Start: 11-29-2022 End: 04-12-2024 take 1 tablet by mouth three times daily as needed for pain Flurbiprofen 100 mg tablet Discontinued 100 mg PO THREE TIMES A DAY as needed for pain 90 November 29, 2022 12:00am April 12, 2024 1:22pm fluticasone propionate 0.05 mg/actuat metered dose nasal spray (20 sources) Corticosteroid Start: 09-08-2021 End: 07-20-2022 take 50 ug nasal route once daily Fluticasone Propionate (Flonase Allergy Relief) 50 mcg/actuation spray,suspension Discontinued 2 NMA INTRANASAL DAILY 15.8 1 September 08, 2021 1:00am July 20, 2022 3:54pm administer into each nostril Start: 09-08-2021 End: 07-20-2022 take 1 spray(s) nasal route once daily Fluticasone Propionate (Flonase Allergy Relief) 50 mcg/actuation spray,suspension Discontinued 2 SPRAY INTRANASAL DAILY 15.8 September 08, 2021 1:00am July 20, 2022 3:54pm administer into each nostril folic acid 0.4 mg / vitamin b12 0.5 mg oral tablet (20 sources) Vitamin B12 Start: 12-06-2017 End: 12-06-2017 Vitamin B34-Dqyuq Acid 500-400 mcg tablet Discontinued 1 {tbl} PO daily December 06, 2017 12:00am December 06, 2017 4:57pm gabapentin 300 mg oral capsule (20 sources) Anti-epileptic Agent Start: 10-10-2020 End: 08-08-2023 take 1 capsule by mouth once daily Gabapentin 300 mg capsule Discontinued 300 mg PO DAILY March 22, 2022 3:25pm August 08, 2023 9:19am Start: 11-06-2019 End: 03-22-2022 take 1 capsule by mouth twice daily at mealtime Gabapentin 300 MG capsule Discontinued 300 mg PO TWICE DAILY WITH MEALS November 06, 2019 12:00am March 22, 2022 3:26pm hydroCHLOROthiazide 25 mg oral tablet (20 sources) Thiazide Diuretic Start: 12-06-2017 End: 12-07-2017 take 1 tablet by mouth once daily in the morning Hydrochlorothiazide 25 mg tablet Discontinued 25 mg PO EVERY MORNING December 06, 2017 12:00am December 07, 2017 10:10am hydroCHLOROthiazide 12.5 mg / losartan potassium 100 mg oral tablet (20 sources) Thiazide Diuretic, Angiotensin 2 Receptor Kwasi Start: 12-06-2017 End: 12-06-2017 Losartan-Hydrochloroth iazide 100-12.5 mg tablet Discontinued 1 {tbl} PO daily December 06, 2017 12:00am December 06, 2017 4:57pm Start: 12-06-2017 End: 12-06-2017 take 1 tablet by mouth once daily Losartan-Hydrochlorothiazide Discontinue d 1 TABLET PO daily December 06, 2017 12:00am December 06, 2017 4:57pm hydroCHLOROthiazide 25 mg / triamterene 37.5 mg oral tablet (20 sources) Potassium-sparing Diuretic, Thiazide Diuretic Start: 12-06-2017 End: 12-06-2017 Triamterene-Hydrochlorothiaz id (Maxzide-25mg) 37.5-25 mg tablet Discontinued 1 {tbl} PO daily December 06, 2017 12:00am December 06, 2017 4:57pm icosapent ethyl 1000 mg oral capsule (11 sources) Start: 12-17-2022 End: 02-04-2025 Icosapent Ethyl (Vascepa) 1 gram capsule Discontinued 2 g PO TWICE A DAY 120 11 December 17, 2022 12:00am February 04, 2025 3:21pm 3 ml insulin aspart, human 100 unt/ml pen injector (20 sources) Insulin Analog Start: 12-06-2017 End: 12-06-2017 Insulin Aspart U-100 (Novolo g Flexpen U-100 Insulin) 100 unit/mL insulin pen Discontinued 0 .ROUTE .COMPLEX December 06, 2017 12:00am December 06, 2017 4:57pm 20 units am, 40 units afternoon, 72 units HS insulin detemir 100 unt/ml injectable solution (20 sources) Insulin Analog Start: 12-06-2017 End: 12-06-2017 Insulin Detemir U-100 (Levem ir U-100 Insulin) 100 unit/mL solution Discontinued 0 SC ONCE December 06, 2017 12:00am December 06, 2017 4:57pm 65 units am, 50 units supper, 50 units HS SC ONCE levETIRAcetam 1000 mg oral tablet (20 sources) Start: 03-20-2021 End: 04-12-2024 take 1 table t by mouth twice daily Levetiracetam 1,000 mg tablet Discontinued 0 .ROUTE .COMPLEX 180 0 June 07, 2023 5:46pm August 08, 2023 9:21am TAKE 1 TABLET BY MOUTH TWICE A DAY Start: 10-24-2020 End: 12-23-2020 Keppra 1000 mg oral tablet D ose : 1,000 mg = 1 tab(s), Oral, BID, # 60 tab(s), 1 Refill(s), Pharmacy: [facility]/pharmacy #[id number], 172.7, cm, 10/23/20 5:51:00 EDT, Height, kg, 10/23/20 5:51:00 EDT, Dosing Weight Start Date: 10/24/20 Stop Date: 12/23/20 Status: Ordered lidocaine 25 mg/ml / prilocaine 25 mg/ml topical cream (20 sources) Antiarrhythmic, Amide Local Anesthetic Start: 03-13-2019 End: 08-07-2019 Lidocaine-Prilocaine 30 GM cream Discontinued 1 APPLICATIO TP DAILY NEEDED as needed for Not Specified March 13, 2019 12:00pm August 07, 2019 5:19pm 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, right bronchus or lung Start: 03-13-2019 End: 08-07-2019 Lidocaine-Prilocaine Discont inued 1 APPLICATIO TP DAILY NEEDED 08 09March 13, 2019 12:00pm August 07, 2019 5:19pm losartan potassium 50 mg oral tablet (20 sources) Angiotensin 2 Receptor Kwasi Start: 12-07-2017 End: 03-01-2018 take 1 tablet by mouth once daily Losartan 50 mg tablet Discontinued 50 mg PO daily December 07, 2017 12:00am March 01, 2018 4:15pm Magnesium (20 sources) Start: 12-06-2017 End: 12-06-2017 take 250 mg by mouth once daily Magnesium Discontinued 250 MG PO daily December 06, 2017 4:33pm December 06, 2017 4:57pm Start: 12-06-2017 End: 12-06-2017 take 1 tablet by mouth once daily Magnesium 250 mg tablet Discontinued 250 mg PO daily December 06, 2017 12:00am December 06, 2017 4:57pm Start: 12-06-2017 End: 12-06-2017 take 250 mg by mouth once daily Magnesium Discontinued 250 MG PO daily December 05, 2017 11:00pm December 06, 2017 3:57pm Start: 12-06-2017 End: 12-06-2017 take 250 mg by mouth once daily Magnesium Discontinued 250 MG PO daily December 06, 2017 12:00am December 06, 2017 4:57pm meclizine hydrochloride 12.5 mg oral tablet (20 sources) Antiemetic Start: 12-06-2017 End: 12-06-2017 take 2 tablets by mouth three times daily as needed Meclizine 12.5 mg tablet Discontinued 25 mg PO THREE TIMES A DAY as needed for vertigo December 06, 2017 12:00am December 06, 2017 4:57pm Start: 12-06-2017 End: 12-06-2017 take 25 mg by mouth three times daily Meclizine Discontinued 25 MG PO THREE TIMES A DAY December 06, 2017 12:00am December 06, 2017 4:57pm metFORMIN hydrochloride 1000 mg oral tablet (20 sources) Biguanide Start: 12-06-2017 End: 12-06-2017 take 1 tablet by mouth twice daily Metformin 1,000 mg tablet Discontinued 1000 mg PO TWICE A DAY December 06, 2017 12:00am December 06, 2017 4:57pm methylPREDNISolone 4 mg oral tablet (20 sources) Corticosteroid Start: 07-14-2022 End: 07-20-2022 take 1 tablet by mouth once Methylprednisolone (Medrol (Nakul)) 4 mg tablets,dose pack Discontinued 0 PO per package directions 21 July 14, 2022 1:00am July 20, 2022 4:16pm PO PER PKG DIR Start: 12-21-2021 End: 01-06-2022 take 1 tablet by mouth once Methylprednisolone (Medrol (Nakul)) 4 mg tablets,dose pack Discontinued 0 PO per package directions 21 December 21, 2021 12:00am January 06, 2022 8:51am Cervical radiculitis Radiculopathy, cervical region pain PO PER PKG DIR Start: 09-08-2021 End: 12-02-2021 take 1 tablet by mouth once Methylprednisolone (Medrol (Nakul)) 4 mg tablets,dose pack Discontinued 0 PO per package directions 21 September 08, 2021 1:00am December 02, 2021 8:56am PO PER PKG DIR Start: 02-07-2019 End: 02-15-2019 take 1 tablet by mouth once Methylprednisolone (Medrol (Nakul)) 4 mg tablets,dose pack Discontinued 0 PO per package directions 21 February 07, 2019 12:00am February 15, 2019 10:53am PO PER PKG DIR metoprolol tartrate 25 mg oral tablet (20 sources) beta-Adrenergic Kwasi Start: 09-07-2018 End: 01-21-2025 take 1 tablet by mouth twice daily Metoprolol Tartrate 25 mg tablet Discontinued 25 mg PO TWICE A DAY 180 January 17, 2024 4:50pm January 21, 2025 4:18pm Start: 12-06-2017 End: 09-07-2018 take 1 tablet by mouth twice daily Metoprolol Tartrate 50 mg tablet Discontinued 50 mg PO TWICE A DAY 180 March 01, 2018 4:58pm September 07, 2018 5:03pm nitroglycerin 0.4 mg sublingual tablet (20 sources) Nitrate Vasodilator Start: 12-07-2017 End: 04-05-2024 Nitroglycerin 0.4 mg tablet, sublingual Discontinued 0.4 mg SL Q5M as needed for chest pain 31 07January 19, 2023 4:21pm April 05, 2024 9:04am until response; do not exceed 3 doses per event Start: 12-07-2017 End: 01-19-2023 Nitroglycerin Active 0.4 MG SL Q5M January 19, 2023 4:21pm until response; do not exceed 3 doses per event olmesartan medoxomil 40 mg oral tablet (20 sources) Angiotensin 2 Receptor Kwasi Start: 07-09-2019 End: 01-21-2025 take 1 tablet by mouth once daily Olmesartan 40 mg tablet Discontinued 40 mg PO DAILY 90 0 October 22, 2024 9:11am January 21, 2025 4:18pm HTN TAKE 1 TABLET DAILY Start: 01-21-2019 End: 07-09-2019 take 1 tablet by mouth once daily Olmesartan 20 MG tablet Discontinued 40 mg PO DAILY March 08, 2019 3:44pm July 09, 2019 10:34am HTN TAKE 1 TABLET DAILY Start: 01-21-2019 End: 07-09-2019 take 1 tablet by mouth once daily Olmesartan Discontinued 40 MG PO DAILY March 08, 2019 3:44pm July 09, 2019 10:34am TAKE 1 TABLET DAILY Start: 09-07-2018 End: 01-21-2019 take 1 tablet by mouth once daily Olmesartan 40 mg tablet Discontinued 40 mg PO daily 90 September 07, 2018 5:00pm January 21, 2019 6:11pm Start: 12-06-2017 End: 09-07-2018 take 1 tablet by mouth once daily Olmesartan 20 mg tablet Discontinued 20 mg PO daily 90 January 03, 2018 11:55am March 01, 2018 5:00pm Start: 08-05-2015 End: 12-06-2017 take 10 mg by mouth once daily Benicar Discontinued 10 mg PO DAILY August 05, 2015 1:00am December 06, 2017 4:25pm pantoprazole 20 mg delayed release oral tablet (20 sources) Proton Pump Inhibitor Start: 12-06-2017 End: 09-07-2018 take 1 tablet by mouth once daily Pantoprazole 20 mg tablet,delayed release (DR/EC) Discontinued 20 mg PO daily 90 3 March 29, 2018 8:58am September 07, 2018 4:44pm Start: 08-06-2015 End: 12-06-2017 take 1 tablet by mouth twice daily Pantoprazole 20 MG tablet Discontinued 20 mg PO TWICE A DAY 60 0 August 06, 2015 1:00am December 06, 2017 4:25pm predniSONE 20 mg oral tablet (3 sources) Start: 04-05-2024 End: 02-04-2025 take 1 tablet by mouth twice daily Prednisone 20 mg tablet Discontinued 20 mg PO TWICE A DAY 10 0 April 05, 2024 12:00am February 04, 2025 2:58pm resveratrol 50 mg oral capsule (20 sources) Start: 12-06-2017 End: 12-06-2017 Resveratrol 50 mg capsule Discontinued mg PO 0 December 06, 2017 12:00am December 06, 2017 4:57pm Start: 12-06-2017 End: 12-06-2017 Resveratrol Discontinued MG PO December 06, 2017 12:00am December 06, 2017 4:57pm ticagrelor 90 mg oral tablet (20 sources) Start: 12-06-2017 End: 09-07-2018 take 1 tablet by mouth twice daily Ticagrelor (Brilinta) 90 mg tablet Discontinued 90 mg PO TWICE A DAY 180 March 29, 2018 8:58am September 07, 2018 5:01pm traMADol hydrochloride 50 mg oral tablet (20 sources) Opioid Agonist Start: 08-09-2023 End: 04-05-2024 take 1 tablet by mouth every eight hours as needed for pain Tramadol 50 mg tablet Discontinued 50 mg PO Q8H as needed for pain 12 August 09, 2023 1:00am April 05, 2024 9:04am Start: 12-02-2021 End: 01-22-2022 take 1 tablet by mouth every twelve hours as needed for pain Tramadol 50 mg tablet Discontinued 50 mg PO Q12H as needed for pain 14 December 02, 2021 12:00am January 22, 2022 2:30pm Start: 02-07-2019 End: 02-15-2019 take 1 tablet by mouth every twelve hours as needed for pain Tramadol 50 mg tablet Discontinued 50 mg PO Q12H as needed for pain 14 0 February 07, 2019 12:00am February 15, 2019 10:53am varenicline 1 mg oral tablet (20 sources) Partial Cholinergic Nicotinic Agonist Start: 12-14-2018 End: 02-07-2019 take 1 tablet by mouth once Varenicline Tartrate (Chantix Starting Month Box) 0.5 mg (11)- 1 mg (42) tablets,dose pack Discontinued 0 PO per package directions 53 0 December 14, 2018 12:00am February 07, 2019 3:37pm PO PER PKG DIR Problems Active Problems Problem Classification Problem Date Documented Da te Episodic/Chronic Abdominal pain (12 sources) Abdominal pain; Translations: [Unspecified abdominal pain] 01-24-2023 Episodic Acute bronchitis (5 sources) Acute bronchitis, unspecified; Translations: [Acute bronchitis] 07-13-2022 Episodic Acute myocardial infarction (1 source) Myocardial infarction Onset: 10-23-2016 12-05-2017 Chronic Cancer of bronchus; lung (20 sources) Pancoast tumor; Translations: [Malignant neoplasm of upper lobe, right bronchus or lung] Onset: 11-01-2024 Chronic Cancer; other and unspecified primary (1 source) History of malignant neoplasm of thoracic cavity structure 10-15-2020 Episodic Chronic obstructive pulmonary disease and bronchiectasis (20 sources) Bronchitis; Translations: [Bronchitis, not specified as acute or chronic] Episodic Conditions associated with dizziness or vertigo (3 sources) Dizziness; Translations: [Dizziness and giddiness] 04-05-2024 Episodic Coronary atherosclerosis and other heart disease (20 sources) Old inferior myocardial infarction; Translations: [Old myocardial infarction] 02-28-2018 Chronic Disorders of lipid metabolism (20 sources) Hyperlipidemia; Translations: [Hyperlipidemia, unspecified] Onset: 02-04-2025 03-01-2018 Chronic Diverticulosis and diverticulitis (15 sources) Diverticulitis; Translations: [Diverticulitis of intestine, part unspecified, without perforation or abscess without bleeding] Onset: 03-20-2024 01-19-2023 Chronic E Codes: Natural/environment (15 sources) Tick bite; Translations: [Bitten or stung by nonvenomous insect and other nonvenomous arthropods, initial encounter] 11-04-2022 Episodic Epilepsy; convulsions (15 sources) Epilepsy; Translations: [Epilepsy, unspecified, not intractable, without status epilepticus] 11-29-2022 Chronic Essential hypertension (20 sources) Essential hypertension; Translations: [Essential (primary) hypertension] 08-06-2019 Chronic Genitourinary symptoms and ill-defined conditions (3 sources) Increased frequency of urination; Translations: [Frequency of micturition] 04-05-2024 Episodic Immunizations and screening for infectious disease (20 sources) Contact with or exposure to other viral diseases; Translations: [Lab test negative for COVID-19 virus] 04-09-2021 Episodic Malaise and fatigue (8 sources) Other fatigue; Translations: [Other malaise and fatigue] 03-28-2023 Episodic Nausea and vomiting (5 sources) Nausea; Translations: [Nausea alone] Episodic Nonspecific chest pain (20 sources) Chest pain; Translations: [Chest pain, unspecified] 07-20-2022 Episodic Other aftercare (20 sources) Patient encounter status; Translations: [Encounter for adjustment and management of vascular access device] 08-06-2019 Episodic Other aftercare (1 source) Surgical follow-up 11-05-2020 Episodic Other connective tissue disease (20 sources) Medial epicondylitis; Translations: [Medial epicondylitis, unspecified elbow] 09-08-2021 Episodic Other connective tissue disease (5 sources) Medial epicondylitis, unspecified elbow; Translations: [Medial epicondylitis] Episodic Other connective tissue disease (2 sources) Lateral epicondylitis, unspecified elbow; Translations: [Lateral epicondylitis] Episodic Other connective tissue disease (5 sources) Bursitis of left hip; Translations: [Other bursitis of hip, left hip] 08-09-2023 Episodic Other connective tissue disease (2 sources) Other bursitis of hip, left hip; Translations: [Enthesopathy of hip region] 08-09-2023 Episodic Other gastrointestinal disorders (16 sources) Constipation; Translations: [Constipation, unspecified] 07-13-2022 Episodic Other gastrointestinal disorders (5 sources) Constipation, unspecified; Translations: [Constipation, unspecified] 07-13-2022 Episodic Other lower respiratory disease (20 sources) Dyspnea on exertion; Translations: [Dyspnea, unspecified] 03-06-2020 Episodic Other lower respiratory disease (16 sources) Dyspnea; Translations: [Dyspnea, unspecified] 07-13-2022 Episodic Other lower respiratory disease (5 sources) Other forms of dyspnea; Translations: [Other respiratory abnormalities] 07-20-2022 Episodic Other nervous system disorders (20 sources) Numbness of lower limb ; Translations: [Anesthesia of skin] 03-20-2021 Episodic Other nervous system disorders (20 sources) Paresthesia of left upper limb; Translations: [Paresthesia of skin] 12-02-2021 Episodic Other nervous system disorders (2 sources) Paresthesia of skin; Translations: [Disturbance of skin sensation] Episodic Other non-traumatic joint disorders (10 sources) Shoulder pain; Translations: [Pain in left shoulder] 12-02-2021 Episodic Other non-traumatic joint disorders (13 sources) Pain in left shoulder; Translations: [Pain in joint, shoulder region] Episodic Other non-traumatic joint disorders (5 sources) Hip pain; Translations: [Pain in left hip] 08-09-2023 Episodic Other non-traumatic joint disorders (2 sources) Pain in left hip; Translations: [Pain in joint, pelvic region and thigh] 08-09-2023 Episodic Other screening for suspected conditions (not mental disorders or infectious disease) (20 sources) Magnetic resonance imaging of thoracic spine abnormal; Translations: [Abnormal findings on diagnostic imaging of other parts of musculoskeletal system] 03-20-2021 Episodic Other skin disorders (1 source) Mass lesion of brain 10-15-2020 Episodic Other upper respiratory infections (20 sources) Chronic sinusitis; Translations: [Chronic sinusitis, unspecified] Chronic Other upper respiratory infections (5 sources) Acute upper respiratory infection, unspecified; Translations: [Acute upper respiratory infections of unspecified site] Episodic Otitis media and related conditions (1 source) Chronic mastoiditis, unspecified ear; Translations: [Chronic mastoiditis] Chronic Secondary malignancies (20 sources) Secondary malignant neoplasm of brain; Translations: [Secondary malignant neoplasm of brain] 01-07-2022 Chronic Comment on above: Stage IV, 2020 Secondary malignancies (20 sources) Secondary malignant neoplasm of brain; Translations: [Secondary malignant neoplasm of brain and spinal cord] Onset: 11-01-2024 Chronic Spondylosis; intervertebral disc disorders; other back problems (20 sources) Cervical radiculitis; Translations: [Radiculopathy, cervical region] Episodic Viral infection (5 sources) COVID-19; Translations: [Other specified viral infection] 07-13-2022 Episodic Past or Other Problems Problem Classification Problem Date Documented Da te Episodic/Chronic Coronary atherosclerosis and other heart disease (5 sources) Presence of coronary angioplasty implant and graft; Translations: [Percutaneous transluminal coronary angioplasty status] Onset: 10-26-2016 07-20-2022 Episodic Other aftercare (1 source) Encounter for follow-up examination after completed treatment for malignant neoplasm; Translations: [Encounter for follow-up examination after completed treatment for malignant neoplasm] Onset: 11-01-2024 Episodic Residual codes; unclassified (20 sources) History of craniotomy; Translations: [Other specified postprocedural states] Onset: 10-09-2020 04-09-2021 Episodic Results Test Name Value Interpretation Reference Range Facility Bilirubin directOrdered By: Deyanira Ford on 02-12-2025 Bilirubin.direct [Mass/Vol] 0.13 mg/dL 0.00-0.[address] [facility] Bilirubin, totalOrdered By: Deyanira Ford on 02-12-2025 Bilirubin [Mass/Vol] 0.32 mg/dL 0.00-1.30 [facility] Calculated very low density lipoprotein (VLDL) cholesterol measurementOrdered By: Deyanira Ford on 02-12-2025 Calculated very low density lipoprotein (VLDL) cholesterol measurement 19 mg/dL 5-[address] [facility] LDL calc ser/plasOrdered By: Deyanira Ford on 02-12-2025 Cholesterol in LDL [Mass/Vol] 164 mg/dL [facility] Comment on above: Nvndwutllf=115-558 m g/dL & Higher Wwxa=182 mg/dL or greaterFriedwald Equation for LDL-C Laboratory - Chemistry and C hemistry - challengeOrdered By: Deyanira Ford on 02-12-2025 AST [Catalytic activity/Vol] 20 U/L <[address] [facility] Lipid Profileon 02-12-2025 CHOL:HDL 4.[address] [facility] Comment on above: Performed By: #### L 500.3400, L500.4100 #### [facility] [address] [place], [address] Cholesterol [Mass/Vol] 231 mg/dL High <=200 [facility] Comment on above: Result Comment: Chol esterol level, Desirable <200 mg/dL Borderline high cholesterol 200-239 mg/dL High cholesterol >=240 mg/dL Recommendations of the NCEP Adult Treatment Panel for the following risk-cutoff thresholds for the [place] population. Performed By: #### L 500.3400, L500.4100 #### [facility] [address] [place], [address] Cholesterol in HDL [Mass/Vol] 48 mg/dL Normal [facility] Comment on above: Result Comment: [place] Cholesterol Education Program (NCEP) guidelines: <40 mg/dL: Low HDL-cholesterol (major risk factor for CHD) >= 60 mg/dL: High HDL-cholesterol (negative risk factor for CHD) HDL-cholesterol is affected by a number of factors, e.g. smoking, exercise, hormones, sex and age. Performed By: #### L 500.3400, L500.4100 #### [facility] [address] [place], [address] Cholesterol in LDL [Mass/Vol] 164 mg/dL Normal [facility] Comment on above: Result Comment: Bord ynbnyz=605-273 mg/dL Higher Vxsi=001 mg/dL or greater Friedwald Equation for LDL-C Performed By: #### L 500.3400, L500.4100 #### [facility] [address] [place], [address] Cholesterol in VLDL [Mass/Vol] 19 mg/dL Normal 5-[address] [facility] Comment on above: Performed By: #### L 500.3400, L500.4100 #### [facility] [address] [place], [address] Triglyceride [Mass/Vol] 96 mg/dL Normal [facility] Comment on above: Result Comment: The drugs N-Acetylcysteine and Metamizole may falsely depress this assay. Normal range: <150 mg/dL Borderline High: 150-199 mg/dL High: 200-499 mg/dL Very High: >500 mg/dL Performed By: #### L 500.3400, L500.4100 #### [facility] [address] [place], [address] Liver Profileon 02-12-2025 Albumin [Mass/Vol] 4.0 g/dL Normal 3.4-4.8 [facility] Comment on above: Performed By: #### L 500.3400, L500.4100 #### [facility] [address] [place], [address] ALK PHOS 46 U/L Normal 40-[address] [facility] Comment on above: Performed By: #### L 500.3400, L500.4100 #### [facility] [address] [place], [address] ALT [Catalytic activity/Vol] 16 U/L Normal <=[address] [facility] Comment on above: Performed By: #### L 500.3400, L500.4100 #### [facility] [address] [place], [address] AST [Catalytic activity/Vol] 20 U/L Normal <=[address] [facility] Comment on above: Performed By: #### L 500.3400, L500.4100 #### [facility] [address] [place], [address] Bilirubin [Mass/Vol] 0.32 mg/dL Normal 0.00-1.30 [facility] Comment on above: Performed By: #### L 500.3400, L500.4100 #### [facility] [address] [place], [address] Bilirubin.direct [Mass/Vol] 0.13 mg/dL Normal 0.00-0.[address] [facility] Comment on above: Performed By: #### L 500.3400, L500.4100 #### [facility] [address] [place], [address] Globulin (S) [Mass/Vol] 2.7 g/dL Normal 2.2-4.2 [facility] Comment on above: Performed By: #### L 500.3400, L500.4100 #### [facility] [address] [place], [address] T PROT 6.7 g/dL Normal 5.9-8.[address] [facility] Comment on above: Performed By: #### L 500.3400, L500.4100 #### [facility] [address] [place], [address] Screening total cholesterol/ high density lipoprotein (HDL) cholesterol ratioOrdered By: Deyanira Ford on 02-12-2025 Cholesterol.total/Choles terol in HDL [Mass ratio] 4.81 {ratio} [facility] Serum globulin measurementOr dered By: Deyanira Ford on 02-12-2025 Globulin (S) [Mass/Vol] 2.7 g/dL 2.2-4.2 [facility] Serum or plasma alanine workman otransferase (ALT) measurementOrdered By: Deyanira Ford on 02-12-2025 ALT [Catalytic activity/Vol] 16 U/L <[address] [facility] Serum or plasma albumin hermes urement (mass/volume)Ordered By: Deyanira Ford on 02-12-2025 Albumin [Mass/Vol] 4.0 g/dL 3.4-4.8 [facility] Serum or plasma alkaline abida sphatase measurementOrdered By: Deyanira Ford on 02-12-2025 ALP [Catalytic activity/Vol] 46 U/L 40-[address] [facility] Serum or plasma cholesterol in HDL measurement (mass/volume)Ordered By: Deyanira Ford on 02-12-2025 Cholesterol in HDL [Mass/Vol] 48 mg/dL >[address] [facility] Comment on above: National Cholesterol Education Program (NCEP) guidelines:<40 mg/dL: Low HDL-cholesterol (major risk factor for CHD)>= 60 mg/dL: High HDL-cholesterol (negative risk factor for CHD)HDL-cholesterol is affected by a number of factors, e.g. smoking, exercise, hormones, sex and age. Serum or plasma cholesterol measurement (mass/volume)Ordered By: Deyanira Ford on 02-12-2025 Cholesterol [Mass/Vol] 231 mg/dL High <201 [facility] Comment on above: Cholesterol level, D esirable <200 mg/dLBorderline high cholesterol 200-239 mg/dLHigh cholesterol >=240 mg/dLRecommendations of the NCEP Adult Treatment Panel for the following risk-cutoff thresholds for the [place] population. Total proteinOrdered By: Charlie Ford on 02-12-2025 Protein [Mass/Vol] 6.7 g/dL 5.9-8.4 [facility] Triglycerides measurementOrd ered By: Deyanira Ford on 02-12-2025 Triglyceride [Mass/Vol] 96 mg/dL <199 [facility] Comment on above: The drugs N-Acetylcy steine and Metamizole may falsely depress this assay. Normal range: <150 mg/dLBorderline High: 150-199 mg/dLHigh: 200-499 mg/dLVery High: >500 mg/dL Cardiology Visit Reporton Cardiology Visit Report [facility] [address] [place] [address] OFFICE VISIT Date of Service: 02/04/25 MR#: [id number] Acct: [id number] Name: HARIKA SALEH Rep #: [id number] : 1960 Provider: DELLA stone Age/Sex: 64/M Location: [facility] [place] Status: Signed HPI HPI History of Present Illness Details: HARIKA SALEH, is a 64 M who presents to the office today for a cardiovascular follow-up visit. He was last seen in our office in July 2022. He is a pleasant gentleman with a history of a myocardial infarction in 2017, for which he had a cardiac catheterization performed at [facility] with a coronary stent placed.??? He does not know exactly what vessel had this done in.??? He did well after that for approximately a year and then presented back to [facility] with shortness of breath and chest discomfort.??? He underwent an echocardiographic evaluation with demonstrated ejection fraction of 60-65% no wall motion abnormalities,and mild aortic valve thickening. He underwent a stress test at that time as well, and he exercised 11 minutes and 35 seconds without any EKG or nuclear evidence of ischemia. He was unfortunately diagnosed with lung carcinoma underwent right lobectomy in May 2019 following a negative Lexiscan scan. He did have brain metastases in October of 2020 and he underwent surgery, and radiation for this. From a cardiac standpoint, the patient is doing well. He denies any palpitations, chest pain, pressure or heaviness. He denies SOB, Orthopnea, and PND. He does not have bleeding issues; no blood in urine, stool, or nosebleeds. He denies any decrease in energy level, myalgias, or claudication. He does not have edema, or sudden weight gain. He denies lightheadedness, dizziness, syncopal or near syncopal episodes, and headaches. Intake Vital Signs 11/01/24 11:21 02/04/25 14:56 Height 5 ft 8 in 5 ft 8 in Weight: 179 lb BMI 27.2 BP 136/76 H Blood Pressure Location Lt brachial Position Sitting Respiration 16 Pulse 56 L Pulse Source Monitor Pulse Oximetry (%) 97 Oxygen Delivery Method room air Intake Visit Reasons: OVERDUE FOR OV/LAST SEEN 08/02 Draw Off Worker Required: No Accompanied by: Self Is patient in pain?: No Allergies sulfamethoxazole (From Bactrim) Adverse Reaction (Intermediate, Verified 02/04/25 15:21) hives trimethoprim (From Bactrim) Adverse Reaction (Intermediate, Verified 02/04/25 15:21) hives Medications ???Medication ???Instructions ???Recorded ???Confirmed ???Type levetiracetam 1,000 mg tablet See Rx Instructions .Route 4 02/04/25 Rx .COMPLEX #180 tabs amlodipine 5 mg tablet (Norvasc) 5 mg PO DAILY #90 tabs 08/28/24 Rx ezetimibe 10 mg tablet (Zetia) 10 mg PO DAILY #90 tabs 08/28/24 0 02/04/25 Rx clopidogrel 75 mg tablet 75 mg PO DAILY #30 tabs 01/21/25 0 02/04/25 Rx metoprolol tartrate 25 mg tablet 25 mg PO BID #60 TABLETS 01/21/25 02/04/25 Rx olmesartan 40 mg tablet 40 mg PO DAILY for blood pressure 01/21/25 02/04/25 Rx #30 tabs Ejection fraction %: 65 PFSH Medical History Constipation Dyspnea Cervical stenosis of spine Cervical radiculitis Left shoulder pain Paresthesia of left upper extremity Medial epicondylitis Chronic sinusitis Bronchitis Brain metastases Degenerative joint disease of spine HH (hiatus hernia) Diverticular disease Abdominal hernia Atherosclerosis of coronary artery of [place] heart without angina pectoris Essential (primary) hypertension Encounter for adjustment or management of vascular access device Pancoast tumor of right lung Old inferior wall myocardial infarction EtOH dependence GERD (gastroesophageal reflux disease) Diverticulitis Dyspnea on exertion Hyperlipidemia Nicotine dependence Surgical History History of craniotomy (10/2020) History of removal of Port-a-Cath History of lobectomy of lung (05/2019) History of coronary artery stent placement (10/26/16) History of vasectomy History of appendectomy History of colonoscopy Family History Grandfather Cancer Lung cancer Uncle Cancer Lung cancer Social History Smoking Status: Former smoker quit date: 07/11/18 Tobacco: How many years used: 39 alcohol intake: current alcohol intake frequency: holidays/special occasions only details: occasionally substance use type: does not use caffeine: Yes Type: coffee Number of servings: 2 seatbelt use: always do you feel safe at home: Yes ROS Const Const: Negative for fatigue, weakness, fever(s), head (more content not included)... Normal [facility] Absolute lymphocyte countOrd ered By: Delilah Rodgers on 11-01-2024 Lymphocytes Auto (Unsp spec) [#/Vol] 3.35 10*3/uL 0.83-4.[address] [facility] Absolute neutrophil countOrd ered By: Delilah Rodgers on 11-01-2024 Neutrophils (Bld) [#/Vol] 5.1 10*3/uL 2.0-7.[address] [facility] Anion gap in Serum or Plasma Ordered By: Delilah Rodgers on 11-01-2024 Anion gap [Moles/Vol] 10 mmol/L 5-15 [facility] Automated lymphocyte count a s percentage of total leukocytesOrdered By: Delilah Teixeiracliff on 11-01-2024 Lymphocytes/100 WBC Auto (Unsp spec) 34.6 % 19-[address] [facility] BUN/creatinine ratioOrdered By: [facility] Teixeiracliff on 11-01-2024 Urea nitrogen/Creatinine [Mass ratio] 12.6 mg/mg 10-[address] [facility] Basophil percentageOrdered B y: Delilah Teixeiracliff on 11-01-2024 Basophils/100 WBC (Bld) 0.9 % 0-1 [facility] Bilirubin, totalOrdered By: Delilah Teixeiracliff on 11-01-2024 Bilirubin [Mass/Vol] 0.43 mg/dL 0.00-1.30 [facility] CBC W/Diff, Automatedon 10-10 Absolute Lymph 3.35 X10 3/uL Normal 0.83-4.[address] [facility] Comment on above: Performed By: #### L 500.4050, L100.0100 #### [facility] [address] [place], [address] Absolute Neut 5.1 X10 3/uL Normal 2.0-7.[address] [facility] Comment on above: Performed By: #### L 500.4050, L100.0100 #### [facility] [address] [place], [address] Basophils/100 WBC (Bld) 0.9 % Normal 0-1 [facility] Comment on above: Performed By: #### L 500.4050, L100.0100 #### [facility] [address] [place], [address] Eosinophils/100 WBC (Bld) 1.4 % Normal 0-[address] [facility] Comment on above: Performed By: #### L 500.4050, L100.0100 #### [facility] [address] [place], [address] Erythrocyte distribution width (RBC) [Ratio] 14.0 % Normal 11.6-14.[address] [facility] Comment on above: Performed By: #### L 500.4050, L100.0100 #### [facility] [address] [place], [address] Hematocrit (Bld) [Volume fraction] 46.6 % Normal 40-[address] [facility] Comment on above: Performed By: #### L 500.4050, L100.0100 #### [facility] [address] [place], [address] Hemoglobin (Bld) [Mass/Vol] 16.4 g/dL Normal 13.0-16.[address] [facility] Comment on above: Performed By: #### L 500.4050, L100.0100 #### [facility] [address] [place], [address] IG% 0.400 Normal 0.0-0.[address] [facility] Comment on above: Result Comment: IG% - Immature Granulocytes (promyelocytes, myelocytes and metamyelocytes) > 1% indicates that a LEFT SHIFT is Present. Performed By: #### L 500.4050, L100.0100 #### [facility] [address] [place], [address] Lymphocytes/100 WBC (Bld) 34.6 % Normal 19-[address] [facility] Comment on above: Performed By: #### L 500.4050, L100.0100 #### [facility] [address] [place], [address] MCH (RBC) [Entitic mass] 32.6 pg High 27.0-32.[address] [facility] Comment on above: Performed By: #### L 500.4050, L100.0100 #### [facility] [address] [place], [address] MCHC (RBC) [Mass/Vol] 35.2 g/dL Normal 32-36 [facility] Comment on above: Performed By: #### L 500.4050, L100.0100 #### [facility] [address] [place], [address] MCV (RBC) [Entitic vol] 92.6 fL Normal 80-94 [facility] Comment on above: Performed By: #### L 500.4050, L100.0100 #### [facility] [address] [place], [address] Monocytes/100 WBC (Bld) 10.3 % High 0-10 [facility] Comment on above: Performed By: #### L 500.4050, L100.0100 #### [facility] [address] [place], [address] Neutrophils/100 WBC (Bld) 52.4 % Normal 47-[address] [facility] Comment on above: Performed By: #### L 500.4050, L100.0100 #### [facility] [address] [place], [address] Nucleated RBC (Bld) [#/Vol] 0 10*3/uL Normal 0-[address] [facility] Comment on above: Performed By: #### L 500.4050, L100.0100 #### [facility] [address] [place], [address] Platelet mean volume (Bld) [Entitic vol] 9.0 fL Normal 6.2-12.[address] [facility] Comment on above: Performed By: #### L 500.4050, L100.0100 #### [facility] [address] [place], [address] Platelets (Bld) [#/Vol] 268 10*3/uL Normal 150-[address] [facility] Comment on above: Performed By: #### L 500.4050, L100.0100 #### [facility] [address] [place], [address] RBC (Bld) [#/Vol] 5.03 10*6/uL Normal 4.6-6.2 [facility] Comment on above: Performed By: #### L 500.4050, L100.0100 #### [facility] [address] [place], [address] RDW SD 47.4 fl High 35.1-43.[address] [facility] Comment on above: Performed By: #### L 500.4050, L100.0100 #### [facility] [address] [place], [address] WBC (Bld) [#/Vol] 9.7 10*3/uL Normal 4.4-11.0 [facility] Comment on above: Performed By: #### L 500.4050, L100.0100 #### [facility] [address] [place], [address] Carbon dioxide, total [Moles /volume] in Central venous bloodOrdered By: Delilah Rodgers on 11-01-2024 CO2 [Moles/Vol] 24.5 mmol/L 21.0-32.[address] [facility] Chloride assayOrdered By: Deb Rodgers on 11-01-2024 Chloride [Moles/Vol] 100 mmol/L 98-108 [facility] Comprehensive Metabolic Prof ilon 11-01-2024 Albumin [Mass/Vol] 4.1 g/dL Normal 3.4-4.8 [facility] Comment on above: Performed By: #### L 500.4050, L100.0100 #### [facility] [address] [place], [address] Albumin/Globulin [Mass ratio] 1.4 {ratio} Normal 0.9-2.[address] [facility] Comment on above: Performed By: #### L 500.4050, L100.0100 #### [facility] [address] [place], [address] ALK PHOS 53 U/L Normal 40-[address] [facility] Comment on above: Performed By: #### L 500.4050, L100.0100 #### [facility] [address] [place], [address] ALT [Catalytic activity/Vol] 12 U/L Normal <=[address] [facility] Comment on above: Performed By: #### L 500.4050, L100.0100 #### [facility] [address] [place], [address] AST [Catalytic activity/Vol] 19 U/L Normal <=[address] [facility] Comment on above: Performed By: #### L 500.4050, L100.0100 #### [facility] [address] [place], [address] Bilirubin [Mass/Vol] 0.43 mg/dL Normal 0.00-1.30 [facility] Comment on above: Performed By: #### L 500.4050, L100.0100 #### [facility] [address] [place], [address] BUN/CRE 12.6 RATIO Normal 10-[address] [facility] Comment on above: Performed By: #### L 500.4050, L100.0100 #### [facility] [address] [place], [address] Calcium [Mass/Vol] 8.9 mg/dL Normal 7.6-11.0 [facility] Comment on above: Performed By: #### L 500.4050, L100.0100 #### [facility] [address] [place], [address] Chloride [Moles/Vol] 100 mmol/L Normal 98-108 [facility] Comment on above: Performed By: #### L 500.4050, L100.0100 #### [facility] [address] [place], [address] CO2 [Moles/Vol] 24.5 mmol/L Normal 21.0-32.[address] [facility] Comment on above: Performed By: #### L 500.4050, L100.0100 #### [facility] [address] [place], [address] Creatinine [Mass/Vol] 0.89 mg/dL Normal 0.70-1.20 [facility] Comment on above: Performed By: #### L 500.4050, L100.0100 #### [facility] [address] [place], [address] ECRCL 89.65 ml/min Normal 50-[address] [facility] Comment on above: Performed By: #### L 500.4050, L100.0100 #### [facility] [address] [place], [address] GAP 10 Normal 5-[address] [facility] Comment on above: Performed By: #### L 500.4050, L100.0100 #### [facility] [address] [place], [address] GFR/1.73 sq M.predicted among non-blacks MDRD (S/P/Bld) [Vol rate/Area] 96 mL/min/{1.73_m2} Normal >[address] [facility] Comment on above: Result Comment: mL/m in/1.73m2 CKD-EPI Creatinine Equation (2020) Performed By: #### L 500.4050, L100.0100 #### [facility] [address] [place], [address] Globulin (S) [Mass/Vol] 2.9 g/dL Normal 2.2-4.2 [facility] Comment on above: Performed By: #### L 500.4050, L100.0100 #### [facility] [address] [place], [address] Glucose [Mass/Vol] 101 mg/dL High 70-99 [facility] Comment on above: Performed By: #### L 500.4050, L100.0100 #### [facility] [address] [place], [address] Potassium [Moles/Vol] 4.4 mmol/L Normal 3.3-5.1 [facility] Comment on above: Performed By: #### L 500.4050, L100.0100 #### [facility] [address] [place], [address] Sodium [Moles/Vol] 135 mmol/L Normal 133-145 [facility] Comment on above: Performed By: #### L 500.4050, L100.0100 #### [facility] [address] [place], [address] T PROT 7.1 g/dL Normal 5.9-8.[address] [facility] Comment on above: Performed By: #### L 500.4050, L100.0100 #### [facility] [address] [place], [address] Urea nitrogen [Mass/Vol] 11 mg/dL Normal 4-[address] [facility] Comment on above: Performed By: #### L 500.4050, L100.0100 #### [facility] [address] [place], [address] Eosinophil percentageOrdered By: Delilah Rodgers on 11-01-2024 Eosinophils/100 WBC (Bld) 1.4 % 0-[address] [facility] Erythrocyte distribution wid th (RBC) [Ratio]Ordered By: Delilah Rodgers on 11-01-2024 Erythrocyte distribution width (RBC) [Entitic vol] 47.4 fL High 35.1-43.[address] [facility] Erythrocyte distribution wid th ratioOrdered By: Delilah Rodgers on 11-01-2024 Erythrocyte distribution width (RBC) [Ratio] 14.0 % 11.6-14.[address] [facility] Erythrocyte distribution wid th standard deviationOrdered By: Delilah Rodgers on 11-01-2024 Erythrocyte distribution width (RBC) [Ratio] 47.4 fl High 35.1-43.[address] [facility] Estimation of creatinine carla aranceOrdered By: Delilah Rodgers on 11-01-2024 Estimated Creatinine Clearance Calc 89.65 ml/min 50-[address] [facility] GFR/1.73 sq M.predicted fuad g non-blacks MDRD (S/P/Bld) [Vol rate/Area]Ordered By: Delilah Rodgers on 11-01-2024 Estimated GFR (MDRD) Non-Af Amer 96 >[address] [facility] Comment on above: mL/min/1.73m2 CKD-EP I Creatinine Equation (2020) Glomerular filtration rate ( GFR) estimation/1.73 sq m using serum, plasma, or whole bOrdered By: Delilah Rodgers on 11-01-2024 GFR/1.73 sq M.predicted among non-blacks MDRD (S/P/Bld) [Vol rate/Area] 96 mL/min/{1.73_m2} >[address] [facility] Comment on above: mL/min/1.73m2 CKD-EP I Creatinine Equation (2020) Hematocrit Auto (Bld) [Volum e fraction]Ordered By: Delilah Rodgers on 11-01-2024 Hematocrit (Bld) [Volume fraction] 46.6 % 40-[address] [facility] Hemoglobin measurementOrdere d By: Delilah Rodgers on 11-01-2024 Hemoglobin (Bld) [Mass/Vol] 16.4 g/dL 13.0-16.[address] [facility] Immature granulocytes/100 WB C Auto (Bld)Ordered By: Delilah Rodgers on 11-01-2024 Immature granulocytes/100 WBC (Bld) 0.400 % 0.0-0.[address] [facility] Comment on above: IG% - Immature Granu locytes (promyelocytes, myelocytes and metamyelocytes) > 1% indicates that a LEFT SHIFT is Present. Laboratory - Chemistry and C hemistry - challengeOrdered By: Delilah Rodgers on 11-01-2024 AST [Catalytic activity/Vol] 19 U/L <[address] [facility] Lymphocytes Auto (Unsp spec) [#/Vol]Ordered By: Delilah Rodgers on 11-01-2024 Lymphocytes (Bld) [#/Vol] 3.35 10*3/uL 0.83-4.[address] [facility] Lymphocytes/100 WBC Auto (Un sp spec)Ordered By: Delilah Rodgers on 11-01-2024 Lymphocytes/100 WBC (Bld) 34.6 % 19-[address] [facility] MCV (mean corpuscular volume ) determinationOrdered By: Delilah Rodgers on 11-01-2024 MCV (RBC) [Entitic vol] 92.6 fL 80-94 [facility] Mean corpuscular hemoglobin (MCH) determinationOrdered By: [facility] Rodgers on 11-01-2024 MCH (RBC) [Entitic mass] 32.6 pg High 27.0-32.[address] [facility] Mean corpuscular hemoglobin concentration (MCHC) determinationOrdered By: Delilah Rodgers on 11-01-2024 MCHC (RBC) [Mass/Vol] 35.2 g/dL 32-36 [facility] Mean platelet volume determi nationOrdered By: Delilah Rodgers on 11-01-2024 Platelet mean volume (Bld) [Entitic vol] 9.0 fL 6.2-12.[address] [facility] Monocyte percentageOrdered B y: Delilah Rodgers on 11-01-2024 Monocytes/100 WBC (Bld) 10.3 % High 0-10 [facility] Neutrophil percentageOrdered By: Delilah Rodgers on 11-01-2024 Neutrophils/100 WBC (Bld) 52.4 % 47-[address] [facility] Nucleated red blood cell per centageOrdered By: Delilah Rodgers on 11-01-2024 Nucleated RBC/100 WBC (Bld) [Ratio] 0 % 0-[address] [facility] Oncology Visit Reporton 10-10 Oncology Visit Report [facility] [place] [facility] [place] [address] OFFICE VISIT Date of Service: 11/01/24 1118 MR#: [id number] Acct: [id number] Name: HARIKA SALEH Rep #: [id number] : 1960 From: Delilah Rodgers MD Age/Sex: 64/M Location: [facility] [place] Status: Signed HPI Subjective Date of Service 11/01/24 Chief Complaint Lung cancer follow-up History of Present Illness 63-year-old male smoker at the time who presented with increasing right shoulder pain and a CT scan of the chest revealed a right lung apical tumor. February 16, 2019 CT chest: FINDINGS: There is a 5.1 x 4.7 x 4 cm right apical heterogeneous solid mass. There is mild centrilobular emphysema. There is mild bibasilar linear atelectasis and/or scarring. There is no demonstrated pleural abnormality. Normal heart and pericardium. There is anterior mediastinal adenopathy measuring up to 2.3 x 1.5 cm. There is no hilar or axillary adenopathy. Normal hilar regions. Normal enhanced pulmonary arteries. Normal aorta arch and descending thoracic aorta. Normal osseous structures. No lytic or blastic osseous lesions. There is diffuse fatty infiltration of the liver. There is a subcentimeter right hepatic lobe hypodense lesion too small to characterize. There is a subcentimeter left renal midpole hypodense lesion, likely cyst. IMPRESSION: * 5.1 x 4.7 x 4 cm right apical heterogeneous solid mass consistent with malignancy. Anterior mediastinal adenopathy is consistent with jass metastases. * Hepatic steatosis. February 26, 2019 PET/CT: IMPRESSION: 1. ABNORMAL EXAMINATION INDICATIVE OF MALIGNANT VIABLE NEOPLASM. 2. Increased glucose concentration observed in the right upper hemithorax pulmonary parenchyma, right upper hemithorax pulmonary parenchyma, right upper lobe, fulfills quantitative criteria for viable neoplasm. 3. Prominent glucose concentration observed in the intestinal tract extending to the rectum-rectal vault is most consistent with physiologic distribution of the radiotracer. If intraluminal soft tissue mass formation is suspected, correlation with CT of the abdomen and pelvis with oral and intravenous contrast is recommended. (Doquincy et al, Journal of Nuclear Medicine, 30:L629, 2003). 4. No other quantitatively significant hypermetabolic abnormalities are defined. There is no definitive scintigraphic evidence of distant metastatic disease. February 27, 2019 PFTs: Impression: Pulmonary function tests are grossly within normal limits, but there has been changes compared to previous study. March 02, 2019 brain MRI: IMPRESSION: Normal unenhanced and enhanced MRI of the brain. No MR evidence of metastatic disease. March 02, 2019 right brachial plexus MRI: IMPRESSION: Known 5 cm bronchogenic carcinoma in the apex of the right lung as seen on recent CT the chest and PET/CT without invasion of the adjacent chest wall and subclavian space. March 05, 2019 right upper lobe mass biopsy: Right lung, CT-guided core biopsy: Non-small cell carcinoma, favor poorly differentiated adenocarcinoma. July 13, 2019 CT abdomen: IMPRESSION: 1. Normal unenhanced CT of the abdomen. 2. Minimal right lateral skin and subcutaneous induration is presumably scarring from prior surgery (series 2, images 11-13). This was not present previously. October 01, 2019 CT chest: IMPRESSION: Status post resection of the right upper lobe mass with mild postoperative scarring. Mild scarring at the right lung base. October 01, 2019 CT abdomen: IMPRESSION: Fatty infiltration of the liver. 2. Subcentimeters cysts in the liver. Sigmoid diverticulosis. May 06, 2020 CT chest: FINDINGS: Stable small benign-appearing bilateral axillary lymph nodes. Stable mild increased linear markings at the right lung base. The patient has a history of prior resection at the right lung apex. There has been no change. There is no demonstrated pleural abnormality. Normal heart and pericardium. There are multiple small lymph nodes within the mediastinum, which are normal in size and morphology most compatible with reactive lymph hyperplasia. Normal hilar regions. Normal enhanced pulmonary arteries. Normal aorta arch and descending thoracic aorta. There are mild degenerative changes of the thoracic spine. There is a 1.4 cm enhancing nodule in the dome of the left lobe of the liver. This is unchanged and may represent a small hemangioma. IMPRESSION: Stable examination. May 06, 2020 CT abdomen: IMPRESSION: Atherosclerosis. October 11, 2020 had a new onset seizure and brain MRI showed: A hemorrhagic intra-axial left parietal occipital neoplasm. Prominent vasogenic edema with mild to moderate mass-effect. October 23, 2020 left parietal craniotomy, resection of left parietal metastatic lesion with Stealth i (more content not included)... Normal [facility] Platelet countOrdered By: Deb Rodgers on 11-01-2024 Platelets (Bld) [#/Vol] 268 10*3/uL 150-[address] [facility] Potassium (Unsp spec) [Mass/ Vol]Ordered By: Delilah Rodgers on 11-01-2024 Potassium [Moles/Vol] 4.4 mmol/L 3.3-5.1 [facility] Potassium measurement (mass/ volume)Ordered By: Delilah Rodgers on 11-01-2024 Potassium (Unsp spec) [Mass/Vol] 4.4 mmol/L 3.3-5.[address] [facility] RBC Auto (Bld) [#/Vol]Ordere d By: Delilah Rodgers on 11-01-2024 RBC (Bld) [#/Vol] 5.03 10*6/uL 4.6-6.2 [facility] Radiation Oncology Visiton 0 11-01-2024 Radiation Oncology Visit [facility] [address] [place] [address] OFFICE VISIT Date of Service: 11/01/24 105 MR#: [id number] Acct: [id number] Name: HARIKA SALEH Rep #: [id number] : 1960 From: Xiang Erickson DO Age/Sex: 64/M Location: [facility] [place] Status: Signed Intake Vital Signs 05/03/24 13:53 11/01/24 11:00 Height 5 ft 8 in 5 ft 8 in Weight: 185 lb BMI 28.1 BP 107/70 Blood Pressure Location Lt brachial Position Sitting Respiration 18 Pulse 64 Pulse Source Monitor Temp 97.9 F Temperature Source Temporal Artery Pulse Oximetry (%) 97 Oxygen Delivery Method room air Intake Visit Reasons: 6 MONTH F/U, REVIEW MRI Is patient in pain?: No Allergies sulfamethoxazole (From Bactrim) Adverse Reaction (Intermediate, Verified 11/01/24 11:02) hives trimethoprim (From Bactrim) Adverse Reaction (Intermediate, Verified 11/01/24 11:02) hives Medications ???Medication ???Instructions ???Recorded ???Confirmed ???Type icosapent ethyl 1 gram capsule 2 g (2 x 1 gram) PO BID #120 caps 12/17/22 11/01/24 Rx (Vascepa) metoprolol tartrate 25 mg tablet 25 mg PO BID #180 TABLETS 01/17/24 11/01/24 Rx cyclobenzaprine 5 mg tablet 5 mg PO TID #21 tabs 04/05/2410/10 Rx prednisone 20 mg tablet 20 mg PO BID #10 tabs 04/05/24 Rx levetiracetam 1,000 mg tablet See Rx Instructions .Route 4 11/01/24 Rx .COMPLEX #180 tabs amlodipine 5 mg tablet (Norvasc) 5 mg PO DAILY #90 tabs 08/28/24 Rx ezetimibe 10 mg tablet (Zetia) 10 mg PO DAILY #90 tabs 08/28/24 0 11/01/24 Rx clopidogrel 75 mg tablet 75 mg PO DAILY #90 tabs 10/22/24 0 11/01/24 Rx olmesartan 40 mg tablet 40 mg PO DAILY HTN #90 tabs 11/01/24 Rx PFSH [facility] Medical History Constipation Dyspnea Cervical stenosis of spine Cervical radiculitis Left shoulder pain Paresthesia of left upper extremity Medial epicondylitis Chronic sinusitis Bronchitis Brain metastases Degenerative joint disease of spine HH (hiatus hernia) Diverticular disease Abdominal hernia Atherosclerosis of coronary artery of [place] heart without angina pectoris Essential (primary) hypertension Encounter for adjustment or management of vascular access device Pancoast tumor of right lung Old inferior wall myocardial infarction EtOH dependence GERD (gastroesophageal reflux disease) Diverticulitis Dyspnea on exertion Hyperlipidemia Nicotine dependence Home Medications ???Medication ???Instructions ???Recorded ???Last Taken ???Type icosapent ethyl 1 gram capsule 2 g (2 x 1 gram) PO BID #120 caps 12/17/22 Unknown Rx (Vascepa) metoprolol tartrate 25 mg tablet 25 mg PO BID #180 TABLETS 01/17/24 Unknown Rx cyclobenzaprine 5 mg tablet 5 mg PO TID #21 tabs 04/05/24 Unkn own Rx prednisone 20 mg tablet 20 mg PO BID #10 tabs 04/05/24 Unk nown Rx levetiracetam 1,000 mg tablet See Rx Instructions .Route 10/03/2 4 Unknown Rx .COMPLEX #180 tabs amlodipine 5 mg tablet (Norvasc) 5 mg PO DAILY #90 tabs 08/28/24 Un known Rx ezetimibe 10 mg tablet (Zetia) 10 mg PO DAILY #90 tabs 08/28/24 U nknown Rx clopidogrel 75 mg tablet 75 mg PO DAILY #90 tabs 10/22/24 U nknown Rx olmesartan 40 mg tablet 40 mg PO DAILY HTN #90 tabs Unknown Rx Allergy/AdvReac Type Severity Reaction Status Date / Time sulfamethoxazole (From AdvReac Intermediate hives Verified 11/01/24 11:02 Bactrim) trimethoprim (From Bactrim) AdvReac Intermediate hives Verified 11/01/24 11:02 Family History Grandfather Cancer Lung cancer Uncle Cancer Lung cancer Surgical History History of craniotomy (10/2020) History of removal of Port-a-Cath History of lobectomy of lung (05/2019) History of coronary artery stent placement (10/26/16) History of vasectomy History of appendectomy History of colonoscopy Social History Smoking Status: Former smoker quit date: 07/11/18 Tobacco: How many years used: 39 alcohol intake: current alcohol intake frequency: holidays/special occasions only details: occasionally substance use type: does not use caffeine: Yes Type: coffee Number of servings: 2 seatbelt use: always do you feel safe at home: Yes Diagnosis: Harika Saleh is a 64 year-old male diagnosed with clinical stage IIB ([id number]; 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 Normal [facility] Serum creatinine measurement (mass/volume)Ordered By: Delilah Rodgers on 11-01-2024 Creatinine [Mass/Vol] 0.89 mg/dL 0.70-1.20 [facility] Serum globulin measurementOr dered By: Delilah Rodgers on 11-01-2024 Globulin (S) [Mass/Vol] 2.9 g/dL 2.2-4.2 [facility] Serum glucose measurement (m ass/volume)Ordered By: Delilha Rodgers on 11-01-2024 Glucose [Mass/Vol] 101 mg/dL High 70-99 [facility] Serum or plasma alanine workman otransferase (ALT) measurementOrdered By: Delilah Rodgers on 11-01-2024 ALT [Catalytic activity/Vol] 12 U/L <[address] [facility] Serum or plasma albumin hermes urement (mass/volume)Ordered By: Delilah Rodgers on 11-01-2024 Albumin [Mass/Vol] 4.1 g/dL 3.4-4.8 [facility] Serum or plasma albumin/glob ulin mass ratioOrdered By: Delilah Rodgers on 11-01-2024 Albumin/Globulin [Mass ratio] 1.4 {ratio} 0.9-2.[address] [facility] Serum or plasma alkaline abida sphatase measurementOrdered By: Delilah Rodgers on 11-01-2024 ALP [Catalytic activity/Vol] 53 U/L 40-[address] [facility] Serum or plasma calcium hermes urement (mass/volume)Ordered By: Delilah Rodgers on 11-01-2024 Calcium [Mass/Vol] 8.9 mg/dL 7.6-11.0 [facility] Serum or plasma urea nitroge n measurement (mass/volume)Ordered By: Delilah Rodgers on 11-01-2024 Urea nitrogen [Mass/Vol] 11 mg/dL 4-[address] [facility] Sodium levelOrdered By: Malvin Rodgers on 11-01-2024 Sodium [Moles/Vol] 135 mmol/L 133-145 [facility] Total proteinOrdered By: Farhan Rodgers on 11-01-2024 Protein [Mass/Vol] 7.1 g/dL 5.9-8.4 [facility] [facility] White blood cell (WBC) count Ordered By: Delilah Rodgers on 11-01-2024 WBC (Bld) [#/Vol] 9.7 10*3/uL 4.4-11.0 [facility] Brain W/WO Contraston 2024 Brain W/WO Contrast [facility] Imaging Services [address] [place] [address] Brain W/WO Contrast MR#: [id number] Acct: [id number] Name: HARIKA SALEH Rep #: [id number] : 1960 M 64 From: Yohan Pastor MD PCP: Dr. Jim Perez DO Status: REG CLI Study: Brain W/WO Contrast Date of Exam: 10/26/24 Exam# [id number] Ordering Dr: Xiang Erickson DO PROCEDURE: BRAIN W/WO CONTRAST 10/26/2024 REASON FOR EXAM: FOLLOW UP TREATED BRAIN METASTASIS TECHNIQUE: Routine brain MRI without and with intravenous contrast. Multiplanar and multisequence images were obtained. CONTRAST: Clear scan VOLUME: 17 mL IV COMPARISON: None FINDINGS: Brain: Old left parietal craniotomy with underlying high left frontoparietal subcortical white matter T2/FLAIR hyperintensity and foci of susceptibility artifact. No abnormal enhancement. Midline structures appear within normal limits. Diffusion weighted images: In the restricted diffusion. Ventricles: No findings of hydrocephalus. Major Intracranial Vessels: Enhance normally Sinuses: Scattered mucosal thickening. Mastoids: Small amount of fluid signal is identified within both mastoid air cells. MRI/Brain W/WO Contrast IMPRESSION: Postoperative appearance of the left parietal bone and underlying brain. No finding of disease recurrence. Reading Location[facility] CC: Dr. Jim Perez DO; Dr. Xiang Erickson DO Slots Manager: Signed Normal [facility] CT Chest AND Abd W/ Contrast on 10-26-2024 CT Chest AND Abd W/ Contrast [facility] Imaging Services [address] [place] [address] CT Chest AND Abd W/ Contrast MR#: [id number] Acct: [id number] Name: HARIKA SALEH Rep #: [id number] : 1960 M 64 From: Darrick gordon MD PCP: Dr. Jim Perez DO Status: REG CLI Study: CT Chest AND Abd W/ Contrast Date of Exam: Exam# [id number] Ordering Dr: Delilah Rodgers MD PROCEDURE: CT CHEST AND ABD W/ CONTRAST 10/26/2024 REASON FOR EXAM: F/U NSCLC IV CONTRAST ONLY TECHNIQUE: Chest and abdomen CT with intravenous contrast. Coronal and Sagittal reconstruction series were provided. One or more dose reduction techniques were used (e.g., Automated exposure control, adjustment of the mA and/or kV according to patient size, use of iterative reconstruction technique. PATIENT PREPARATION: Per protocol ORAL CONTRAST TYPE: None. CONTRAST: Isovue-300 VOLUME: 100mL RADIATION DOSE SUMMARY: CTDlvol: 17 mGy DLP: 1366.21 mGycm COMPARISON: Comparison is made with prior study dated October 24, 2023. FINDINGS: CT CHEST: Hardware: None Lymph nodes: Stable small benign-appearing bilateral axillary lymph nodes. Heart and Vasculature: The heart is not enlarged. Coronary artery calcification. Atherosclerotic calcific plaques of the aortic arch. Lungs and Airways: Stable mild volume loss in the right hemithorax. Stable mild scarring in the right perihilar region most likely secondary to prior radiation fibrosis. There has been essentially no change. Pleura: Unremarkable. CT ABDOMEN: Liver: Normal size. No mass. Gallbladder: Unremarkable Spleen: Normal size. Pancreas: Normal size without evidence of mass surrounding inflammation or ductal dilation. Adrenals: No adrenal mass seen. Kidneys: Stable 3.1 cm cyst in the medial aspect of the left kidney. Stable 1.4 cm cyst in the midportion of the right kidney. Bowel: Sigmoid diverticulosis. Lymph nodes: Unremarkable. Vasculature: Mild diffuse atherosclerotic calcifications are noted. Peritoneum / Retroperitoneum: Unremarkable Bones: Degenerative changes of the spine. CT/CT Chest AND Abd W/ Contrast IMPRESSION: Stable examination. Reading Location: [facility] CC: Dr. Jim Perez DO; Dr. Delilah Rodgers MD Slots Manager: Signed Normal [facility] Magnetic resonance imaging r eportOrdered By: Yohan Pastor on 10-26-2024 Study report [facility] Imaging Services [address] [place] [address] Brain W/WO Contrast MR#: [id number] Acct: [id number] Name: HARIKA SALEH Rep #: [id number] : 1960 M 64 From: Daniela Pastor MD PCP: Dr. Jim Perez DO Status: RE G CLI Study:Brain W/WO Contrast Date of Exam: 10/26/24 Exam# [id number] Ordering Dr: Xiang Erickson DO PROCEDURE: BRAIN W/WO CONTRAST 10/26/2024 REASON FOR EXAM: FOLLOW UP TREATED BRAIN METASTASIS TECHNIQUE: Routine brain MRI without and with intravenous contrast. Multiplanar and multisequence images were obtained. CONTRAST: Clear scan VOLUME: 17 mL IV COMPARISON: None FINDINGS: Brain: Old left parietal craniotomy with underlying high left frontoparietal subcortical white matter T2/FLAIR hyperintensity and foci of susceptibility artifact. No abnormal enhancement. Midline structures appear within normal limits. Diffusion weighted images: In the restricted diffusion. Ventricles: No findings of hydrocephalus. Major Intracranial Vessels: Enhance normally Sinuses: Scattered mucosal thickening. Mastoids: Small amount of fluid signal is identified within both mastoid air cells. MRI/Brain W/WO Contrast IMPRESSION: Postoperative appearance of the left parietal bone and underlying brain. No finding of disease recurrence. Reading Location: [facility] CC: Dr. Jim Perez DO; Dr. Xiang Erickson DO ~ Slots Manager: Signed [facility] Oncology Visit Reporton 04-11 Oncology Visit Report [facility] [address] [place] [address] OFFICE VISIT Date of Service: 05/03/24 1349 MR#: [id number] Acct: [id number] Name: HARIKA SALEH Rep #: [id number] : 1960 From: Delilah Rodgers MD Age/Sex: 63/M Location: [facility] Status: Signed HPI Subjective Date of Service 05/03/24 Chief Complaint Lung cancer follow-up History of Present Illness 63-year-old male smoker at the time who presented with increasing right shoulder pain and a CT scan of the chest revealed a right lung apical tumor. February 16, 2019 CT chest: FINDINGS: There is a 5.1 x 4.7 x 4 cm right apical heterogeneous solid mass. There is mild centrilobular emphysema. There is mild bibasilar linear atelectasis and/or scarring. There is no demonstrated pleural abnormality. Normal heart and pericardium. There is anterior mediastinal adenopathy measuring up to 2.3 x 1.5 cm. There is no hilar or axillary adenopathy. Normal hilar regions. Normal enhanced pulmonary arteries. Normal aorta arch and descending thoracic aorta. Normal osseous structures. No lytic or blastic osseous lesions. There is diffuse fatty infiltration of the liver. There is a subcentimeter right hepatic lobe hypodense lesion too small to characterize. There is a subcentimeter left renal midpole hypodense lesion, likely cyst. IMPRESSION: * 5.1 x 4.7 x 4 cm right apical heterogeneous solid mass consistent with malignancy. Anterior mediastinal adenopathy is consistent with jass metastases. * Hepatic steatosis. February 26, 2019 PET/CT: IMPRESSION: 1. ABNORMAL EXAMINATION INDICATIVE OF MALIGNANT VIABLE NEOPLASM. 2. Increased glucose concentration observed in the right upper hemithorax pulmonary parenchyma, right upper hemithorax pulmonary parenchyma, right upper lobe, fulfills quantitative criteria for viable neoplasm. 3. Prominent glucose concentration observed in the intestinal tract extending to the rectum-rectal vault is most consistent with physiologic distribution of the radiotracer. If intraluminal soft tissue mass formation is suspected, correlation with CT of the abdomen and pelvis with oral and intravenous contrast is recommended. (Doquincy et al, Journal of Nuclear Medicine, 30:K229, 2003). 4. No other quantitatively significant hypermetabolic abnormalities are defined. There is no definitive scintigraphic evidence of distant metastatic disease. February 27, 2019 PFTs: Impression: Pulmonary function tests are grossly within normal limits, but there has been changes compared to previous study. March 02, 2019 brain MRI: IMPRESSION: Normal unenhanced and enhanced MRI of the brain. No MR evidence of metastatic disease. March 02, 2019 right brachial plexus MRI: IMPRESSION: Known 5 cm bronchogenic carcinoma in the apex of the right lung as seen on recent CT the chest and PET/CT without invasion of the adjacent chest wall and subclavian space. March 05, 2019 right upper lobe mass biopsy: Right lung, CT-guided core biopsy: Non-small cell carcinoma, favor poorly differentiated adenocarcinoma. July 13, 2019 CT abdomen: IMPRESSION: 1. Normal unenhanced CT of the abdomen. 2. Minimal right lateral skin and subcutaneous induration is presumably scarring from prior surgery (series 2, images 11-13). This was not present previously. October 01, 2019 CT chest: IMPRESSION: Status post resection of the right upper lobe mass with mild postoperative scarring. Mild scarring at the right lung base. October 01, 2019 CT abdomen: IMPRESSION: Fatty infiltration of the liver. 2. Subcentimeters cysts in the liver. Sigmoid diverticulosis. May 06, 2020 CT chest: FINDINGS: Stable small benign-appearing bilateral axillary lymph nodes. Stable mild increased linear markings at the right lung base. The patient has a history of prior resection at the right lung apex. There has been no change. There is no demonstrated pleural abnormality. Normal heart and pericardium. There are multiple small lymph nodes within the mediastinum, which are normal in size and morphology most compatible with reactive lymph hyperplasia. Normal hilar regions. Normal enhanced pulmonary arteries. Normal aorta arch and descending thoracic aorta. There are mild degenerative changes of the thoracic spine. There is a 1.4 cm enhancing nodule in the dome of the left lobe of the liver. This is unchanged and may represent a small hemangioma. IMPRESSION: Stable examination. May 06, 2020 CT abdomen: IMPRESSION: Atherosclerosis. October 11, 2020 had a new onset seizure and brain MRI showed: A hemorrhagic intra-axial left parietal occipital neoplasm. Prominent vasogenic edema with mild to moderate mass-effect. October 23, 2020 left parietal craniotomy, resection of left parietal metastatic lesion with Stealth i (more content not included)... Normal [facility] Radiation Oncology Visiton 1 Radiation Oncology Visit [facility] [address] [place] [address] OFFICE VISIT Date of Service: 05/03/24 1258 MR#: [id number] Acct: [id number] Name: HARIKA SALEH Rep #: [id number] : 1960 From: Xiang Erickson DO Age/Sex: 63/M Location: [facility] Status: Signed Intake Vital Signs 10/31/23 11:26 04/12/24 12:56 05/03/24 13:05 Height 5 ft 8 in 5 ft 8 in 5 ft 8 in Weight: 194 lb BMI 29.5 BP 157/82 H Blood Pressure Location Rt brachial Position Sitting Respiration 16 Pulse 56 L Pulse Source Monitor Temp 97.5 F L Temperature Source Temporal Artery Pulse Oximetry (%) 96 Oxygen Delivery Method room air Intake Visit Reasons: 6 MONTH F/U BRAIN METS Chief Complaint: Is patient in pain?: No Allergies sulfamethoxazole (From Bactrim) Adverse Reaction (Intermediate, Verified 05/03/24 13:04) hives trimethoprim (From Bactrim) Adverse Reaction (Intermediate, Verified 05/03/24 13:04) hives Medications ???Medication ???Instructions ???Recorded ???Confirmed ???Type icosapent ethyl 1 gram capsule 2 g (2 x 1 gram) PO BID #120 caps 12/17/22 05/03/24 Rx (Vascepa) amlodipine 5 mg tablet (Norvasc) 5 mg PO DAILY #90 tabs 09/05/23 05/03/24 Rx ezetimibe 10 mg tablet (Zetia) 10 mg PO DAILY #30 tabs 09/05/23 05/03/24 Rx clopidogrel 75 mg tablet 75 mg PO DAILY #90 tabs 10/14/23 05/03/24 Rx olmesartan 40 mg tablet 40 mg PO DAILY HTN #90 tabs 10/14/23 05/03/24 Rx metoprolol tartrate 25 mg tablet 25 mg PO BID #180 TABLETS 01/17/24 05/03/24 Rx cyclobenzaprine 5 mg tablet 5 mg PO TID #21 tabs 04/05/24 05/03/24 Rx prednisone 20 mg tablet 20 mg PO BID #10 tabs 04/05/24 05/03/24 Rx levetiracetam 1,000 mg tablet See Rx Instructions .Route 04/12/24 05/03/24 Rx .COMPLEX #180 tabs PFSH PFSH Medical History Constipation Dyspnea Cervical stenosis of spine Cervical radiculitis Left shoulder pain Paresthesia of left upper extremity Medial epicondylitis Chronic sinusitis Bronchitis Brain metastases Degenerative joint disease of spine HH (hiatus hernia) Diverticular disease Abdominal hernia Atherosclerosis of coronary artery of [place] heart without angina pectoris Essential (primary) hypertension Encounter for adjustment or management of vascular access device Pancoast tumor of right lung Old inferior wall myocardial infarction EtOH dependence GERD (gastroesophageal reflux disease) Diverticulitis Dyspnea on exertion Hyperlipidemia Nicotine dependence Home Medications ???Medication ???Instructions ???Recorded ???Last Taken ???Type icosapent ethyl 1 gram capsule 2 g (2 x 1 gram) PO BID #120 caps 12/17/22 Unknown Rx (Vascepa) amlodipine 5 mg tablet (Norvasc) 5 mg PO DAILY #90 tabs 09/05/23 Unknown Rx ezetimibe 10 mg tablet (Zetia) 10 mg PO DAILY #30 tabs 09/05/23 Unknown Rx clopidogrel 75 mg tablet 75 mg PO DAILY #90 tabs 10/14/23 Unknown Rx olmesartan 40 mg tablet 40 mg PO DAILY HTN #90 tabs 10/14/23 Unknown Rx metoprolol tartrate 25 mg tablet 25 mg PO BID #180 TABLETS 01/17/24 Unknown Rx cyclobenzaprine 5 mg tablet 5 mg PO TID #21 tabs 04/05/24 Unknown Rx prednisone 20 mg tablet 20 mg PO BID #10 tabs 04/05/24 Unknown Rx levetiracetam 1,000 mg tablet See Rx Instructions .Route 04/12/24 Unknown Rx .COMPLEX #180 tabs Allergy/AdvReac Type Severity Reaction Status Date / Time sulfamethoxazole (From AdvReac Intermediate hives Verified 05/03/24 13:04 Bactrim) trimethoprim (From Bactrim) AdvReac Intermediate hives Verified 05/03/24 13:04 Family History Grandfather Cancer Lung cancer Uncle Cancer Lung cancer Surgical History History of craniotomy (10/2020) History of removal of Port-a-Cath History of lobectomy of lung (05/2019) History of coronary artery stent placement (10/26/16) History of vasectomy History of appendectomy History of colonoscopy Social History Smoking Status: Former smoker quit date: 07/11/18 Tobacco: How many years used: 39 alcohol intake: current alcohol intake frequency: holidays/special occasions only details: occasionally substance use type: does not use caffeine: Yes Type: coffee Number of servings: 2 seatbelt use: always do you feel safe at home: Yes Diagnosis: Harika Saleh is a 63 year-old male diagnosed with clinical stage IIB ([id number]; 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 Normal [facility] Brain W/WO Contraston 2023 Brain W/WO Contrast [facility] Imaging Services [address] [place] [address] Brain W/WO Contrast MR#: [id number] Acct: [id number] Name: HARIKA SALEH Rep #: [id number] : 1960 M 63 From: Santos irvin DO PCP: Dr. Jim Perez, Status: [facility] Study: Brain W/WO Contrast Date of Exam: 04/27/24 Exam# [id number] Ordering Dr: Xiang Erickson DO [id number] EXAM: MR HEAD WITHOUT AND WITH INTRAVENOUS CONTRAST CLINICAL INDICATION: treated brain metastasis -- monitoring TECHNIQUE: Multiplanar and multisequence MR images of the brain were obtained without and with intravenous contrast. CONTRAST: IV CLARISCAN 17ML COMPARISON: MRI brain, 10/26/2023. FINDINGS: BRAIN AND EXTRA-AXIAL SPACES: Postoperative changes in the left parietal lobe are identified with area of gliosis and apparent encephalomalacia. There is no restricted diffusion in the brain parenchyma to indicate recent infarct or other pathology. T2 FLAIR hyperintensity within the white matter of the left frontal lobe is similar to the prior examination. Minimal hemosiderin staining in the left parietal lobe likely related to operative change. No pathologic brain parenchymal or meningeal enhancement is identified. There is no discrete mass or mass effect and there is no shift of midline structures. The basal cisterns are patent. There is no hydrocephalus. No intra- or extra-axial hemorrhage. Posterior fossa structures are unremarkable. SELLA: No significant abnormality. Normal sella turcica, pituitary gland, infundibular stalk, optic chiasm and hypothalamus. AUDITORY SYSTEM: No significant abnormality. The internal auditory canals are patent. BONES/JOINTS: Left parietal craniotomy change. No additional calvarial or skull base signal abnormality. No discrete lytic or blastic abnormalities. SINUSES: Mucosal thickening and scattered mucus retention cyst in the paranasal sinuses. MASTOID AIR CELLS: Normal as visualized. Clear. ORBITS: Normal as visualized. Both globes, extraocular muscles, optic nerves and retrobulbar fat appear unremarkable. VASCULATURE: Normal as visualized. Normal flow voids in the major intracranial circulation. MRI/Brain W/WO Contrast IMPRESSION: Post therapeutic changes as above. No evidence of residual or recurrent malignancy. Nonspecific white matter signal abnormality is unchanged. Electronically Signed: Santos Haque DO at 21:58 EDT , CC: Dr. Jim Perez, ; Dr. Xiang Erickson, Slots Manager: Signed Normal [facility] CREATININE FINGERSTICKon CREATININE WB < 1.0 Normal 0.70-1.[address] [facility] Comment on above: Performed By: #### L 9100.0200 ####[facility] [id number] [place], [place], [address] EGFR WB > 60.0000 Normal >[address] [facility] Comment on above: Performed By: #### L 9100.0200 ####[facility] [address] [place], [place], [address] .Auto Diffon 09-10-2024 Basophil, Absolute 0.1 10 3/mcL Normal 0.0-0.2 [facility] Comment on above: Performed By: #### L IP, ANEU, MDW, CBC, GFR, ADIFF, CMP #### [address] [address] Basophils/100 WBC (Bld) 1.3 % Normal 0.0-2.5 [facility] Comment on above: Performed By: #### L IP, ANEU, MDW, CBC, GFR, ADIFF, CMP #### [address] [address] Eosinophil, Absolute 0.4 10 3/mcL Normal 0.0-0.4 [facility] Comment on above: Performed By: #### L IP, ANEU, MDW, CBC, GFR, ADIFF, CMP #### [address] [address] Eosinophils/100 WBC (Bld) 3.7 % Normal 0.0-7.0 [facility] Comment on above: Performed By: #### L IP, ANEU, MDW, CBC, GFR, ADIFF, CMP #### [address] [address] Lymphocyte, Absolute 4.0 10 3/mcL High 0.8-3.9 [facility] Comment on above: Performed By: #### L IP, ANEU, MDW, CBC, GFR, ADIFF, CMP #### [address] [address] Lymphocytes/100 WBC (Bld) 35.3 % Normal 10.0-50.0 [facility] Comment on above: Performed By: #### L IP, ANEU, MDW, CBC, GFR, ADIFF, CMP #### [address] [address] Monocyte, Absolute 1.1 10 3/mcL High 0.2-1.0 [facility] Comment on above: Performed By: #### L IP, ANEU, MDW, CBC, GFR, ADIFF, CMP #### [address] [address] Monocytes/100 WBC (Bld) 10.0 % Normal 1.7-13.0 [facility] Comment on above: Performed By: #### L PURVI BARNEY MDW, CBC, GFR, ADIFF, CMP #### [address] [place], [place] [address] Neutrophils/100 WBC (Bld) 49.7 % Normal 37.0-80.0 [facility] Comment on above: Performed By: #### L PURVI BARNEY MDW, CBC, GFR, ADIFF, CMP #### [address] [address] .GFRon 03-20-2024 GFR 83 ml/min/1.73sqm Normal [facility] Comment on above: Result Comment: GFR Population mean for , Non- Americans Ages 20-29 = 116 mL/min/1.73 sq.m. Ages 30-39 = 107 mL/min/1.73 sq.m. Ages 40-49 = 99 mL/min/1.73 sq.m. Ages 50-59 = 93 mL/min/1.73 sq.m. Ages 60-69 = 85 mL/min/1.73 sq.m. Ages 70+ = 75 mL/min/1.73 sq.m. Chronic Kidney Disease: Less than 60 mL/min/1.73 square meters End Stage Renal Disease: Less than 15 mL/min/1.73 square meters Performed By: #### L PURVI BARNEY MDW, CBC, GFR, ADIFF, CMP #### [address] [address] GFR Non- 69 ml/min/1.73sqm Normal [facility] Comment on above: Result Comment: GFR Population mean for , Non- Americans Ages 20-29 = 116 mL/min/1.73 sq.m. Ages 30-39 = 107 mL/min/1.73 sq.m. Ages 40-49 = 99 mL/min/1.73 sq.m. Ages 50-59 = 93 mL/min/1.73 sq.m. Ages 60-69 = 85 mL/min/1.73 sq.m. Ages 70+ = 75 mL/min/1.73 sq.m. Chronic Kidney Disease: Less than 60 mL/min/1.73 square meters End Stage Renal Disease: Less than 15 mL/min/1.73 square meters Performed By: #### L IP, ANEU, MDW, CBC, GFR, ADIFF, CMP #### [place] [id number] .MDWon 03-20-2024 Monocyte Distribution Width 18.78 Normal 0.00-20.00 [facility] Comment on above: Result Comment: For ED adult patients suspected of sepsis, MDW<=20.0 does not rule out sepsis or risk of sepsis Performed By: #### L IP, ANEU, MDW, CBC, GFR, ADIFF, CMP #### [place] [address] .NEUABSon 03-20-2024 Neutrophil, Absolute 5.6 10 3/mcL Normal 2.9-6.2 [facility] Comment on above: Performed By: #### L IP, ANEU, MDW, CBC, GFR, ADIFF, CMP #### [place] [address] CBCon 03-20-2024 Erythrocyte distribution width (RBC) [Ratio] 13.6 % Normal 11.5-14.5 [facility] Comment on above: Performed By: #### L IP, ANEU, MDW, CBC, GFR, ADIFF, CMP #### [place] [id number] Hematocrit (Bld) [Volume fraction] 50.2 % Normal 42.0-52.0 [facility] Comment on above: Performed By: #### L IP, ANEU, MDW, CBC, GFR, ADIFF, CMP #### [place] [id number] Hgb 17.4 G/dL Normal 14.0-18.0 [facility] Comment on above: Performed By: #### L IP, ANEU, MDW, CBC, GFR, ADIFF, CMP #### [address] [address] MCH (RBC) [Entitic mass] 33.1 pg High 27.0-31.2 [facility] Comment on above: Performed By: #### L IP, ANEU MDW, CBC, GFR, ADIFF, CMP #### [address] [address] MCHC 34.7 G/dL Normal 31.8-35.4 [facility] Comment on above: Performed By: #### L IP, PURVI MDW, CBC, GFR, ADIFF, CMP #### [address] [address] MCV (RBC) [Entitic vol] 95.3 fL High 80.0-94.0 [facility] Comment on above: Performed By: #### L ECTOR, MD PURVIW, CBC, GFR, ADIFF, CMP #### [address] [address] Platelet 313 10 3/mcL Normal 130-400 [facility] Comment on above: Performed By: #### L ECTOR, MD PURVIW, CBC, GFR, ADIFF, CMP #### [address] [address] Platelet mean volume (Bld) [Entitic vol] 7.1 fL Low 7.4-10.4 [facility] Comment on above: Performed By: #### L IPPURVI MDW, CBC, GFR, ADIFF, CMP #### [address] [address] RBC 5.27 10 6/mcL Normal 4.04-6.13 [facility] Comment on above: Performed By: #### L IPPURVI MDW, CBC, GFR, ADIFF, CMP #### [address] [address] WBC 11.2 10 3/mcL High 4.6-10.8 [facility] Comment on above: Performed By: #### L IP, MD PURVIW, CBC, GFR, ADIFF, CMP #### [address] [address] CMPon 03-20-2024 Albumin Level 3.9 G/dL Normal 3.4-4.8 [facility] Comment on above: Performed By: #### L ECTOR, MD PURVIW, CBC, GFR, ADIFF, CMP #### [place] [id number] Albumin/Globulin [Mass ratio] 1.1 {ratio} Normal 1.1-2.5 [facility] Comment on above: Performed By: #### L ECTOR, MD PURVIW, CBC, GFR, ADIFF, CMP #### [place] [address] ALP [Catalytic activity/Vol] 67 U/L Normal 40-135 [facility] Comment on above: Performed By: #### L ECTOR, MD PURVIW, CBC, GFR, ADIFF, CMP #### [place] [address] ALT [Catalytic activity/Vol] 30 U/L Normal 16-63 [facility] Comment on above: Performed By: #### L ECTOR, MD PURVIW, CBC, GFR, ADIFF, CMP #### [place] [address] AST [Catalytic activity/Vol] 18 U/L Normal 10-40 [facility] Comment on above: Performed By: #### L ECTOR, MD PURVIW, CBC, GFR, ADIFF, CMP #### [address] [address] Bili Total 0.4 mg/dL Normal 0.2-1.0 [facility] Comment on above: Result Comment: Use of this assay is not recommended for patients undergoing treatment with eltrombopag due to the potential for falsely elevated results. Performed By: #### L IP, PURVI, W, CBC, GFR, ADIFF, CMP #### [place] [address] BUN/Creatinine Ratio 10 ratio Normal 7-27 [facility] Comment on above: Performed By: #### L ECTOR, MD PURVIW, CBC, GFR, ADIFF, CMP #### [address] [address] Calcium [Mass/Vol] 9.2 mg/dL Normal 8.4-10.2 [facility] Comment on above: Performed By: #### L IP, PURVI MDW, CBC, GFR, ADIFF, CMP #### [address] [address] Chloride [Moles/Vol] 100 mmol/L Normal 98-107 [facility] Comment on above: Performed By: #### L IP, MD PURVIW, CBC, GFR, ADIFF, CMP #### [address] [address] CO2 [Moles/Vol] 30 mmol/L Normal 23-31 [facility] Comment on above: Performed By: #### L ECTOR, MD PURVIW, CBC, GFR, ADIFF, CMP #### [address] [address] Creatinine [Mass/Vol] 1.09 mg/dL Normal 0.70-1.30 [facility] Comment on above: Result Comment: Test ing performed on Siemens Dimension EXL analyzer using a modified kinetic Evelyn technique. Performed By: #### L IP, MD PURVIW, CBC, GFR, ADIFF, CMP #### [address] [address] Electrolyte Balance 7.0 mEq/L Normal 4.0-15.0 [facility] Comment on above: Performed By: #### L ECTOR, MD PURVIW, CBC, GFR, ADIFF, CMP #### [address] [address] Globulin 3.5 G/dL Normal [facility] Comment on above: Performed By: #### L IP, PURVI, MDW, CBC, GFR, ADIFF, CMP #### [address] [address] Glucose [Mass/Vol] 128 mg/dL High 80-115 [facility] Comment on above: Performed By: #### L ECTOR, MD PURVIW, CBC, GFR, ADIFF, CMP #### [address] [address] Potassium [Moles/Vol] 4.7 mmol/L Normal 3.5-5.1 [facility] Comment on above: Performed By: #### L ECTOR, MD PURVIW, CBC, GFR, ADIFF, CMP #### [address] [address] Sodium [Moles/Vol] 137 mmol/L Normal 136-145 [facility] Comment on above: Performed By: #### L ECTOR, MD PURVIW, CBC, GFR, ADIFF, CMP #### [address] [address] Total Protein 7.4 G/dL Normal 6.4-8.2 [facility] Comment on above: Performed By: #### L ECTOR, MD PURVIW, CBC, GFR, ADIFF, CMP #### [address] [address] Urea nitrogen [Mass/Vol] 11 mg/dL Normal 7-18 [facility] Comment on above: Performed By: #### L ECTOR, MD PURVIW, CBC, GFR, ADIFF, CMP #### [address] [address] [address] ABD/PELVIS W/ IV CONTRAST ONLYon 03-20-2024 CT ABD/PELVIS W/ IV CONTRAST ONLY ORIGINAL HISTORY: Pain COMPARISON: 11 October 2020 TECHNIQUE: CT of the Abdomen and Pelvis following uncomplicated administration of intravenous contrast, with sagittal and coronal reconstructions. This exam was performed according to our departmental dose optimization program, and includes the following measures where applicable: automated exposure control, adjustment of the mAs and/or kVp according to patient size and/or exam, and an iterative reconstruction algorithm. FINDINGS: There is scarring in the right lung base. The study is mildly degraded by motion. There are left renal cysts. The remaining abdominal organs are unremarkable in appearance. There is an appendectomy. Bowel is poorly evaluated in the absence of oral contrast. There is diverticulosis. There is questionable faint infiltration around the proximal sigmoid colon, along with questionable mild wall thickening. There is no free fluid. IMPRESSION: Diverticulosis, with questionable mild surrounding infiltration, at least suggestive of acute diverticulitis. Otherwise, no significant interval change. Interpreted by: Suzie Olguin MD Preliminary Report By: Suzie Olguin MD Electronically signed By Suzie Olguin MD Dictated Date: 03/20/2024 8:23:47 AM Prelim Date: 03/20/2024 8:26:45 AM Sign Date: 03/20/2024 8:26:45 AM Ordering Provider: RENÉ Montero [facility] LABORATORYOrdered By: SYSTEM SYSTEM on 03-20-2024 Albumin BCP dye [Mass/Vol] 3.9 G/dL Normal 3.4 - 4.8 G/dL AO ADM SS Albumin/Globulin [Mass ratio] 1.1 {ratio} Normal 1.1 - 2.5 ratio AO ADM SS ALP [Catalytic activity/Vol] 67 U/L Normal 40 - 135 U/L AO ADM SS ALT With P-5'-P [Catalytic activity/Vol] 30 U/L Normal 16 - 63 U/L AO ADM SS AST With P-5'-P [Catalytic activity/Vol] 18 U/L Normal 10 - 40 U/L AO ADM SS Basophils (Bld) [#/Vol] 0.1 103/mcL Normal 0.0 - 0.2 10^3/mcL AO Workflow SS Basophils/100 WBC (Bld) 1.3 % Normal 0.0 - 2.5 % AO Workflow SS Bilirubin [Mass/Vol] 0.4 mg/dL Normal 0.2 - 1 .0 mg/dL AO ADM SS Comment on above: Interpretive Data: U se of this assay is not recommended for patients undergoing treatment with eltrombopag due to the potential for falsely elevated results. Calcium [Mass/Vol] 9.2 mg/dL Normal 8.4 - 10. 2 mg/dL AO ADM SS Chloride [Moles/Vol] 100 mmol/L Normal 98 - 10 7 mmol/L AO ADM SS CO2 [Moles/Vol] 30 mmol/L Normal 23 - 31 mmol/L AO ADM SS Creatinine [Mass/Vol] 1.09 mg/dL Normal 0.70 - 1.30 mg/dL AO ADM SS Comment on above: Interpretive Data: T esting performed on Siemens Dimension EXL analyzer using a modified kinetic Evelyn technique. Electrolyte Balance 7.0 mEq/L Normal 4.0 - 15 .0 mEq/L AO ADM SS Eosinophil, Absolute 0.4 103/mcL Normal 0.0 - 0 .4 10^3/mcL AO Workflow SS Eosinophils/100 WBC (Bld) 3.7 % Normal 0.0 - 7.0 % AO Workflow SS Erythrocyte distribution width (RBC) [Ratio] 13.6 % Normal 11.5 - 14.5 % AO Workflow SS GFR/1.73 sq M.predicted among blacks MDRD (S/P/Bld) [Vol rate/Area] 83 ml/min/1.73sqm Invalid Interpretation Code AO Chemistry S Comment on above: Interpretive Data: GFR Population mean for , Non- Americans Ages 20-29 = 116 mL/min/1.73 sq.m. Ages 30-39 = 107 mL/min/1.73 sq.m. Ages 40-49 = 99 mL/min/1.73 sq.m. Ages 50-59 = 93 mL/min/1.73 sq.m. Ages 60-69 = 85 mL/min/1.73 sq.m. Ages 70+ = 75 mL/min/1.73 sq.m. Chronic Kidney Disease: Less than 60 mL/min/1.73 square meters End Stage Renal Disease: Less than 15 mL/min/1.73 square meters GFR/1.73 sq M.predicted among non-blacks MDRD (S/P/Bld) [Vol rate/Area] 69 ml/min/1.73sqm Invalid Interpretation Code AO Chemistry S Comment on above: Interpretive Data: GFR Population mean for , Non- Americans Ages 20-29 = 116 mL/min/1.73 sq.m. Ages 30-39 = 107 mL/min/1.73 sq.m. Ages 40-49 = 99 mL/min/1.73 sq.m. Ages 50-59 = 93 mL/min/1.73 sq.m. Ages 60-69 = 85 mL/min/1.73 sq.m. Ages 70+ = 75 mL/min/1.73 sq.m. Chronic Kidney Disease: Less than 60 mL/min/1.73 square meters End Stage Renal Disease: Less than 15 mL/min/1.73 square meters Globulin 3.5 G/dL Invalid Interpretation Code AO ADM SS Glucose [Mass/Vol] 128 mg/dL High 80 - 115 mg/dL AO ADM SS Hematocrit (Bld) [Volume fraction] 50.2 % Normal 42.0 - 52.0 % AO Workflow SS Hemoglobin (Bld) [Mass/Vol] 17.4 G/dL Normal 14.0 - 18.0 G/dL AO Workflow SS Lipase [Catalytic activity/Vol] 27 U/L Normal 16 - 77 U/L AO ADM SS Lymphocytes (Bld) [#/Vol] 4.0 103/mcL High 0.8 - 3.9 10^3/mcL AO Workflow SS Lymphocytes/100 WBC (Bld) 35.3 % Normal 10.0 - 50.0 % AO Workflow SS MCH (RBC) [Entitic mass] 33.1 pg High 27. 0 - 31.2 pg AO Workflow SS MCHC 34.7 G/dL Normal 31.8 - 35.4 G/dL AO Workflow SS MCV (RBC) [Entitic vol] 95.3 fL High 80.0 - 94.0 fL AO Workflow SS Monocyte distribution width Auto (Bld) [Entitic vol] 18.78 1 Normal 0.00 - 20.00 AO Workflow SS Comment on above: Result Comment: For ED adult patients suspected of sepsis, MDW<=20.0 does not rule out sepsis or risk of sepsis Monocytes (Bld) [#/Vol] 1.1 103/mcL High 0.2 - 1.0 10^3/mcL AO Workflow SS Monocytes/100 WBC (Bld) 10.0 % Normal 1.7 - 13.0 % AO Workflow SS Neutrophils (Bld) [#/Vol] 5.6 103/mcL Normal 2.9 - 6.2 10^3/mcL AO Workflow SS Neutrophils/100 WBC (Bld) 49.7 % Normal 37.0 - 80.0 % AO Workflow SS Platelet mean volume (Bld) [Entitic vol] 7.1 fL Low 7.4 - 10.4 fL AO Workflow SS Platelets (Bld) [#/Vol] 313 103/mcL Normal 130 - 400 10^3/mcL AO Workflow SS Potassium [Moles/Vol] 4.7 mmol/L Normal 3.5 - 5.1 mmol/L AO ADM SS Protein [Mass/Vol] 7.4 G/dL Normal 6.4 - 8.2 G/dL AO ADM SS RBC (Bld) [#/Vol] 5.27 106/mcL Normal 4.04 - 6.1 3 10^6/mcL AO Workflow SS Sodium [Moles/Vol] 137 mmol/L Normal 136 - 145 mmol/L AO ADM SS Urea nitrogen [Mass/Vol] 11 mg/dL Normal 7 - 18 mg/dL AO ADM SS Urea nitrogen/Creatinine [Mass ratio] 10 ratio Normal 7 - 27 ratio AO ADM SS WBC (Bld) [#/Vol] 11.2 103/mcL High 4.6 - 10.8 10^3/mcL AO Workflow SS LABORATORYOrdered By: Airam Wayne on 03-20-2024 Appearance (U) Clear (03/20/24 7:16 AM) Normal Clear AO Auto Urine SS Bilirubin Ql (U) Negative (03/20/24 7:16 AM) Normal Negative AO Auto Urine SS Color (U) Yellow (03/20/24 7:16 AM) Normal AO Auto Urine SS Glucose Test strip (U) [Mass/Vol] Negative Normal Negative AO Auto Urine SS Hemoglobin Auto test strip (U) [Mass/Vol] Trace *ABN* (03/20/24 7:16 AM) Invalid Interpretation Code Negative AO Auto Urine SS Ketones Ql (U) Negative Normal Negative AO Auto Urine SS UA Leuk Est Negative (03/20/24 7:16 AM) Normal Negative AO Auto Urine SS UA Nitrite Negative (03/20/24 7:16 AM) Normal Negative AO Auto Urine SS UA pH 6.5 (03/20/24 7:16 AM) Normal 5.0 - 8.0 AO Auto Urine SS UA Protein Negative Normal Negative AO Auto Urine SS UA Spec Grav 1.010 *ABN* (03/20/24 7:16 AM) Invalid Interpretation Code 1.015-1.025 AO Auto Urine SS UA Specimen Type Clean Catch (03/20/24 7:16 AM) Normal AO Auto Urine SS UA Urobilinogen 0.2 E.U./dL Normal 0.2-1.0 AO Auto Urine SS LIPon 03-20-2024 Lipase Level 27 U/L Normal 16-77 [facility] Comment on above: Performed By: #### L IP, ANEU, MDW, CBC, GFR, ADIFF, CMP #### [place] [address] UAon 03-20-2024 Color (U) Yellow Normal [facility] Comment on above: Performed By: #### U A #### [place] [address] Glucose (U) [Mass/Vol] Negative Normal Negative [facility] Comment on above: Performed By: #### U A #### [address] [address] Ketones Ql (U) Negative Normal Negative [facility] Comment on above: Performed By: #### U A #### [place] [address] UA Appear Clear Normal Clear [facility] Comment on above: Performed By: #### U A #### [place] [address] UA Blood Trace Abnormal Negative [facility] Comment on above: Performed By: #### U A #### [place] [address] UA Leuk Est Negative Normal Negative [facility] Comment on above: Performed By: #### U A #### [place] [address] UA Nitrite Negative Normal Negative [facility] Comment on above: Performed By: #### U A #### [place] [address] UA pH 6.5 Normal 5.0 - 8.0 [facility] Comment on above: Performed By: #### U A #### [place] [address] UA Protein Negative Normal Negative [facility] Comment on above: Performed By: #### U A #### [place] [address] UA Spec Grav 1.010 Abnormal 1.015-1.025 [facility] Comment on above: Performed By: #### U A #### [facility] [address] [place], [place] [address] UA Specimen Type Clean Catch Normal [facility] Comment on above: Performed By: #### U A #### [facility] [address] [place], [place] [address] UA Urobilinogen 0.2 E.U./dL Normal 0.2-1.0 [facility] Comment on above: Performed By: #### U A #### [facility] [address] [place], [place] [address] Urobilinogen (U) [Mass/Vol] Negative Normal Negative [facility] Comment on above: Performed By: #### U A #### [place] [address] [place], [place] [address] Absolute lymphocyte countOrd ered By: Delilah Rodgers on 10-31-2023 Lymphocytes Auto (Unsp spec) [#/Vol] 2.92 10*3/uL 0.83-4.[address] [facility] Automated lymphocyte count a s percentage of total leukocytesOrdered By: Delilah Rodgers on 10-31-2023 Lymphocytes/100 WBC Auto (Unsp spec) 34.7 % 19-[address] [facility] Basophil percentageOrdered B y: Delilah Rodgers on 10-31-2023 Basophils/100 WBC (Bld) 1.3 % 0-1 [facility] Bilirubin [Mass/Vol] 0.30 mg/dL 0.20-1.00 [facility] Comment on above: For patients on eltr ombopag therapy, use of Dimension [place] TBIL is not recommended. Chloride [Moles/Vol] 106 mmol/L 98-107 [facility] Eosinophils/100 WBC (Bld) 2.5 % 0-[address] [facility] Glucose [Mass/Vol] 96 mg/dL 74-106 [facility] Hemoglobin (Bld) [Mass/Vol] 15.9 g/dL 13.0-16.[address] [facility] Monocytes/100 WBC (Bld) 11.7 % 0-10 [facility] Neutrophils (Bld) [#/Vol] 4.2 10*3/uL 2.0-7.[address] [facility] Neutrophils/100 WBC (Bld) 49.6 % 47-[address] [facility] Potassium [Moles/Vol] 4.5 mmol/L 3.5-5.1 [facility] Comment on above: Moderate Hemolysis, Result may be falsely increased. Protein [Mass/Vol] 7.1 g/dL 6.4-8.2 [facility] Sodium [Moles/Vol] 139 mmol/L 136-145 [facility] WBC (Bld) [#/Vol] 8.4 10*3/uL 4.4-11.0 [facility] Determination of erythrocyte mean corpuscular volume (MCV)Ordered By: Delilah Rodgers on 10-31-2023 MCV (RBC) [Entitic vol] 92.8 fL 80-94 [facility] Erythrocyte distribution wid th ratioOrdered By: Delilah Rodgers on 10-31-2023 Erythrocyte distribution width (RBC) [Ratio] 13.5 % 11.6-14.[address] [facility] Erythrocyte distribution wid th standard deviationOrdered By: Delilah Rodgers on 10-31-2023 Erythrocyte distribution width (RBC) [Entitic vol] 45.9 fL 35.1-43.[address] [facility] Estimated glomerular filtrat ion rate (GFR) AmericanOrdered By: Delilah Rodgers on 10-31-2023 Estimated GFR (MDRD) Amer 96 mL/min >[address] [facility] Comment on above: GFR Calc Hematocrit Auto (Bld) [Volum e fraction]Ordered By: Delilah Rodgers on 10-31-2023 Hematocrit (Bld) [Volume fraction] 46.5 % 40-[address] [facility] Immature granulocytes/100 WB C Auto (Bld)Ordered By: Delilah Rodgers on 10-31-2023 Immature granulocytes/100 WBC (Bld) 0.200 % 0.0-0.[address] [facility] Comment on above: IG% - Immature Granu locytes (promyelocytes, myelocytes and metamyelocytes) > 1% indicates that a LEFT SHIFT is Present. Laboratory - Chemistry and C hemistry - challengeOrdered By: Delilah Rodgers on 10-31-2023 Albumin/Globulin [Mass ratio] 0.9 {ratio} 0.9-2.[address] [facility] ALP [Catalytic activity/Vol] 64 U/L 45-[address] [facility] ALT [Catalytic activity/Vol] 24 U/L 16-[address] [facility] CO2 [Moles/Vol] 30.0 mmol/L 21.0-32.[address] [facility] Globulin (S) [Mass/Vol] 3.7 g/dL 2.2-4.2 [facility] Urea nitrogen/Creatinine [Mass ratio] 12.9 mg/mg 10-[address] [facility] Laboratory - Hematology and Cell countsOrdered By: Delilah Rodgers on 10-31-2023 MCH (RBC) [Entitic mass] 31.7 pg 27.0-32.[address] [facility] MCHC (RBC) [Mass/Vol] 34.2 g/dL 32-36 [facility] Nucleated RBC/100 WBC (Bld) [Ratio] 0 % 0-[address] [facility] Platelet mean volume (Bld) [Entitic vol] 8.8 fL 6.2-12.[address] [facility] Platelets (Bld) [#/Vol] 285 10*3/uL 150-[address] [facility] No Panel InformationOrdered By: Delilah Rodgers on 10-31-2023 Estimated Creatinine Clearance Calc 81.43 ml/min [facility] Estimated GFR (MDRD) Non-Af Amer 80 mL/min >[address] [facility] Comment on above: Non- GFR Calc RBC Auto (Bld) [#/Vol]Ordere d By: Delilah Rodgers on 10-31-2023 RBC (Bld) [#/Vol] 5.01 10*6/uL 4.6-6.2 [facility] Serum or plasma calcium hermes urement (mass/volume)Ordered By: Delilah Rodgers on 10-31-2023 Calcium [Mass/Vol] 8.6 mg/dL 8.5-10.1 [facility] Serum or plasma creatinine m easurement (mass/volume)Ordered By: Delilah Rodgers on 10-31-2023 Creatinine [Mass/Vol] 1.01 mg/dL 0.70-1.30 [facility] Comment on above: The validity of the calculated GFR & GFRAA in patients over 70 years has not been determined. Clinical correlation is essential. Serum or plasma urea nitroge n measurement (mass/volume)Ordered By: Delilah Rodgers on 10-31-2023 Urea nitrogen [Mass/Vol] 13 mg/dL 7-[address] [facility] Thin prep Papanicolaou smear with manual screeningOrdered By: Delilah Rodgers on 10-31-2023 Thin prep Papanicolaou smear with manual screening 3.4 g/dL 3.2-5.[address] [facility] Thin prep Papanicolaou smear with manual screening 21 U/L 15-[address] [facility] Comment on above: Moderate Hemolysis, Result may be falsely increased. Thin prep Papanicolaou smear with manual screening 3 5-[address] [facility] Basophil percentageOrdered B y: Delilah Rodgers on 10-24-2023 Creatinine [Mass/Vol] 1.1 mg/dL 0.70-1.30 [facility] No Panel InformationOrdered By: Delilah Rodgers on 10-24-2023 Bedside Estimated GFR (eGFR) > 60.0000 mL/min >[address] [facility] Absolute lymphocyte countOrd ered By: Delilah Rodgers on 05-02-2023 Lymphocytes Auto (Unsp spec) [#/Vol] 3.44 10*3/uL 0.83-4.[address] [facility] Basophil percentageOrdered B y: Delilah Rodgers on 05-02-2023 Basophils/100 WBC (Bld) 1.1 % 0-1 [facility] Bilirubin [Mass/Vol] 0.20 mg/dL 0.20-1.00 [facility] Comment on above: For patients on eltr ombopag therapy, use of Dimension [place] TBIL is not recommended. Chloride [Moles/Vol] 108 mmol/L 98-107 [facility] Eosinophils/100 WBC (Bld) 2.0 % 0-[address] [facility] Glucose [Mass/Vol] 85 mg/dL 74-106 [facility] Neutrophils (Bld) [#/Vol] 5.6 10*3/uL 2.0-7.[address] [facility] Neutrophils/100 WBC (Bld) 51.9 % 47-[address] [facility] Potassium [Moles/Vol] 4.0 mmol/L 3.5-5.1 [facility] Protein [Mass/Vol] 7.0 g/dL 6.4-8.2 [facility] Sodium [Moles/Vol] 140 mmol/L 136-145 [facility] WBC (Bld) [#/Vol] 10.7 10*3/uL 4.4-11.0 [facility] Blood erythrocytes count (nu mber/volume)Ordered By: Delilah Rodgers on 05-02-2023 RBC (Bld) [#/Vol] 5.05 10*6/uL 4.6-6.2 [facility] Blood hemoglobin measurement (mass/volume)Ordered By: Delilah Rodgers on 05-02-2023 Hemoglobin (Bld) [Mass/Vol] 15.9 g/dL 13.0-16.[address] [facility] Blood lymphocytes/100 leukoc ytesOrdered By: Delilah Rodgers on 05-02-2023 Lymphocytes/100 WBC (Bld) 32.1 % 19-[address] [facility] Blood monocytes/100 leukocyt esOrdered By: Delilah Rodgers on 05-02-2023 Monocytes/100 WBC (Bld) 12.5 % 0-10 [facility] Blood platelet mean volumeOr dered By: Delilah Rodgers on 05-02-2023 Platelet mean volume (Bld) [Entitic vol] 9.2 fL 6.2-12.[address] [facility] Determination of erythrocyte mean corpuscular volume (MCV)Ordered By: Delilah Rodgers on 05-02-2023 MCV (RBC) [Entitic vol] 95.2 fL 80-94 [facility] Hematocrit Auto (Bld) [Volum e fraction]Ordered By: Delilah Rodgers on 05-02-2023 Hematocrit (Bld) [Volume fraction] 48.1 % 40-[address] [facility] Laboratory - Chemistry and C hemistry - challengeOrdered By: Delilah Rodgers on 05-02-2023 ALP [Catalytic activity/Vol] 59 U/L 45-[address] [facility] ALT [Catalytic activity/Vol] 19 U/L 16-[address] [facility] CO2 [Moles/Vol] 28.0 mmol/L 21.0-32.[address] [facility] Globulin (S) [Mass/Vol] 3.5 g/dL 2.2-4.2 [facility] Urea nitrogen/Creatinine [Mass ratio] 14.3 mg/mg 10-[address] [facility] Laboratory - Hematology and Cell countsOrdered By: Delilah Rodgers on 05-02-2023 Erythrocyte distribution width (RBC) [Entitic vol] 46.7 fL 35.1-43.[address] [facility] Erythrocyte distribution width (RBC) [Ratio] 13.3 % 11.6-14.[address] [facility] Immature granulocytes/100 WBC (Bld) 0.400 % 0.0-0.[address] [facility] Comment on above: IG% - Immature Granu locytes (promyelocytes, myelocytes and metamyelocytes) > 1% indicates that a LEFT SHIFT is Present. MCH (RBC) [Entitic mass] 31.5 pg 27.0-32.[address] [facility] Nucleated RBC/100 WBC (Bld) [Ratio] 0 % 0-[address] [facility] MCHC Auto (RBC) [Mass/Vol]Or dered By: Delilah Rodgers on 05-02-2023 MCHC (RBC) [Mass/Vol] 33.1 g/dL 32-36 [facility] No Panel InformationOrdered By: Delilah Rodgers on 05-02-2023 Estimated Creatinine Clearance Calc 82.47 ml/min [facility] Estimated GFR (MDRD) Amer 109 mL/min >[address] [facility] Comment on above: GFR Calc Estimated GFR (MDRD) Non-Af Amer 90 mL/min >[address] [facility] Comment on above: Non- GFR Calc Prostate Specific Antigen Screen 1.68 ng/mL 0.00-4.[address] [facility] Comment on above: This test was perfor med using the TPSA assay method for the[facility] system. Values obtained with differentassay methods cannot be used interchangably.When changing PSA assays in the course of monitoring apatient, additional sequential testing should be carriedout to confirm baseline values. Platelets bldOrdered By: Farhan Rodgers on 05-02-2023 Platelets (Bld) [#/Vol] 274 10*3/uL 150-[address] [facility] Serum or plasma albumin hermes urement (mass/volume)Ordered By: [facility] Vishal on 05-02-2023 Albumin [Mass/Vol] 3.5 g/dL 3.2-5.0 [facility] Serum or plasma albumin/glob ulin mass ratioOrdered By: [facility] Vishal on 05-02-2023 Albumin/Globulin [Mass ratio] 1.0 {ratio} 0.9-2.[address] [facility] Serum or plasma calcium hermes urement (mass/volume)Ordered By: [facility] Vishal on 05-02-2023 Calcium [Mass/Vol] 8.5 mg/dL 8.5-10.1 [facility] Serum or plasma creatinine m easurement (mass/volume)Ordered By: [facility] on 05-02-2023 Creatinine [Mass/Vol] 0.91 mg/dL 0.70-1.30 [facility] Comment on above: The validity of the calculated GFR & GFRAA in patients over 70 years has not been determined. Clinical correlation is essential. Serum or plasma urea nitroge n measurement (mass/volume)Ordered By: [facility] Vishal on 05-02-2023 Urea nitrogen [Mass/Vol] 13 mg/dL 7-[address] [facility] Thin prep Papanicolaou smear with manual screeningOrdered By: [facility] Vishal on 05-02-2023 Thin prep Papanicolaou smear with manual screening 17 U/L 15-[address] [facility] Thin prep Papanicolaou smear with manual screening 4 5-[address] [facility] Basophil percentageOrdered B y: Delilah Rodgers on 04-29-2023 Creatinine [Mass/Vol] 1.0 mg/dL 0.70-1.30 [facility] No Panel InformationOrdered By: [facility]-29-2023 Bedside Estimated GFR (eGFR) > 60.0000 mL/min >[address] [facility] Absolute lymphocyte countOrd ered By: Jacob Bryant on 01-24-2023 Lymphocytes Auto (Unsp spec) [#/Vol] 3.20 10*3/uL 0.83-4.[address] [facility] Basophil percentageOrdered B y: Jacob Bryant on 01-24-2023 Basophils/100 WBC (Bld) 1.2 % 0-1 [facility] Bilirubin [Mass/Vol] 0.40 mg/dL 0.20-1.00 [facility] Comment on above: For patients on eltr ombopag therapy, use of Dimension [place] TBIL is not recommended. Chloride [Moles/Vol] 108 mmol/L 98-107 [facility] Eosinophils/100 WBC (Bld) 3.0 % 0-[address] [facility] Glucose [Mass/Vol] 104 mg/dL 74-106 [facility] Comment on above: Fasting Glucose resu lt from 100 to 125 mg/dL suggests IMPAIRED HOMEOSTASIS per A.D.A. criteria. Neutrophils (Bld) [#/Vol] 4.7 10*3/uL 2.0-7.[address] [facility] Neutrophils/100 WBC (Bld) 49.6 % 47-[address] [facility] Potassium [Moles/Vol] 3.7 mmol/L 3.5-5.1 [facility] Protein [Mass/Vol] 6.9 g/dL 6.4-8.2 [facility] Sodium [Moles/Vol] 141 mmol/L 136-145 [facility] WBC (Bld) [#/Vol] 9.4 10*3/uL 4.4-11.0 [facility] Blood erythrocytes count (nu mber/volume)Ordered By: Jacob Bryant on 01-24-2023 RBC (Bld) [#/Vol] 5.22 10*6/uL 4.6-6.2 [facility] Blood hemoglobin measurement (mass/volume)Ordered By: Jacob Bryant on 01-24-2023 Hemoglobin (Bld) [Mass/Vol] 16.5 g/dL 13.0-16.[address] [facility] Blood lymphocytes/100 leukoc ytesOrdered By: Jacob Bryant on 01-24-2023 Lymphocytes/100 WBC (Bld) 33.9 % 19-[address] [facility] Blood monocytes/100 leukocyt esOrdered By: Jacob Bryant on 01-24-2023 Monocytes/100 WBC (Bld) 11.9 % 0-10 [facility] Blood platelet mean volumeOr dered By: Jacob Bryant on 01-24-2023 Platelet mean volume (Bld) [Entitic vol] 9.3 fL 6.2-12.[address] [facility] Determination of erythrocyte mean corpuscular volume (MCV)Ordered By: Jacob Bryant on 01-24-2023 MCV (RBC) [Entitic vol] 92.7 fL 80-94 [facility] Hematocrit Auto (Bld) [Volum e fraction]Ordered By: Jacob Bryant on 01-24-2023 Hematocrit (Bld) [Volume fraction] 48.4 % 40-[address] [facility] Laboratory - Chemistry and C hemistry - challengeOrdered By: Jacob Byrant on 01-24-2023 ALP [Catalytic activity/Vol] 64 U/L 45-[address] [facility] ALT [Catalytic activity/Vol] 24 U/L 16-[address] [facility] CO2 [Moles/Vol] 30.0 mmol/L 21.0-32.[address] [facility] Globulin (S) [Mass/Vol] 3.5 g/dL 2.2-4.2 [facility] Lipase [Catalytic activity/Vol] 57 U/L 13-[address] [facility] Comment on above: Please note:LIPASE r evised reference range effective 22. New Lipase methodology. Expected to produce lower values than the previous assay method. NEW Reference Range: 13 - 75 U/L Urea nitrogen/Creatinine [Mass ratio] 14.6 mg/mg 10-[address] [facility] Laboratory - Hematology and Cell countsOrdered By: Jacob Bryant on 01-24-2023 Erythrocyte distribution width (RBC) [Entitic vol] 46.9 fL 35.1-43.[address] [facility] Erythrocyte distribution width (RBC) [Ratio] 13.6 % 11.6-14.[address] [facility] Immature granulocytes/100 WBC (Bld) 0.400 % 0.0-0.[address] [facility] Comment on above: IG% - Immature Granu locytes (promyelocytes, myelocytes and metamyelocytes) > 1% indicates that a LEFT SHIFT is Present. MCH (RBC) [Entitic mass] 31.6 pg 27.0-32.[address] [facility] Nucleated RBC/100 WBC (Bld) [Ratio] 0 % 0-[address] [facility] MCHC Auto (RBC) [Mass/Vol]Or dered By: Jacob Bryant on 01-24-2023 MCHC (RBC) [Mass/Vol] 34.1 g/dL 32-36 [facility] No Panel InformationOrdered By: Jacob Bryant on 01-24-2023 Estimated Creatinine Clearance Calc 78.18 ml/min [facility] Estimated GFR (MDRD) Amer 102 mL/min >[address] [facility] Comment on above: GFR Calc Estimated GFR (MDRD) Non-Af Amer 84 mL/min >[address] [facility] Comment on above: Non- GFR Calc Platelets bldOrdered By: Keyur Bryant on 01-24-2023 Platelets (Bld) [#/Vol] 261 10*3/uL 150-[address] [facility] Serum or plasma albumin hermes urement (mass/volume)Ordered By: Jacob Bryant on 01-24-2023 Albumin [Mass/Vol] 3.4 g/dL 3.2-5.0 [facility] Serum or plasma albumin/glob ulin mass ratioOrdered By: Jacob Bryant on 01-24-2023 Albumin/Globulin [Mass ratio] 1.0 {ratio} 0.9-2.[address] [facility] Serum or plasma calcium hermes urement (mass/volume)Ordered By: Jacob Bryant on 01-24-2023 Calcium [Mass/Vol] 8.4 mg/dL 8.5-10.1 [facility] Serum or plasma creatinine m easurement (mass/volume)Ordered By: Jacob Bryant on 01-24-2023 Creatinine [Mass/Vol] 0.96 mg/dL 0.70-1.30 [facility] Comment on above: The validity of the calculated GFR & GFRAA in patients over 70 years has not been determined. Clinical correlation is essential. Serum or plasma urea nitroge n measurement (mass/volume)Ordered By: Jacob Bryant on 01-24-2023 Urea nitrogen [Mass/Vol] 14 mg/dL 7-[address] [facility] Thin prep Papanicolaou smear with manual screeningOrdered By: Jacob Bryant on 01-24-2023 Thin prep Papanicolaou smear with manual screening 17 U/L 15-[address] [facility] Thin prep Papanicolaou smear with manual screening 3 5-[address] [facility] Basophil percentageOrdered B y: Dr. Carpenter on 12-07-2022 Ammonia (P) [Moles/Vol] 16.0 umol/L 11-[address] [facility] Bilirubin [Mass/Vol] 0.20 mg/dL 0.20-1.00 [facility] Comment on above: For patients on eltr ombopag therapy, use of Dimension [place] TBIL is not recommended. Chloride [Moles/Vol] 107 mmol/L 98-107 [facility] Glucose [Mass/Vol] 116 mg/dL 74-106 [facility] Comment on above: Fasting Glucose resu lt from 100 to 125 mg/dL suggests IMPAIRED HOMEOSTASIS per A.D.A. criteria. Potassium [Moles/Vol] 4.1 mmol/L 3.5-5.1 [facility] Protein [Mass/Vol] 6.6 g/dL 6.4-8.2 [facility] Sodium [Moles/Vol] 138 mmol/L 136-145 [facility] WBC (Bld) [#/Vol] 7.8 10*3/uL 4.4-11.0 [facility] Basophil percentageOrdered B y: Deyanira Ford on 12-07-2022 Cholesterol [Mass/Vol] 222 mg/dL <200 [facility] Comment on above: <200 mg/dL Desirable 200-240 mg/dL Borderline >240 mg/dL High Risk Triglyceride [Mass/Vol] 222 mg/dL <199 [facility] Comment on above: The drugs N-Acetylcy steine and Metamizole may falsely depress this assay.Serum Triglycerides Reference Interval Normal <150 mg/dL Borderline high 150 - 199 mg/dL High 200 - 499 mg/dL Very High > or = 500 mg/dL Blood erythrocytes count (nu mber/volume)Ordered By: Dr. Carpenter on 12-07-2022 RBC (Bld) [#/Vol] 5.02 10*6/uL 4.6-6.2 [facility] Blood hemoglobin measurement (mass/volume)Ordered By: Dr. Carpenter on 12-07-2022 Hemoglobin (Bld) [Mass/Vol] 15.7 g/dL 13.0-16.[address] [facility] Blood platelet mean volumeOr dered By: Dr. Carpenter on 12-07-2022 Platelet mean volume (Bld) [Entitic vol] 9.3 fL 6.2-12.[address] [facility] Determination of erythrocyte mean corpuscular volume (MCV)Ordered By: Dr. Carpenter on 12-07-2022 MCV (RBC) [Entitic vol] 93.4 fL 80-94 [facility] Direct bilirubinOrdered By: Deyanira Ford on 12-07-2022 Bilirubin.direct [Mass/Vol] 0.08 mg/dL 0.00-0.[address] [facility] Hematocrit Auto (Bld) [Volum e fraction]Ordered By: Dr. Carpenter on 12-07-2022 Hematocrit (Bld) [Volume fraction] 46.9 % 40-[address] [facility] Laboratory - Chemistry and C hemistry - challengeOrdered By: Dr. Carpenter on 12-07-2022 ALP [Catalytic activity/Vol] 65 U/L 45-[address] [facility] ALT [Catalytic activity/Vol] 28 U/L 16-[address] [facility] CO2 [Moles/Vol] 25.0 mmol/L 21.0-32.[address] [facility] Cobalamin (Vitamin B12) [Mass/Vol] 251 pg/mL 211-[address] [facility] Globulin (S) [Mass/Vol] 3.3 g/dL 2.2-4.2 [facility] Urea nitrogen/Creatinine [Mass ratio] 12.9 mg/mg 10-[address] [facility] Laboratory - Hematology and Cell countsOrdered By: Dr. Carpenter on 12-07-2022 Erythrocyte distribution width (RBC) [Entitic vol] 46.0 fL 35.1-43.[address] [facility] Erythrocyte distribution width (RBC) [Ratio] 13.4 % 11.6-14.[address] [facility] MCH (RBC) [Entitic mass] 31.3 pg 27.0-32.[address] [facility] MCHC Auto (RBC) [Mass/Vol]Or dered By: Dr. Carpenter on 12-07-2022 MCHC (RBC) [Mass/Vol] 33.5 g/dL 32-36 [facility] No Panel InformationOrdered By: Dr. Carpenter on 12-07-2022 Estimated GFR (MDRD) Amer 82 mL/min >60 [facility] Comment on above: GFR Calc Estimated GFR (MDRD) Non-Af Amer 68 mL/min >[address] [facility] Comment on above: Non- GFR Calc Levetiracetam (Keppra) Level 20.6 ug/mL 10.0-40.[address] [facility] Comment on above: Performed at: - L [address] [id number] Director: Rina Javier MD, Phone: [phone] Thyroid Stimulating Hormone (TSH) 2.37 uIU/mL 0.358-3.[address] [facility] Whole Blood Vitamin B1 Level 116.6 nmol/L 66.5-200.[address] [facility] Platelets bldOrdered By: Dr. Carpenter on 12-07-2022 Platelets (Bld) [#/Vol] 314 10*3/uL 150-[address] [facility] Serum or plasma albumin hermes urement (mass/volume)Ordered By: Dr. Carpenter on 12-07-2022 Albumin [Mass/Vol] 3.3 g/dL 3.2-5.0 [facility] Serum or plasma albumin/glob ulin mass ratioOrdered By: Dr. Carpenter on 12-07-2022 Albumin/Globulin [Mass ratio] 1.0 {ratio} 0.9-2.[address] [facility] Serum or plasma calcium hermes urement (mass/volume)Ordered By: Dr. Carpenter on 12-07-2022 Calcium [Mass/Vol] 8.5 mg/dL 8.5-10.1 [facility] Serum or plasma cholesterol in HDL measurement (mass/volume)Ordered By: Deyanira Ford on 12-07-2022 Cholesterol in HDL [Mass/Vol] 44 mg/dL >[address] [facility] Comment on above: The drugs N-Acetylcy steine and Metamizole may falsely depress this assay. Reference Range HDL <40 mg/dL Low HDL Cholesterol HDL >or= 60 mg/dL High HDL Cholesterol Serum or plasma cholesterol in VLDL measurement (mass/volume)Ordered By: Deyanira Ford on 12-07-2022 Cholesterol in VLDL [Mass/Vol] 44 mg/dL 5-[address] [facility] Serum or plasma creatinine m easurement (mass/volume)Ordered By: Dr. Carpenter on 12-07-2022 Creatinine [Mass/Vol] 1.16 mg/dL 0.70-1.30 [facility] Comment on above: The validity of the calculated GFR & GFRAA in patients over 70 years has not been determined. Clinical correlation is essential. Serum or plasma folate measu rement (mass/volume)Ordered By: Dr. Carpenter on 12-07-2022 Folate [Mass/Vol] 9.80 ng/mL 3.1-55.[address] [facility] Comment on above: Slight Hemolysis, Re sult may be falsely increased. Serum or plasma low density lipoprotein (LDL) cholesterol measurement (mass/volume)Ordered By: Deyanira Ford on 12-07-2022 Cholesterol in LDL [Mass/Vol] 134 mg/dL 0-[address] [facility] Serum or plasma urea nitroge n measurement (mass/volume)Ordered By: Dr. Carpenter on 12-07-2022 Urea nitrogen [Mass/Vol] 15 mg/dL 7-[address] [facility] Thin prep Papanicolaou smear with manual screeningOrdered By: Dr. Carpenter on 12-07-2022 Thin prep Papanicolaou smear with manual screening 21 U/L 15-[address] [facility] Thin prep Papanicolaou smear with manual screening 6 5-[address] [facility] Basophil percentageOrdered B y: Dr. Erickson on 11-23-2022 Creatinine [Mass/Vol] 1.1 mg/dL 0.70-1.30 [facility] No Panel InformationOrdered By: Dr. Erickson on 11-23-2022 Bedside Estimated GFR (eGFR) > 60.0000 mL/min >[address] [facility] Basophil percentageOrdered B y: Dr. Rodgers on 10-29-2022 Creatinine [Mass/Vol] 1.0 mg/dL 0.70-1.30 [facility] No Panel InformationOrdered By: Dr. Rodgers on 10-29-2022 Bedside Estimated GFR (eGFR) > 60.0000 mL/min >[address] [facility] Absolute lymphocyte countOrd ered By: Dr. Rodgers on 07-24-2022 Lymphocytes Auto (Unsp spec) [#/Vol] 2.27 10*3/uL 0.83-4.[address] [facility] Basophil percentageOrdered B y: Dr. Rodgers on 07-24-2022 Basophils/100 WBC (Bld) 1.1 % 0-1 [facility] Eosinophils/100 WBC (Bld) 0.9 % 0-[address] [facility] Neutrophils (Bld) [#/Vol] 7.4 10*3/uL 2.0-7.[address] [facility] Neutrophils/100 WBC (Bld) 63.0 % 47-[address] [facility] WBC (Bld) [#/Vol] 11.7 10*3/uL 4.4-11.0 [facility] Basophil percentageOrdered B y: Deyanira Ford on 07-24-2022 Bilirubin [Mass/Vol] 0.50 mg/dL 0.20-1.00 [facility] Comment on above: For patients on eltr ombopag therapy, use of Dimension [place] TBIL is not recommended. Chloride [Moles/Vol] 108 mmol/L 98-107 [facility] Cholesterol [Mass/Vol] 205 mg/dL <200 [facility] Comment on above: <200 mg/dL Desirable 200-240 mg/dL Borderline >240 mg/dL High Risk Glucose [Mass/Vol] 107 mg/dL 74-106 [facility] Comment on above: Fasting Glucose resu lt from 100 to 125 mg/dL suggests IMPAIRED HOMEOSTASIS per A.D.A. criteria. Potassium [Moles/Vol] 4.0 mmol/L 3.5-5.1 [facility] Protein [Mass/Vol] 6.8 g/dL 6.4-8.2 [facility] Sodium [Moles/Vol] 140 mmol/L 136-145 [facility] Triglyceride [Mass/Vol] 88 mg/dL <199 [facility] Comment on above: The drugs N-Acetylcy steine and Metamizole may falsely depress this assay.Serum Triglycerides Reference Interval Normal <150 mg/dL Borderline high 150 - 199 mg/dL High 200 - 499 mg/dL Very High > or = 500 mg/dL Blood erythrocytes count (nu mber/volume)Ordered By: Dr. Rodgers on 07-24-2022 RBC (Bld) [#/Vol] 4.80 10*6/uL 4.6-6.2 [facility] Blood hemoglobin measurement (mass/volume)Ordered By: Dr. Rodgers on 07-24-2022 Hemoglobin (Bld) [Mass/Vol] 15.1 g/dL 13.0-16.[address] [facility] Blood lymphocytes/100 leukoc ytesOrdered By: Dr. Rodgers on 07-24-2022 Lymphocytes/100 WBC (Bld) 19.4 % 19-[address] [facility] Blood monocytes/100 leukocyt esOrdered By: Dr. Rodgers on 07-24-2022 Monocytes/100 WBC (Bld) 14.7 % 0-10 [facility] Blood platelet adequacy dete ction by light microscopyOrdered By: Dr. Rodgers on 07-24-2022 Platelets LM Ql (Bld) ADEQUATE ADEQ [facility] Blood platelet mean volumeOr dered By: Dr. Rodgers on 07-24-2022 Platelet mean volume (Bld) [Entitic vol] 9.1 fL 6.2-12.[address] [facility] Determination of erythrocyte mean corpuscular volume (MCV)Ordered By: Dr. Rodgers on 07-24-2022 MCV (RBC) [Entitic vol] 92.5 fL 80-94 [facility] Direct bilirubinOrdered By: Deyanira Ford on 07-24-2022 Bilirubin.direct [Mass/Vol] 0.14 mg/dL 0.00-0.[address] [facility] Hematocrit Auto (Bld) [Volum e fraction]Ordered By: Dr. Rodgers on 07-24-2022 Hematocrit (Bld) [Volume fraction] 44.4 % 40-[address] [facility] Laboratory - Chemistry and C hemistry - challengeOrdered By: Deyanira Ford on 07-24-2022 ALP [Catalytic activity/Vol] 74 U/L 45-[address] [facility] ALT [Catalytic activity/Vol] 18 U/L 16-[address] [facility] CO2 [Moles/Vol] 27.0 mmol/L 21.0-32.[address] [facility] Globulin (S) [Mass/Vol] 3.8 g/dL 2.2-4.2 [facility] Natriuretic peptide B (Bld) [Mass/Vol] 6.1 pg/mL 0-[address] [facility] Urea nitrogen/Creatinine [Mass ratio] 14.2 mg/mg 10-[address] [facility] Laboratory - Hematology and Cell countsOrdered By: Dr. Rodgers on 07-24-2022 Erythrocyte distribution width (RBC) [Entitic vol] 44.8 fL 35.1-43.[address] [facility] Erythrocyte distribution width (RBC) [Ratio] 13.1 % 11.6-14.[address] [facility] Immature granulocytes/100 WBC (Bld) 0.900 % 0.0-0.[address] [facility] Comment on above: IG% - Immature Granu locytes (promyelocytes, myelocytes and metamyelocytes) > 1% indicates that a LEFT SHIFT is Present. MCH (RBC) [Entitic mass] 31.5 pg 27.0-32.[address] [facility] Nucleated RBC/100 WBC (Bld) [Ratio] 0 % 0-[address] [facility] MCHC Auto (RBC) [Mass/Vol]Or dered By: Dr. Rodgers on 07-24-2022 MCHC (RBC) [Mass/Vol] 34.0 g/dL 32-36 [facility] No Panel InformationOrdered By: Deyanira Ford on 07-24-2022 Estimated GFR (MDRD) Amer 132 mL/min >[address] [facility] Comment on above: GFR Calc Estimated GFR (MDRD) Non-Af Amer 109 mL/min >[address] [facility] Comment on above: Non- GFR Calc Platelets bldOrdered By: Dr. Rodgers on 07-24-2022 Platelets (Bld) [#/Vol] 321 10*3/uL 150-[address] [facility] RBC morphologyOrdered By: Dr Jannette Rodgers on 07-24-2022 RBC morphology finding Nom (Bld) NORM C+C NORMAL NORM C&C [facility] Review by pathologistOrdered By: Dr. Rodgers on 07-24-2022 Pathologist review Tanner (Unsp spec) [Interp] Reviewed [facility] Comment on above: Previous reported re sult: Mirna everett Edited by: [email or web address] on 07/27/22:922Leukocytosis. Clinical correlation necessary.Levy Oshea M.D. 07/27/22 AMENDED REPORT 07/27/22922 PATH REV previously reported as: May foll Serum or plasma albumin hermes urement (mass/volume)Ordered By: Deyanira Ford on 07-24-2022 Albumin [Mass/Vol] 3.0 g/dL 3.2-5.0 [facility] Serum or plasma albumin/glob ulin mass ratioOrdered By: Dr. Rodgers on 07-24-2022 Albumin/Globulin [Mass ratio] 0.9 {ratio} 0.9-2.[address] [facility] Serum or plasma calcium hermes urement (mass/volume)Ordered By: Deyanira Ford on 07-24-2022 Calcium [Mass/Vol] 8.2 mg/dL 8.5-10.1 [facility] Serum or plasma cholesterol in HDL measurement (mass/volume)Ordered By: Deyanira Ford on 07-24-2022 Cholesterol in HDL [Mass/Vol] 38 mg/dL >[address] [facility] Comment on above: The drugs N-Acetylcy steine and Metamizole may falsely depress this assay. Reference Range HDL <40 mg/dL Low HDL Cholesterol HDL >or= 60 mg/dL High HDL Cholesterol Serum or plasma cholesterol in VLDL measurement (mass/volume)Ordered By: Deyanira Ford on 07-24-2022 Cholesterol in VLDL [Mass/Vol] 18 mg/dL 5-[address] [facility] Serum or plasma creatinine m easurement (mass/volume)Ordered By: Deyanira Ford on 07-24-2022 Creatinine [Mass/Vol] 0.77 mg/dL 0.70-1.30 [facility] Comment on above: The validity of the calculated GFR & GFRAA in patients over 70 years has not been determined. Clinical correlation is essential. Serum or plasma low density lipoprotein (LDL) cholesterol measurement (mass/volume)Ordered By: Deyanira Ford on 07-24-2022 Cholesterol in LDL [Mass/Vol] 149 mg/dL 0-[address] [facility] Serum or plasma urea nitroge n measurement (mass/volume)Ordered By: Deyanira Ford on 07-24-2022 Urea nitrogen [Mass/Vol] 11 mg/dL 7-[address] [facility] Thin prep Papanicolaou smear with manual screeningOrdered By: Deyanira Ford on 07-24-2022 Thin prep Papanicolaou smear with manual screening 9 U/L 15-[address] [facility] Thin prep Papanicolaou smear with manual screening 5 5-[address] [facility] Laboratory - Microbiology an d Antimicrobial susceptibilityOrdered By: Bravo Aleman on 06-23-2022 SARS-CoV-2 (COVID-19) RNA BRISA+probe Ql (Unsp spec) Not detected Not Detect [facility] Comment on above: Normal Reference Ran ge: Not DetectedMethod:(RT-PCR) real-time reverse transcriptase PCRLuminex KargoCard Instrument*The Food and Drug Administration (FDA) has issued an Emergency Use Authorization (EAU) for the KargoCard SARS-CoV-2 Assay for the rapid detection of the virus that causes COVID-19. This test has been validated, but the FDAs independent review of this validation is pending.*Negative results do not preclude infection and should not be used as the sole basis for treatment or patient management. Optimum specimen types and timing for peak viral levels during infections caused by SARS-CoV-2 have not been determined. Collection of multiple specimens from the same patient may be necessary to detect the virus. The possibility of a false negative result should be considered if the patient has clinical presentation or has had recent exposure. Absolute lymphocyte countOrd ered By: Dr. Rodgers on 04-08-2022 Lymphocytes Auto (Unsp spec) [#/Vol] 2.62 10*3/uL 0.83-4.[address] [facility] Basophil percentageOrdered B y: Dr. Rodgers on 04-08-2022 Basophils/100 WBC (Bld) 1.1 % 0-1 [facility] Bilirubin [Mass/Vol] 0.60 mg/dL 0.20-1.00 [facility] Comment on above: For patients on eltr ombopag therapy, use of Dimension [place] TBIL is not recommended. Chloride [Moles/Vol] 107 mmol/L 98-107 [facility] Eosinophils/100 WBC (Bld) 0.8 % 0-[address] [facility] Glucose [Mass/Vol] 101 mg/dL 74-106 [facility] Comment on above: Fasting Glucose resu lt from 100 to 125 mg/dL suggests IMPAIRED HOMEOSTASIS per A.D.A. criteria. Neutrophils (Bld) [#/Vol] 6.0 10*3/uL 2.0-7.[address] [facility] Neutrophils/100 WBC (Bld) 60.6 % 47-[address] [facility] Potassium [Moles/Vol] 4.3 mmol/L 3.5-5.1 [facility] Protein [Mass/Vol] 7.4 g/dL 6.4-8.2 [facility] Sodium [Moles/Vol] 141 mmol/L 136-145 [facility] WBC (Bld) [#/Vol] 9.9 10*3/uL 4.4-11.0 [facility] Blood erythrocytes count (nu mber/volume)Ordered By: Dr. Rodgers on 04-08-2022 RBC (Bld) [#/Vol] 5.54 10*6/uL 4.6-6.2 [facility] Blood hemoglobin measurement (mass/volume)Ordered By: Dr. Rodgers on 04-08-2022 Hemoglobin (Bld) [Mass/Vol] 17.7 g/dL 13.0-16.[address] [facility] Blood lymphocytes/100 leukoc ytesOrdered By: Dr. Rodgers on 04-08-2022 Lymphocytes/100 WBC (Bld) 26.6 % 19-[address] [facility] Blood monocytes/100 leukocyt esOrdered By: Dr. Rodgers on 04-08-2022 Monocytes/100 WBC (Bld) 10.4 % 0-10 [facility] Blood platelet mean volumeOr dered By: Dr. Rodgers on 04-08-2022 Platelet mean volume (Bld) [Entitic vol] 9.2 fL 6.2-12.[address] [facility] Determination of erythrocyte mean corpuscular volume (MCV)Ordered By: Dr. Rodgers on 04-08-2022 MCV (RBC) [Entitic vol] 91.5 fL 80-94 [facility] Hematocrit Auto (Bld) [Volum e fraction]Ordered By: Dr. Rodgers on 04-08-2022 Hematocrit (Bld) [Volume fraction] 50.7 % 40-[address] [facility] Laboratory - Chemistry and C hemistry - challengeOrdered By: Dr. Rodgers on 04-08-2022 ALP [Catalytic activity/Vol] 75 U/L 45-[address] [facility] ALT [Catalytic activity/Vol] 23 U/L 16-[address] [facility] CO2 [Moles/Vol] 28.0 mmol/L 21.0-32.[address] [facility] Globulin (S) [Mass/Vol] 3.9 g/dL 2.2-4.2 [facility] Urea nitrogen/Creatinine [Mass ratio] 13.5 mg/mg 10-[address] [facility] Laboratory - Hematology and Cell countsOrdered By: Dr. Rodgers on 04-08-2022 Erythrocyte distribution width (RBC) [Entitic vol] 47.5 fL 35.1-43.[address] [facility] Erythrocyte distribution width (RBC) [Ratio] 14.1 % 11.6-14.[address] [facility] Immature granulocytes/100 WBC (Bld) 0.500 % 0.0-0.[address] [facility] Comment on above: IG% - Immature Granu locytes (promyelocytes, myelocytes and metamyelocytes) > 1% indicates that a LEFT SHIFT is Present. MCH (RBC) [Entitic mass] 31.9 pg 27.0-32.[address] [facility] Nucleated RBC/100 WBC (Bld) [Ratio] 0 % 0-[address] [facility] MCHC Auto (RBC) [Mass/Vol]Or dered By: Dr. Rodgers on 04-08-2022 MCHC (RBC) [Mass/Vol] 34.9 g/dL 32-36 [facility] No Panel InformationOrdered By: Dr. Rodgers on 04-08-2022 Estimated GFR (MDRD) Amer 102 mL/min >[address] [facility] Comment on above: GFR Calc Estimated GFR (MDRD) Non-Af Amer 84 mL/min >[address] [facility] Comment on above: Non- GFR Calc Platelets bldOrdered By: Dr. Rodgers on 04-08-2022 Platelets (Bld) [#/Vol] 297 10*3/uL 150-[address] [facility] Serum or plasma albumin hermes urement (mass/volume)Ordered By: Dr. Rodgers on 04-08-2022 Albumin [Mass/Vol] 3.5 g/dL 3.2-5.0 [facility] Serum or plasma albumin/glob ulin mass ratioOrdered By: Dr. Rodgers on 04-08-2022 Albumin/Globulin [Mass ratio] 0.9 {ratio} 0.9-2.[address] [facility] Serum or plasma calcium hermes urement (mass/volume)Ordered By: Dr. Rodgers on 04-08-2022 Calcium [Mass/Vol] 9.1 mg/dL 8.5-10.1 [facility] Serum or plasma creatinine m easurement (mass/volume)Ordered By: Dr. Rodgers on 04-08-2022 Creatinine [Mass/Vol] 0.96 mg/dL 0.70-1.30 [facility] Comment on above: The validity of the calculated GFR & GFRAA in patients over 70 years has not been determined. Clinical correlation is essential. Serum or plasma urea nitroge n measurement (mass/volume)Ordered By: Dr. Rodgers on 04-08-2022 Urea nitrogen [Mass/Vol] 13 mg/dL 7-[address] [facility] Thin prep Papanicolaou smear with manual screeningOrdered By: Dr. Rodgers on 04-08-2022 Thin prep Papanicolaou smear with manual screening 17 U/L 15-[address] [facility] Thin prep Papanicolaou smear with manual screening 6 5-[address] [facility] Basophil percentageOrdered B y: Dr. Rodgers on 04-01-2022 Creatinine [Mass/Vol] 1.0 mg/dL 0.70-1.30 [facility] No Panel InformationOrdered By: Dr. Rodgers on 04-01-2022 Bedside Estimated GFR (eGFR) > 60.0000 mL/min >[address] [facility] Basophil percentageon 2021 Creatinine [Mass/Vol] 1.0 mg/dL 0.70-1.30 [facility] Work Phone: No Panel Informationon 03-08 Bedside Estimated GFR (eGFR) > 60.0000 mL/min >[address] [facility] Work Phone: Absolute lymphocyte counton 10-08-2021 Lymphocytes Auto (Unsp spec) [#/Vol] 2.51 10*3/uL 0.83-4.[address] [facility] Work Phone: Basophil percentageon 2021 Basophils/100 WBC (Bld) 1.6 % 0-1 [facility] Work Phone: Bilirubin [Mass/Vol] 0.30 mg/dL 0.20-1.00 [facility] Work Phone: Comment on above: For patients on eltr ombopag therapy, use of Dimension [place] TBIL is not recommended. Chloride [Moles/Vol] 105 mmol/L 98-107 [facility] Work Phone: Eosinophils/100 WBC (Bld) 3.2 % 0-[address] [facility] Work Phone: Glucose [Mass/Vol] 89 mg/dL 74-106 [facility] Work Phone: Neutrophils (Bld) [#/Vol] 3.9 10*3/uL 2.0-7.[address] [facility] Work Phone: Neutrophils/100 WBC (Bld) 51.8 % 47-[address] [facility] Work Phone: Potassium [Moles/Vol] 4.1 mmol/L 3.5-5.1 [facility] Work Phone: Protein [Mass/Vol] 7.4 g/dL 6.4-8.2 [facility] Work Phone: Sodium [Moles/Vol] 138 mmol/L 136-145 [facility] Work Phone: WBC (Bld) [#/Vol] 7.5 10*3/uL 4.4-11.0 [facility] Work Phone: Blood erythrocytes count (nu mber/volume)on 10-08-2021 RBC (Bld) [#/Vol] 5.05 10*6/uL 4.6-6.2 [facility] Work Phone: Blood hemoglobin measurement (mass/volume)on 10-08-2021 Hemoglobin (Bld) [Mass/Vol] 15.8 g/dL 13.0-16.[address] [facility] Work Phone: Blood lymphocytes/100 leukoc yteson 10-08-2021 Lymphocytes/100 WBC (Bld) 33.5 % 19-[address] [facility] Work Phone: Blood monocytes/100 leukocyt eson 10-08-2021 Monocytes/100 WBC (Bld) 9.5 % 0-10 [facility] Work Phone: Blood platelet mean volumeon 10-08-2021 Platelet mean volume (Bld) [Entitic vol] 9.1 fL 6.2-12.[address] [facility] Work Phone: Determination of erythrocyte mean corpuscular volume (MCV)on 10-08-2021 MCV (RBC) [Entitic vol] 93.1 fL 80-94 [facility] Work Phone: Hematocrit Auto (Bld) [Volum e fraction]on 10-08-2021 Hematocrit (Bld) [Volume fraction] 47.0 % 40-[address] [facility] Work Phone: Laboratory - Chemistry and C hemistry - challengeon 10-08-2021 ALP [Catalytic activity/Vol] 71 U/L 45-[address] [facility] Work Phone: ALT [Catalytic activity/Vol] 25 U/L 16-[address] [facility] Work Phone: CO2 [Moles/Vol] 28.0 mmol/L 21.0-32.[address] [facility] Work Phone: [phone] Globulin (S) [Mass/Vol] 3.9 g/dL 2.2-4.2 [facility] Work Phone: Urea nitrogen/Creatinine [Mass ratio] 12.9 mg/mg 10-[address] [facility] Work Phone: Laboratory - Hematology and Cell countson 10-08-2021 Erythrocyte distribution width (RBC) [Entitic vol] 46.7 fL 35.1-43.[address] [facility] Work Phone: Erythrocyte distribution width (RBC) [Ratio] 13.7 % 11.6-14.[address] [facility] Work Phone: Immature granulocytes/100 WBC (Bld) 0.400 % 0.0-0.[address] [facility] Work Phone: [phone] Comment on above: IG% - Immature Granu locytes (promyelocytes, myelocytes and metamyelocytes) > 1% indicates that a LEFT SHIFT is Present. MCH (RBC) [Entitic mass] 31.3 pg 27.0-32.[address] [facility] Work Phone: [phone] Nucleated RBC/100 WBC (Bld) [Ratio] 0 % 0-[address] [facility] Work Phone: [phone] MCHC Auto (RBC) [Mass/Vol]on 10-08-2021 MCHC (RBC) [Mass/Vol] 33.6 g/dL 32-36 [facility] Work Phone: [phone] No Panel Informationon 10-08 Estimated Creatinine Clearance Calc 81.72 ml/min [facility] Work Phone: [phone] Estimated GFR (MDRD) Amer 107 mL/min >[address] [facility] Work Phone: [phone] Comment on above: GFR Calc Estimated GFR (MDRD) Non-Af Amer 88 mL/min >[address] [facility] Work Phone: [phone] Comment on above: Non- GFR Calc Platelets bldon 10-08-2021 Platelets (Bld) [#/Vol] 364 10*3/uL 150-[address] [facility] Work Phone: [phone] Serum or plasma albumin hermes urement (mass/volume)on 10-08-2021 Albumin [Mass/Vol] 3.5 g/dL 3.2-5.0 [facility] Work Phone: [phone] Serum or plasma albumin/glob ulin mass ratioon 10-08-2021 Albumin/Globulin [Mass ratio] 0.9 {ratio} 0.9-2.[address] [facility] Work Phone: [phone] Serum or plasma calcium hermes urement (mass/volume)on 10-08-2021 Calcium [Mass/Vol] 9.0 mg/dL 8.5-10.1 [facility] Work Phone: Serum or plasma creatinine m easurement (mass/volume)on 10-08-2021 Creatinine [Mass/Vol] 0.93 mg/dL 0.70-1.30 [facility] Work Phone: Comment on above: The validity of the calculated GFR & GFRAA in patients over 70 years has not been determined. Clinical correlation is essential. Serum or plasma urea nitroge n measurement (mass/volume)on 10-08-2021 Urea nitrogen [Mass/Vol] 12 mg/dL 7-[address] [facility] Work Phone: Thin prep Papanicolaou smear with manual screeningon 10-08-2021 Thin prep Papanicolaou smear with manual screening 17 U/L 15-[address] [facility] Work Phone: [phone] Thin prep Papanicolaou smear with manual screening 5 5-[address] [facility] Work Phone: Basophil percentageon 2021 Creatinine [Mass/Vol] 0.9 mg/dL 0.70-1.30 [facility] Work Phone: No Panel Informationon 10-06 Bedside Estimated GFR (eGFR) > 60.0000 mL/min >[address] [facility] Work Phone: Absolute lymphocyte counton 07-13-2021 Lymphocytes Auto (Unsp spec) [#/Vol] 2.18 10*3/uL 0.83-4.[address] [facility] Work Phone: Basophil percentageon 2021 Basophils/100 WBC (Bld) 1.3 % 0-1 [facility] Work Phone: [phone] Bilirubin [Mass/Vol] 0.40 mg/dL 0.20-1.00 [facility] Work Phone: [phone] Comment on above: For patients on eltr ombopag therapy, use of Dimension [place] TBIL is not recommended. Chloride [Moles/Vol] 106 mmol/L 98-107 [facility] Work Phone: Eosinophils/100 WBC (Bld) 1.0 % 0-[address] [facility] Work Phone: Glucose [Mass/Vol] 94 mg/dL 74-106 [facility] Work Phone: Comment on above: Please note revised GLUCOSE reference range effective 2017. Neutrophils (Bld) [#/Vol] 5.9 10*3/uL 2.0-7.[address] [facility] Work Phone: Neutrophils/100 WBC (Bld) 61.9 % 47-[address] [facility] Work Phone: Potassium [Moles/Vol] 4.2 mmol/L 3.5-5.1 [facility] Work Phone: Protein [Mass/Vol] 7.3 g/dL 6.4-8.2 [facility] Work Phone: Sodium [Moles/Vol] 139 mmol/L 136-145 [facility] Work Phone: WBC (Bld) [#/Vol] 9.5 10*3/uL 4.4-11.0 [facility] Work Phone: Blood erythrocytes count (nu mber/volume)on 07-13-2021 RBC (Bld) [#/Vol] 5.23 10*6/uL 4.6-6.2 [facility] Work Phone: Blood hemoglobin measurement (mass/volume)on 07-13-2021 Hemoglobin (Bld) [Mass/Vol] 16.1 g/dL 13.0-16.[address] [facility] Work Phone: Blood lymphocytes/100 leukoc yteson 07-13-2021 Lymphocytes/100 WBC (Bld) 23.0 % 19-[address] [facility] Work Phone: Blood monocytes/100 leukocyt eson 07-13-2021 Monocytes/100 WBC (Bld) 12.4 % 0-10 [facility] Work Phone: Blood platelet mean volumeon 07-13-2021 Platelet mean volume (Bld) [Entitic vol] 9.3 fL 6.2-12.[address] [facility] Work Phone: [phone] Determination of erythrocyte mean corpuscular volume (MCV)on 07-13-2021 MCV (RBC) [Entitic vol] 91.0 fL 80-94 [facility] Work Phone: [phone] Hematocrit Auto (Bld) [Volum e fraction]on 07-13-2021 Hematocrit (Bld) [Volume fraction] 47.6 % 40-[address] [facility] Work Phone: [phone] Laboratory - Chemistry and C hemistry - challengeon 07-13-2021 ALP [Catalytic activity/Vol] 70 U/L 45-[address] [facility] Work Phone: [phone] ALT [Catalytic activity/Vol] 25 U/L 16-[address] [facility] Work Phone: [phone] CO2 [Moles/Vol] 28.0 mmol/L 21.0-32.[address] [facility] Work Phone: [phone] Globulin (S) [Mass/Vol] 4.1 g/dL 2.2-4.2 [facility] Work Phone: [phone] Urea nitrogen/Creatinine [Mass ratio] 13.0 mg/mg 10-[address] [facility] Work Phone: [phone] Laboratory - Hematology and Cell countson 07-13-2021 Erythrocyte distribution width (RBC) [Entitic vol] 46.3 fL 35.1-43.[address] [facility] Work Phone: [phone] Erythrocyte distribution width (RBC) [Ratio] 13.7 % 11.6-14.[address] [facility] Work Phone: [phone] Immature granulocytes/100 WBC (Bld) 0.400 % 0.0-0.[address] [facility] Work Phone: [phone] Comment on above: IG% - Immature Granu locytes (promyelocytes, myelocytes and metamyelocytes) > 1% indicates that a LEFT SHIFT is Present. MCH (RBC) [Entitic mass] 30.8 pg 27.0-32.[address] [facility] Work Phone: [phone] Nucleated RBC/100 WBC (Bld) [Ratio] 0 % 0-[address] [facility] Work Phone: MCHC Auto (RBC) [Mass/Vol]on 07-13-2021 MCHC (RBC) [Mass/Vol] 33.8 g/dL 32-36 [facility] Work Phone: No Panel Informationon 07-13 Estimated Creatinine Clearance Calc 58.02 ml/min [facility] Work Phone: [phone] Estimated GFR (MDRD) Amer 72 mL/min >[address] [facility] Work Phone: [phone] Comment on above: GFR Calc Estimated GFR (MDRD) Non-Af Amer 59 mL/min >[address] [facility] Work Phone: Comment on above: Non- GFR Calc Platelets bldon 07-13-2021 Platelets (Bld) [#/Vol] 328 10*3/uL 150-[address] [facility] Work Phone: [phone] Serum or plasma albumin hermes urement (mass/volume)on 07-13-2021 Albumin [Mass/Vol] 3.2 g/dL 3.2-5.0 [facility] Work Phone: Serum or plasma albumin/glob ulin mass ratioon 07-13-2021 Albumin/Globulin [Mass ratio] 0.8 {ratio} 0.9-2.[address] [facility] Work Phone: [phone] Serum or plasma calcium hermes urement (mass/volume)on 07-13-2021 Calcium [Mass/Vol] 8.9 mg/dL 8.5-10.1 [facility] Work Phone: [phone] Serum or plasma creatinine m easurement (mass/volume)on 07-13-2021 Creatinine [Mass/Vol] 1.31 mg/dL 0.70-1.30 [facility] Work Phone: Comment on above: The validity of the calculated GFR & GFRAA in patients over 70 years has not been determined. Clinical correlation is essential. Serum or plasma urea nitroge n measurement (mass/volume)on 07-13-2021 Urea nitrogen [Mass/Vol] 17 mg/dL 7-[address] [facility] Work Phone: Thin prep Papanicolaou smear with manual screeningon 07-13-2021 Thin prep Papanicolaou smear with manual screening 14 U/L 15-[address] [facility] Work Phone: Thin prep Papanicolaou smear with manual screening 5 5-[address] [facility] Work Phone: .Auto Diffon 04-09-2021 Basophil, Absolute 0.10 10 3/mcL Normal 0.00-0.19 [facility] ([place]) Comment on above: Performed By: #### C OVD19 #### [address] [address] Basophils/100 WBC (Bld) 1.8 % Normal 0.0-2.5 [facility] ([place]) Comment on above: Performed By: #### C OVD19 #### [address] [address] Eosinophil, Absolute 0.20 10 3/mcL Normal 0.00-0.40 [facility] ([place]) Comment on above: Performed By: #### C OVD19 #### [address] [address] Eosinophils/100 WBC (Bld) 4.2 % Normal 0.0-7.0 [facility] ([place]) Comment on above: Performed By: #### C OVD19 #### [address] [address] Lymphocyte, Absolute 1.40 10 3/mcL Normal 0.77-3.85 [facility] ([place]) Comment on above: Performed By: #### C OVD19 #### [address] [address] Lymphocytes/100 WBC (Bld) 24.4 % Normal 10.0-50.0 [facility] ([place]) Comment on above: Performed By: #### C OVD19 #### [address] [address] Monocyte, Absolute 0.80 10 3/mcL Normal 0.15-1.00 [facility] ([place]) Comment on above: Performed By: #### C OVD19 #### [facility] [address] [place] [address] Monocytes/100 WBC (Bld) 14.4 % High 1.7-13.0 [facility] ([place]) Comment on above: Performed By: #### C OVD19 #### [facility] [address] [place] [address] Neutrophils/100 WBC (Bld) 55.2 % Normal 37.0-80.0 [facility] ([place]) Comment on above: Performed By: #### C OVD19 #### [facility] [address] [place] [address] .GFRon 04-09-2021 GFR 90 ml/min/1.73sqm Normal [facility] ([place]) Comment on above: Result Comment: GFR Population mean for , Non- Americans Ages 20-29 = 116 mL/min/1.73 sq.m. Ages 30-39 = 107 mL/min/1.73 sq.m. Ages 40-49 = 99 mL/min/1.73 sq.m. Ages 50-59 = 93 mL/min/1.73 sq.m. Ages 60-69 = 85 mL/min/1.73 sq.m. Ages 70+ = 75 mL/min/1.73 sq.m. Chronic Kidney Disease: Less than 60 mL/min/1.73 square meters End Stage Renal Disease: Less than 15 mL/min/1.73 square meters Performed By: #### M G, BMP, ADACE, ANEU, CBC ####[address] [place], [place] [address]#### GFR ####[facility] [place] [address] GFR Non- 74 ml/min/1.73sqm Normal [facility] ([place]) Comment on above: Result Comment: GFR Population mean for , Non- Americans Ages 20-29 = 116 mL/min/1.73 sq.m. Ages 30-39 = 107 mL/min/1.73 sq.m. Ages 40-49 = 99 mL/min/1.73 sq.m. Ages 50-59 = 93 mL/min/1.73 sq.m. Ages 60-69 = 85 mL/min/1.73 sq.m. Ages 70+ = 75 mL/min/1.73 sq.m. Chronic Kidney Disease: Less than 60 mL/min/1.73 square meters End Stage Renal Disease: Less than 15 mL/min/1.73 square meters Performed By: #### M G, BMP, ADIFF, ANEU, CBC ####[address] [place] [address]#### GFR ####[place] [address] .NEUABSon 04-09-2021 Neutrophil, Absolute 3.20 10 3/mcL Normal 2.85-6.16 [facility] ([place]) Comment on above: Performed By: #### M G, BMP, ADIFF, ANEU, CBC ####[address] [place] [address]#### GFR ####[place] [address] BMPon 04-09-2021 BUN/Creatinine Ratio 17 ratio Normal 7-27 [facility] ([place]) Comment on above: Performed By: #### M G, BMP, ADIFF, ANEU, CBC ####[address] [place] [id number]#### GFR ####[place] [address] Calcium [Mass/Vol] 8.5 mg/dL Normal 8.4-10.2 [facility] ([place]) Comment on above: Performed By: #### M G, BMP, ADIFF, ANEU, CBC ####[address] [place] [address]#### GFR ####[place] [address] Chloride [Moles/Vol] 107 mmol/L Normal 98-107 [facility] ([place]) Comment on above: Performed By: #### M G, BMP, ADIFF, ANEU, CBC ####[place] [address]#### GFR ####[address] [address] CO2 [Moles/Vol] 29 mmol/L Normal 22-29 [facility] ([place]) Comment on above: Performed By: #### M G, BMP, ADIFF, ANEU, CBC ####[place] [id number]#### GFR ####[address] [address] Creatinine [Mass/Vol] 1.03 mg/dL Normal 0.70-1.30 [facility] ([place]) Comment on above: Performed By: #### M G, BMP, ADIFF, ANEU, CBC ####[place] [address]#### GFR ####[address] [address] Electrolyte Balance 6.0 mEq/L Normal [facility] ([place]) Comment on above: Performed By: #### M G, BMP, ADIFF, ANEU, CBC ####[place] [address]#### GFR ####[address] [address] Glucose [Mass/Vol] 111 mg/dL High 70-105 [facility] ([place]) Comment on above: Performed By: #### M G, BMP, ADIFF, ANEU, CBC ####[place] [address]#### GFR ####[address] [address] Potassium [Moles/Vol] 5.0 mmol/L Normal 3.5-5.1 [facility] ([place]) Comment on above: Performed By: #### M G, BMP, ADIFF, ANEU, CBC ####[address] [place] [id number]#### GFR ####[address] [address] Sodium [Moles/Vol] 142 mmol/L Normal 136-145 [facility] ([place]) Comment on above: Performed By: #### M G, BMP, ADIFF, ANEU, CBC ####[place] [address] [place], [place] [address]#### GFR ####[address] [address] Urea nitrogen [Mass/Vol] 17 mg/dL Normal 7-18 [facility] ([place]) Comment on above: Performed By: #### M G, BMP, ADIFF, ANEU, CBC ####[address] [place], [place] [address]#### GFR ####[place] [address] CBCon 04-09-2021 Erythrocyte distribution width (RBC) [Ratio] 13.7 % Normal 11.5-14.5 [facility] ([place]) Comment on above: Performed By: #### C OVD19 #### [place] [address] Hematocrit (Bld) [Volume fraction] 44.0 % Normal 42.0-52.0 [facility] ([place]) Comment on above: Performed By: #### C OVD19 #### [place] [address] Hgb 15.2 G/dL Normal 14.0-18.0 [facility] ([place]) Comment on above: Performed By: #### C OVD19 #### [place] [address] MCH (RBC) [Entitic mass] 31.7 pg High 27.0-31.2 [facility] ([place]) Comment on above: Performed By: #### C OVD19 #### [place] [address] MCHC 34.6 G/dL Normal 31.8-35.4 [facility] ([place]) Comment on above: Performed By: #### C OVD19 #### [place] [address] MCV (RBC) [Entitic vol] 91.6 fL Normal 80.0-94.0 [facility] ([place]) Comment on above: Performed By: #### C OVD19 #### [address] [address] Platelet 285 10 3/mcL Normal 130-400 [facility] ([place]) Comment on above: Performed By: #### C OVD19 #### [place] [address] Platelet mean volume (Bld) [Entitic vol] 7.6 fL Normal 7.4-10.4 [facility] ([place]) Comment on above: Performed By: #### C OVD19 #### [place] [address] RBC 4.80 10 6/mcL Normal 4.04-6.13 [facility] ([place]) Comment on above: Performed By: #### C OVD19 #### [place] [address] WBC 5.70 10 3/mcL Normal 4.60-10.80 [facility] ([place]) Comment on above: Performed By: #### C OVD19 #### [place] [address] MGon 04-09-2021 Magnesium [Mass/Vol] 2.1 mg/dL Normal 1.8-2.4 [facility] ([place]) Comment on above: Performed By: #### M G, BMP, ADIFF, ANEU, CBC ####[address] [place], [place] [address]#### GFR ####[place] [address] NM MYOCARDIAL SPECT STRESS/R ESTon 04-09-2021 NM MYOCARDIAL SPECT STRESS/REST ORIGINAL NM MYOCARDIAL SPECT STRESS/REST CLINICAL STATEMENT: chest pain TECHNIQUE: Lexiscan dose: 0.4 mg Radiopharmaceutical (stress): Tc-99m Sestamibi Dose:32.1 mCi Radiopharmaceutical (rest): Tc-99m Sestamibi Dose:10.1 mCi SPECT acquisition and processing Reconstruction and reorientation of SPECT images into short axis, vertical and horizontal long axis planes Quantitative LVEF assessment COMPARISON: 12/06/2017 REPORT:Overall fair quality study. There is mild motion noted on review of raw images. Left ventricle ejection fraction is 57%. TID ratio is 1.06. Left ventricular end-diastolic volume is 83 mL. No clear regional wall motion abnormalities are noted. There is a small sized mild intensity predominantly fixed apical defect that may represent apical thinning. No clear reversible defects noted. IMPRESSION: No clear evidence of ischemia or infarction. Normal left ventricular ejection fraction. ECG portion will be dictated separately. Interpreted By: Osiel Regan Preliminary Report By: Osiel Regan Electronically Signed By: Osiel Regan Dictated Date: 04/09/2021 5:20:21 PM Prelim Date: 04/09/2021 5:20:21 PM Sign Date: 04/09/2021 5:32:59 PM Ordering Provider:Miguel Roach [facility] ([place]) .Auto Diffon 04-08-2021 Basophil, Absolute 0.10 10 3/mcL Normal 0.00-0.19 [facility] ([place]) Comment on above: Performed By: #### G FR, ANEU, ADIFF, CBC, BMP #### [address] [address] Basophils/100 WBC (Bld) 1.4 % Normal 0.0-2.5 A [facility] ([place]) Comment on above: Performed By: #### G FR, ANEU, ADIFF, CBC, BMP #### [address] [address] Eosinophil, Absolute 0.10 10 3/mcL Normal 0.00-0.40 A [facility] ([place]) Comment on above: Performed By: #### G FR, ANEU, ADIFF, CBC, BMP #### [address] [address] Eosinophils/100 WBC (Bld) 1.8 % Normal 0.0-7.0 [facility] ([place]) Comment on above: Performed By: #### G FR, ANEU, ADIFF, CBC, BMP #### [address] [address] Lymphocyte, Absolute 2.10 10 3/mcL Normal 0.77-3.85 A [facility] ([place]) Comment on above: Performed By: #### G FR, ANEU, ADIFF, CBC, BMP #### [address] [address] Lymphocytes/100 WBC (Bld) 29.5 % Normal 10.0-50.0 [facility] ([place]) Comment on above: Performed By: #### G FR, ANEU, ADIFF, CBC, BMP #### [address] [address] Monocyte, Absolute 0.80 10 3/mcL Normal 0.15-1.00 [facility] ([place]) Comment on above: Performed By: #### G FR, ANEU, ADIFF, CBC, BMP #### [address] [address] Monocytes/100 WBC (Bld) 11.4 % Normal 1.7-13.0 A [facility] ([place]) Comment on above: Performed By: #### G FR, ANEU, ADIFF, CBC, BMP #### [address] [address] Neutrophils/100 WBC (Bld) 55.9 % Normal 37.0-80.0 [facility] ([place]) Comment on above: Performed By: #### G FR, ANEU, ADIFF, CBC, BMP #### [address] [address] .GFRon 04-08-2021 GFR 94 ml/min/1.73sqm Normal [facility] ([place]) Comment on above: Result Comment: GFR Population mean for , Non- Americans Ages 20-29 = 116 mL/min/1.73 sq.m. Ages 30-39 = 107 mL/min/1.73 sq.m. Ages 40-49 = 99 mL/min/1.73 sq.m. Ages 50-59 = 93 mL/min/1.73 sq.m. Ages 60-69 = 85 mL/min/1.73 sq.m. Ages 70+ = 75 mL/min/1.73 sq.m. Chronic Kidney Disease: Less than 60 mL/min/1.73 square meters End Stage Renal Disease: Less than 15 mL/min/1.73 square meters Performed By: #### G FR, ANEU, ADIFF, CBC, BMP #### [address] [address] GFR Non- 77 ml/min/1.73sqm Normal [facility] ([place]) Comment on above: Result Comment: GFR Population mean for , Non- Americans Ages 20-29 = 116 mL/min/1.73 sq.m. Ages 30-39 = 107 mL/min/1.73 sq.m. Ages 40-49 = 99 mL/min/1.73 sq.m. Ages 50-59 = 93 mL/min/1.73 sq.m. Ages 60-69 = 85 mL/min/1.73 sq.m. Ages 70+ = 75 mL/min/1.73 sq.m. Chronic Kidney Disease: Less than 60 mL/min/1.73 square meters End Stage Renal Disease: Less than 15 mL/min/1.73 square meters Performed By: #### G FR, ANEU, ADIFF, CBC, BMP #### [place] [address] .NEUABSon 04-08-2021 Neutrophil, Absolute 3.90 10 3/mcL Normal 2.85-6.16 A [facility] ([place]) Comment on above: Performed By: #### C OVD19 #### [address] [address] BMPon 04-08-2021 BUN/Creatinine Ratio 14 ratio Normal 7-27 [facility] ([place]) Comment on above: Performed By: #### G FR, ANEU, ADIFF, CBC, BMP #### [address] [address] Calcium [Mass/Vol] 8.7 mg/dL Normal 8.4-10.2 [facility] ([place]) Comment on above: Performed By: #### G FR, ANEU, ADIFF, CBC, BMP #### [address] [address] Chloride [Moles/Vol] 105 mmol/L Normal 98-107 [facility] ([place]) Comment on above: Performed By: #### G FR, ANEU, ADIFF, CBC, BMP #### [address] [address] CO2 [Moles/Vol] 27 mmol/L Normal 22-29 [facility] ([place]) Comment on above: Performed By: #### G FR, ANEU, ADIFF, CBC, BMP #### [address] [address] Electrolyte Balance 10.0 mEq/L Normal [facility] ([place]) Comment on above: Performed By: #### G FR, ANEU, ADIFF, CBC, BMP #### [address] [address] Glucose [Mass/Vol] 130 mg/dL High 70-105 [facility] ([place]) Comment on above: Performed By: #### G FR, ANEU, ADIFF, CBC, BMP #### [address] [address] Potassium [Moles/Vol] 4.1 mmol/L Normal 3.5-5.1 [facility] ([place]) Comment on above: Performed By: #### G FR, ANEU, ADIFF, CBC, BMP #### [address] [address] Sodium [Moles/Vol] 142 mmol/L Normal 136-145 [facility] ([place]) Comment on above: Performed By: #### G FR, ANEU, ADIFF, CBC, BMP #### [address] [address] Urea nitrogen [Mass/Vol] 14 mg/dL Normal 7-18 [facility] ([place]) Comment on above: Performed By: #### G FR, ANEU, ADIFF, CBC, BMP #### [address] [address] Creatinine [Mass/Vol] 0.99 mg/dL Normal 0.70-1.30 [facility] ([place]) Comment on above: Performed By: #### G FR, ANEU, ADIFF, CBC, BMP #### [address] [address] CBCon 09-29-2021 Erythrocyte distribution width (RBC) [Ratio] 13.7 % Normal 11.5-14.5 [facility] ([place]) Comment on above: Performed By: #### Ravin FR, ANEU, ADIFF, CBC, BMP #### [place] [address] Hematocrit (Bld) [Volume fraction] 44.3 % Normal 42.0-52.0 [facility] ([place]) Comment on above: Performed By: #### Ravin FR, ANEU, ADIFF, CBC, BMP #### [place] [address] Hgb 15.3 G/dL Normal 14.0-18.0 [facility] ([place]) Comment on above: Performed By: #### Ravin FR, ANEU, ADIFF, CBC, BMP #### [address] [address] MCH (RBC) [Entitic mass] 31.3 pg High 27.0-31.2 [facility] ([place]) Comment on above: Performed By: #### aRvin FR, ANEU, ADIFF, CBC, BMP #### [place] [address] MCHC 34.5 G/dL Normal 31.8-35.4 [facility] ([place]) Comment on above: Performed By: #### Ravin FR, ANEU, ADIFF, CBC, BMP #### [place] [address] MCV (RBC) [Entitic vol] 90.7 fL Normal 80.0-94.0 A [facility] ([place]) Comment on above: Performed By: #### Ravin FR, ANEU, ADIFF, CBC, BMP #### [place] [id number] Platelet 297 10 3/mcL Normal 130-400 [facility] ([place]) Comment on above: Performed By: #### Ravin FR, ANEU, ADIFF, CBC, BMP #### [place] [address] Platelet mean volume (Bld) [Entitic vol] 7.6 fL Normal 7.4-10.4 [facility] ([place]) Comment on above: Performed By: #### G FR, ANEU, ADIFF, CBC, BMP #### [place] [id number] [place] [address] RBC 4.88 10 6/mcL Normal 4.04-6.13 [facility] ([place]) Comment on above: Performed By: #### G FR, ANEU, ADIFF, CBC, BMP #### [place] [id number] [place] [address] WBC 7.00 10 3/mcL Normal 4.60-10.80 [facility] ([place]) Comment on above: Performed By: #### G FR, ANEU, ADIFF, CBC, BMP #### [address] [address] [address] ANGIOGRAPHY CHEST W/CONTR [place] 04-08-2021 CT ANGIOGRAPHY CHEST W/CONTRAST ORIGINAL EXAMINATION: CTA OF THE CHEST 04/08/2021 11:53 am TECHNIQUE: CTA of the chest was performed after the administration of intravenous contrast. Multiplanar reformatted images are provided for review. MIP images are provided for review. Dose modulation, iterative reconstruction, and/or weight based adjustment of the mA/kV was utilized to reduce the radiation dose to as low as reasonably achievable. COMPARISON: CT of the chest dated 10/11/2020. HISTORY: ORDERING SYSTEM PROVIDED HISTORY: Reason for Exam: chest pain; suspect PE FINDINGS: Pulmonary Arteries: Pulmonary arteries are adequately opacified for evaluation. No evidence of intraluminal filling defect to suggest pulmonary embolism. Main pulmonary artery is normal in caliber. Mediastinum: No evidence of mediastinal lymphadenopathy. Density seen of the anterior mediastinum likely relates to fluid or possibly thymic tissue and is seen similarly compared to the prior exam. The heart and pericardium demonstrate no acute abnormality. There is no acute abnormality of the thoracic aorta. Moderate coronary artery calcifications are noted. Lungs/pleura: Evaluation of the lungs demonstrates postsurgical change status post right upper lobectomy. Scattered areas of mild paraseptal emphysematous changes are noted. Right basilar subsegmental atelectasis versus scarring is additionally noted. No consolidative opacities are identified. There is no pleural effusion or pneumothorax. Upper Abdomen: Limited images of the upper abdomen are unremarkable. Soft Tissues/Bones: No acute bone or soft tissue abnormality. IMPRESSION: No evidence of pulmonary embolism or acute pulmonary abnormality. Areas of mild emphysema and pulmonary scarring with postsurgical changes status post right upper lobectomy. Interpreted by: Cesar Levine Preliminary Report By: Cesar Levine Electronically signed By Cesar Levine Dictated Date: 04/08/2021 12:01:24 PM Prelim Date: 04/08/2021 12:09:54 PM Sign Date: 04/08/2021 12:09:54 PM Ordering Provider: RENÉ Montero [facility] ([place]) [facility] 04-08-2021 Troponin I High Sensitivity 5.2 ng/L Normal 0.0-76.2 [facility]) Comment on above: Performed By: #### G FR, ANEU, ADIFF, CBC, BMP #### [place] [address] Troponin I High Sensitivity 4.6 ng/L Normal 0.0-76.2 [facility] ([place]) Comment on above: Performed By: #### G FR, ANEU, ADIFF, CBC, BMP #### [place] [address] Troponin I High Sensitivity <4.0 Normal 0.0-76.2 [facility] ([place]) Comment on above: Performed By: #### G FR, ANEU, ADIFF, CBC, BMP #### [place] [address] MRI SPINE THORACIC W/ + W/O CONTRASTon 03-18-2021 MRI SPINE THORACIC W/ + W/O CONTRAST ORIGINAL EXAMINATION: MRI OF THE THORACIC SPINE WITHOUT AND WITH CONTRAST 03/17/2021 3:02 pm TECHNIQUE: Multiplanar multisequence MRI of the thoracic spine was performed without and with the administration of intravenous contrast. COMPARISON: CT thorax 10/11/2020 HISTORY: Reason for Exam: Paresthesia of skin. History of lung and brain cancer status post chemoradiation. FINDINGS: Normal alignment. Mild superior endplate deformity of T3 is unchanged. There is decreased marrow signal from T5-L1 (most inferiorly visualized vertebral body). T1 hypointense lesions in the T1 through T3 vertebral bodies noted. T1 hyperintense marrow at the T1 through T4 vertebral bodies likely reflects the sequela of prior radiation therapy. Vertebral body and intervertebral disc heights are preserved. Thoracic spinal cord is normal in contour, caliber and signal intensity. No abnormal enhancement. No central canal or foraminal stenosis. No paraspinal mass. Slight abnormal signal in the bilateral lower lobes dependently, likely mild subsegmental atelectasis. IMPRESSION: Normal thoracic spinal cord. No central canal or foraminal stenosis. Patchy foci of decreased fatty marrow signal in the upper thoracic spine (T1-T3), suspicious for metastatic disease. Consider nuclear medicine bone scan. A more diffuse pattern of decreased fatty marrow signal through the mid and lower vertebral column, possibly on the basis of prior radiation. I have personally reviewed the images of this examination and agree with the resident's findings and interpretation. Interpreted by: Nita Puga Preliminary Report By: Jameel Ho Electronically signed By Nita Puga Dictated Date: 03/17/2021 3:42:48 PM Prelim Date: 03/18/2021 11:45:21 AM Sign Date: 03/18/2021 11:45:21 AM Ordering Provider: JJ PALACIO [facility] ([place]) MRI SPINE CERVICAL W/ + W/O CONTRASTon 03-17-2021 MRI SPINE CERVICAL W/ + W/O CONTRAST ORIGINAL EXAMINATION: MRI OF THE CERVICAL SPINE WITHOUT AND WITH CONTRAST 03/17/2021 2:54 pm: TECHNIQUE: Multiplanar multisequence MRI of the cervical spine was performed without and with the administration of intravenous contrast. COMPARISON: CTA neck 10/10/2020 HISTORY: Reason for Exam: Paresthesia of skin, numbness/weakness in all extremities. Status post lung surgery, nerve damage. History of brain cancer. FINDINGS: Very mild retrolisthesis at C5-C6. Vertebral body heights are preserved. Slightly decreased nonspecific marrow signal through C5-6, likely on the basis of degenerative sclerosis. More suspicious decreased marrow signal in the T1 and T3 vertebral bodies. Overall T1 hyperintense signal within the C7 through T4 vertebral bodies likely reflecting the sequela of radiation therapy. The cervical vertebral body heights are preserved. Cervical spinal cord is normal in caliber, contour and signal intensity. No abnormal enhancement. No paraspinal mass. C2-C3: No central canal or foraminal stenosis. C3-C4: No central canal or right foraminal stenosis. Mild left uncovertebral hypertrophy and mild left foraminal stenosis. C4-C5: Minimal posterior disc bulge. No significant central canal stenosis. Very mild bilateral foraminal stenosis due to uncovertebral hypertrophy. C5-C6: A broad-based disc herniation causes mild central canal stenosis. Mild bilateral foraminal stenosis due to uncovertebral hypertrophy. C6-C7: Broad-based disc herniation causing bilateral lateral recess narrowing and mild central canal stenosis. Mild right and moderate left foraminal narrowing due to facet arthropathy and uncovertebral hypertrophy. C7-T1: No central canal or foraminal stenosis. IMPRESSION: Cervical spinal cord is normal an signal intensity. Mild multilevel degenerative changes, with a few levels of mild central canal stenosis including C5-C6 and C6-C7 secondary to broad-based disc herniation and mild moderate foraminal stenosis. A few foci of decreased fatty vertebral column (T1 and T3 vertebral bodies) marrow signal, suspicious for metastatic deposits. Consider nuclear medicine bone scan. T1 hyperintensity the upper thoracic vertebral bodies likely reflecting the sequela prior radiation therapy. I have personally reviewed the images of this examination and agree with the resident's findings and interpretation. Interpreted by: Nita Puga Preliminary Report By: Jameel Ho Electronically signed By Nita Puga Dictated Date: 03/17/2021 3:00:05 PM Prelim Date: 03/17/2021 4:42:54 PM Sign Date: 03/17/2021 4:42:54 PM Ordering Provider: JJ PALACIO [facility]) MRI BRAIN W/ CONTRASTon 06-0 MRI BRAIN W/ CONTRAST ORIGINAL CLINICAL INDICATION: Dizziness and headache TECHNIQUE: Multi-planar multi-sequential MR imaging of the brain was performed following the intravenous administration of 19 mL of MultiHance. COMPARISON: MRI brain 10/11/2020 FINDINGS/IMPRESSION: LEFT parietal craniotomy and resection of the previously demonstrated inferior parietal lobule mass lesion. Subjacent dural thickening and mild enhancement within the operative bed, likely postoperative sequelae which should be confirmed with follow-up. Mild surrounding edema, markedly improved from prior. Interpreted By: Cory Perez Preliminary Report By: Cory Perez Electronically Signed By: Cory Perez Dictated Date: 12/16/2020 1:40:45 PM Prelim Date: 12/16/2020 1:40:45 PM Sign Date: 12/16/2020 1:47:52 PM Ordering Provider:iJm Aranda [facility] ([place]) CT HEAD OR BRAIN W/O CONTRAS Ton 11-24-2020 CT HEAD OR BRAIN W/O CONTRAST ORIGINAL Clinical: Brain mass Comparison: CT head 10/10/2020 Technique: Axial CT images from skull base to vertex without IV contrast. This exam was performed according to our departmental dose optimization program, and includes the following measures where applicable: automated exposure control, adjustment of the mAs and/or kVp according to patient size and/or exam, and an iterative reconstruction algorithm. Findings: Parenchyma: No acute intracranial hemorrhage or midline shift is present. Interval significant decreased vasogenic edema demonstrated with residual of the LEFT superior parietal lobule noted. The known intra-axial mass within the superior parietal lobule is less defined on this noncontrast examination but is identified on axial image . The mason-white matter junctions are preserved. There are no extra-axial fluid collections. Ventricles: Significant decreased mass effect upon the LEFT posterior lateral ventricular body, atrium, and occipital horn. No evidence hydrocephalus. Vessels: No significant atherosclerotic calcifications. Orbits: Unremarkable. Calvarium: LEFT parietal craniotomy. Extracranial soft tissues: Normal. Paranasal sinuses: Clear. Mastoid sinuses: Clear. Impression: 1. Interval significant decreased vasogenic edema of the LEFT occipital, posterior frontal and parietal lobes with residual identified in the supra parietal lobule. 2. The known intra-axial mass within the LEFT superior parietal lobule is less well-defined secondary to the absence of intravenous contrast. Interpreted By: Nita Puga MD Preliminary Report By: Nita Puga MD Electronically Signed By: Nita Puga MD Dictated Date: 11/24/2020 11:42:05 AM Prelim Date: 11/24/2020 11:42:32 AM Sign Date: 11/24/2020 12:06:12 PM Ordering Provider:Bravo Montero [facility] ([place]) Final Surgical Pathology Rep yoel 10-27-2020 Final Surgical Pathology Report . Pathology Reports Accession: Collected Date/Time: Received Date/Time: Pathologist: [id number] 10/23/2020 08:36 EDT 10/23/2020 10:15 EDT MD BARB BIANCHI Final Surgical Pathology Report DIAGNOSIS: A&B) LEFT PARIETAL BRAIN, EXCISION: METASTATIC ADENOCARCINOMA CONSISTENT WITH LUNG ORIGIN. IMMUNOPEROXIDASE STAINS ARE POSITIVE IN THE TUMOR CELLS FOR CYTOKERATIN NATALYA, TTF-1, MOC-31 AND WEAKLY POSITIVE FOR CYTOKERATIN AE1/3, BAYRON AND LYNNETTE-3 WITH FOCAL WEAK POSITIVE STAINING FOR P40. THE TUMOR CELLS ARE NEGATIVE FOR NAPSIN-A, CYTOKERATIN 7, CYTOKERATIN 20, MART-1, S100, CEA, NKX3, PAX-8, CYTOKERATIN 5/6 AND CDX-2. Comment: PDL-1 and Oncomine ordered. Case reviewed with Dr. Simms. [place] CLASSIFICATION pT=X pN=X CLINICAL INFORMATION: Procedure: STEREOTACTIC LEFT PARIETAL OCCIPITAL CRANIOTOMY FOR EXCISION OF TUMOR Preoperative diagnosis: BRAIN MASS Postoperative diagnosis: BRAIN MASS SPECIMEN: A LEFT PARIETAL TUMOR - FROZEN SECTION B LEFT PARIETAL TUMOR INTRAOPERATIVE CONSULTATION: A) FS: POSITIVE FOR MALIGNANT NEOPLASM. MAY REPRESENT METASTASIS. FINAL DIAGNOSIS PENDING REVIEW OF ADDITIONAL TISSUES. dictated by Flory Barry M.D. GROSS DESCRIPTION: A. Received fresh for frozen section, labeled with the patients name, Case #[id number], and "left parietal tumor "is a red -pink portion of soft tissue measuring 1.5 x 1.2 x 0.7 cm. A portion of the tissue is submitted for frozen section. TS -2, AFS 1- frozen section tissue, A1 remaining specimen. B. Received in formalin labeled left parietal tumor is a martinez -hemorrhagic-partiall y cystic segment of soft tissue measuring 2.1 x 2 x 1.2 cm. The tissue is serially sectioned to reveal hemorrhagic cut surfaces with portions of blood clot. TS -3 Dictated by NITA VALDEZ MICROSCOPIC DESCRIPTION: A&B) Slides reviewed. ADDITIONAL DIAGNOSTIC CODES: [id number] Electronically Signed by Pathology Report verified by [facility] Electronically signed by BARB BIANCHI MD Sign out Date: 10/27/2020 12:51 Performing Lab: [facility], [address] [place] [address] Normal [facility] ([place]) Comment on above: Performed By: #### G PURVI FARRELL ADIFF, CBC, BMP #### [address] [address] .Auto Diffon 10-24-2020 Basophil, Absolute 0.00 10 3/mcL Normal 0.00-0.27 [facility] ([place]) Comment on above: Performed By: #### G , PURVI ADACE, CBC, BMP #### [address] [address] Basophils/100 WBC (Bld) 0.1 % Normal 0.0-2.5 A [facility] ([place]) Comment on above: Performed By: #### G FR, ANEU, ADIFF, CBC, BMP #### [address] [address] Eosinophil, Absolute 0.00 10 3/mcL Normal 0.00-0.65 A [facility] ([place]) Comment on above: Performed By: #### G FR, ANEU, ADIFF, CBC, BMP #### [address] [address] Eosinophils/100 WBC (Bld) 0.0 % Normal 0.0-6.0 [facility] ([place]) Comment on above: Performed By: #### G FR, ANEU, ADIFF, CBC, BMP #### [address] [address] Lymphocyte, Absolute 0.90 10 3/mcL Normal 0.90-4.32 A [facility] ([place]) Comment on above: Performed By: #### G FR, ANEU, ADIFF, CBC, BMP #### [address] [address] Lymphocytes/100 WBC (Bld) 4.0 % Low 20.0-40.0 [facility] ([place]) Comment on above: Performed By: #### G FR, ANEU, ADIFF, CBC, BMP #### [address] [address] Monocyte, Absolute 1.90 10 3/mcL High 0.09-1.40 [facility] ([place]) Comment on above: Performed By: #### G FR, ANEU, ADIFF, CBC, BMP #### [address] [address] Monocytes/100 WBC (Bld) 8.3 % Normal 2.0-13.0 A [facility] ([place]) Comment on above: Performed By: #### G FR, ANEU, ADIFF, CBC, BMP #### [address] [address] Neutrophils/100 WBC (Bld) 87.6 % High 50.0-75.0 [facility] ([place]) Comment on above: Performed By: #### G FR, ANEU, ADIFF, CBC, BMP #### [address] [address] .GFRon 10-24-2020 GFR Non- >60 Normal [facility] ([place]) Comment on above: Result Comment: GFR Population mean for , Non- Americans Ages 20-29 = 116 mL/min/1.73 sq.m. Ages 30-39 = 107 mL/min/1.73 sq.m. Ages 40-49 = 99 mL/min/1.73 sq.m. Ages 50-59 = 93 mL/min/1.73 sq.m. Ages 60-69 = 85 mL/min/1.73 sq.m. Ages 70+ = 75 mL/min/1.73 sq.m. Chronic Kidney Disease: Less than 60 mL/min/1.73 square meters End Stage Renal Disease: Less than 15 mL/min/1.73 square meters Performed By: #### G FR, ANEU, ADIFF, CBC, BMP #### [address] [address] GFR >60 Normal [facility] ([place]) Comment on above: Result Comment: GFR Population mean for , Non- Americans Ages 20-29 = 116 mL/min/1.73 sq.m. Ages 30-39 = 107 mL/min/1.73 sq.m. Ages 40-49 = 99 mL/min/1.73 sq.m. Ages 50-59 = 93 mL/min/1.73 sq.m. Ages 60-69 = 85 mL/min/1.73 sq.m. Ages 70+ = 75 mL/min/1.73 sq.m. Chronic Kidney Disease: Less than 60 mL/min/1.73 square meters End Stage Renal Disease: Less than 15 mL/min/1.73 square meters Performed By: #### G FR, ANEU, ADIFF, CBC, BMP #### [address] [address] .Morphon 10-24-2020 Platelet Estimate Normal Normal [facility] ([place]) Comment on above: Performed By: #### G FR, ANEU, ADIFF, CBC, BMP #### [address] [address] RBC morphology finding Nom (Bld) Normal Normal [facility] ([place]) Comment on above: Performed By: #### G FR, ANEU, ADIFF, CBC, BMP #### [address] [address] .NEUABSon 10-24-2020 Neutrophil, Absolute 20.30 10 3/mcL High 2.25-8.10 [facility] ([place]) Comment on above: Performed By: #### G FR, ANEU, ADIFF, CBC, BMP #### [address] [address] BMPon 10-24-2020 BUN/Creatinine Ratio 29.6 ratio High 10.0-22.0 [facility] ([place]) Comment on above: Performed By: #### G FR, ANEU, ADIFF, CBC, BMP #### [place] [address] Calcium [Mass/Vol] 7.4 mg/dL Low 8.4-10.1 [facility] ([place]) Comment on above: Result Comment: No te - New Reference Range in effect 20 Performed By: #### G FR, ANEU, ADIFF, CBC, BMP #### [place] [address] Chloride [Moles/Vol] 104 mmol/L Normal 98-110 [facility] ([place]) Comment on above: Performed By: #### G FR, ANEU, ADIFF, CBC, BMP #### [address] [address] CO2 [Moles/Vol] 28 mmol/L Normal 22-32 [facility] ([place]) Comment on above: Performed By: #### G FR, ANEU, ADIFF, CBC, BMP #### [place] [address] Creatinine [Mass/Vol] 0.81 mg/dL Normal 0.60-1.40 [facility] ([place]) Comment on above: Performed By: #### G FR, ANEU, ADIFF, CBC, BMP #### [place] [address] Electrolyte Balance 6.0 mEq/L Normal 4.0-15.0 [facility] ([place]) Comment on above: Performed By: #### G FR, ANEU, ADIFF, CBC, BMP #### [place] [address] Glucose [Mass/Vol] 130 mg/dL High 70-110 [facility] ([place]) Comment on above: Performed By: #### G FR, ANEU, ADIFF, CBC, BMP #### [place] [address] Potassium [Moles/Vol] 4.4 mmol/L Normal 3.5-5.0 [facility] ([place]) Comment on above: Performed By: #### G FR, ANEU, ADIFF, CBC, BMP #### [place] [address] Sodium [Moles/Vol] 138 mmol/L Normal 136-145 [facility] ([place]) Comment on above: Performed By: #### G FR, ANEU, ADIFF, CBC, BMP #### [place] [address] Urea nitrogen [Mass/Vol] 24.0 mg/dL High 8.0-22.0 [facility] ([place]) Comment on above: Performed By: #### G FR, ANEU, ADIFF, CBC, BMP #### [place] [address] CBCon 10-24-2020 Erythrocyte distribution width (RBC) [Ratio] 14.6 % Normal 11.5-15.5 [facility] ([place]) Comment on above: Performed By: #### G FR, ANEU, ADIFF, CBC, BMP #### [place] [address] Hematocrit (Bld) [Volume fraction] 39.5 % Low 40.0-52.0 [facility] ([place]) Comment on above: Performed By: #### G FR, ANEU, ADIFF, CBC, BMP #### [place] [address] Hgb 13.4 G/dL Normal 13.0-17.5 [facility] ([place]) Comment on above: Performed By: #### G FR, ANEU, ADIFF, CBC, BMP #### [place] [address] MCH (RBC) [Entitic mass] 30.8 pg Normal 27.0-33.0 [facility] ([place]) Comment on above: Performed By: #### G FR, ANEU, ADIFF, CBC, BMP #### [place] [address] MCHC 33.9 G/dL Normal 32.0-36.0 [facility] ([place]) Comment on above: Performed By: #### G FR, ANEU, ADIFF, CBC, BMP #### [place] [address] MCV (RBC) [Entitic vol] 90.8 fL Normal 81.0-100.0 [facility] ([place]) Comment on above: Performed By: #### G FR, ANEU, ADIFF, CBC, BMP #### [place] [address] Platelet 245 10 3/mcL Normal 150-450 [facility] ([place]) Comment on above: Performed By: #### G FR, ANEU, ADIFF, CBC, BMP #### [place] [address] Platelet mean volume (Bld) [Entitic vol] 7.5 fL Normal 6.4-10.5 [facility] ([place]) Comment on above: Performed By: #### G FR, ANEU, ADIFF, CBC, BMP #### [place] [address] RBC 4.35 10 6/mcL Low 4.50-6.00 [facility] ([place]) Comment on above: Performed By: #### G FR, ANEU, ADIFF, CBC, BMP #### [place] [address] WBC 23.10 10 3/mcL High 4.50-10.80 [facility] ([place]) Comment on above: Performed By: #### G FR, ANEU, ADIFF, CBC, BMP #### [address] [address] .Auto Diffon 10-23-2020 Basophil, Absolute 0.00 10 3/mcL Normal 0.00-0.27 [facility] ([place]) Comment on above: Performed By: #### G FR, ANEU, ADIFF, CBC, BMP #### [address] [address] Basophils/100 WBC (Bld) 0.3 % Normal 0.0-2.5 [facility] ([place]) Comment on above: Performed By: #### G FR, ANEU, ADIFF, CBC, BMP #### [address] [address] Eosinophil, Absolute 0.00 10 3/mcL Normal 0.00-0.65 [facility] ([place]) Comment on above: Performed By: #### G FR, ANEU, ADIFF, CBC, BMP #### [address] [address] Eosinophils/100 WBC (Bld) 0.0 % Normal 0.0-6.0 [facility] ([place]) Comment on above: Performed By: #### G FR, ANEU, ADIFF, CBC, BMP #### [address] [address] Lymphocyte, Absolute 0.70 10 3/mcL Low 0.90-4.32 [facility] ([place]) Comment on above: Performed By: #### G FR, ANEU, ADIFF, CBC, BMP #### [address] [address] Lymphocytes/100 WBC (Bld) 5.4 % Low 20.0-40.0 [facility] ([place]) Comment on above: Performed By: #### G FR, ANEU, ADIFF, CBC, BMP #### [address] [address] Monocyte, Absolute 0.50 10 3/mcL Normal 0.09-1.40 [facility] ([place]) Comment on above: Performed By: #### G FR, ANEU, ADIFF, CBC, BMP #### [address] [address] Monocytes/100 WBC (Bld) 4.0 % Normal 2.0-13.0 [facility] ([place]) Comment on above: Performed By: #### G FR, ANEU, ADIFF, CBC, BMP #### [address] [address] Neutrophils/100 WBC (Bld) 90.3 % High 50.0-75.0 [facility] ([place]) Comment on above: Performed By: #### G FR, ANEU, ADIFF, CBC, BMP #### [address] [address] .GFRon 10-23-2020 GFR >60 Normal [facility] ([place]) Comment on above: Result Comment: GFR Population mean for , Non- Americans Ages 20-29 = 116 mL/min/1.73 sq.m. Ages 30-39 = 107 mL/min/1.73 sq.m. Ages 40-49 = 99 mL/min/1.73 sq.m. Ages 50-59 = 93 mL/min/1.73 sq.m. Ages 60-69 = 85 mL/min/1.73 sq.m. Ages 70+ = 75 mL/min/1.73 sq.m. Chronic Kidney Disease: Less than 60 mL/min/1.73 square meters End Stage Renal Disease: Less than 15 mL/min/1.73 square meters Performed By: #### G FR, ANEU, ADIFF, CBC, BMP #### [address] [address] GFR Non- >60 Normal [facility] ([place]) Comment on above: Result Comment: GFR Population mean for , Non- Americans Ages 20-29 = 116 mL/min/1.73 sq.m. Ages 30-39 = 107 mL/min/1.73 sq.m. Ages 40-49 = 99 mL/min/1.73 sq.m. Ages 50-59 = 93 mL/min/1.73 sq.m. Ages 60-69 = 85 mL/min/1.73 sq.m. Ages 70+ = 75 mL/min/1.73 sq.m. Chronic Kidney Disease: Less than 60 mL/min/1.73 square meters End Stage Renal Disease: Less than 15 mL/min/1.73 square meters Performed By: #### G FR, ANEU, ADIFF, CBC, BMP #### [address] [address] .NEUABSon 10-23-2020 Neutrophil, Absolute 12.30 10 3/mcL High 2.25-8.10 [facility] ([place]) Comment on above: Performed By: #### G FR, ANEU, ADIFF, CBC, BMP #### [address] [address] BMPon 10-23-2020 BUN/Creatinine Ratio 25.7 ratio High 10.0-22.0 [facility] ([place]) Comment on above: Performed By: #### G FR, ANEU, ADIFF, CBC, BMP #### [address] [address] Calcium [Mass/Vol] 7.7 mg/dL Low 8.4-10.1 [facility] ([place]) Comment on above: Result Comment: No te - New Reference Range in effect 20 Performed By: #### G FR, ANEU, ADIFF, CBC, BMP #### [address] [address] Chloride [Moles/Vol] 104 mmol/L Normal 98-110 [facility] ([place]) Comment on above: Performed By: #### G FR, ANEU, ADIFF, CBC, BMP #### [address] [address] CO2 [Moles/Vol] 26 mmol/L Normal 22-32 [facility] ([place]) Comment on above: Performed By: #### G FR, ANEU, ADIFF, CBC, BMP #### [address] [address] Creatinine [Mass/Vol] 0.70 mg/dL Normal 0.60-1.40 [facility] ([place]) Comment on above: Performed By: #### G FR, ANEU, ADIFF, CBC, BMP #### [place] [address] Electrolyte Balance 8.0 mEq/L Normal 4.0-15.0 [facility] ([place]) Comment on above: Performed By: #### G FR, ANEU, ADIFF, CBC, BMP #### [place] [address] Glucose [Mass/Vol] 142 mg/dL High 70-110 [facility] ([place]) Comment on above: Performed By: #### G FR, ANEU, ADIFF, CBC, BMP #### [place] [address] Potassium [Moles/Vol] 4.3 mmol/L Normal 3.5-5.0 [facility] ([place]) Comment on above: Performed By: #### G FR, ANEU, ADIFF, CBC, BMP #### [place] [address] Sodium [Moles/Vol] 138 mmol/L Normal 136-145 [facility] ([place]) Comment on above: Performed By: #### G FR, ANEU, ADIFF, CBC, BMP #### [place] [address] Urea nitrogen [Mass/Vol] 18.0 mg/dL Normal 8.0-22.0 [facility] ([place]) Comment on above: Performed By: #### G FR, ANEU, ADIFF, CBC, BMP #### [place] [address] CBCon 10-23-2020 Erythrocyte distribution width (RBC) [Ratio] 14.3 % Normal 11.5-15.5 [facility] ([place]) Comment on above: Performed By: #### G FR, ANEU, ADIFF, CBC, BMP #### [place] [address] Hematocrit (Bld) [Volume fraction] 40.9 % Normal 40.0-52.0 [facility] ([place]) Comment on above: Performed By: #### G FR, ANEU, ADIFF, CBC, BMP #### [place] [address] Hgb 14.0 G/dL Normal 13.0-17.5 [facility] ([place]) Comment on above: Performed By: #### G FR, ANEU, ADIFF, CBC, BMP #### [place] [address] MCH (RBC) [Entitic mass] 31.0 pg Normal 27.0-33.0 [facility] ([place]) Comment on above: Performed By: #### G FR, ANEU, ADIFF, CBC, BMP #### [place] [address] MCHC 34.3 G/dL Normal 32.0-36.0 [facility] ([place]) Comment on above: Performed By: #### G FR, ANEU, ADIFF, CBC, BMP #### [place] [address] MCV (RBC) [Entitic vol] 90.4 fL Normal 81.0-100.0 [facility] ([place]) Comment on above: Performed By: #### Ravin FR, ANEU, ADIFF, CBC, BMP #### [place] [address] Platelet 272 10 3/mcL Normal 150-450 [facility] ([place]) Comment on above: Performed By: #### G FR, ANEU, ADIFF, CBC, BMP #### [place] [address] Platelet mean volume (Bld) [Entitic vol] 7.5 fL Normal 6.4-10.5 [facility] ([place]) Comment on above: Performed By: #### G FR, ANEU, ADIFF, CBC, BMP #### [place] [address] RBC 4.52 10 6/mcL Normal 4.50-6.00 [facility] ([place]) Comment on above: Performed By: #### G FR, ANEU, ADIFF, CBC, BMP #### [place] [address] WBC 13.60 10 3/mcL High 4.50-10.80 [facility] ([place]) Comment on above: Performed By: #### G FR, ANEU, ADIFF, CBC, BMP #### [place] [address] CT STEREOTACTIC LOCALIZATION on 10-22-2020 CT STEREOTACTIC LOCALIZATION ORIGINAL CLINICAL INDICATION: Brain Mass, pre-op TECHNIQUE: CT head without contrast. COMPARISON: MRI brain 10/11/2020 FINDINGS/IMPRESSION: Stereotaxic localization study. Hemorrhagic-appearing LEFT superior parietal lobule mass and surrounding parenchymal edema. No extrinsic fiducial markers are identified. Interpreted By: Cory Perez Preliminary Report By: Cory Perez Electronically Signed By: Cory Perez Dictated Date: 10/22/2020 2:41:18 PM Prelim Date: 10/22/2020 2:41:18 PM Sign Date: 10/22/2020 2:42:49 PM Ordering Provider:Bravo Montero [facility] ([place]) PLTFon 10-22-2020 Plt % Functional 88 % Normal 80-97 [facility] ([place]) Comment on above: Performed By: #### C OVD19 #### [place] [address] Plt ADP 35 k/mm3 Normal [facility] ([place]) Comment on above: Performed By: #### C OVD19 #### [place] [address] Plt Base 291 k/mm3 Normal [facility] ([place]) Comment on above: Performed By: #### C OVD19 #### [place] [address] .Manual Diffon 10-17-2020 Basophil %, Manual 0.0 % Normal 0.0-2.5 [facility] ([place]) Comment on above: Performed By: #### C OVD19 #### [place] [address] Basophil, Abs Manual 0.00 10 3/mcL Normal 0.00-0.27 [facility] ([place]) Comment on above: Performed By: #### C OVD19 #### [place] [address] Cells Counted 100 Normal [facility] ([place]) Comment on above: Performed By: #### C OVD19 #### [address] [address] Eosinophil %, Manual 0.0 % Normal 0.0-6.0 [facility] ([place]) Comment on above: Performed By: #### C OVD19 #### [address] [address] Eosinophil, Abs Manual 0.00 10 3/mcL Normal 0.00-0.65 [facility] ([place]) Comment on above: Performed By: #### C OVD19 #### [address] [address] Lymphocyte %, Manual 10.0 % Low 20.0-40.0 [facility] ([place]) Comment on above: Performed By: #### C OVD19 #### [address] [address] Lymphocyte, Abs Manual 1.39 10 3/mcL Normal 0.90-4.32 [facility] ([place]) Comment on above: Performed By: #### C OVD19 #### [address] [address] Metamyelocyte 2.0 % Normal [facility] ([place]) Comment on above: Performed By: #### C OVD19 #### [address] [address] Monocyte %, Manual 4.0 % Normal 2.0-13.0 [facility] ([place]) Comment on above: Performed By: #### C OVD19 #### [address] [address] Monocyte, Abs Manual 0.56 10 3/mcL Normal 0.09-1.40 [facility] ([place]) Comment on above: Performed By: #### C OVD19 #### [address] [address] Neutrophil %, Manual 84.0 % High 50.0-75.0 [facility] ([place]) Comment on above: Performed By: #### C OVD19 #### [place] [id number] Neutrophil, Abs Manual 11.68 10 3/mcL High 2.25-8.10 [facility] ([place]) Comment on above: Performed By: #### C OVD19 #### [address] [address] .Morphon 10-17-2020 Platelet Estimate Normal Normal [facility] ([place]) Comment on above: Performed By: #### C OVD19 #### [place] [address] RBC morphology finding Nom (Bld) Normal Normal [facility] ([place]) Comment on above: Performed By: #### C OVD19 #### [place] [address] APTTon 10-17-2020 aPTT Coag (Bld) [Time] 25.0 s Normal 25.0-35.0 [facility] ([place]) Comment on above: Result Comment: For Heparin anticoagulation therapy, the recommended therapeutic range is: 54-77 seconds (APTT Correlation with Anti-Xa therapeutic range of 0.3-0.7 units/ml). PLEASE REFERENCE THE PHARMACY PROTOCOL FOR DOSING. Performed By: #### C OVD19 #### [place] [address] Heparin dose (APTT) Unknown Normal [facility] ([place]) Comment on above: Performed By: #### C OVD19 #### [place] [id number] CBCon 10-17-2020 Erythrocyte distribution width (RBC) [Ratio] 13.4 % Normal 11.5-15.5 [facility] ([place]) Comment on above: Performed By: #### C OVD19 #### [place] [address] Hematocrit (Bld) [Volume fraction] 41.4 % Normal 40.0-52.0 [facility] ([place]) Comment on above: Performed By: #### C OVD19 #### [place] [address] Hgb 14.2 G/dL Normal 13.0-17.5 [facility] ([place]) Comment on above: Performed By: #### C OVD19 #### [place] [id number] MCH (RBC) [Entitic mass] 30.6 pg Normal 27.0-33.0 [facility] ([place]) Comment on above: Performed By: #### C OVD19 #### [place] [address] MCHC 34.2 G/dL Normal 32.0-36.0 [facility] ([place]) Comment on above: Performed By: #### C OVD19 #### [place] [address] MCV (RBC) [Entitic vol] 89.4 fL Normal 81.0-100.0 [facility] ([place]) Comment on above: Performed By: #### C OVD19 #### [place] [address] Platelet 331 10 3/mcL Normal 150-450 [facility] ([place]) Comment on above: Performed By: #### C OVD19 #### [place] [address] Platelet mean volume (Bld) [Entitic vol] 7.8 fL Normal 6.4-10.5 [facility] ([place]) Comment on above: Performed By: #### C OVD19 #### [place] [address] RBC 4.63 10 6/mcL Normal 4.50-6.00 [facility] ([place]) Comment on above: Performed By: #### C OVD19 #### [place] [address] WBC 13.90 10 3/mcL High 4.50-10.80 [facility] ([place]) Comment on above: Performed By: #### C OVD19 #### [place] [address] PROon 10-17-2020 INR Coag (PPP) [Relative time] 0.9 {INR} Normal [facility] ([place]) Comment on above: Result Comment: The [employer] (CHEST, 1991, 102:[id number]) recommended therapeutic range for oral anticoagulant therapy is: LOW RISK: Prophylaxis of venous thrombosis INR: 2.0-3.0 Treatment of pulmonary embolism 2.0-3.0 Prevention of systemic embolism 2.0-3.0 HIGH RISK: Mechanical prosthetic valves 2.5-3.5 Performed By: #### C OVD19 #### [address] [address] PT Coag (PPP) [Time] 10.8 s Normal 9.0-14.8 [facility] ([place]) Comment on above: Result Comment: Effe ctive 01/23/08, Protime results may be affected by some antibiotics (i.e. Ciprofloxacin, Azithromycin, Bactrim) which may potentiate the action of oral anticoagulants, with further increases in Protime/INR. Performed By: #### C OVD19 #### [address] [address] .Auto Diffon 10-12-2020 Basophil, Absolute 0.00 10 3/mcL Normal 0.00-0.27 [facility] ([place]) Comment on above: Performed By: #### G FR, ANEU, ADIFF, CBC, BMP #### [address] [address] Basophils/100 WBC (Bld) 0.1 % Normal 0.0-2.5 [facility] ([place]) Comment on above: Performed By: #### G FR, ANEU, ADIFF, CBC, BMP #### [address] [address] Eosinophil, Absolute 0.00 10 3/mcL Normal 0.00-0.65 [facility] ([place]) Comment on above: Performed By: #### G FR, ANEU, ADIFF, CBC, BMP #### [address] [address] Eosinophils/100 WBC (Bld) 0.0 % Normal 0.0-6.0 [facility] ([place]) Comment on above: Performed By: #### G FR, ANEU, ADIFF, CBC, BMP #### [address] [address] Lymphocyte, Absolute 1.10 10 3/mcL Normal 0.90-4.32 [facility] ([place]) Comment on above: Performed By: #### G FR, ANEU, ADIFF, CBC, BMP #### [address] [address] Lymphocytes/100 WBC (Bld) 7.9 % Low 20.0-40.0 [facility] ([place]) Comment on above: Performed By: #### G FR, ANEU, ADIFF, CBC, BMP #### [address] [address] Monocyte, Absolute 0.70 10 3/mcL Normal 0.09-1.40 [facility] ([place]) Comment on above: Performed By: #### G FR, ANEU, ADIFF, CBC, BMP #### [address] [address] Monocytes/100 WBC (Bld) 5.1 % Normal 2.0-13.0 [facility] ([place]) Comment on above: Performed By: #### G FR, ANEU, ADIFF, CBC, BMP #### [address] [address] Neutrophils/100 WBC (Bld) 86.9 % High 50.0-75.0 [facility] ([place]) Comment on above: Performed By: #### G FR, ANEU, ADIFF, CBC, BMP #### [address] [address] .GFRon 10-12-2020 GFR Non- >60 Normal [facility] ([place]) Comment on above: Result Comment: GFR Population mean for , Non- Americans Ages 20-29 = 116 mL/min/1.73 sq.m. Ages 30-39 = 107 mL/min/1.73 sq.m. Ages 40-49 = 99 mL/min/1.73 sq.m. Ages 50-59 = 93 mL/min/1.73 sq.m. Ages 60-69 = 85 mL/min/1.73 sq.m. Ages 70+ = 75 mL/min/1.73 sq.m. Chronic Kidney Disease: Less than 60 mL/min/1.73 square meters End Stage Renal Disease: Less than 15 mL/min/1.73 square meters Performed By: #### G FR, ANEU, ADIFF, CBC, BMP #### [address] [address] GFR >60 Normal [facility] ([place]) Comment on above: Result Comment: GFR Population mean for , Non- Americans Ages 20-29 = 116 mL/min/1.73 sq.m. Ages 30-39 = 107 mL/min/1.73 sq.m. Ages 40-49 = 99 mL/min/1.73 sq.m. Ages 50-59 = 93 mL/min/1.73 sq.m. Ages 60-69 = 85 mL/min/1.73 sq.m. Ages 70+ = 75 mL/min/1.73 sq.m. Chronic Kidney Disease: Less than 60 mL/min/1.73 square meters End Stage Renal Disease: Less than 15 mL/min/1.73 square meters Performed By: #### G FR, ANEU, ADIFF, CBC, BMP #### [place] [address] .NEUABSon 10-12-2020 Neutrophil, Absolute 12.60 10 3/mcL High 2.25-8.10 [facility] ([place]) Comment on above: Performed By: #### G FR, ANEU, ADIFF, CBC, BMP #### [place] [address] A1Con 10-12-2020 HbA1c (Bld) [Mass fraction] 6.1 % High 4.0-6.0 [facility] ([place]) Comment on above: Performed By: #### G FR, CBC, MG, TROPHS, BMP, A1C, ANEU, PHOS, ADIFF, LIPID ####[place] [address] CAIONon 10-12-2020 Calcium Ionized 1.12 mmol/L Normal 1.12-1.32 [facility] ([place]) Comment on above: Performed By: #### G FR, ANEU, ADIFF, CBC, BMP #### [place] [address] CBCon 10-12-2020 Erythrocyte distribution width (RBC) [Ratio] 13.6 % Normal 11.5-15.5 [facility] ([place]) Comment on above: Performed By: #### Ravin FR, ANEU, ADIFF, CBC, BMP #### [place] [address] Hematocrit (Bld) [Volume fraction] 36.8 % Low 40.0-52.0 [facility] ([place]) Comment on above: Performed By: #### G FR, ANEU, ADIFF, CBC, BMP #### [place] [address] Hgb 12.6 G/dL Low 13.0-17.5 [facility] ([place]) Comment on above: Performed By: #### G FR, ANEU, ADIFF, CBC, BMP #### [place] [address] MCH (RBC) [Entitic mass] 30.6 pg Normal 27.0-33.0 [facility] ([place]) Comment on above: Performed By: #### Ravin FR, ANEU, ADIFF, CBC, BMP #### [place] [address] MCHC 34.2 G/dL Normal 32.0-36.0 [facility] ([place]) Comment on above: Performed By: #### G FR, ANEU, ADIFF, CBC, BMP #### [place] [address] MCV (RBC) [Entitic vol] 89.5 fL Normal 81.0-100.0 [facility] ([place]) Comment on above: Performed By: #### G FR, ANEU, ADIFF, CBC, BMP #### [place] [address] Platelet 304 10 3/mcL Normal 150-450 [facility] ([place]) Comment on above: Performed By: #### G FR, ANEU, ADIFF, CBC, BMP #### [facility] [address] [place], [place] [address] Platelet mean volume (Bld) [Entitic vol] 7.7 fL Normal 6.4-10.5 [facility] ([place]) Comment on above: Performed By: #### G FR, ANEU, ADIFF, CBC, BMP #### [place] [address] RBC 4.11 10 6/mcL Low 4.50-6.00 [facility] ([place]) Comment on above: Performed By: #### Ravin FR, ANEU, ADIFF, CBC, BMP #### [place] [address] WBC 14.50 10 3/mcL High 4.50-10.80 [facility] ([place]) Comment on above: Performed By: #### Ravin FR, ANEU, ADIFF, CBC, BMP #### [address] [address] CMPon 10-12-2020 Albumin Level 3.3 G/dL Normal 3.2-4.8 [facility] ([place]) Comment on above: Performed By: #### Ravin FR, ANEU, ADIFF, CBC, BMP #### [place] [address] Albumin/Globulin [Mass ratio] 1.0 {ratio} Normal 0.9-1.6 [facility] ([place]) Comment on above: Performed By: #### Ravin FR, ANEU, ADIFF, CBC, BMP #### [address] [address] ALP [Catalytic activity/Vol] 49 U/L Normal 38-126 [facility] ([place]) Comment on above: Performed By: #### Ravin FR, ANEU, ADIFF, CBC, BMP #### [place] [address] ALT [Catalytic activity/Vol] 26 U/L Normal 12-55 [facility] ([place]) Comment on above: Performed By: #### Ravin FR, ANEU, ADIFF, CBC, BMP #### [place] [id number] AST [Catalytic activity/Vol] 21 U/L Normal 8-34 [facility] ([place]) Comment on above: Performed By: #### G FR, ANEU, ADIFF, CBC, BMP #### [address] [address] Bili Total 0.2 mg/dL Normal 0.2-1.2 [facility] ([place]) Comment on above: Result Comment: Use of this assay is not recommended for patients undergoing treatment with eltrombopag due to the potential for falsely elevated results. Performed By: #### G FR, ANEU, ADIFF, CBC, BMP #### [address] [address] BUN/Creatinine Ratio 20.8 ratio Normal 10.0-22.0 [facility] ([place]) Comment on above: Performed By: #### G FR, ANEU, ADIFF, CBC, BMP #### [address] [address] Calcium [Mass/Vol] 8.7 mg/dL Normal 8.4-10.1 [facility] ([place]) Comment on above: Result Comment: No te - New Reference Range in effect 20 Performed By: #### G FR, ANEU, ADIFF, CBC, BMP #### [address] [address] Chloride [Moles/Vol] 109 mmol/L Normal 98-110 [facility] ([place]) Comment on above: Performed By: #### G FR, ANEU, ADIFF, CBC, BMP #### [address] [address] CO2 [Moles/Vol] 26 mmol/L Normal 22-32 [facility] ([place]) Comment on above: Performed By: #### G FR, ANEU, ADIFF, CBC, BMP #### [address] [address] Creatinine [Mass/Vol] 0.77 mg/dL Normal 0.60-1.40 [facility] ([place]) Comment on above: Performed By: #### G FR, ANEU, ADIFF, CBC, BMP #### [address] [address] Electrolyte Balance 5.0 mEq/L Normal 4.0-15.0 [facility] ([place]) Comment on above: Performed By: #### G FR, ANEU, ADIFF, CBC, BMP #### [address] [address] Globulin 3.2 G/dL Normal 1.5-3.8 [facility] ([place]) Comment on above: Performed By: #### G FR, ANEU, ADIFF, CBC, BMP #### [address] [address] Glucose [Mass/Vol] 148 mg/dL High 70-110 [facility] ([place]) Comment on above: Performed By: #### G FR, ANEU, ADIFF, CBC, BMP #### [address] [address] Potassium [Moles/Vol] 4.2 mmol/L Normal 3.5-5.0 [facility] ([place]) Comment on above: Performed By: #### G FR, ANEU, ADIFF, CBC, BMP #### [address] [address] Sodium [Moles/Vol] 140 mmol/L Normal 136-145 [facility] ([place]) Comment on above: Performed By: #### G FR, ANEU, ADIFF, CBC, BMP #### [address] [address] Total Protein 6.5 G/dL Normal 6.0-8.5 [facility] ([place]) Comment on above: Result Comment: No te - New Reference Range in effect 20 Performed By: #### G FR, ANEU, ADIFF, CBC, BMP #### [address] [address] Urea nitrogen [Mass/Vol] 16.0 mg/dL Normal 8.0-22.0 [facility] ([place]) Comment on above: Performed By: #### G FR, ANEU, ADIFF, CBC, BMP #### [address] [address] MGon 10-12-2020 Magnesium [Mass/Vol] 2.7 mg/dL High 1.6-2.4 [facility] ([place]) Comment on above: Performed By: #### G , TONNY LOJA, CBC, BMP #### [place] [address] MRI BRAIN W/ + W/O CONTRASTo n 10-12-2020 MRI BRAIN W/ + W/O CONTRAST ORIGINAL MRI BRAIN W/ + W/O CONTRAST Clinical Statement: Brain mass. Follow-up abnormal exam, lesion characterization. TECHNIQUE: Multiplanar, multisequence imaging of the brain was performed before and after the administration of IV contrast. COMPARISON: CT scan 10/10/2020 FINDINGS: There is a cyst or polyp identified posteriorly at the LEFT maxillary sinus. There is an intra-axial mass lesion identified at the LEFT posterior parietal-occipital region. This measures 1.9 x 2.1 x 2.4 cm. The lesion shows some intrinsic increased T1 signal, with areas of susceptibility artifact especially peripherally. This is compatible with a hemorrhagic lesion. At least a portion of the lesion enhances following IV contrast administration, especially peripherally. There is prominent adjacent brain parenchymal white matter decreased T1 and increased T2 signal compatible with vasogenic edema. This extends to the LEFT atrium, and there is some effacement of the LEFT atrium. No other mass lesion is identified and there is no other abnormal enhancement seen. No additional contributory abnormality identified. IMPRESSION: Hemorrhagic intra-axial LEFT parietal-occipital neoplasm. Metastatic disease such as lung and renal primary malignancy are considerations. Hemorrhagic brain parenchymal primary neoplasm is also considered. Prominent vasogenic edema versus tumor spread noted, with mild to moderate local mass effect. Interpreted By: Miguel Benedict MD Preliminary Report By: Miguel Benedict MD Electronically Signed By: Miguel Benedict MD Dictated Date: 10/11/2020 10:03:01 PM Prelim Date: 10/11/2020 10:03:01 PM Sign Date: 10/11/2020 10:12:06 PM Ordering Provider:Eliana Montero [facility] ([place]) PHOSon 10-12-2020 Phosphate [Mass/Vol] 3.4 mg/dL Normal 2.5-4.5 [facility] ([place]) Comment on above: Result Comment: No te - New Reference Range in effect 20 Performed By: #### G , ANEU, ADIFF, CBC, BMP #### [address] [address] .Auto Diffon 10-11-2020 Basophil, Absolute 0.00 10 3/mcL Normal 0.00-0.27 [facility] ([place]) Comment on above: Performed By: #### G FR, CBC, MG, TROPHS, BMP, A1C, ANEU, PHOS, ADIFF, LIPID ####[address] [address] Basophils/100 WBC (Bld) 0.2 % Normal 0.0-2.5 A [facility] ([place]) Comment on above: Performed By: #### G FR, CBC, MG, TROPHS, BMP, A1C, ANEU, PHOS, ADIFF, LIPID ####[address] [address] Eosinophil, Absolute 0.00 10 3/mcL Normal 0.00-0.65 A [facility] ([place]) Comment on above: Performed By: #### G FR, CBC, MG, TROPHS, BMP, A1C, ANEU, PHOS, ADIFF, LIPID ####[address] [address] Eosinophils/100 WBC (Bld) 0.0 % Normal 0.0-6.0 [facility] ([place]) Comment on above: Performed By: #### G FR, CBC, MG, TROPHS, BMP, A1C, ANEU, PHOS, ADIFF, LIPID ####[address] [address] Lymphocyte, Absolute 1.00 10 3/mcL Normal 0.90-4.32 A [facility] ([place]) Comment on above: Performed By: #### G FR, CBC, MG, TROPHS, BMP, A1C, ANEU, PHOS, ADIFF, LIPID ####[address] [address] Lymphocytes/100 WBC (Bld) 10.6 % Low 20.0-40.0 [facility] ([place]) Comment on above: Performed By: #### G FR, CBC, MG, TROPHS, BMP, A1C, ANEU, PHOS, ADIFF, LIPID ####[address] [address] Monocyte, Absolute 0.20 10 3/mcL Normal 0.09-1.40 [facility] ([place]) Comment on above: Performed By: #### G FR, CBC, MG, TROPHS, BMP, A1C, ANEU, PHOS, ADIFF, LIPID ####[address] [address] Monocytes/100 WBC (Bld) 2.2 % Normal 2.0-13.0 A [facility] ([place]) Comment on above: Performed By: #### G FR, CBC, MG, TROPHS, BMP, A1C, ANEU, PHOS, ADIFF, LIPID ####[address] [address] Neutrophils/100 WBC (Bld) 87.0 % High 50.0-75.0 [facility] ([place]) Comment on above: Performed By: #### G FR, CBC, MG, TROPHS, BMP, A1C, ANEU, PHOS, ADIFF, LIPID ####[address] [address] .GFRon 10-11-2020 GFR >60 Normal [facility] ([place]) Comment on above: Result Comment: GFR Population mean for , Non- Americans Ages 20-29 = 116 mL/min/1.73 sq.m. Ages 30-39 = 107 mL/min/1.73 sq.m. Ages 40-49 = 99 mL/min/1.73 sq.m. Ages 50-59 = 93 mL/min/1.73 sq.m. Ages 60-69 = 85 mL/min/1.73 sq.m. Ages 70+ = 75 mL/min/1.73 sq.m. Chronic Kidney Disease: Less than 60 mL/min/1.73 square meters End Stage Renal Disease: Less than 15 mL/min/1.73 square meters Performed By: #### G FR, CBC, MG, TROPHS, BMP, A1C, ANEU, PHOS, ADIFF, LIPID ####[address] [address] GFR Non- >60 Normal [facility] ([place]) Comment on above: Result Comment: GFR Population mean for , Non- Americans Ages 20-29 = 116 mL/min/1.73 sq.m. Ages 30-39 = 107 mL/min/1.73 sq.m. Ages 40-49 = 99 mL/min/1.73 sq.m. Ages 50-59 = 93 mL/min/1.73 sq.m. Ages 60-69 = 85 mL/min/1.73 sq.m. Ages 70+ = 75 mL/min/1.73 sq.m. Chronic Kidney Disease: Less than 60 mL/min/1.73 square meters End Stage Renal Disease: Less than 15 mL/min/1.73 square meters Performed By: #### G FR, CBC, MG, TROPHS, BMP, A1C, ANEU, PHOS, ADIFF, LIPID ####[address] [address] .NEUABSon 10-11-2020 Neutrophil, Absolute 8.50 10 3/mcL High 2.25-8.10 A [facility] ([place]) Comment on above: Performed By: #### G FR, CBC, MG, TROPHS, BMP, A1C, ANEU, PHOS, ADIFF, LIPID ####[address] [address] BMPon 10-11-2020 BUN/Creatinine Ratio 14.5 ratio Normal 10.0-22.0 [facility] ([place]) Comment on above: Performed By: #### G FR, CBC, MG, TROPHS, BMP, A1C, ANEU, PHOS, ADIFF, LIPID ####[address] [address] Calcium [Mass/Vol] 8.4 mg/dL Normal 8.4-10.1 [facility] ([place]) Comment on above: Result Comment: No te - New Reference Range in effect 20 Performed By: #### G FR, CBC, MG, TROPHS, BMP, A1C, ANEU, PHOS, ADIFF, LIPID ####[address] [address] Chloride [Moles/Vol] 110 mmol/L Normal 98-110 [facility] ([place]) Comment on above: Performed By: #### G FR, CBC, MG, TROPHS, BMP, A1C, ANEU, PHOS, ADIFF, LIPID ####[address] [address] CO2 [Moles/Vol] 27 mmol/L Normal 22-32 [facility] ([place]) Comment on above: Performed By: #### G FR, CBC, MG, TROPHS, BMP, A1C, ANEU, PHOS, ADIFF, LIPID ####[address] [address] Creatinine [Mass/Vol] 0.83 mg/dL Normal 0.60-1.40 [facility] ([place]) Comment on above: Performed By: #### G FR, CBC, MG, TROPHS, BMP, A1C, ANEU, PHOS, ADIFF, LIPID ####[address] [address] Electrolyte Balance 4.0 mEq/L Normal 4.0-15.0 [facility] ([place]) Comment on above: Performed By: #### G FR, CBC, MG, TROPHS, BMP, A1C, ANEU, PHOS, ADIFF, LIPID ####[address] [address] Glucose [Mass/Vol] 134 mg/dL High 70-110 [facility] ([place]) Comment on above: Performed By: #### G FR, CBC, MG, TROPHS, BMP, A1C, ANEU, PHOS, ADIFF, LIPID ####[address] [address] Potassium [Moles/Vol] 4.0 mmol/L Normal 3.5-5.0 [facility] ([place]) Comment on above: Performed By: #### G FR, CBC, MG, TROPHS, BMP, A1C, ANEU, PHOS, ADIFF, LIPID ####[address] [address] Sodium [Moles/Vol] 141 mmol/L Normal 136-145 [facility] ([place]) Comment on above: Performed By: #### G FR, CBC, MG, TROPHS, BMP, A1C, ANEU, PHOS, ADIFF, LIPID ####[place] [address] Urea nitrogen [Mass/Vol] 12.0 mg/dL Normal 8.0-22.0 [facility] ([place]) Comment on above: Performed By: #### G FR, CBC, MG, TROPHS, BMP, A1C, ANEU, PHOS, ADIFF, LIPID ####[place] [address] CBCon 10-11-2020 Erythrocyte distribution width (RBC) [Ratio] 13.8 % Normal 11.5-15.5 [facility] ([place]) Comment on above: Performed By: #### G FR, CBC, MG, TROPHS, BMP, A1C, ANEU, PHOS, ADIFF, LIPID ####[place] [address] Hematocrit (Bld) [Volume fraction] 40.6 % Normal 40.0-52.0 [facility] ([place]) Comment on above: Performed By: #### G FR, CBC, MG, TROPHS, BMP, A1C, ANEU, PHOS, ADIFF, LIPID ####[place] [address] Hgb 13.7 G/dL Normal 13.0-17.5 [facility] ([place]) Comment on above: Performed By: #### G FR, CBC, MG, TROPHS, BMP, A1C, ANEU, PHOS, ADIFF, LIPID ####[place] [address] MCH (RBC) [Entitic mass] 30.3 pg Normal 27.0-33.0 [facility] ([place]) Comment on above: Performed By: #### G FR, CBC, MG, TROPHS, BMP, A1C, ANEU, PHOS, ADIFF, LIPID ####[place] [address] MCHC 33.8 G/dL Normal 32.0-36.0 [facility] ([place]) Comment on above: Performed By: #### G FR, CBC, MG, TROPHS, BMP, A1C, ANEU, PHOS, ADIFF, LIPID ####[place] [address] MCV (RBC) [Entitic vol] 89.9 fL Normal 81.0-100.0 A [facility] ([place]) Comment on above: Performed By: #### G FR, CBC, MG, TROPHS, BMP, A1C, ANEU, PHOS, ADIFF, LIPID ####[place] [address] Platelet 315 10 3/mcL Normal 150-450 [facility] ([place]) Comment on above: Performed By: #### G FR, CBC, MG, TROPHS, BMP, A1C, ANEU, PHOS, ADIFF, LIPID ####[place] [address] Platelet mean volume (Bld) [Entitic vol] 7.6 fL Normal 6.4-10.5 [facility] ([place]) Comment on above: Performed By: #### G FR, CBC, MG, TROPHS, BMP, A1C, ANEU, PHOS, ADIFF, LIPID ####[place] [address] RBC 4.51 10 6/mcL Normal 4.50-6.00 [facility] ([place]) Comment on above: Performed By: #### G FR, CBC, MG, TROPHS, BMP, A1C, ANEU, PHOS, ADIFF, LIPID ####[place] [address] WBC 9.70 10 3/mcL Normal 4.50-10.80 [facility] ([place]) Comment on above: Performed By: #### G FR, CBC, MG, TROPHS, BMP, A1C, ANEU, PHOS, ADIFF, LIPID ####[place] [address] CT ABDOMEN/PELVIS W/CONTRAST on 10-11-2020 CT ABDOMEN/PELVIS W/CONTRAST ORIGINAL CT ABDOMEN/PELVIS W/CONTRAST TECHNIQUE: Images were obtained after the administration of IV and enteric contrast. This exam was performed according to our departmental dose optimization program, and includes the following measures where applicable: automated exposure control, adjustment of the mAs and/or kVp according to patient size and/or exam, and an iterative reconstruction algorithm. CLINICAL STATEMENT: concern mets. Lung cancer COMPARISON: 02/12/2015 FINDINGS: CT chest is also performed and is reported separately. There are degenerative changes present at the lower lumbar spine and there is mild hip joint degenerative change present as well. The liver, spleen, adrenal glands and pancreas are normal. Small scattered renal cysts are present. No other renal finding. No adenopathy, free air or free fluid seen. There are small fat-containing inguinal hernias seen bilaterally. Mild sigmoid diverticulosis is present and there are scattered diverticula elsewhere as well. No evidence for diverticulitis. No other GI tract abnormality seen. IMPRESSION: No evidence for metastatic disease on this exam. Interpreted By: Miguel Benedict MD Preliminary Report By: Miguel Benedict MD Electronically Signed By: Miguel Benedict MD Dictated Date: 10/11/2020 5:42:07 PM Prelim Date: 10/11/2020 5:42:07 PM Sign Date: 10/11/2020 5:44:25 PM Ordering Provider:Ez Thapa [facility] ([place]) CT THORAX W/ CONTRAST 04-0 CT THORAX W/ CONTRAST ORIGINAL CT THORAX W/ CONTRAST TECHNIQUE: Images were obtained after the administration of IV contrast. This exam was performed according to our departmental dose optimization program, and includes the following measures where applicable: automated exposure control, adjustment of the mAs and/or kVp according to patient size and/or exam, and an iterative reconstruction algorithm. CLINICAL STATEMENT: concern mets. Lung cancer COMPARISON: None FINDINGS: Minor degenerative changes are noted in the spine. Small areas of pulmonary and pleural scarring are noted. Scattered emphysematous airspaces are present at the upper lobes as well. There is no focal area of airspace consolidation identified. No pleural fluid seen. No adenopathy, free air or free fluid is identified. A small rounded area of fluid density is present at the prevascular region. This may be a tiny amount of pericardial recess fluid. No additional contributory abnormality identified. IMPRESSION: Emphysema and areas of scarring. There is no definite evidence for metastatic disease on this exam. Interpreted By: Miguel Benedict MD Preliminary Report By: Miguel Benedict MD Electronically Signed By: Miguel Benedict MD Dictated Date: 10/11/2020 8:23:31 PM Prelim Date: 10/11/2020 8:23:31 PM Sign Date: 10/11/2020 8:26:30 PM Ordering Provider:Ez Montero [facility] ([place]) LIPIDon 10-11-2020 Cholesterol [Mass/Vol] 173 mg/dL Normal 50-199 [facility] ([place]) Comment on above: Result Comment: Chol esterol Reference Interval: Less than 200 Desirable 200-239 Borderline high risk 240 and above High risk Performed By: #### G FR, CBC, MG, TROPHS, BMP, A1C, ANEU, PHOS, ADIFF, LIPID ####[address] [address] Cholesterol in HDL [Mass/Vol] 45 mg/dL Normal 40-59 [facility] ([place]) Comment on above: Performed By: #### G FR, CBC, MG, TROPHS, BMP, A1C, ANEU, PHOS, ADIFF, LIPID ####[address] [address] Cholesterol in LDL [Mass/Vol] 116 mg/dL Normal 0-129 [facility]) Comment on above: Performed By: #### G FR, CBC, MG, TROPHS, BMP, A1C, ANEU, PHOS, ADIFF, LIPID ####[address] [address] Triglyceride [Mass/Vol] 61 mg/dL Normal 3-149 A [facility] ([place]) Comment on above: Performed By: #### G FR, CBC, MG, TROPHS, BMP, A1C, ANEU, PHOS, ADIFF, LIPID ####[address] [address] MGon 10-11-2020 Magnesium [Mass/Vol] 2.2 mg/dL Normal 1.6-2.4 [facility]) Comment on above: Performed By: #### G FR, CBC, MG, TROPHS, BMP, A1C, ANEU, PHOS, ADIFF, LIPID ####[address] [address] PHOSon 10-11-2020 Phosphate [Mass/Vol] 3.4 mg/dL Normal 2.4-5.1 [facility]) Comment on above: Result Comment: No te - New Reference Range in effect 20 Performed By: #### G FR, CBC, MG, TROPHS, BMP, A1C, ANEU, PHOS, ADIFF, LIPID ####[address] [address] TROPHSon 10-11-2020 Troponin I High Sensitivity 27.93 ng/L Normal 0.00-54.00 [facility] ([place]) Comment on above: Performed By: #### G FR, CBC, MG, TROPHS, BMP, A1C, ANEU, PHOS, ADIFF, LIPID ####[address] [address] Troponin I High Sensitivity 37.39 ng/L Normal 0.00-54.00 [facility] ([place]) Comment on above: Performed By: #### T ROPHS ####[address] [address] XR CHEST 1 VIEWon 10-11-2020 XR CHEST 1 VIEW ORIGINAL XR CHEST 1 VIEW CLINICAL STATEMENT: Chest Pain. COMPARISON: Chest x-ray on 10/10/2020 FINDINGS: The heart size is normal. There is no acute infiltrate. Mild vascular congestion seen on previous day has resolved. There is no pleural fluid or pneumothorax. IMPRESSION: No acute cardiopulmonary findings. Interpreted By: Kenney Vega MD Preliminary Report By: Kenney Vega MD Electronically Signed By: Kenney Vega MD Dictated Date: 10/11/2020 6:04:17 AM Prelim Date: 10/11/2020 6:04:17 AM Sign Date: 10/11/2020 6:05:17 AM Ordering Provider:Nagi Montero [facility] ([place]) .Auto Diffon 10-10-2020 Basophil, Absolute 0.00 10 3/mcL Normal 0.00-0.27 [facility] ([place]) Comment on above: Performed By: #### G FR, ANEU, ADIFF, CBC, BMP #### [address] [address] Basophils/100 WBC (Bld) 0.3 % Normal 0.0-2.5 A [facility] ([place]) Comment on above: Performed By: #### G FR, ANEU, ADIFF, CBC, BMP #### [address] [address] Eosinophil, Absolute 0.00 10 3/mcL Normal 0.00-0.65 A [facility] ([place]) Comment on above: Performed By: #### G FR, ANEU, ADIFF, CBC, BMP #### [address] [address] Eosinophils/100 WBC (Bld) 0.0 % Normal 0.0-6.0 [facility] ([place]) Comment on above: Performed By: #### G FR, ANEU, ADIFF, CBC, BMP #### [address] [address] Lymphocyte, Absolute 0.80 10 3/mcL Low 0.90-4.32 A [facility] ([place]) Comment on above: Performed By: #### G FR, ANEU, ADIFF, CBC, BMP #### [address] [address] Lymphocytes/100 WBC (Bld) 6.1 % Low 20.0-40.0 [facility] ([place]) Comment on above: Performed By: #### G FR, ANEU, ADIFF, CBC, BMP #### [address] [address] Monocyte, Absolute 0.20 10 3/mcL Normal 0.09-1.40 [facility] ([place]) Comment on above: Performed By: #### G FR, ANEU, ADIFF, CBC, BMP #### [address] [address] Monocytes/100 WBC (Bld) 1.3 % Low 2.0-13.0 A [facility] ([place]) Comment on above: Performed By: #### G FR, ANEU, ADIFF, CBC, BMP #### [address] [address] Neutrophils/100 WBC (Bld) 92.3 % High 50.0-75.0 [facility] ([place]) Comment on above: Performed By: #### G FR, ANEU, ADIFF, CBC, BMP #### [address] [address] Basophil, Absolute 0.10 10 3/mcL Normal 0.00-0.19 [facility] ([place]) Comment on above: Performed By: #### A DIFF, BMP, TSH, APTT, LAC, ANEU, PRO, VBGAO, CBC, TROPHS ####[place] [address]#### GFR ####[address] [address] Basophils/100 WBC (Bld) 1.0 % Normal 0.0-2.5 A [facility] ([place]) Comment on above: Performed By: #### A DIFF, BMP, TSH, APTT, LAC, ANEU, PRO, VBGAO, CBC, TROPHS ####[place] [address]#### GFR ####[address] [address] Eosinophil, Absolute 0.10 10 3/mcL Normal 0.00-0.40 A [facility] ([place]) Comment on above: Performed By: #### A DIFF, BMP, TSH, APTT, LAC, ANEU, PRO, VBGAO, CBC, TROPHS ####[place] [address]#### GFR ####[address] [address] Eosinophils/100 WBC (Bld) 1.5 % Normal 0.0-7.0 [facility] ([place]) Comment on above: Performed By: #### A DIFF, BMP, TSH, APTT, LAC, ANEU, PRO, VBGAO, CBC, TROPHS ####[place] [address]#### GFR ####[address] [address] Lymphocyte, Absolute 3.40 10 3/mcL Normal 0.77-3.85 A [facility] ([place]) Comment on above: Performed By: #### A DIFF, BMP, TSH, APTT, LAC, ANEU, PRO, VBGAO, CBC, TROPHS ####[place] [address]#### GFR ####[address] [address] Lymphocytes/100 WBC (Bld) 37.3 % Normal 10.0-50.0 [facility] ([place]) Comment on above: Performed By: #### A DIFF, BMP, TSH, APTT, LAC, ANEU, PRO, VBGAO, CBC, TROPHS ####[place] [address]#### GFR ####[address] [address] Monocyte, Absolute 0.80 10 3/mcL Normal 0.15-1.00 [facility] ([place]) Comment on above: Performed By: #### A DIFF, BMP, TSH, APTT, LAC, ANEU, PRO, VBGAO, CBC, TROPHS ####[place] [address]#### GFR ####[address] [address] Monocytes/100 WBC (Bld) 9.3 % Normal 1.7-13.0 [facility] ([place]) Comment on above: Performed By: #### A DIFF, BMP, TSH, APTT, LAC, ANEU, PRO, VBGAO, CBC, TROPHS ####[place] [address]#### GFR ####[address] [address] Neutrophils/100 WBC (Bld) 50.9 % Normal 37.0-80.0 [facility] ([place]) Comment on above: Performed By: #### A DIFF, BMP, TSH, APTT, LAC, ANEU, PRO, VBGAO, CBC, TROPHS ####[place] [address]#### GFR ####[place] [address] .GFRon 10-10-2020 GFR Non- >60 Normal [facility] ([place]) Comment on above: Result Comment: GFR Population mean for , Non- Americans Ages 20-29 = 116 mL/min/1.73 sq.m. Ages 30-39 = 107 mL/min/1.73 sq.m. Ages 40-49 = 99 mL/min/1.73 sq.m. Ages 50-59 = 93 mL/min/1.73 sq.m. Ages 60-69 = 85 mL/min/1.73 sq.m. Ages 70+ = 75 mL/min/1.73 sq.m. Chronic Kidney Disease: Less than 60 mL/min/1.73 square meters End Stage Renal Disease: Less than 15 mL/min/1.73 square meters Performed By: #### G FR, ANEU, ADIFF, CBC, BMP #### [address] [address] GFR >60 Normal [facility] ([place]) Comment on above: Result Comment: GFR Population mean for , Non- Americans Ages 20-29 = 116 mL/min/1.73 sq.m. Ages 30-39 = 107 mL/min/1.73 sq.m. Ages 40-49 = 99 mL/min/1.73 sq.m. Ages 50-59 = 93 mL/min/1.73 sq.m. Ages 60-69 = 85 mL/min/1.73 sq.m. Ages 70+ = 75 mL/min/1.73 sq.m. Chronic Kidney Disease: Less than 60 mL/min/1.73 square meters End Stage Renal Disease: Less than 15 mL/min/1.73 square meters Performed By: #### G FR, ANEU, ADIFF, CBC, BMP #### [address] [address] GFR 75 ml/min/1.73sqm Normal [facility] ([place]) Comment on above: Result Comment: GFR Population mean for , Non- Americans Ages 20-29 = 116 mL/min/1.73 sq.m. Ages 30-39 = 107 mL/min/1.73 sq.m. Ages 40-49 = 99 mL/min/1.73 sq.m. Ages 50-59 = 93 mL/min/1.73 sq.m. Ages 60-69 = 85 mL/min/1.73 sq.m. Ages 70+ = 75 mL/min/1.73 sq.m. Chronic Kidney Disease: Less than 60 mL/min/1.73 square meters End Stage Renal Disease: Less than 15 mL/min/1.73 square meters Performed By: #### A DIFF, BMP, TSH, APTT, LAC, ANEU, PRO, VBGAO, CBC, TROPHS ####[place] [address] [place], [place] [address]#### GFR ####[address] [address] GFR Non- 62 ml/min/1.73sqm Normal [facility] ([place]) Comment on above: Result Comment: GFR Population mean for , Non- Americans Ages 20-29 = 116 mL/min/1.73 sq.m. Ages 30-39 = 107 mL/min/1.73 sq.m. Ages 40-49 = 99 mL/min/1.73 sq.m. Ages 50-59 = 93 mL/min/1.73 sq.m. Ages 60-69 = 85 mL/min/1.73 sq.m. Ages 70+ = 75 mL/min/1.73 sq.m. Chronic Kidney Disease: Less than 60 mL/min/1.73 square meters End Stage Renal Disease: Less than 15 mL/min/1.73 square meters Performed By: #### A DIFF, BMP, TSH, APTT, LAC, ANEU, PRO, VBGAO, CBC, TROPHS ####[place] [address] [place], [place] [address]#### GFR ####[address] [address] .NEUABSon 10-10-2020 Neutrophil, Absolute 11.40 10 3/mcL High 2.25-8.10 [facility] ([place]) Comment on above: Performed By: #### G FR, ANEU, ADIFF, CBC, BMP #### [address] [address] Neutrophil, Absolute 4.60 10 3/mcL Normal 2.85-6.16 A [facility] ([place]) Comment on above: Performed By: #### A DIFF, BMP, TSH, APTT, LAC, ANEU, PRO, VBGAO, CBC, TROPHS ####[place] [address]#### GFR ####[place] [address] APTTon 10-10-2020 aPTT Coag (Bld) [Time] 32.9 s Normal 23.7-37.6 [facility] ([place]) Comment on above: Result Comment: For Heparin anticoagulation therapy, the recommended therapeutic range is: 53.6-87.4 seconds (1.5 - 2.5 the normal plasma mean). Patients on heparin therapy may have an extreme result. Performed By: #### A DIFF, BMP, TSH, APTT, LAC, ANEU, PRO, VBGAO, CBC, TROPHS ####[place] [address]#### GFR ####[place] [address] Heparin dose (APTT) Unknown Normal [facility] ([place]) Comment on above: Performed By: #### A DIFF, BMP, TSH, APTT, LAC, ANEU, PRO, VBGAO, CBC, TROPHS ####[place] [address]#### GFR ####[place] [address] BGon 10-10-2020 Barometric Pressure 721 mmHg Normal [facility] ([place]) Comment on above: Performed By: #### G FR, ANEU, ADIFF, CBC, BMP #### [place] [id number] Base excess Calc (Bld) [Moles/Vol] -3.5000 mmol/L Normal [facility] ([place]) Comment on above: Performed By: #### G FR, ANEU, ADIFF, CBC, BMP #### [place] [id number] CO2 [Moles/Vol] 21.2 mmol/L Low 22.0-30.0 [facility] ([place]) Comment on above: Performed By: #### G FR, ANEU, ADIFF, CBC, BMP #### [address] [address] HCO3 (Bld) [Moles/Vol] 20.2 mmol/L Low 21.0-29.0 [facility] ([place]) Comment on above: Performed By: #### G FR, ANEU, ADIFF, CBC, BMP #### [place] [id number] Oxygen (Bld) [Partial pressure] 98.0 mm[Hg] Normal 74.0-108.0 [facility] ([place]) Comment on above: Performed By: #### G FR, ANEU, ADIFF, CBC, BMP #### [place] [address] Oxygen saturation in Blood 97.6 % High 92.0-96.0 [facility] ([place]) Comment on above: Performed By: #### G FR, ANEU, ADIFF, CBC, BMP #### [address] [address] pCO2 32.7 mmHg Normal 32.0-46.0 [facility] ([place]) Comment on above: Performed By: #### G FR, ANEU, ADIFF, CBC, BMP #### [address] [address] pH (Bld) 7.408 [pH] Normal 7.380-7.460 [facility] ([place]) Comment on above: Performed By: #### G FR, ANEU, ADIFF, CBC, BMP #### [address] [address] BMPon 10-10-2020 BUN/Creatinine Ratio 11 ratio Normal 7-27 [facility] ([place]) Comment on above: Performed By: #### A DIFF, BMP, TSH, APTT, LAC, ANEU, PRO, VBGAO, CBC, TROPHS ####[address] [address]#### GFR ####[address] [address] Calcium [Mass/Vol] 9.4 mg/dL Normal 8.4-10.2 [facility] ([place]) Comment on above: Performed By: #### A DIFF, BMP, TSH, APTT, LAC, ANEU, PRO, VBGAO, CBC, TROPHS ####[place] [address]#### GFR ####[place] [address] Chloride [Moles/Vol] 102 mmol/L Normal 98-107 [facility] ([place]) Comment on above: Performed By: #### A DIFF, BMP, TSH, APTT, LAC, ANEU, PRO, VBGAO, CBC, TROPHS ####[place] [address]#### GFR ####[place] [address] CO2 [Moles/Vol] 22 mmol/L Normal 22-29 [facility] ([place]) Comment on above: Performed By: #### A DIFF, BMP, TSH, APTT, LAC, ANEU, PRO, VBGAO, CBC, TROPHS ####[place] [address]#### GFR ####[place] [address] Creatinine [Mass/Vol] 1.20 mg/dL Normal 0.70-1.30 [facility] ([place]) Comment on above: Performed By: #### A DIFF, BMP, TSH, APTT, LAC, ANEU, PRO, VBGAO, CBC, TROPHS ####[place] [address]#### GFR ####[place] [address] Electrolyte Balance 17.0 mEq/L Normal [facility] ([place]) Comment on above: Performed By: #### A DIFF, BMP, TSH, APTT, LAC, ANEU, PRO, VBGAO, CBC, TROPHS ####[place] [address]#### GFR ####[place] [address] Glucose [Mass/Vol] 126 mg/dL High 70-105 [facility] ([place]) Comment on above: Performed By: #### A DIFF, BMP, TSH, APTT, LAC, ANEU, PRO, VBGAO, CBC, TROPHS ####[place] [address]#### GFR ####[place] [address] Potassium [Moles/Vol] 3.9 mmol/L Normal 3.5-5.1 [facility] ([place]) Comment on above: Performed By: #### A DIFF, BMP, TSH, APTT, LAC, ANEU, PRO, VBGAO, CBC, TROPHS ####[place] [address]#### GFR ####[place] [address] Sodium [Moles/Vol] 141 mmol/L Normal 136-145 [facility] ([place]) Comment on above: Performed By: #### A DIFF, BMP, TSH, APTT, LAC, ANEU, PRO, VBGAO, CBC, TROPHS ####[place] [address]#### GFR ####[place] [address] Urea nitrogen [Mass/Vol] 13 mg/dL Normal 7-18 [facility] ([place]) Comment on above: Performed By: #### A DIFF, BMP, TSH, APTT, LAC, ANEU, PRO, VBGAO, CBC, TROPHS ####[place] [address]#### GFR ####[place] [address] CAIONon 10-10-2020 Calcium Ionized 1.15 mmol/L Normal 1.12-1.32 [facility] ([place]) Comment on above: Performed By: #### G FR, ANEU, ADIFF, CBC, BMP #### [address] [address] CBCon 10-10-2020 Erythrocyte distribution width (RBC) [Ratio] 13.7 % Normal 11.5-15.5 [facility] ([place]) Comment on above: Performed By: #### G FR, ANEU, ADIFF, CBC, BMP #### [place] [address] Hematocrit (Bld) [Volume fraction] 41.1 % Normal 40.0-52.0 [facility] ([place]) Comment on above: Performed By: #### G FR, ANEU, ADIFF, CBC, BMP #### [place] [address] Hgb 13.6 G/dL Normal 13.0-17.5 [facility] ([place]) Comment on above: Performed By: #### Ravin FR, ANEU, ADIFF, CBC, BMP #### [place] [address] MCH (RBC) [Entitic mass] 29.8 pg Normal 27.0-33.0 [facility] ([place]) Comment on above: Performed By: #### Ravin FR, ANEU, ADIFF, CBC, BMP #### [place] [address] MCHC 33.1 G/dL Normal 32.0-36.0 [facility] ([place]) Comment on above: Performed By: #### G FR, ANEU, ADIFF, CBC, BMP #### [place] [address] MCV (RBC) [Entitic vol] 90.0 fL Normal 81.0-100.0 [facility] ([place]) Comment on above: Performed By: #### G FR, ANEU, ADIFF, CBC, BMP #### [place] [address] Platelet 321 10 3/mcL Normal 150-450 [facility] ([place]) Comment on above: Performed By: #### G FR, ANEU, ADIFF, CBC, BMP #### [place] [address] Platelet mean volume (Bld) [Entitic vol] 7.6 fL Normal 6.4-10.5 [facility] ([place]) Comment on above: Performed By: #### G FR, ANEU, ADIFF, CBC, BMP #### [place] [address] RBC 4.57 10 6/mcL Normal 4.50-6.00 [facility] ([place]) Comment on above: Performed By: #### G FR, ANEU, ADIFF, CBC, BMP #### [place] [address] WBC 12.40 10 3/mcL High 4.50-10.80 [facility] ([place]) Comment on above: Performed By: #### G FR, ANEU, ADIFF, CBC, BMP #### [place] [address] Erythrocyte distribution width (RBC) [Ratio] 13.4 % Normal 11.5-14.5 [facility] ([place]) Comment on above: Performed By: #### A DIFF, BMP, TSH, APTT, LAC, ANEU, PRO, VBGAO, CBC, TROPHS ####[place] [address]#### GFR ####[place] [address] Hematocrit (Bld) [Volume fraction] 45.2 % Normal 42.0-52.0 [facility] ([place]) Comment on above: Performed By: #### A DIFF, BMP, TSH, APTT, LAC, ANEU, PRO, VBGAO, CBC, TROPHS ####[place] [address]#### GFR ####[place] [address] Hgb 15.6 G/dL Normal 14.0-18.0 [facility] ([place]) Comment on above: Performed By: #### A DIFF, BMP, TSH, APTT, LAC, ANEU, PRO, VBGAO, CBC, TROPHS ####[place] [address]#### GFR ####[place] [address] MCH (RBC) [Entitic mass] 30.8 pg Normal 27.0-31.2 [facility] ([place]) Comment on above: Performed By: #### A DIFF, BMP, TSH, APTT, LAC, ANEU, PRO, VBGAO, CBC, TROPHS ####[place] [address]#### GFR ####[place] [address] MCHC 34.5 G/dL Normal 31.8-35.4 [facility] ([place]) Comment on above: Performed By: #### A DIFF, BMP, TSH, APTT, LAC, ANEU, PRO, VBGAO, CBC, TROPHS ####[place] [address]#### GFR ####[place] [address] MCV (RBC) [Entitic vol] 89.3 fL Normal 80.0-94.0 [facility] ([place]) Comment on above: Performed By: #### A DIFF, BMP, TSH, APTT, LAC, ANEU, PRO, VBGAO, CBC, TROPHS ####[place] [address]#### GFR ####[place] [address] Platelet 349 10 3/mcL Normal 130-400 [facility] ([place]) Comment on above: Performed By: #### A DIFF, BMP, TSH, APTT, LAC, ANEU, PRO, VBGAO, CBC, TROPHS ####[place] [address]#### GFR ####[place] [address] Platelet mean volume (Bld) [Entitic vol] 7.6 fL Normal 7.4-10.4 [facility] ([place]) Comment on above: Performed By: #### A DIFF, BMP, TSH, APTT, LAC, ANEU, PRO, VBGAO, CBC, TROPHS ####[place] [address]#### GFR ####[address] [address] RBC 5.06 10 6/mcL Normal 4.04-6.13 [facility] ([place]) Comment on above: Performed By: #### A DIFF, BMP, TSH, APTT, LAC, ANEU, PRO, VBGAO, CBC, TROPHS ####[place] [address]#### GFR ####[place] [address] WBC 9.00 10 3/mcL Normal 4.60-10.80 [facility] ([place]) Comment on above: Performed By: #### A DIFF, BMP, TSH, APTT, LAC, ANEU, PRO, VBGAO, CBC, TROPHS ####[place] [address]#### GFR ####[place] [address] CKon 10-10-2020 CK [Catalytic activity/Vol] 176 U/L Normal 7-185 [facility] ([place]) Comment on above: Performed By: #### G FR, ANEU, ADIFF, CBC, BMP #### [place] [address] CMPon 10-10-2020 Albumin Level 3.6 G/dL Normal 3.2-4.8 [facility] ([place]) Comment on above: Performed By: #### G FR, ANEU, ADIFF, CBC, BMP #### [place] [address] Albumin/Globulin [Mass ratio] 1.0 {ratio} Normal 0.9-1.6 [facility] ([place]) Comment on above: Performed By: #### G FR, ANEU, ADIFF, CBC, BMP #### [place] [address] ALP [Catalytic activity/Vol] 60 U/L Normal 38-126 [facility] ([place]) Comment on above: Performed By: #### G FR, ANEU, ADIFF, CBC, BMP #### [address] [address] ALT [Catalytic activity/Vol] 34 U/L Normal 12-55 [facility] ([place]) Comment on above: Performed By: #### G FR, ANEU, ADIFF, CBC, BMP #### [address] [address] AST [Catalytic activity/Vol] 25 U/L Normal 8-34 [facility] ([place]) Comment on above: Performed By: #### G FR, ANEU, ADIFF, CBC, BMP #### [address] [address] Bili Total 0.3 mg/dL Normal 0.2-1.2 [facility] ([place]) Comment on above: Result Comment: Use of this assay is not recommended for patients undergoing treatment with eltrombopag due to the potential for falsely elevated results. Performed By: #### G FR, ANEU, ADIFF, CBC, BMP #### [place] [address] BUN/Creatinine Ratio 15.9 ratio Normal 10.0-22.0 [facility] ([place]) Comment on above: Performed By: #### G FR, ANEU, ADIFF, CBC, BMP #### [address] [address] Calcium [Mass/Vol] 8.1 mg/dL Low 8.4-10.1 [facility] ([place]) Comment on above: Result Comment: No te - New Reference Range in effect 20 Performed By: #### G FR, ANEU, ADIFF, CBC, BMP #### [address] [address] Chloride [Moles/Vol] 109 mmol/L Normal 98-110 [facility] ([place]) Comment on above: Performed By: #### G FR, ANEU, ADIFF, CBC, BMP #### [address] [address] CO2 [Moles/Vol] 24 mmol/L Normal 22-32 [facility] ([place]) Comment on above: Performed By: #### G FR, ANEU, ADIFF, CBC, BMP #### [address] [address] Creatinine [Mass/Vol] 0.82 mg/dL Normal 0.60-1.40 [facility] ([place]) Comment on above: Performed By: #### Ravin FR, ANEU, ADIFF, CBC, BMP #### [address] [address] Electrolyte Balance 7.0 mEq/L Normal 4.0-15.0 [facility] ([place]) Comment on above: Performed By: #### Ravin FR, ANEU, ADIFF, CBC, BMP #### [address] [address] Globulin 3.6 G/dL Normal 1.5-3.8 [facility] ([place]) Comment on above: Performed By: #### Ravin FARRELL, ANEU, ADIFF, CBC, BMP #### [address] [address] Glucose [Mass/Vol] 127 mg/dL High 70-110 [facility] ([place]) Comment on above: Performed By: #### Ravin FR, ANEU, ADIFF, CBC, BMP #### [address] [address] Potassium [Moles/Vol] 3.9 mmol/L Normal 3.5-5.0 [facility] ([place] Comment on above: Performed By: #### Ravin FR, ANEU, ADIFF, CBC, BMP #### [address] [address] Sodium [Moles/Vol] 140 mmol/L Normal 136-145 [facility] ([place]) Comment on above: Performed By: #### Ravin FR, ANEU, ADIFF, CBC, BMP #### [address] [address] Total Protein 7.2 G/dL Normal 6.0-8.5 [facility] ([place]) Comment on above: Result Comment: No te - New Reference Range in effect 20 Performed By: #### G FR, ANEU, ADIFF, CBC, BMP #### [place] [address] Urea nitrogen [Mass/Vol] 13.0 mg/dL Normal 8.0-22.0 [facility] ([place] Comment on above: Performed By: #### G FR, ANEU, ADIFF, CBC, BMP #### [place] [address] [id number] 10-10-2020 Date of Onset [id number] Invalid Interpretation Code [facility] ([place] Comment on above: Performed By: #### C OVD19 #### [place] [address] Employed in Healthcare No [facility] ([place]) Comment on above: Performed By: #### C OVD19 #### [place] [address] First Test Unknown [facility] ([place]) Comment on above: Performed By: #### C OVD19 #### [place] [address] Hospitalized Yes [facility] ([place] Comment on above: Performed By: #### C OVD19 #### [place] [address] ICU Yes [facility] ([place] Comment on above: Performed By: #### C OVD19 #### [place] [address] Not [facility] ([place] Comment on above: Performed By: #### C OVD19 #### [place] [address] Resides in Congregate Care Setting No [facility] ([place] Comment on above: Performed By: #### C OVD19 #### [place] [address] SARS-CoV-2 (COVID-19) RNA BRISA+probe Ql (Unsp spec) Negative Normal Negative [facility] ([place]) Comment on above: Performed By: #### C OVD19 #### [place] [address] SARS-CoV-2 (COVID-19) RNA BRISA+probe Ql (Unsp spec) [facility] ([place]) Comment on above: Result Comment: Nega tive results do not preclude SARS-CoV-2 infection and should not be used as the sole basis for patient management decisions. Negative results must be combined with clinical observations, patient history, and epidemiological information. There is a risk of false negative values resulting from improperly collected, transported, or handled specimens. There is a risk of false negative values due to the presence of sequence variants in the pathogen targets of the assay, procedural errors, amplification inhibitors in specimens, or inadequate numbers of organisms for amplification. MICHELLE SARS-CoV-2 Assay is a Real-Time reverse-transcriptase polymerase chain reaction (RT-PCR) based qualitative in vitro diagnostic test intended for the qualitative detection of nucleic acid from the SARS-CoV-2 in nasopharyngeal swab specimens collected from individuals suspected of COVID-19 by their healthcare provider. Testing is limited to laboratories certified under the Clinical Laboratory Improvement Amendments of 1988 (CLIA), 42 U.S.C. ?263a, to perform moderate and high complexity tests. COVID-19 Int Performed By: #### C OVD19 #### [place] [address] Symptomatic as Defined by CDC Yes [facility] ([place]) Comment on above: Performed By: #### C OVD19 #### [place] [address] CT ANGIOGRAPHY HEAD W/ CONTR Leighton 10-10-2020 CT ANGIOGRAPHY HEAD W/ CONTRAST ORIGINAL Clinical Indication: Confusion Technique: Prior to and following the intravenous bolus injection of contrast material, multiple transaxial sub mm thin section cuts were obtained through the [place]. 3-D reconstructed volume rendered and maximum intensity projection images were generated under physician supervision on an independent workstation and utilized in interpretation of this examination. 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 The intracranial vessels otherwise demonstrate normal course and caliber without evidence for stenosis, occlusion, or dissection. 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 LEFT superior parietal lobule mass. 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 Interpreted By: Cory Perez Preliminary Report By: Cory Perez Electronically Signed By: Cory Perez Dictated Date: 10/10/2020 1:48:39 PM Prelim Date: 10/10/2020 1:48:39 PM Sign Date: 10/10/2020 1:55:54 PM Ordering Provider:[facility]) CT ANGIOGRAPHY NECK W/CONTRA STon 10-10-2020 CT ANGIOGRAPHY NECK W/CONTRAST ORIGINAL Clinical Indication: Confusion Technique: Prior to and following the intravenous bolus injection of contrast material, multiple transaxial sub mm thin section cuts were obtained from the aortic arch through the skull base. 3-D reconstructed volume rendered and maximum intensity projection images were generated on an independent workstation under physician supervision and utilized in interpretation of this examination. Comparison: None available Findings: The innominate and LEFT common carotid artery share a common origin. Calcific atherosclerotic disease of the carotid Calcific atherosclerotic disease of the common carotid artery bifurcations. The common and internal/external carotid arteries are normal in course and caliber without evidence for stenosis, occlusion, dissection, or aneurysm. The vertebral arteries are normal in course and caliber without evidence for stenosis, occlusion, dissection, or aneurysm. Impression: No severe stenosis. Interpreted By: Cory Perez Preliminary Report By: Cory Perez Electronically Signed By: Cory Perez Dictated Date: 10/10/2020 1:56:10 PM Prelim Date: 10/10/2020 1:56:10 PM Sign Date: 10/10/2020 1:58:55 PM Ordering Provider:Jake [facility]) CT HEAD OR BRAIN W/O CONTRAS Ton 10-10-2020 CT HEAD OR BRAIN W/O CONTRAST ORIGINAL Clinical: Altered mental status. Weakness. Aphasia Comparison: None. Technique: Axial CT images from skull base to vertex without IV contrast. This exam was performed according to our departmental dose optimization program, and includes the following measures where applicable: automated exposure control, adjustment of the mAs and/or kVp according to patient size and/or exam, and an iterative reconstruction algorithm. Findings: Parenchyma: No acute intracranial hemorrhage. A round intra-axial hyperdense mass with central necrosis or cystic degeneration measuring 2.3 x 1.9 x 2.6 cm (AP, transverse, craniocaudal) is identified in the LEFT superior parietal lobule. Surrounding vasogenic edema extends into the LEFT pre and postcentral gyri. There is effacement of the LEFT atrium and posterior LEFT lateral ventricular body. No evidence of a midline shift. A subcentimeter hypodensity within the LEFT basal ganglia may reflect remote lacunar infarct. No evidence of an extra-axial fluid collection. Ventricles: Effacement of the LEFT atrium and posterior LEFT lateral ventricular body. No evidence of hydrocephalus. Vessels: Mild atherosclerosis of the bilateral internal carotid arteries. Orbits: Unremarkable. Calvarium: No fracture, aggressive osteolytic or osteoblastic lesion. Extracranial soft tissues: Normal. Paranasal sinuses: LEFT maxillary sinus retention cyst. Mild mucosal thickening of the RIGHT maxillary and bilateral ethmoid sinuses. Mastoid sinuses: Clear. Impression: LEFT superior parietal lobule circumscribed hyperdense mass measuring 2.3 x 1.9 x 2.6 cm with diffuse surrounding vasogenic edema. Considerations include primary AUDIO/VISUAL OPERATOR C5 versus solitary metastasis. Further evaluation with MRI is indicated. Communication of these findings was initiated by this radiologist through PACS at 1:03 PM on 10/10/2020 Interpreted By: Nita Puga MD Preliminary Report By: Nita Puga MD Electronically Signed By: Nita Puga MD Dictated Date: 10/10/2020 12:58:09 PM Prelim Date: 10/10/2020 12:58:09 PM Sign Date: 10/10/2020 1:04:39 PM Ordering Provider:Jake Montero [facility] ([place]) Bry 10-10-2020 Lactic Acid Lvl 1.4 mmol/L Normal 0.2-2.0 [facility] ([place]) Comment on above: Order Comment: Order ed secondary to Lactic Acid result greater than or equal to 2.0 Performed By: #### C OVD19 #### [address] [address] Lactic Acid Lvl 2.0 mmol/L Normal 0.2-2.0 [facility] ([place]) Comment on above: Performed By: #### G FR, ANEU, ADIFF, CBC, BMP #### [address] [address] Lactic Acid Lvl 3.4 mmol/L High 0.4-2.0 [facility] ([place]) Comment on above: Order Comment: Order ed secondary to Lactic Acid result greater than or equal to 2.0 Performed By: #### L AC ####[facility] [place], [place] [address] Lactic Acid Lvl 22.1 mmol/L High 0.4-2.0 [facility] ([place]) Comment on above: Performed By: #### A DIFF, BMP, TSH, APTT, LAC, ANEU, PRO, VBGAO, CBC, TROPHS ####[address] [address]#### GFR ####[facility] [place] [address] LIPIDon 10-10-2020 Cholesterol [Mass/Vol] 169 mg/dL Normal 50-199 [facility] ([place]) Comment on above: Result Comment: Chol esterol Reference Interval: Less than 200 Desirable 200-239 Borderline high risk 240 and above High risk Performed By: #### G FR, ANEU, ADIFF, CBC, BMP #### [address] [address] Cholesterol in HDL [Mass/Vol] 41 mg/dL Normal 40-59 [facility] ([place]) Comment on above: Performed By: #### G FR, ANEU, ADIFF, CBC, BMP #### [address] [address] Cholesterol in LDL [Mass/Vol] 112 mg/dL Normal 0-129 [facility] ([place]) Comment on above: Performed By: #### G FR, ANEU, ADIFF, CBC, BMP #### [address] [address] Triglyceride [Mass/Vol] 79 mg/dL Normal 3-149 A [facility] ([place]) Comment on above: Performed By: #### G FR, ANEU, ADIFF, CBC, BMP #### [address] [address] MGon 10-10-2020 Magnesium [Mass/Vol] 2.5 mg/dL High 1.6-2.4 [facility] ([place]) Comment on above: Performed By: #### G FR, ANEU, ADIFF, CBC, BMP #### [place] [address] PHOSon 10-10-2020 Phosphate [Mass/Vol] 2.1 mg/dL Low 2.5-4.5 [facility] ([place]) Comment on above: Result Comment: No te - New Reference Range in effect 20 Performed By: #### G FR, ANEU, ADIFF, CBC, BMP #### [place] [address] PROon 10-10-2020 INR Coag (PPP) [Relative time] 1.0 {INR} Normal 0.9-1.2 [facility] ([place] Comment on above: Result Comment: Ko dard Dose 2.0 - 3.0 High Dose 2.5 - 3.5 The recommended therapeutic range for oral anticoagulant therapy is: LOW RISK: Prophylaxis of venous thrombosis INR: 2.0 - 3.0 Treatment of pulmonary embolism 2.0 - 3.0 Prevention of systemic embolism 2.0 - 3.0 HIGH RISK: Mechanical prosthetic valves 2.5 - 3.5 Performed By: #### A DIFF, BMP, TSH, APTT, LAC, ANEU, PRO, VBGAO, CBC, TROPHS ####[place] [address]#### GFR ####[place] [address] PT Coag (PPP) [Time] 11.8 s Normal 9.7-14.7 [facility] ([place]) Comment on above: Performed By: #### A DIFF, BMP, TSH, APTT, LAC, ANEU, PRO, VBGAO, CBC, TROPHS ####[place] [address]#### GFR ####[place] [address] TROPHSon 10-10-2020 Troponin I High Sensitivity 55.68 ng/L High 0.00-54.00 [facility] ([place] Comment on above: Performed By: #### G FR, ANEU, ADIFF, CBC, BMP #### [place] [address] Troponin I High Sensitivity 6.4 ng/L Normal 0.0-76.2 [facility] ([place]) Comment on above: Performed By: #### A DIFF, BMP, TSH, APTT, LAC, ANEU, PRO, VBGAO, CBC, TROPHS ####[address] [address]#### GFR ####[place] [address] TSHon 10-10-2020 TSH Qn 2.31 m[IU]/L Normal 0.36-3.74 [facility] ([place]) Comment on above: Performed By: #### A DIFF, BMP, TSH, APTT, LAC, ANEU, PRO, VBGAO, CBC, TROPHS ####[place] [address]#### GFR ####[place] [address] UAon 10-10-2020 Color (U) Yellow Normal [facility] ([place]) Comment on above: Performed By: #### U A ####[place] [address] Glucose (U) [Mass/Vol] Negative Normal Negative [facility] ([place]) Comment on above: Performed By: #### U A ####[place] [address] Ketones Ql (U) Negative Normal Neg-Trace [facility] ([place] Comment on above: Performed By: #### U A ####[place] [address] UA Appear Clear Normal Clear [facility] ([place] Comment on above: Performed By: #### U A ####[place] [address] UA Blood Negative Normal Neg-Trace [facility] ([place] Comment on above: Performed By: #### U A ####[address] [address] UA Leuk Est Negative Normal Negative [facility] ([place] Comment on above: Performed By: #### U A ####[place] [address] UA Nitrite Negative Normal Negative [facility] ([place] Comment on above: Performed By: #### U A ####[place] [address] UA pH 5.5 Normal 5.0 - 8.0 [facility] ([place] Comment on above: Performed By: #### U A ####[place] [address] UA Protein Negative Normal Negative [facility] ([place] Comment on above: Performed By: #### U A ####[place] [address] UA Spec Grav >=1.030 Abnormal 1.006-1.029 [facility] ([place] Comment on above: Performed By: #### U A ####[place] [address] UA Specimen Type Clean Catch Normal [facility] ([place] Comment on above: Performed By: #### U A ####[place] [address] UA Urobilinogen 0.2 E.U./dL Normal 0.2-1.0 [facility] ([place] Comment on above: Performed By: #### U A ####[place] [address] Urobilinogen (U) [Mass/Vol] Negative Normal Neg-Trace [facility] ([place] Comment on above: Performed By: #### U A ####[place] [address] VBGAOon 10-10-2020 BE Venous -4 mmol/L Low -2-3 [facility] ([place] Comment on above: Performed By: #### A DIFF, BMP, TSH, APTT, LAC, ANEU, PRO, VBGAO, CBC, TROPHS ####[place] [address] [address]#### GFR ####[place] [address] CO2 [Moles/Vol] 64 mmol/L Normal 24.0-29.0 [facility] ([place] Comment on above: Performed By: #### A DIFF, BMP, TSH, APTT, LAC, ANEU, PRO, VBGAO, CBC, TROPHS ####[place] [address]#### GFR ####[place] [address] HCO3 (Bld) [Moles/Vol] 21.1 mmol/L Low 23.0-28.0 A [facility] ([place] Comment on above: Performed By: #### A DIFF, BMP, TSH, APTT, LAC, ANEU, PRO, VBGAO, CBC, TROPHS ####[place] [address]#### GFR ####[place] [address] pCO2 Abrahan 35 mmHg Low 41-51 [facility] ([place]) Comment on above: Performed By: #### A DIFF, BMP, TSH, APTT, LAC, ANEU, PRO, VBGAO, CBC, TROPHS ####[place] [address]#### GFR ####[place] [address] pH Venous 7.39 Normal 7.31-7.41 [facility] ([place]) Comment on above: Performed By: #### A DIFF, BMP, TSH, APTT, LAC, ANEU, PRO, VBGAO, CBC, TROPHS ####[place] [address]#### GFR ####[place] [address] pO2 Abrahan 33 mmHg Normal [facility] ([place]) Comment on above: Performed By: #### A DIFF, BMP, TSH, APTT, LAC, ANEU, PRO, VBGAO, CBC, TROPHS ####[place] [address] [place], [place] [address]#### GFR ####[facility] [place] [id number] XR CHEST 1 VIEWon 10-10-2020 XR CHEST 1 VIEW ORIGINAL Chest x-ray 12/05/2017 XR CHEST 1 VIEW Clinical Statement: Chest pain, shortness of breath. Comparison: CR chest 12/05/2017 FINDINGS: Cardiomediastinal silhouette is mildly prominent and may be magnified. Low lung volumes with pulmonary vessel crowding and accentuation of the pulmonary vessels is demonstrated. Suspected mild central pulmonary fracture congestion without overt nidhi pulmonary edema. No consolidation or large pleural effusion. No acute osseous abnormalities. IMPRESSION: Mild central pulmonary pulmonary vascular congestion without overt pulmonary edema. I have personally reviewed the images of this examination and agree with the resident's findings and interpretation. Interpreted By: Nita Puga MD Preliminary Report By: Pankaj Rivera Electronically Signed By: Nita Puga MD Dictated Date: 10/10/2020 2:12:27 PM Prelim Date: 10/10/2020 2:14:43 PM Sign Date: 10/10/2020 2:20:00 PM Ordering Provider:Jake Dunn [facility] ([place]) No Panel Informationon 05-13 Prostate Specific Antigen Screen 0.65 ng/mL 0.00-4.[address] [facility] Work Phone: Comment on above: This test was perfor med using the TPSA assay method for theXMLAW chemistry system. Values obtained with differentassay methods cannot be used interchangably.When changing PSA assays in the course of monitoring apatient, additional sequential testing should be carriedout to confirm baseline values. Pathologist review Tanner (Unsp spec) [Interp]on 03-20-2019 Differential Pathologist's Review Reviewed [facility] Comment on above: Previous reported re sult: Mirna everett Edited by: [email or web address] on 03/21/19:1304Leukocytosis. Clinical correlation necessary.Levy Oshea M.D. 03/21/19 AMENDED REPORT 03/21/19 1304 PATH REV previously reported as: Mirna everett Review by pathologiston 03-11 Pathologist review Tanner (Unsp spec) [Interp] Reviewed [facility] Comment on above: Previous reported re sult: Mirna everett Edited by: RGOOD on 03/21/19:1304Leukocytosis. Clinical correlation necessary.Levy Oshea M.D. 03/21/19 AMENDED REPORT 03/21/19 1304 PATH REV previously reported as: Mirna everett Blood platelet adequacy dete ction by light microscopyon 03-13-2019 Platelets LM Ql (Bld) ADEQUATE ADEQ [facility] Platelets LM Ql (Bld)on Platelet Estimate ADEQUATE ADEQ [facility] RBC morphologyon 03-13-2019 RBC morphology finding Nom (Bld) NORM C+C NORMAL NORM C&C [facility] RBC morphology finding Nom ( Bld)on 03-13-2019 Red Blood Cell Morphology NORM C+C NORMAL NORM C&C [facility] No Panel Informationon 02-21 Atypical Lymphocytes RARE % [facility] Differential Comment SCANNED [facility] Vital Signs Date Time Vital Sign Value Performing Clinician Facility 02-04-2025 14:56-0400 Body height 172.[address] Jim Perez DO Work Phone: [facility] 02-04-2025 14:56-0400 Body mass index (BMI) [Ratio] 27.2 kg/m2 Dr. Jim Perez DO Work Phone: [facility] 02-04-2025 14:56-0400 Body weight 81.[address] Jim Perez DO Work Phone: [facility] 02-04-2025 14:56-0400 Diastolic blood pressure 76 mm[Hg] Dr. Jim Perez DO Work Phone: [facility] 02-04-2025 14:56-0400 Heart rate 56 /min Dr. Jim Perez DO Work Phone: [facility] 02-04-2025 14:56-0400 Respiratory rate 16 /min Dr. Jim Perez DO Work Phone: [facility] 02-04-2025 14:56-0400 SaO2% (BldA) [Mass fraction] 97 % Dr. Jim Perez DO Work Phone: [facility] 02-04-2025 14:56-0400 Systolic blood pressure 136 mm[Hg] Dr. Jim Perez DO Work Phone: [facility] 11-01-2024 11:21-0400 Body height 172.[address] Jim Perez DO Work Phone: [facility] 11-01-2024 11:19-0400 Body mass index (BMI) [Ratio] 28.1 kg/m2 Dr. Jim Perez DO Work Phone: [facility] 11-01-2024 11:19-0400 Body temperature 97.9 [degF] Dr. Jim Perez DO Work Phone: [facility] 11-01-2024 11:19-0400 Body weight 83.[address] Jim Perez DO Work Phone: [facility] 11-01-2024 11:19-0400 Diastolic blood pressure 70 mm[Hg] Dr. Jim Perez DO Work Phone: [facility] 11-01-2024 11:19-0400 Heart rate 64 /min Dr. Jim Perez DO Work Phone: [facility] 11-01-2024 11:19-0400 Respiratory rate 18 /min Dr. Jim Perez DO Work Phone: [facility] 11-01-2024 11:19-0400 SaO2% (BldA) [Mass fraction] 97 % Dr. Jim Perez DO Work Phone: [facility] 11-01-2024 11:19-0400 Systolic blood pressure 107 mm[Hg] Dr. Jim Perez DO Work Phone: [facility] 11-01-2024 11:00-0400 Body mass index (BMI) [Ratio] 28.1 kg/m2 Dr. Jim Perez DO Work Phone: [facility] 11-01-2024 11:00-0400 Body temperature 97.9 [degF] Dr. Jim Perez DO Work Phone: [facility] 11-01-2024 11:00-0400 Body weight 83.[address] Jim Perez DO Work Phone: [facility] 11-01-2024 11:00-0400 Diastolic blood pressure 70 mm[Hg] Dr. Jim Perez DO Work Phone: [facility] 11-01-2024 11:00-0400 Heart rate 64 /min Dr. Jim Perez DO Work Phone: [facility] 11-01-2024 11:00-0400 Respiratory rate 18 /min Dr. Jim Perez DO Work Phone: [facility] 11-01-2024 11:00-0400 SaO2% (BldA) [Mass fraction] 97 % Dr. Jim Perez DO Work Phone: [facility] 11-01-2024 11:00-0400 Systolic blood pressure 107 mm[Hg] Dr. Jim Perez DO Work Phone: [facility] 03-20-2024 08:19-0400 Blood Pressure Location RENÉ WOLF MD [facility] 03-20-2024 08:19-0400 Blood Pressure Method RENÉ WOLF MD [facility] 03-20-2024 08:19-0400 Diastolic Blood Pressure Non-Invasive 82 mm[Hg] RENÉ WOLF MD [facility] 03-20-2024 08:19-0400 Heart rate 70 /min RENÉ WOLF MD [facility] 03-20-2024 08:19-0400 Respiratory rate 16 /min RENÉ WOLF MD [facility] 03-20-2024 08:19-0400 Systolic Blood Pressure Non-Invasive 136 mm[Hg] RENÉ WOLF MD [facility] 03-20-2024 06:58-0400 Body temperature 97.52 [degF] RENÉ WOLF MD [facility] 03-20-2024 06:58-0400 Diastolic Blood Pressure Non-Invasive 79 mm[Hg] RENÉ WOLF MD [facility] 03-20-2024 06:58-0400 Heart rate 67 /min RENÉ WOLF MD [facility] 03-20-2024 06:58-0400 Respiratory rate 16 /min RENÉ WOLF MD [facility] 03-20-2024 06:58-0400 Systolic Blood Pressure Non-Invasive 144 mm[Hg] RENÉ WOLF MD [facility] 10-31-2023 11:26-0400 Body height 172.[address] Jim Perez Work Phone: [facility] 10-31-2023 11:26-0400 Body mass index (BMI) [Ratio] 28.9 kg/m2 Dr. Jim Perez Work Phone: [facility] 10-31-2023 11:26-0400 Body temperature 97.5 [degF] Dr. Jim Perez Work Phone: [facility] 10-31-2023 11:26-0400 Body weight 86.[address] Jim Perez Work Phone: [facility] 10-31-2023 11:26-0400 Diastolic blood pressure 83 mm[Hg] Dr. Jim Perez Work Phone: [facility] 10-31-2023 11:26-0400 Heart rate 56 /min Dr. Jim Perez Work Phone: [facility] 10-31-2023 11:26-0400 Respiratory rate 16 /min Dr. Jim Perez Work Phone: [facility] 10-31-2023 11:26-0400 SaO2% (BldA) [Mass fraction] 96 % Dr. Jim Perez Work Phone: [facility] 10-31-2023 11:26-0400 Systolic blood pressure 147 mm[Hg] Dr. Jim Perez Work Phone: [facility] 10-31-2023 11:14-0400 Body mass index (BMI) [Ratio] 28.9 kg/m2 Dr. Jim Perez Work Phone: [facility] 10-31-2023 11:14-0400 Body temperature 97.5 [degF] Dr. Jim Perez Work Phone: [facility] 10-31-2023 11:14-0400 Body weight 86.[address] Jim Perez Work Phone: [facility] 10-31-2023 11:14-0400 Diastolic blood pressure 83 mm[Hg] Dr. Jim Perez Work Phone: [facility] 10-31-2023 11:14-0400 Heart rate 56 /min Dr. Jim Perez Work Phone: [facility] 10-31-2023 11:14-0400 Respiratory rate 16 /min Dr. Jim Perez Work Phone: [facility] 10-31-2023 11:14-0400 SaO2% (BldA) [Mass fraction] 96 % Dr. Jim Perez Work Phone: [facility] 10-31-2023 11:14-0400 Systolic blood pressure 147 mm[Hg] Dr. Jim Perez Work Phone: [facility] 10-27-2023 13:26-0400 Body height 172.[address] Jim Perez Work Phone: [facility] 10-27-2023 13:26-0400 Body mass index (BMI) [Ratio] 29.2 kg/m2 Dr. Jim Perez Work Phone: [facility] 10-27-2023 13:26-0400 Body temperature 98.2 [degF] Dr. Jim Perez Work Phone: [facility] 10-27-2023 13:26-0400 Body weight 87.[address] Jim Perez Work Phone: [facility] 10-27-2023 13:26-0400 Diastolic blood pressure 70 mm[Hg] Dr. Jim Perez Work Phone: [facility] 10-27-2023 13:26-0400 Heart rate 55 /min Dr. Jim Perez Work Phone: [facility] 10-27-2023 13:26-0400 Respiratory rate 17 /min Dr. Jim Perez Work Phone: [facility] 10-27-2023 13:26-0400 SaO2% (BldA) [Mass fraction] 97 % Dr. Jim Perez Work Phone: [facility] 10-27-2023 13:26-0400 Systolic blood pressure 130 mm[Hg] Dr. Jim Perez Work Phone: [facility] 09-08-2023 13:25-0500 Body mass index (BMI) [Ratio] 29.2 kg/m2 Dr. Jim Perez Work Phone: [facility] 09-08-2023 13:25-0500 Body temperature 98.2 [degF] Dr. Jim Perez Work Phone: [facility] 09-08-2023 13:25-0500 Body weight 87.[address] Jim Perez Work Phone: [facility] 09-08-2023 13:25-0500 Diastolic blood pressure 72 mm[Hg] Dr. Jim Preez Work Phone: [facility] 09-08-2023 13:25-0500 Heart rate 61 /min Dr. Jim Perez Work Phone: [facility] 09-08-2023 13:25-0500 Respiratory rate 17 /min Dr. Jim Perez Work Phone: [facility] 09-08-2023 13:25-0500 SaO2% (BldA) [Mass fraction] 98 % Dr. Jim Perez Work Phone: [facility] 09-08-2023 13:25-0500 Systolic blood pressure 120 mm[Hg] Dr. Jim Perez Work Phone: [facility] 08-09-2023 12:52-0500 Body mass index (BMI) [Ratio] 29.2 kg/m2 Dr. Jim Perez Work Phone: [facility] 08-09-2023 12:52-0500 Body temperature 97 [degF] Dr. Jim Perez Work Phone: [facility] 08-09-2023 12:52-0500 Body weight 87.[address] Jim Perez Work Phone: [facility] 08-09-2023 12:52-0500 Diastolic blood pressure 62 mm[Hg] Dr. Jim Perez Work Phone: [facility] 08-09-2023 12:52-0500 Heart rate 64 /min Dr. Jim Perez Work Phone: [facility] 08-09-2023 12:52-0500 Respiratory rate 16 /min Dr. Jim Perez Work Phone: [facility] 08-09-2023 12:52-0500 SaO2% (BldA) [Mass fraction] 99 % Dr. Jim Perez Work Phone: [facility] 08-09-2023 12:52-0500 Systolic blood pressure 126 mm[Hg] Dr. Jim Perez Work Phone: [facility] 08-08-2023 07:49-0500 Body mass index (BMI) [Ratio] 29.2 kg/m2 Dr. Jim Perez Work Phone: [facility] 08-08-2023 07:49-0500 Body temperature 98.4 [degF] Dr. Jim Perez Work Phone: [facility] 08-08-2023 07:49-0500 Body weight 87.[address] Jim Perez Work Phone: [facility] 08-08-2023 07:49-0500 Diastolic blood pressure 70 mm[Hg] Dr. Jim Perez Work Phone: [facility] 08-08-2023 07:49-0500 Heart rate 61 /min Dr. Jim Perez Work Phone: [facility] 08-08-2023 07:49-0500 Respiratory rate 17 /min Dr. Jim Perez Work Phone: [facility] 08-08-2023 07:49-0500 SaO2% (BldA) [Mass fraction] 98 % Dr. Jim Perez Work Phone: [facility] 08-08-2023 07:49-0500 Systolic blood pressure 114 mm[Hg] Dr. Jim Perez Work Phone: [facility] 05-02-2023 15:16-0400 Body height 172.[address] Jim Perez Work Phone: [facility] 05-02-2023 15:16-0400 Body mass index (BMI) [Ratio] 29.2 kg/m2 Dr. Jim Perez Work Phone: [facility] 05-02-2023 15:16-0400 Body temperature 97.9 [degF] Dr. Jmi Perez Work Phone: [facility] 05-02-2023 15:16-0400 Body weight 87.[address] Jim Perez Work Phone: [facility] 05-02-2023 15:16-0400 Diastolic blood pressure 76 mm[Hg] Dr. Jim Perez Work Phone: [facility] 05-02-2023 15:16-0400 Heart rate 62 /min Dr. Jim Perez Work Phone: [facility] 05-02-2023 15:16-0400 Respiratory rate 16 /min Dr. Jim Perez Work Phone: [facility] 05-02-2023 15:16-0400 SaO2% (BldA) [Mass fraction] 97 % Dr. Jim Perez Work Phone: [facility] 05-02-2023 15:16-0400 Systolic blood pressure 149 mm[Hg] Dr. Jim Perez Work Phone: [facility] 03-28-2023 15:02-0400 Body mass index (BMI) [Ratio] 29.4 kg/m2 Dr. Jim Perez Work Phone: [facility] 03-28-2023 15:02-0400 Body temperature 98.2 [degF] Dr. Jim Perez Work Phone: [facility] 03-28-2023 15:02-0400 Body weight 87.[address] Jim Perez Work Phone: [facility] 03-28-2023 15:02-0400 Diastolic blood pressure 70 mm[Hg] Dr. Jim Perez Work Phone: [facility] 03-28-2023 15:02-0400 Heart rate 69 /min Dr. Jim Perez Work Phone: [facility] 03-28-2023 15:02-0400 Respiratory rate 16 /min Dr. Jim Perez Work Phone: [facility] 03-28-2023 15:02-0400 SaO2% (BldA) [Mass fraction] 98 % Dr. Jim Perez Work Phone: [facility] 03-28-2023 15:02-0400 Systolic blood pressure 138 mm[Hg] Dr. Jim Perez Work Phone: [facility] 02-28-2023 15:07-0400 Body height 172.[address] Jim Perez Work Phone: [facility] 02-28-2023 15:07-0400 Body mass index (BMI) [Ratio] 28.6 kg/m2 Dr. Jim Perez Work Phone: [facility] 02-28-2023 15:07-0400 Body temperature 97.9 [degF] Dr. Jim Perez Work Phone: [facility] 02-28-2023 15:07-0400 Body weight 85.[address] Jim Perez Work Phone: [facility] 02-28-2023 15:07-0400 Diastolic blood pressure 84 mm[Hg] Dr. Jim Perez Work Phone: [facility] 02-28-2023 15:07-0400 Heart rate 62 /min Dr. Jim Perez Work Phone: [facility] 02-28-2023 15:07-0400 Respiratory rate 16 /min Dr. Jim Perez Work Phone: [facility] 02-28-2023 15:07-0400 SaO2% (BldA) [Mass fraction] 94 % Dr. Jim Perez Work Phone: [facility] 02-28-2023 15:07-0400 Systolic blood pressure 154 mm[Hg] Dr. Jim Perez Work Phone: [facility] 01-24-2023 13:27-0400 Diastolic blood pressure 69 mm[Hg] Dr. Jim Perez Work Phone: [facility] 01-24-2023 13:27-0400 Heart rate 52 /min Dr. Jim Perez Work Phone: [facility] 01-24-2023 13:27-0400 Respiratory rate 16 /min Dr. Jim Perez Work Phone: [facility] 01-24-2023 13:27-0400 SaO2% (BldA) [Mass fraction] 98 % Dr. Jim Perez Work Phone: [facility] 01-24-2023 13:27-0400 Systolic blood pressure 153 mm[Hg] Dr. Jim Perez Work Phone: [facility] 01-24-2023 10:41-0400 Body height 172.[address] Jim Perez Work Phone: [facility] 01-24-2023 10:41-0400 Body mass index (BMI) [Ratio] 28.5 kg/m2 Dr. Jim Perez Work Phone: [facility] 01-24-2023 10:41-0400 Body temperature 97.8 [degF] Dr. Jim Perez Work Phone: [facility] 01-24-2023 10:41-0400 Body weight 85.[address] Jim Perez Work Phone: [facility] 01-19-2023 16:03-0400 Body mass index (BMI) [Ratio] 28.5 kg/m2 Dr. Jim Perez Work Phone: [facility] 01-19-2023 16:03-0400 Body temperature 98.2 [degF] Dr. Jim Perez Work Phone: [facility] 01-19-2023 16:03-0400 Body weight 85.[address] Jim Perez Work Phone: [facility] 01-19-2023 16:03-0400 Diastolic blood pressure 80 mm[Hg] Dr. Jim Perez Work Phone: [facility] 01-19-2023 16:03-0400 Heart rate 63 /min Dr. Jim Perez Work Phone: [facility] 01-19-2023 16:03-0400 Respiratory rate 16 /min Dr. Jim Perez Work Phone: [facility] 01-19-2023 16:03-0400 SaO2% (BldA) [Mass fraction] 97 % Dr. Jim Perez Work Phone: [facility] 01-19-2023 16:03-0400 Systolic blood pressure 148 mm[Hg] Dr. Jim Perez Work Phone: [facility] 11-29-2022 08:54-0400 Body height 172.[address] Jim Perez Work Phone: [facility] 11-29-2022 08:54-0400 Body mass index (BMI) [Ratio] 28.5 kg/m2 Dr. Jim Perez Work Phone: [facility] 11-29-2022 08:54-0400 Body temperature 98.2 [degF] Dr. Jim Perez Work Phone: [facility] 11-29-2022 08:54-0400 Body weight 85.[address] Jim Perez Work Phone: [facility] 11-29-2022 08:54-0400 Diastolic blood pressure 70 mm[Hg] Dr. Jim Perez Work Phone: [facility] 11-29-2022 08:54-0400 Heart rate 61 /min Dr. Jim Perez Work Phone: [facility] 11-29-2022 08:54-0400 Respiratory rate 16 /min Dr. Jim Perez Work Phone: [facility] 11-29-2022 08:54-0400 SaO2% (BldA) [Mass fraction] 99 % Dr. Jim Perez Work Phone: [facility] 11-29-2022 08:54-0400 Systolic blood pressure 110 mm[Hg] Dr. Jim Perez Work Phone: [facility] 11-23-2022 15:46-0400 Body mass index (BMI) [Ratio] 27.7 kg/m2 Dr. Jim Perez Work Phone: [facility] 11-23-2022 15:46-0400 Body temperature 96.6 [degF] Dr. Jim Perez Work Phone: [facility] 11-23-2022 15:46-0400 Body weight 82.[address] Jim Perez Work Phone: [facility] 11-23-2022 15:46-0400 Diastolic blood pressure 82 mm[Hg] Dr. Jim Perez Work Phone: [facility] 11-23-2022 15:46-0400 Heart rate 64 /min Dr. Jim Perez Work Phone: [facility] 11-23-2022 15:46-0400 Respiratory rate 18 /min Dr. Jim Perez Work Phone: [facility] 11-23-2022 15:46-0400 SaO2% (BldA) [Mass fraction] 98 % Dr. Jim Perez Work Phone: [facility] 11-23-2022 15:46-0400 Systolic blood pressure 136 mm[Hg] Dr. Jim Perez Work Phone: [facility] 11-04-2022 10:00-0400 Body mass index (BMI) [Ratio] 28.7 kg/m2 Dr. Jim Perez Work Phone: [facility] 11-04-2022 10:00-0400 Body temperature 97.2 [degF] Dr. Jim Perez Work Phone: [facility] 11-04-2022 10:00-0400 Body weight 85.[address] Jim Perez Work Phone: [facility] 11-04-2022 10:00-0400 Diastolic blood pressure 78 mm[Hg] Dr. Jim Perez Work Phone: [facility] 11-04-2022 10:00-0400 Heart rate 63 /min Dr. Jim Perez Work Phone: [facility] 11-04-2022 10:00-0400 Respiratory rate 14 /min Dr. Jim Perez Work Phone: [facility] 11-04-2022 10:00-0400 SaO2% (BldA) [Mass fraction] 99 % Dr. Jim Perez Work Phone: [facility] 11-04-2022 10:00-0400 Systolic blood pressure 120 mm[Hg] Dr. Jim Perez Work Phone: [facility] 11-01-2022 15:56-0400 Body height 172.[address] Jim Perez Work Phone: [facility] 11-01-2022 15:52-0400 Body mass index (BMI) [Ratio] 28.8 kg/m2 Dr. Jim Perez Work Phone: [facility] 11-01-2022 15:52-0400 Body temperature 97.1 [degF] Dr. Jim Perez Work Phone: [facility] 11-01-2022 15:52-0400 Body weight 85.[address] Jim Perez Work Phone: [facility] 11-01-2022 15:52-0400 Diastolic blood pressure 79 mm[Hg] Dr. Jim Perez Work Phone: [facility] 11-01-2022 15:52-0400 Heart rate 64 /min Dr. Jim Perez Work Phone: [facility] 11-01-2022 15:52-0400 Respiratory rate 16 /min Dr. Jim Perez Work Phone: [facility] 11-01-2022 15:52-0400 SaO2% (BldA) [Mass fraction] 96 % Dr. Jim Perez Work Phone: [facility] 11-01-2022 15:52-0400 Systolic blood pressure 135 mm[Hg] Dr. Jim Perez Work Phone: [facility] 07-30-2022 08:47-0500 Body height 172.[address] Jim Perez Work Phone: [facility] 07-30-2022 08:47-0500 Body mass index (BMI) [Ratio] 29.5 kg/m2 Dr. Jim Perez Work Phone: [facility] 07-30-2022 08:47-0500 Body temperature 98.4 [degF] Dr. Jim Perez Work Phone: [facility] 07-30-2022 08:47-0500 Body weight 88.[address] Jim Perez Work Phone: [facility] 07-30-2022 08:47-0500 Diastolic blood pressure 76 mm[Hg] Dr. Jim Perez Work Phone: [facility] 07-30-2022 08:47-0500 Heart rate 68 /min Dr. Jim Perez Work Phone: [facility] 07-30-2022 08:47-0500 Respiratory rate 16 /min Dr. Jim Perez Work Phone: [facility] 07-30-2022 08:47-0500 SaO2% (BldA) [Mass fraction] 98 % Dr. Jim Perez Work Phone: [facility] 07-30-2022 08:47-0500 Systolic blood pressure 117 mm[Hg] Dr. Jim Perez Work Phone: [facility] 07-29-2022 15:07-0500 Body mass index (BMI) [Ratio] 28.9 kg/m2 Dr. Jim Perez Work Phone: [facility] 07-29-2022 15:07-0500 Body temperature 97.8 [degF] Dr. Jim Perez Work Phone: [facility] 07-29-2022 15:07-0500 Body weight 86.[address] Jim Perez Work Phone: [facility] 07-29-2022 15:07-0500 Diastolic blood pressure 77 mm[Hg] Dr. Jim Perez Work Phone: [facility] 07-29-2022 15:07-0500 Heart rate 73 /min Dr. Jim Perez Work Phone: [facility] 07-29-2022 15:07-0500 Respiratory rate 18 /min Dr. Jim Perez Work Phone: [facility] 07-29-2022 15:07-0500 SaO2% (BldA) [Mass fraction] 95 % Dr. Jim Perez Work Phone: [facility] 07-29-2022 15:07-0500 Systolic blood pressure 130 mm[Hg] Dr. Jim Perez Work Phone: [facility] 07-20-2022 14:57-0500 Body height 172.[address] Jim Perez Work Phone: [facility] 07-20-2022 14:51-0500 Body mass index (BMI) [Ratio] 29 kg/m2 Dr. Jim Perez Work Phone: [facility] 07-20-2022 14:51-0500 Body weight 86.[address] Jim Perez Work Phone: [facility] 07-20-2022 14:51-0500 Diastolic blood pressure 74 mm[Hg] Dr. Jim Perez Work Phone: [facility] 07-20-2022 14:51-0500 Heart rate 66 /min Dr. Jim Perez Work Phone: [facility] 07-20-2022 14:51-0500 Respiratory rate 18 /min Dr. Jim Perez Work Phone: [facility] 07-20-2022 14:51-0500 SaO2% (BldA) [Mass fraction] 97 % Dr. Jim Perez Work Phone: [facility] 07-20-2022 14:51-0500 Systolic blood pressure 119 mm[Hg] Dr. Jim Perez Work Phone: [facility] 07-13-2022 16:22-0500 Body temperature 94.7 [degF] Dr. Jim Perez Work Phone: [facility] 07-13-2022 16:22-0500 Body weight 85.[address] Jim Perez Work Phone: [facility] 07-13-2022 16:22-0500 Diastolic blood pressure 64 mm[Hg] Dr. Jim Perez Work Phone: [facility] 07-13-2022 16:22-0500 Heart rate 76 /min Dr. Jim Perez Work Phone: [facility] 07-13-2022 16:22-0500 Respiratory rate 18 /min Dr. Jim Perez Work Phone: [facility] 07-13-2022 16:22-0500 SaO2% (BldA) [Mass fraction] 98 % Dr. Jim Perez Work Phone: [facility] 07-13-2022 16:22-0500 Systolic blood pressure 124 mm[Hg] Dr. Jim Perez Work Phone: [facility] 06-23-2022 14:21-0500 Body height 172.[address] Jim Perez Work Phone: [facility] Work Phone: 06-23-2022 14:21-0500 Body mass index (BMI) [Ratio] 29.6 kg/m2 Dr. Jim Perez Work Phone: [facility] 06-23-2022 14:21-0500 Body temperature 96 [degF] Dr. Jim Perez Work Phone: [facility] 06-23-2022 14:21-0500 Body weight 88.[address] Jim Perez Work Phone: [facility] 06-23-2022 14:21-0500 Diastolic blood pressure 72 mm[Hg] Dr. Jim Perez Work Phone: [facility] 06-23-2022 14:21-0500 Heart rate 75 /min Dr. Jim Perez Work Phone: [facility] 06-23-2022 14:21-0500 Respiratory rate 16 /min Dr. Jim Perez Work Phone: [facility] 06-23-2022 14:21-0500 SaO2% (BldA) [Mass fraction] 96 % Dr. Jim Perez Work Phone: [facility] 06-23-2022 14:21-0500 Systolic blood pressure 108 mm[Hg] Dr. Jim Perez Work Phone: [facility] 04-08-2022 14:53-0400 Body height 172.[address] Jim Perez Work Phone: [facility] Work Phone: 04-08-2022 14:42-0400 Body mass index (BMI) [Ratio] 29.5 kg/m2 Dr. Jim Perez Work Phone: [facility] 04-08-2022 14:42-0400 Body temperature 98.6 [degF] Dr. Jim Perez Work Phone: [facility] 04-08-2022 14:42-0400 Body weight 88.[address] Jim Perez Work Phone: [facility] 04-08-2022 14:42-0400 Diastolic blood pressure 83 mm[Hg] Dr. Jim Perez Work Phone: [facility] 04-08-2022 14:42-0400 Heart rate 61 /min Dr. Jim Perez Work Phone: [facility] 04-08-2022 14:42-0400 Respiratory rate 15 /min Dr. Jim Perez Work Phone: [facility] 04-08-2022 14:42-0400 SaO2% (BldA) [Mass fraction] 97 % Dr. Jim Perez Work Phone: [facility] 04-08-2022 14:42-0400 Systolic blood pressure 142 mm[Hg] Dr. Jim Perez Work Phone: [facility] 03-22-2022 15:28-0400 Body height 172.[address] Jim Perez Work Phone: [facility] Work Phone: 03-22-2022 15:28-0400 Body mass index (BMI) [Ratio] 29.4 kg/m2 Dr. Jim Perez Work Phone: [facility] Work Phone: 03-22-2022 15:28-0400 Body temperature 97.4 [degF] Dr. Jim Perez Work Phone: [facility] Work Phone: 03-22-2022 15:28-0400 Body weight 87.[address] Jim Perez Work Phone: [facility] Work Phone: 03-22-2022 15:28-0400 Diastolic blood pressure 70 mm[Hg] Dr. Jim Perez Work Phone: [facility] Work Phone: 03-22-2022 15:28-0400 Heart rate 68 /min Dr. Jim Perez Work Phone: [facility] Work Phone: 03-22-2022 15:28-0400 Respiratory rate 16 /min Dr. Jim Perez Work Phone: [facility] Work Phone: 03-22-2022 15:28-0400 SaO2% (BldA) [Mass fraction] 97 % Dr. Jim Perez Work Phone: [facility] Work Phone: 03-22-2022 15:28-0400 Systolic blood pressure 116 mm[Hg] Dr. Jim Perez Work Phone: [facility] Work Phone: 01-07-2022 14:49-0400 Body height 172.[address] Jim Perez Work Phone: [facility] Work Phone: 01-07-2022 14:49-0400 Body mass index (BMI) [Ratio] 29.9 kg/m2 Dr. Jim Perez Work Phone: [facility] Work Phone: 01-07-2022 14:49-0400 Body temperature 98.2 [degF] Dr. Jim Perez Work Phone: [facility] Work Phone: 01-07-2022 14:49-0400 Body weight 89.[address] Jim Perez Work Phone: [facility] Work Phone: 01-07-2022 14:49-0400 Diastolic blood pressure 87 mm[Hg] Dr. Jim Perez Work Phone: [facility] Work Phone: 01-07-2022 14:49-0400 Heart rate 75 /min Dr. Jim Perez Work Phone: [facility] Work Phone: 01-07-2022 14:49-0400 Respiratory rate 16 /min Dr. Jim Perez Work Phone: [facility] Work Phone: 01-07-2022 14:49-0400 SaO2% (BldA) [Mass fraction] 96 % Dr. Jim Perez Work Phone: [facility] Work Phone: 01-07-2022 14:49-0400 Systolic blood pressure 134 mm[Hg] Dr. Jim Perez Work Phone: [facility] Work Phone: 12-02-2021 09:00-0400 Body height 172.[address] Jim Perez Work Phone: [facility] Work Phone: 12-02-2021 09:00-0400 Body mass index (BMI) [Ratio] 30.2 kg/m2 Dr. Jim Perez Work Phone: [facility] Work Phone: 12-02-2021 09:00-0400 Body temperature 97.5 [degF] Dr. Jim Perez Work Phone: [facility] Work Phone: 12-02-2021 09:00-0400 Body weight 90.[address] Jim Perez Work Phone: [facility] Work Phone: 12-02-2021 09:00-0400 Diastolic blood pressure 82 mm[Hg] Dr. Jim Perez Work Phone: [facility] Work Phone: 12-02-2021 09:00-0400 Heart rate 66 /min Dr. Jim Perez Work Phone: [facility] Work Phone: 12-02-2021 09:00-0400 Respiratory rate 14 /min Dr. Jim Perez Work Phone: [facility] Work Phone: 12-02-2021 09:00-0400 SaO2% (BldA) [Mass fraction] 96 % Dr. Jim Perez Work Phone: [facility] Work Phone: 12-02-2021 09:00-0400 Systolic blood pressure 130 mm[Hg] Dr. Jim Perez Work Phone: [facility] Work Phone: 11-10-2021 14:35-0400 Body mass index (BMI) [Ratio] 30.9 kg/m2 Dr. Jim Perez Work Phone: [facility] Work Phone: 11-10-2021 14:35-0400 Body temperature 97.8 [degF] Dr. Jim Perez Work Phone: [facility] Work Phone: 11-10-2021 14:35-0400 Body weight 92.[address] Jim Perez Work Phone: [facility] Work Phone: 11-10-2021 14:35-0400 Diastolic blood pressure 81 mm[Hg] Dr. Jim Perez Work Phone: [facility] Work Phone: 11-10-2021 14:35-0400 Heart rate 67 /min Dr. Jim Perez Work Phone: [facility] Work Phone: 11-10-2021 14:35-0400 Respiratory rate 16 /min Dr. Jim Perez Work Phone: [facility] Work Phone: 11-10-2021 14:35-0400 SaO2% (BldA) [Mass fraction] 95 % Dr. Jim Perez Work Phone: [facility] Work Phone: 11-10-2021 14:35-0400 Systolic blood pressure 135 mm[Hg] Dr. Jim Perez Work Phone: [facility] Work Phone: 11-10-2021 14:35-0400 Body height 172.[address] Jim Perez Work Phone: [facility] Work Phone: 11-10-2021 14:35-0400 Body mass index (BMI) [Ratio] 30.9 kg/m2 Dr. Jim Perez Work Phone: [facility] Work Phone: 11-10-2021 14:35-0400 Body temperature 97.8 [degF] Dr. Jim Perez Work Phone: [facility] Work Phone: 11-10-2021 14:35-0400 Body weight 92.[address] Jim Perez Work Phone: [facility] Work Phone: 11-10-2021 14:35-0400 Diastolic blood pressure 81 mm[Hg] Dr. Jim Perez Work Phone: [facility] Work Phone: 11-10-2021 14:35-0400 Heart rate 67 /min Dr. Jim Perez Work Phone: [facility] Work Phone: 11-10-2021 14:35-0400 Respiratory rate 16 /min Dr. Jim Perez Work Phone: [facility] Work Phone: 11-10-2021 14:35-0400 SaO2% (BldA) [Mass fraction] 95 % Dr. Jim Perez Work Phone: [facility] Work Phone: 11-10-2021 14:35-0400 Systolic blood pressure 135 mm[Hg] Dr. Jim Perez Work Phone: [facility] Work Phone: 10-08-2021 15:13-0400 Body mass index (BMI) [Ratio] 30.6 kg/m2 Dr. Jim Perez Work Phone: [facility] Work Phone: 10-08-2021 15:13-0400 Body temperature 97.3 [degF] Dr. Jim Perez Work Phone: [facility] Work Phone: 10-08-2021 15:13-0400 Body weight 91.[address] Jim Perez Work Phone: [facility] Work Phone: 10-08-2021 15:13-0400 Diastolic blood pressure 80 mm[Hg] Dr. Jim Perez Work Phone: [facility] Work Phone: 10-08-2021 15:13-0400 Heart rate 61 /min Dr. Jim Perez Work Phone: [facility] Work Phone: 10-08-2021 15:13-0400 Respiratory rate 16 /min Dr. Jim Perez Work Phone: [facility] Work Phone: 10-08-2021 15:13-0400 SaO2% (BldA) [Mass fraction] 97 % Dr. Jim Perez Work Phone: [facility] Work Phone: 10-08-2021 15:13-0400 Systolic blood pressure 139 mm[Hg] Dr. Jim Perez Work Phone: [facility] Work Phone: 10-08-2021 15:13-0400 Body height 172.[address] Jim Perez Work Phone: [facility] Work Phone: 10-08-2021 15:13-0400 Body mass index (BMI) [Ratio] 30.6 kg/m2 Dr. Jim Perez Work Phone: [facility] Work Phone: 10-08-2021 15:13-0400 Body temperature 97.3 [degF] Dr. Jim Perez Work Phone: [facility] Work Phone: 10-08-2021 15:13-0400 Body weight 91.[address] Jim Perez Work Phone: [facility] Work Phone: 10-08-2021 15:13-0400 Diastolic blood pressure 80 mm[Hg] Dr. Jim Perez Work Phone: [facility] Work Phone: 10-08-2021 15:13-0400 Heart rate 61 /min Dr. Jim Perez Work Phone: [facility] Work Phone: 10-08-2021 15:13-0400 Respiratory rate 16 /min Dr. Jim Perze Work Phone: [facility] Work Phone: 10-08-2021 15:13-0400 SaO2% (BldA) [Mass fraction] 97 % Dr. Jim Perez Work Phone: [facility] Work Phone: 10-08-2021 15:13-0400 Systolic blood pressure 139 mm[Hg] Dr. Jim Perez Work Phone: [facility] Work Phone: 09-08-2021 10:52-0500 Body mass index (BMI) [Ratio] 31.1 kg/m2 Dr. Jim Perez Work Phone: [facility] Work Phone: 09-08-2021 10:52-0500 Body temperature 96.3 [degF] Dr. Jim Perez Work Phone: [facility] Work Phone: 09-08-2021 10:52-0500 Body weight 92.[address] Jim Perez Work Phone: [facility] Work Phone: 09-08-2021 10:52-0500 Diastolic blood pressure 80 mm[Hg] Dr. Jim Perez Work Phone: [facility] Work Phone: 09-08-2021 10:52-0500 Heart rate 61 /min Dr. Jim Perez Work Phone: [facility] Work Phone: 09-08-2021 10:52-0500 Respiratory rate 16 /min Dr. Jim Perez Work Phone: [facility] Work Phone: 09-08-2021 10:52-0500 SaO2% (BldA) [Mass fraction] 98 % Dr. Jim Perez Work Phone: [facility] Work Phone: 09-08-2021 10:52-0500 Systolic blood pressure 126 mm[Hg] Dr. Jim Perez Work Phone: [facility] Work Phone: 09-08-2021 09:52-0500 Body height 172.[address] Jim Perez Work Phone: [facility] Work Phone: 09-08-2021 09:52-0500 Body mass index (BMI) [Ratio] 31.1 kg/m2 Dr. Jim Perez Work Phone: [facility] Work Phone: 09-08-2021 09:52-0500 Body temperature 96.3 [degF] Dr. Jim Perez Work Phone: [facility] Work Phone: 09-08-2021 09:52-0500 Body weight 92.[address] Jim Perez Work Phone: [facility] Work Phone: 09-08-2021 09:52-0500 Diastolic blood pressure 80 mm[Hg] Dr. Jim Perez Work Phone: [facility] Work Phone: 09-08-2021 09:52-0500 Heart rate 61 /min Dr. Jim Perez Work Phone: [facility] Work Phone: 09-08-2021 09:52-0500 Respiratory rate 16 /min Dr. Jim Perez Work Phone: [facility] Work Phone: 09-08-2021 09:52-0500 SaO2% (BldA) [Mass fraction] 98 % Dr. Jim Perez Work Phone: [facility] Work Phone: 09-08-2021 09:52-0500 Systolic blood pressure 126 mm[Hg] Dr. Jim Perez Work Phone: [facility] Work Phone: 08-27-2021 13:23-0500 Body temperature 97.9 [degF] Dr. Jim Perez Work Phone: [facility] Work Phone: 08-27-2021 13:23-0500 Body weight 92.[address] Jim Perez Work Phone: [facility] Work Phone: 08-27-2021 13:23-0500 Diastolic blood pressure 87 mm[Hg] Dr. Jim Perez Work Phone: [facility] Work Phone: 08-27-2021 13:23-0500 Heart rate 77 /min Dr. Jim Perez Work Phone: [facility] Work Phone: 08-27-2021 13:23-0500 Respiratory rate 14 /min Dr. Jim Perez Work Phone: [facility] Work Phone: 08-27-2021 13:23-0500 SaO2% (BldA) [Mass fraction] 97 % Dr. Jim Perez Work Phone: [facility] Work Phone: 08-27-2021 13:23-0500 Systolic blood pressure 138 mm[Hg] Dr. Jim Perez Work Phone: [facility] Work Phone: 07-13-2021 14:31-0500 Body mass index (BMI) [Ratio] 31.5 kg/m2 Dr. Jim Perez Work Phone: [facility] Work Phone: 07-13-2021 14:31-0500 Body temperature 97.7 [degF] Dr. Jim Perez Work Phone: [facility] Work Phone: 07-13-2021 14:31-0500 Body weight [address] Jim Perez Work Phone: [facility] Work Phone: 07-13-2021 14:31-0500 Diastolic blood pressure 82 mm[Hg] Dr. Jim Perez Work Phone: [facility] Work Phone: 07-13-2021 14:31-0500 Heart rate 77 /min Dr. Jim Perez Work Phone: [facility] Work Phone: 07-13-2021 14:31-0500 Respiratory rate 16 /min Dr. Jim Perez Work Phone: [facility] Work Phone: 07-13-2021 14:31-0500 SaO2% (BldA) [Mass fraction] 97 % Dr. Jim Perez Work Phone: [facility] Work Phone: 07-13-2021 14:31-0500 Systolic blood pressure 160 mm[Hg] Dr. Jim Perez Work Phone: [facility] Work Phone: 06-10-2021 07:27-0500 Body mass index (BMI) [Ratio] 31.7 kg/m2 Dr. Jim Perez Work Phone: [facility] Work Phone: 06-10-2021 07:27-0500 Body temperature 97.2 [degF] Dr. Jim Perez Work Phone: [facility] Work Phone: 06-10-2021 07:27-0500 Body weight 94.[address] Jim Perez Work Phone: [facility] Work Phone: 06-10-2021 07:27-0500 Diastolic blood pressure 64 mm[Hg] Dr. Jim Perez Work Phone: [facility] Work Phone: 06-10-2021 07:27-0500 Heart rate 67 /min Dr. Jim Perez Work Phone: [facility] Work Phone: 06-10-2021 07:27-0500 Respiratory rate 14 /min Dr. Jim Perez Work Phone: [facility] Work Phone: 06-10-2021 07:27-0500 SaO2% (BldA) [Mass fraction] 97 % Dr. Jim Perez Work Phone: [facility] Work Phone: 06-10-2021 07:27-0500 Systolic blood pressure 112 mm[Hg] Dr. Jim Perez Work Phone: [facility] Work Phone: 08-12-2020 14:16-0500 Body mass index (BMI) [Ratio] 31.2 kg/m2 Dr. Jim Perez Work Phone: [facility] 08-12-2020 14:16-0500 Body temperature 97.5 [degF] Dr. Jim Perez Work Phone: [facility] 08-12-2020 14:16-0500 Body weight 93.[address] Jim Perez Work Phone: [facility] Work Phone: 08-12-2020 14:16-0500 Diastolic blood pressure 83 mm[Hg] Dr. Jim Perez Work Phone: [facility] 08-12-2020 14:16-0500 Heart rate 57 /min Dr. Jim Perez Work Phone: [facility] 08-12-2020 14:16-0500 Respiratory rate 16 /min Dr. Jim Perez Work Phone: [facility] 08-12-2020 14:16-0500 SaO2% (BldA) [Mass fraction] 98 % Dr. Jim Perez Work Phone: [facility] 08-12-2020 14:16-0500 Systolic blood pressure 138 mm[Hg] Dr. Jim Perez Work Phone: [facility] 08-12-2020 13:16-0500 Body mass index (BMI) [Ratio] 31.2 kg/m2 Dr. Jim Perez Work Phone: [facility] Work Phone: 08-12-2020 13:16-0500 Body temperature 97.5 [degF] Dr. Jim Perez Work Phone: [facility] Work Phone: 08-12-2020 13:16-0500 Body weight 93.[address] Jim Perez Work Phone: [facility] Work Phone: 08-12-2020 13:16-0500 Diastolic blood pressure 83 mm[Hg] Dr. Jim Perez Work Phone: [facility] Work Phone: 08-12-2020 13:16-0500 Heart rate 57 /min Dr. Jim Perez Work Phone: [facility] Work Phone: 08-12-2020 13:16-0500 Respiratory rate 16 /min Dr. Jim Perez Work Phone: [facility] Work Phone: 08-12-2020 13:16-0500 SaO2% (BldA) [Mass fraction] 98 % Dr. Jim Perez Work Phone: [facility] Work Phone: 08-12-2020 13:16-0500 Systolic blood pressure 138 mm[Hg] Dr. Jim Perez Work Phone: [facility] Work Phone: Encounters Encounter Date Encounter Type Care Provider Facility Start: 04-26-2025 ambulatory Jim Perez Facilit y:[facility] Start: 02-12-2025 End: 02-12-[address] Jim Perez DO Work Phone: -Laboratory Start: 02-12-2025 End: 02-12-2025 Patient encounter procedure Deyanira Ford [employer]-C -Laboratory Work Phone: Start: 02-12-2025 End: 02-12-2025 ambulatory Jim Perez Facility:[facility] Start: 02-04-2025 End: 02-04-2025 Patient encounter procedure Deyanira Ford NP-Eyad -[facility] Work Phone: Start: 02-04-2025 End: 02-04-[address] Jim Perez DO Work Phone: -[facility] Start: 11-01-[address] Smooth Rodgers MD -[facility] Start: 11-01-2024 End: 11-01-[address] Delilah Rodgers MD -[facility] Work Phone: Start: 11-01-2024 End: 11-01-2024 ambulatory Delilah Rodgers Facility:[facility] [place] Start: 10-26-2024 End: 10-26-[address] Jim Perez DO Work Phone: [facility] Work Phone: Start: 10-26-2024 End: 10-26-[address] Delilah Rodgers MD -[facility] Work Phone: Start: 10-26-2024 End: 10-26-2024 ambulatory Xiang [place] Facility:[facility] Start: 05-03-2024 End: 05-03-2024 [facility] Facility:[facility] [place] Start: 04-27-2024 End: 04-27-2024 ambulatory Jim Perez Facility:[facility] Start: 03-20-2024 End: 03-20-2024 Emergency department patient visit RENÉ WOLF MD [facility] Start: 10-31-[address] Will Perez Work Phone: [facility] Start: 10-31-2023 End: 10-31-[address] Jim Perez Work Phone: [facility] Work Phone: Start: 10-27-2023 End: 10-27-[address] Jim Perez Work Phone: [facility] Work Phone: Start: 10-26-2023 End: 10-26-[address] Jim Perez Work Phone: [facility] Work Phone: Start: 10-26-2023 End: 10-26-[address] Jim Perez Work Phone: [facility]-MRI - [facility] Work Phone: Start: 10-24-2023 End: 10-24-[address] Jim Perez Work Phone: [facility] Work Phone: Start: 10-24-2023 End: 10-24-[address] Jim Perez Work Phone: [facility]-Cat Scan, [facility] Work Phone: Start: 09-08-2023 End: 09-08-[address] Jim Perez Work Phone: [facility] Work Phone: Start: 08-09-2023 End: 08-09-[address] Jim Perez Work Phone: [facility] Internal Medicine Work Phone: Start: 08-08-2023 End: 08-08-[address] Jim Perez Work Phone: [facility] Work Phone: Start: 05-05-2023 End: 05-05-[address] Jim Perez Work Phone: [facility] Work Phone: Start: 05-05-2023 End: 05-05-[address] Jim Perez Work Phone: [facility] Work Phone: Start: 05-02-[address] Will Perez Work Phone: [facility] Start: 05-02-2023 End: 05-02-[address] Jim Perez Work Phone: [facility] Work Phone: Start: 04-29-2023 End: 04-29-[address] Jim Perez Work Phone: [facility] Work Phone: Start: 04-29-2023 End: 04-29-[address] Jim Perez Work Phone: [facility] Work Phone: Start: 03-28-2023 End: 03-28-[address] Jim Perez Work Phone: [facility] Work Phone: Start: 02-28-2023 End: 02-28-[address] Jim Perez Work Phone: [facility] Work Phone: Start: 02-25-2023 End: 02-25-[address] Jim Perez Work Phone: [facility] Work Phone: Start: 02-25-2023 End: 02-25-2023 Patient encounter procedure Dr. Jim Perez Work Phone: [facility] Work Phone: Start: 01-24-2023 End: 01-24-2023 Emergency department patient visit Dr. Jim Perez Work Phone: [facility]-Emergency Department Work Phone: Start: 01-19-2023 End: 01-19-[address] Jim Perez Work Phone: [facility] Medicine Work Phone: Start: 12-21-2022 End: 12-21-[address] Jim Perez Work Phone: [facility] Work Phone: Start: 12-21-2022 End: 12-21-[address] Jim Perez Work Phone: [facility]-Pulmonary Services/Neurology Start: 12-07-2022 End: 12-07-[address] Jim Perez Work Phone: [facility] Work Phone: Start: 12-07-2022 End: 12-07-[address] Jim Perez Work Phone: [facility] Start: 11-29-2022 End: 11-29-[address] Jim Perez Work Phone: [facility] Start: 11-23-2022 End: 11-23-[address] Jim Perez Work Phone: [facility] Start: 11-23-2022 End: 11-23-[address] Jim Perez Work Phone: [facility] Start: 11-04-2022 End: 11-04-[address] Jim Perez Work Phone: [facility] Start: 11-01-2022 End: 11-01-[address] Jim Perez Work Phone: [facility] Start: 10-29-2022 End: 10-29-[address] Jim Perez Work Phone: [facility] Work Phone: Start: 10-29-2022 End: 10-29-[address] Jim Perez Work Phone: [facility] Start: 08-23-2022 Non-patient / Non-visit Dr. Loyd Work Phone: [facility] Start: 08-23-2022 End: 08-23-[address] Jim Perez Work Phone: [facility] Work Phone: Start: 08-23-2022 End: 08-23-[address] [facility] Start: 08-02-2022 End: 08-02-[address] Jim Perez Work Phone: [facility] Start: 07-29-2022 End: 07-29-[address] Jim Perez Work Phone: [facility] Start: 07-27-2022 End: 07-27-[address] Jim Perez Work Phone: [facility] Work Phone: Start: 07-27-2022 End: 07-27-[address] Jim Perez Work Phone: [facility] Start: 07-24-2022 End: 07-24-[address] Jim Perez Work Phone: [facility] Work Phone: Start: 07-24-2022 End: 07-24-[address] Jim Perez Work Phone: [facility]-Laboratory Start: 07-20-2022 End: 07-20-[address] Jim Perez Work Phone: [facility] Start: 07-14-2022 End: 07-14-[address] Jim Perez Work Phone: [facility] Work Phone: Start: 07-14-2022 End: 07-14-[address] Jim Perez Work Phone: [facility]-Radiology, [facility] Start: 07-13-2022 End: 07-13-[address] Jim Perez Work Phone: [facility] Start: 06-23-2022 End: 06-23-[address] Jim Perez Work Phone: [facility] Work Phone: Start: 06-23-2022 End: 06-23-[address] Jim Perez Work Phone: [facility] Start: 04-08-2022 End: 04-08-[address] Jim Perez Work Phone: [facility] Start: 04-08-2022 End: 04-08-[address] Jim Perez Work Phone: [facility] Work Phone: Start: 04-08-2022 End: 04-08-[address] Jim Perez Work Phone: [facility]-Outpatient Breast Imaging Start: 04-01-2022 End: 04-01-[address] Jim Perez Work Phone: [facility] Work Phone: Start: 04-01-2022 End: 04-01-[address] Jim Perez Work Phone: [facility]-Cat Scan, [facility] Start: 03-22-2022 End: 03-22-[address] Jim Perez Work Phone: [facility] Start: 03-08-2022 End: 03-08-[address] Jim Perez Work Phone: [facility] Work Phone: Start: 03-08-2022 End: 03-08-[address] Jim Perez Work Phone: [facility] Start: 01-22-2022 End: 01-22-[address] Jim Perez Work Phone: [facility] Start: 01-07-2022 End: 01-07-[address] Jim Perez Work Phone: [facility] Start: 01-06-2022 End: 01-06-[address] Jim Perez Work Phone: [facility] Start: 01-02-2022 End: 01-02-[address] Jim Perez Work Phone: [facility] Start: 12-21-2021 End: 12-21-[address] Jim Perez Work Phone: [facility] Start: 12-02-2021 End: 12-02-[address] Jim Perez Work Phone: [facility] Start: 11-10-2021 End: 11-10-[address] Jim Perez Work Phone: [facility] Start: 11-05-2021 End: 11-05-[address] Jim Perez Work Phone: [facility] Start: 10-14-2021 End: 10-14-[address] Jim Perez Work Phone: [facility] Start: 10-08-[address] Will Perez Work Phone: [facility] Start: 10-08-2021 End: 10-08-[address] Jim Perez Work Phone: [facility] Start: 10-06-2021 End: 10-06-[address] Jim Perez Work Phone: [facility]-Cat Scan, [facility] Start: 10-02-2021 End: 10-02-[address] Jim Perez Work Phone: [facility] Start: 09-08-2021 End: 09-08-[address] Jim Perez Work Phone[facility] Start: 09-08-2021 End: 09-08-[address] Jim Perez Work Phone: [facility] Start: 08-27-2021 End: 08-27-[address] Jim Perez Work Phone: [facility] Start: 08-07-2021 End: 08-07-[address] Jim Perez Work Phone: [facility] Start: 07-13-[address] Will Perez Work Phone: [facility] Start: 07-13-2021 End: 07-13-[address] Jim Perez Work Phone: [facility] Start: 06-10-2021 End: 06-10-[address] Jim Perez Work Phone: [facility] Start: 11-17-[address] Jim Perez Work Phone: [facility] Procedures Date Procedure Procedure Detail Performing Clinician Start: 11-01-[address] Jim Perez DO Work Phone: Start: 10-26-2024 MRI of brain with contrast Dr. Jim Perez DO Work Phone: Start: 10-26-2024 CT of thorax and abd omen with contrast Dr. Jim Perez DO Work Phone: Start: 10-31-2023 Measurement of renal function Dr. Jim Perez DO Work Phone: Comment on above: GFR Calc Start: 10-26-2023 MRI of brain with contrast Dr. Jim Perez Work Phone: Start: 10-24-2023 CT of chest and abdomen Dr. Jim Perez Work Phone: Start: 08-09-2023 Plain x-ray of pelvi s and lower extremity Dr. Jim Perez Work Phone: Start: 05-05-[address] Jim Perez Work Phone: Start: 04-29-2023 CT of chest and abdomen Dr. Jim Perez Work Phone: Start: 02-25-2023 MRI of brain with contrast Dr. Jim Perez Work Phone: Start: 01-24-2023 Computed tomography of abdomen and pelvis with intravenous contrast Dr. Jim Perez Work Phone: Start: 11-23-2022 MRI of brain with contrast Dr. Jim Perez Work Phone: Start: 10-29-2022 CT of chest and abdomen Dr. Jim Perez Work Phone: Start: 08-23-2022 Cardiovascular stres s test using pharmacologic stress agent Dr. Jim Perez Work Phone: Start: 07-27-2022 MRI of brain with contrast Dr. Jim Perez Work Phone: Start: 07-14-2022 End: 07-14-2022 Diagnostic radiography of abdomen Dr. Jim Perez Work Phone: Start: 04-08-[address] Jim Perez Work Phone: Start: 04-08-2022 Bilateral mammography Che Perez Work Phone: Start: 04-01-2022 CT of chest and abdomen Dr. Jim Perez Work Phone: Start: 03-08-2022 MRI of brain with contrast Dr. Jim Perez Work Phone: Start: 01-02-2022 MRI of cervical spine Che Perez Work Phone: Start: 12-21-2021 X-ray of cervical spine Dr. Jim Perez Work Phone: Start: 11-05-2021 MRI of brain with contrast Dr. Jim Perez Work Phone: Start: 10-14-2021 Plain x-ray of humerus Dr. Jim Perez Work Phone: Start: 10-14-2021 Plain X-ray of shoulder Dr. Jim Perez Work Phone: Start: 10-06-2021 CT of chest and abdomen Dr. Jim Perez Work Phone: Start: 10-02-2021 Radionuclide whole b nathaniel bone study Dr. Jim Perez Work Phone: Start: 09-08-2021 Plain x-ray of elbow Dr Jannette Perez Work Phone: Start: 08-07-2021 MRI of brain with contrast Dr. Jim Perez Work Phone: Start: 06-10-2021 Plain chest X-ray Dr. Che Perez Work Phone: Start: 03-31-2021 PET/CT Tumor Base -T high Subs Dr. Jim Perez Work Phone: Start: 11-25-2020 PET/CT Tumor Base -T high Subs Dr. Jim Perez Work Phone: Start: 10-23-2020 Craniotomy RENÉ MOBLEY MD Comment on above: Left parietal cranio josé miguel. Start: 02-26-2019 PET/CT Tumor Base -T high Init Dr. Jim Perez Work Phone: Start: 07-11-2018 Lobectomy of lung RENÉ WOLF MD Comment on above: [facility] [place] Start: 10-26-2016 History of placement of stent for coronary artery disease History of coronary artery stent placement Deyanira Ford [employer] Comment on above: PCI-BMS- w/ 3.5 x 18 mm Multi [facility] 10/26/16 Start: 07-11-2016 Placement of stent i n coronary artery RENÉ WOLF MD Appendectomy RENÉ SANTOYO MD Colonoscopy RENÉ SANTOYO MD Plan of Treatment Date Care Activity Detail Author Start: 11-01-[address] [facility] Start: 05-05-2023 Ultrasonography of abdomen Abdomen Limited [facility] Start: 05-05-2023 US Abdomen limited [facility] Start: 12-21-[address] [facility] Start: 12-11-2022 Patient referral [facility] Work Phone: Start: 11-23-2022 Patient referral [facility] Work Phone: Start: 12-02-2021 Patient referral [facility] Work Phone: Start: 07-30-2019 CT [address] [facility] CBC W Auto Different ial panel - Blood [facility] Work Phone: CBC W Auto Different ial panel - Blood [facility] CBC W Auto Different ial panel - Blood [facility] CT Chest and Abdomen W contrast IV [facility] Work Phone: CT Chest and Abdomen W contrast IV [facility] CT Chest and Abdomen W contrast IV [facility] CT Chest and Abdomen W contrast IV [facility] Electrocardiographic procedure [facility] Work Phone: Hepatic function panel [facility] Lipid 1996 panel - S vicente or Plasma [facility] MR Brain WO and W contrast IV [facility] Work Phone: MR Brain WO and W contrast IV [facility] MR Brain WO and W contrast IV [facility] MR Brain WO and W contrast IV [facility] MR Brain WO and W contrast IV [facility] NM Heart Views W str ess and W radionuclide IV [facility] Patient Education Abdominal Pain [facility] Work Phone: Patient referral [facility] Work Phone: Prostate specific an tigen measurement [facility] US Heart [facility] Viral nucleic acid assay [facility] Work Phone: Viral nucleic acid assay [facility] Payers Date Payer Category Payer Self-pay [id number] 2019 Unknown [id number] 2003 Private Health Insurance [id number] 1960 Unknown [id number] 2.16.8 [id number] Unknown [id number] Unknown [id number] 2.16.8 [id number] Unknown [id number] 2.16.8 [id number] Unknown [id number] 2.16.8 [id number] Unknown [id number] 2.16.8 [id number] Unknown [id number] 2.16.8 [id number] Unknown [id number] 2.16.8 [id number] Unknown [id number] 2.16.8 [id number] Unknown [id number] 2.16.8 [id number] Unknown [id number] 2.16.8 [id number] Unknown [id number] 2.16.8 [id number] Social History Date Type Detail Facility Start: 09-08-2021 End: 09-08-2023 Tobacco smoking status OHIS Unknown if ever smoked [facility] Start: 08-06-2015 None;Occasional [facility] Start: 08-12-2020 Cigars [facility] Start: 1960 Sex Assigned At Male W [facility] Start: 10-17-2020 End: 09-08-2023 Tobacco smoking status Ex-smoker (finding) [facility] Start: 11-01-2024 Sex Male (finding) [facility] Medical Equipment Procedure Code Equipment Code Equipment Origin al Text Equipment Identifier Dates Insertion, vascular access port PORT,POWER 8FR FDA Start: 03-13-2019 Insertion, vascular access port PORT,POWER 8FR FDA Start: 03-13-2019 Insertion, vascular access port PORT,POWER 8FR FDA Start: 03-13-2019 Insertion, vascular access port PORT,POWER 8FR FDA Start: 03-13-2019 Insertion, vascular access port PORT,POWER 8FR FDA Start: 03-13-2019 Insertion, vascular access port PORT,POWER 8FR FDA Start: 03-13-2019 Insertion, vascular access port PORT,POWER 8FR FDA Start: 03-13-2019 Insertion, vascular access port PORT,POWER 8FR FDA Start: 03-13-2019 Insertion, vascular access port PORT,POWER 8FR FDA Start: 03-13-2019 Insertion, vascular access port PORT,POWER 8FR FDA Start: 03-13-2019 Insertion, vascular access port PORT,POWER 8FR FDA Start: 03-13-2019 Insertion, vascular access port PORT,POWER 8FR FDA Start: 03-13-2019 Insertion, vascular access port PORT,POWER 8FR FDA Start: 03-13-2019 Insertion, vascular access port PORT,POWER 8FR FDA Start: 03-13-2019 Insertion, vascular access port PORT,POWER 8FR FDA Start: 03-13-2019 Insertion, vascular access port PORT,POWER 8FR FDA Start: 03-13-2019 Insertion, vascular access port PORT,POWER 8FR FDA Start: 03-13-2019 Insertion, vascular access port PORT,POWER 8FR FDA Start: 03-13-2019 Insertion, vascular access port PORT,POWER 8FR FDA Start: 03-13-2019 Insertion, vascular access port PORT,POWER 8FR FDA Start: 03-13-2019 Insertion, vascular access port PORT,POWER 8FR FDA Start: 03-13-2019 Insertion, vascular access port PORT,POWER 8FR FDA Start: 03-13-2019 Insertion, vascular access port PORT,POWER 8FR FDA Start: 03-13-2019 Insertion, vascular access port PORT,POWER 8FR FDA Start: 03-13-2019 Insertion, vascular access port PORT,POWER 8FR FDA Start: 03-13-2019 Craniotomy Stereotactic Unknown 10/23/20 Unknown Unknown FDA Start: 10-23-2020 Craniotomy Stereotactic Unknown 10/23/20 Unknown Unknown FDA Start: 10-23-2020 Craniotomy Stereotactic Unknown 10/23/20 Unknown Unknown FDA Start: 10-23-2020 Functional Status Date Assessment Result Facility 03-20-2024 Functional Status Independent [facility] 03-20-2024 Functional Status ID band on, Allergy Band on, Call device within reach, Bed in low position, Wheels locked, Upper/Half-Length side-rails up, Visitor at bedside, Safety level maintained [facility] Mental Status Date Assessment Result Facility 03-20-2024 Mental Status Orientation Oriented x 4 [facility] 03-20-2024 Mental Status [facility] 04-10-2019 Cognitive function Mood Descript ion Appropriate;Calm;Relaxed [facility] Work Phone: Clinical Notes 10-11-2020 to 11-01-2024 Note Date & Type Note Facility 11-01-2024 Evaluation note Diagnosis Onset Date Resolution Brain metastases chronic November 012024 10:35am Pancoast tumor of right lung chronic November 01, 2024 10:35am Brain metastases chronic November 012024 10:37am Pancoast tumor of right lung chronic November 01, 2024 10:45am [facility] Work Phone: 1(674) 460-179404-24-2025 Evaluation note* Diagnosis Onset Date Resolution Status Admit Date Brain metastases chronic November 012024 10:35am Pancoast tumor of right lung chronic November 01, 2024 10:35am Brain metastases chronic November 012024 10:37am Pancoast tumor of right lung chronic November 01, 2024 10:45am Essential (primary) hypertension chronic February 04, 2025 2:47pm Hyperlipidemia chronic February 04, 2025 2:47pm History of coronary artery stent placement October 26, 2016 resolved February 04, 2025 2:47pm [facility] Work Phone: 1(995) 538-953104-24-2025 Evaluation note* Diagnosis Onset Date Resolution Status Admit Date Brain metastases chronic November 012024 10:35am Pancoast tumor of right lung chronic November 01, 2024 10:35am Brain metastases chronic November 012024 10:37am Pancoast tumor of right lung chronic November 01, 2024 10:45am Essential (primary) hypertension chronic February 04, 2025 2:47pm History of coronary artery stent placement October 26, 2016 chronic February 04, 2025 2:47pm Hyperlipidemia chronic February 04, 2025 2:47pm [facility] Work Phone: 1(815) 657-569204-18-2025 Radiology Diagnostic study note [facility] Imaging Services [address] [place] [address] CT Chest AND Abd W/ Contrast MR#: [id number] Acct: [id number] Name: HARIKA SALEH Rep #: [id number] : 1960 M 64 From: Paul Delarosa MD PCP: Dr. Jim Perez, DO Status: RE G CLI Study:CT Chest AND Abd W/ Contrast Date of Ex am: 10/26/24 Exam# [id number] Ordering Dr: Delilah Rodgers MD PROCEDURE: CT CHEST AND ABD W/ CONTRAST 10/26/2024 REASON FOR EXAM: F/U NSCLC IV CONTRAST ONLY TECHNIQUE: Chest and abdomen CT with intravenous contrast. Coronal and Sagittal reconstruction series were provided. One or more dose reduction techniques were used (e.g., Automated exposure control, adjustment of the mA and/or kV according to patient size, use of iterative reconstruction technique. PATIENT PREPARATION: Per protocol ORAL CONTRAST TYPE: None. CONTRAST: Isovue-300 VOLUME: 100mL RADIATION DOSE SUMMARY: CTDlvol: 17 mGy DLP: 1366.21 mGycm COMPARISON: Comparison is made with prior study dated October 24, 2023. FINDINGS: CT CHEST: Hardware: None Lymph nodes: Stable small benign-appearing bilateral axillary lymph nodes. Heart and Vasculature: The heart is not enlarged. Coronary artery calcification. Atherosclerotic calcific plaques of the aortic arch. Lungs and Airways: Stable mild volume loss in the right hemithorax. Stable mildscarring in the right perihilar region most likely secondary to prior radiation fibrosis. There has been essentially no change. Pleura: Unremarkable. CT ABDOMEN: Liver: Normal size. No mass. Gallbladder: Unremarkable Spleen: Normal size. Pancreas: Normal size without evidence of mass surrounding inflammation or ductal dilation. Adrenals: No adrenal mass seen. Kidneys: Stable 3.1 cm cyst in the medial aspect of the left kidney. Stable 1.4cm cyst in the midportion of the right kidney. Bowel: Sigmoid diverticulosis. Lymph nodes: Unremarkable. Vasculature: Mild diffuse atherosclerotic calcifications are noted. Peritoneum / Retroperitoneum: Unremarkable Bones: Degenerative changes of the spine. CT/CT Chest AND Abd W/ Contrast IMPRESSION: Stable examination. Reading Location: [id number] CC: Dr. Jim Perez DO; Dr. Delilah Rodgers MD ~ Slots Manager: Signed [facility]09-10-2024 Hospital Discharge instructions Patient Education 03/20/2024 08:42:41 Diverticulitis Diverticulitis Some people get pouches along the wall of the colon as they get older. The pouches, called diverticuli, usually cause no symptoms. If the pouches become blocked, you can get an infection. This infection is called diverticulitis. It causes pain in your lower abdomen and fever. If not treated, it canbecome a serious condition, causing an abscess to form inside the pouch. The abscess may block the intestinal tract even or rupture, spreading infection throughout the abdomen. When treatment is started early, oral antibiotics alone may be enough to cure diverticulitis. This method is tried first. But, if you don't improve or if your condition gets worse while using oral antibiotics, you may need to be admitted to the hospital for IV antibiotics. Severe cases may require surgery. Home care The following guidelines will help you care for yourself at home: During the acute illness, rest and follow your healthcare provider's instructions about diet. Sometimes you will need to follow a clear liquid diet to rest your bowel. Once your symptoms are better, you may be told to follow a low-fiber diet for some time. Include foods like: oFlake cereal, mashed potatoes, pancakes, waffles, pasta, white bread, rice, applesauce, bananas, eggs, fish, poultry, tofu, and cooked soft vegetables Take antibiotics exactly as instructed. Don't miss any doses or stop taking the medication, even ifyou feel better. Monitor your temperature and tell your healthcare provider if you have rising temperatures. Preventing future attacks Once you have an episode of diverticulitis, you are at risk for having it again. After you have recovered from this episode, you may be able to lower your risk by eating a high-fiber diet (20 gm/day to 35 gm/day of fiber). This cleans out the colon pouches that already exist and may prevent new ones from forming. Foods high in fiber include fresh fruits and edible peelings, raw or lightly cooked vegetables, whole grain cereals and breads, dried beans and peas, and bran. Other steps that can help prevent future attacks include: Take your medicines, such as antibiotics, as your healthcare provider says. Drink 6 to 8 glasses of water every day, unless told otherwise. Use a heating pad or hot water bottle to help abdominal cramping or pain. Begin an exercise program. Ask your healthcare provider how to get started. You can benefit from simple activities such as walking or gardening. Treat diarrhea with a bland diet. Start with liquids only; then slowly add fiber over time. Watch for changes in your bowel movements (constipation to diarrhea). Avoid constipation by eating a high fiber diet and taking a stool softener if needed. Get plenty of rest and sleep. Follow-up care Follow up with your healthcare provider as advised or sooner if you are not getting better in the next 2 days. When to seek medical advice Call your healthcare provider right away if any of these occur: Fever of 100.4 F (38 C) or higher, or as directed by your healthcare provider Repeated vomiting or swelling of the abdomen Weakness, dizziness, light-headedness Pain in your abdomen that gets worse, severe, or spreads to your back Pain that moves to the right lower abdomen Rectal bleeding (stools that are red, black or maroon color) Unexpected vaginal bleeding [id number] [employer]. [address] [place] [address]. All rights reserved. This information is not intended as a substitute for professional medical care. Always follow yourhealthcare professional's instructions. Follow Up Care 03/20/2024 06:54:07 With:JIM PEREZ DO Address: [facility] [address] [place] [phone] When:2-4 days [facility] 09-10-2024 Note Discharge Instructions Thank you for allowing [facility] to assist you with your healthcare needs. The following is importantdischarge information regarding your hospital visit. Diagnosis from Today's Visit Diverticulitis What to Do Next Instructions from Your Care Team No qualifying data available. Post Acute Orders No qualifying data available. You Need to Schedule the Following Appointments Follow Up with JIM PEREZ DO When:Within 2-4 days Where:[facility] [address] [place] [address] [place] [phone] [phone] Allergies Bactrim Medications Please ask your primary doctor or pharmacist before taking any other medication not listed, including over the counter drugs, herbal medications, vitamins and or supplements as they may interact withyour home medications. What How Much When Why Instructions Last Dose New acetaminophen-oxyCODONE (Percocet 5 mg-325 mg oral tablet) 1 tab(s) by mouth Every 6 hours as needed for Pain Diverticulitis Duration: 3 Days Printed Prescription New amoxicillin-clavulanate (amoxicillin-clavulanate 875 mg-125 mg oral tablet) 1 tab(s) by mouth Every 8 hours Duration: 5 Days Printed Prescription Unchanged acetaminophen (Tylenol 325 mg oral capsule) 650 Milligram by mouth Every 4 hours as needed for Pain, scale 1-3 not to exceed 4000 mg/ day. Unchanged amLODIPine (amLODIPine 5 mg oral tablet) 1 tab(s) by mouth Once a day Unchanged clopidogrel (clopidogrel 75 mg oral tablet) 1 tab(s) by mouth Every day Unchanged famotidine (Pepcid 20 mg oral tablet) 1 tab(s) by mouth Two (2) times a day Unchanged gabapentin (gabapentin 300 mg oral capsule) 1 cap by mouth Two (2) times a day Unchanged levETIRAcetam (Keppra 1000 mg oral tablet) 1 tab(s) by mouth Two (2) times a day Duration: 30 Days Unchanged metoprolol (metoprolol tartrate 25 mg oral tablet) 1 tab(s) by mouth Two (2) times a day Unchanged olmesartan (olmesartan 40 mg oral tablet) 1 tab(s) by mouth Once a day Unchanged rosuvastatin (rosuvastatin 10 mg oral capsule) 1 cap by mouth Daily at bedtime Please take this list to your next doctor s visit. Bring all medications you take, including over the counter medications, herbals and other supplements with you to your doctor s visit. Patients and families are reminded to discard old lists and to update any records with all medication providers or retail pharmacies. Medication Leaflets amoxicillin and clavulanate potassium (am OK i CHENG in KLESPERANZA ue FADY luis diego TAS [facility]) Augmentin What is the most important information I should know about amoxicillin and clavulanate potassium? You should not use this medicine if you have severe kidney disease, if you have had liver problems or jaundice while taking amoxicillin and clavulanate potassium, or if you are allergic to any penicillin or cephalosporin antibiotic, such as Amoxil, Ceftin, Cefzil, Moxatag, Omnicef, and others. What is amoxicillin and clavulanate potassium? Amoxicillin is a penicillin antibiotic. Clavulanate potassium helps prevent certain bacteria from becoming resistant to amoxicillin. Amoxicillin and clavulanate potassium is a combination medicine used to treat many different infections caused by bacteria, such as sinusitis, pneumonia, ear infections, bronchitis, urinary tract infections, and infections of the skin. Amoxicillin and clavulanate potassium may also be used for purposes not listed in this medication guide. What should I discuss with my healthcare provider before taking amoxicillin and clavulanate potassium? You should not use this medicine if you are allergic to it, or if: you have severe kidney disease (or if you are on dialysis); you have had liver problems or jaundice while taking amoxicillin and clavulanate potassium; or you are allergic to any penicillin or cephalosporin antibiotic, such as Amoxil, Ceftin, Cefzil, Moxatag, Omnicef, and others. Tell your doctor if you have ever had: liver disease (hepatitis or jaundice); kidney disease; or mononucleosis. The liquid or chewable tablet may contain phenylalanine. Tell your doctor if you have phenylketonuria (PKU). Tell your doctor if you are or . Amoxicillin and clavulanate potassium can make control pills less effective. Ask your doctor about using a non-hormonal control (condom, diaphragm, cervical cap, or contraceptive sponge) to prevent . Do not give this medicine to a child without medical advice. How should I take amoxicillin and clavulanate potassium? Follow all directions on your prescription label and read all medication guides or instruction sheets. Use the medicine exactly as directed. Amoxicillin and clavulanate potassium may work best if you take it at the start of a meal. Take the medicine every 12 hours. Do not crush or chew the extended-release tablet. Swallow the pill whole, or break the pill in halfand take both halves one at a time. Tell your doctor if you have trouble swallowing a whole or halfpill. You must chew the chewable tablet before you swallow it. Shake the oral suspension (liquid) before you measure a dose. Use the dosing syringe provided, or use a medicine dose-measuring device (not a kitchen spoon). This medicine can affect the results of certain medical tests. Tell any doctor who treats you that you are using amoxicillin and clavulanate potassium. Use this medicine for the full prescribed length of time, even if your symptoms quickly improve. Skipping doses can increase your risk of infection that is resistant to medication. Amoxicillin and clavulanate potassium will not treat a viral infection such as the flu or a common cold. Store the tablets at room temperature away from moisture and heat. Store the liquid in the refrigerator. Throw away any unused liquid after 10 days. What happens if I miss a dose? Take the medicine as soon as you can, but skip the missed dose if it is almost time for your next dose. Do not take two doses at one time. What happens if I overdose? Seek emergency medical attention or call the Poison Help line at . Overdose can cause nausea, vomiting, stomach pain, diarrhea, skin rash, drowsiness, hyperactivity, and decreased urination. What should I avoid while taking amoxicillin and clavulanate potassium? Avoid taking this medicine together with or just after eating a high-fat meal. This will make it harder for your body to absorb the medication. Antibiotic medicines can cause diarrhea, which may be a sign of a new infection. If you have diarrhea that is watery or bloody, call your doctor before using anti-diarrhea medicine. What are the possible side effects of amoxicillin and clavulanate potassium? Get emergency medical help if you have signs of an allergic reaction (hives, difficult breathing, swelling in your face or throat) or a severe skin reaction (fever, sore throat, burning eyes, skin pain, red or purple skin rash with blistering and peeling). Stop using amoxicillin and clavulanate potassium and seek medical treatment if you have a serious drug reaction that can affect many parts of your body. Symptoms may include skin rash, fever, swollenglands, muscle aches, severe weakness, unusual bruising, or yellowing of your skin or eyes. Call your doctor at once if you have: severe stomach pain, diarrhea that is watery or bloody (even if it occurs months after your last dose); pale or yellowed skin, dark colored urine, fever, confusion or weakness; loss of appetite, upper stomach pain; little or no urination; or easy bruising or bleeding. Common side effects may include: nausea, vomiting; diarrhea; rash, itching; vaginal itching or discharge; or diaper rash. This is not a complete list of side effects and others may occur. Call your doctor for medical advice about side effects. You may report side effects to FDA at 5-429-HWJ-3360. What other drugs will affect amoxicillin and clavulanate potassium? Tell your doctor about all your other medicines, especially: allopurinol; probenecid; or a blood thinner--warfarin, Coumadin, Jantoven. This list is not complete. Other drugs may affect amoxicillin and clavulanate potassium, including prescription and vabz-jlw-dmorhlo medicines, vitamins, and herbal products. Not all possible drug interactions are listed here. Where can I get more information? Your doctor or pharmacist can provide more information about amoxicillin and clavulanate potassium. Remember, keep this and all other medicines out of the reach of children, never share your medicines with others, and use this medication only for the indication prescribed. Every effort has been made to ensure that the information provided by [employer]. [employer]') is accurate, up-to-date, and complete, but no guarantee is made to that effect. Drug information contained herein may be time sensitive. [employer] information has been compiled for use by healthcare practitioners and consumers in the [place] and therefore [employer] does not warrant that uses outside of the [place] are appropriate, unless specifically indicated otherwise. [employer] drug information does not endorse drugs, diagnose patients or recommend therapy. [employer] drug information isan informational resource designed to assist licensed healthcare practitioners in caring for their p atients and/or to serve consumers viewing this service as a supplement to, and not a substitute for, the expertise, skill, knowledge and judgment of healthcare practitioners. The absence of a warningfor a given drug or drug combination in no way should be construed to indicate that the drug or drug combination is safe, effective or appropriate for any given patient. [employer] does not assume any responsibility for any aspect of healthcare administered with the aid of information [employer] provides. The information contained herein is not intended to cover all possible uses, directions, precautions, warnings, drug interactions, allergic reactions, or adverse effects. If you have questions about the drugs you are taking, check with your doctor, nurse or pharmacist. Copyright 4344-0735 [employer]. Version: 14.. Revision Date: 04/16/2022. acetaminophen and oxycodone (a SEET a MIN oh fen and OX i KOE done) Endocet 10/325, Endocet 2.5/325, Endocet 5/325, Endocet 7.5/325, Nalocet, Percocet, Prolate What is the most important information I should know about acetaminophen and oxycodone? MISUSE OF OPIOID MEDICINE CAN CAUSE ADDICTION, OVERDOSE, OR . Keep the medication in a place where others cannot get to it. Taking opioid medicine during may cause life-threatening withdrawal symptoms in the . Fatal side effects can occur if you use opioid medicine with alcohol, or with other drugs that cause drowsiness or slow your breathing. Stop taking this medicine and call your doctor right away if you have skin redness or a rash that spreads and causes blistering and peeling. What is acetaminophen and oxycodone? Acetaminophen and oxycodone is a combination medicine used to relieve moderate to severe pain. Acetaminophen and oxycodone contains an opioide medicine and may be habit-forming. Acetaminophen and oxycodone may also be used for purposes not listed in this medication guide. What should I discuss with my healthcare provider before taking acetaminophen and oxycodone? You should not use this medicine if you are allergic to acetaminophen or oxycodone, or if you have: severe asthma or breathing problems; or a blockage in your stomach or intestines. Tell your doctor if you have ever had: breathing problems, sleep apnea; liver disease; a drug or alcohol addiction; kidney disease; a head injury or seizures; urination problems; or problems with your thyroid, pancreas, or gallbladder. If you use opioid medicine while you are , your baby could become dependent on the drug. This can cause life-threatening withdrawal symptoms in the baby after it is born. Babies born dependent on opioids may need medical treatment for several weeks. Ask a doctor before using opioid medicine if you are . Tell your doctor if you notice severe drowsiness or slow breathing in the nursing baby. How should I take acetaminophen and oxycodone? Follow all directions on your prescription label. Never take this medicine in larger amounts, or for longer than prescribed. An overdose can damage your liver or cause . Tell your doctor if you feel an increased urge to use more of this medicine. Never share opioid medicine with another person, especially someone with a history of drug abuse oraddiction. MISUSE CAN CAUSE ADDICTION, OVERDOSE, OR . Keep the medicine in a place where others cannot get to it. Selling or giving away opioid medicine is against the law. Measure liquid medicine carefully. Use the dosing syringe provided, or use a medicine dose-measuring device (not a kitchen spoon). If you need surgery or medical tests, tell the doctor ahead of time that you are using this medicine. You should not stop using this medicine suddenly. Follow your doctor's instructions about tapering your dose. Store at room temperature away from moisture and heat. Keep track of your medicine. You should be aware if anyone is using it improperly or without a prescription. Do not keep leftover opioid medication. Just one dose can cause in someone using this medicine accidentally or improperly. Ask your pharmacist where to locate a drug take-back disposal program.If there is no take-back program, flush the unused medicine down the toilet. What happens if I miss a dose? Since this medicine is used for pain, you are not likely to miss a dose. Skip any missed dose if itis almost time for your next dose. Do not use two doses at one time. What happens if I overdose? Seek emergency medical attention or call the Poison Help line at . An overdose of this medicine can be fatal, especially in a child or other person using the medicine without a prescription. Overdose symptoms may include nausea, vomiting, sweating, severe drowsiness, pinpoint pupils, slow breathing, or no breathing. Your doctor may recommend you get naloxone (a medicine to reverse an opioid overdose) and keep it with you at all times. A person caring for you can give the naloxone if you stop breathing or don't wake up. Your caregiver must still get emergency medical help and may need to perform CPR (cardiopulmonary resuscitation) on you while waiting for help to arrive. Anyone can buy naloxone from a pharmacy or local health department. Make sure any person caring foryou knows where you keep naloxone and how to use it. What should I avoid while taking acetaminophen and oxycodone? Avoid driving or operating machinery until you know how this medicine will affect you. Dizziness ordrowsiness can cause falls, accidents, or severe injuries. Do not drink alcohol. Dangerous side effects or could occur. Ask a doctor or pharmacist before using any other medicine that may contain acetaminophen (sometimes abbreviated as APAP). Taking certain medications together can lead to a fatal overdose. What are the possible side effects of acetaminophen and oxycodone? Get emergency medical help if you have signs of an allergic reaction: hives; difficulty breathing; swelling of your face, lips, tongue, or throat. Opioid medicine can slow or stop your breathing, and may occur. A person caring for you should give naloxone and/or seek emergency medical attention if you have slow breathing with long pauses,blue colored lips, or if you are hard to wake up. In rare cases, acetaminophen may cause a severe skin reaction that can be fatal. This could occur even if you have taken acetaminophen in the past and had no reaction. Stop taking this medicine and call your doctor right away if you have skin redness or a rash that spreads and causes blistering andpeeling. Call your doctor at once if you have: noisy breathing, sighing, shallow breathing, breathing that stops; a light-headed feeling, like you might pass out; weakness, tiredness, fever, unusual bruising or bleeding; confusion, unusual thoughts or behavior; problems with urination; liver problems--nausea, upper stomach pain, tiredness, loss of appetite, dark urine, gonzalez-colored stools, jaundice (yellowing of the skin or eyes); low cortisol levels-- nausea, vomiting, loss of appetite, dizziness, worsening tiredness or weakness; or high levels of serotonin in the body--agitation, hallucinations, fever, sweating, shivering, fast heart rate, muscle stiffness, twitching, loss of coordination, nausea, vomiting, diarrhea. Serious breathing problems may be more likely in older adults and in those who are debilitated or have wasting syndrome or chronic breathing disorders. Common side effects include: dizziness, drowsiness, feeling tired; feelings of extreme happiness or sadness; nausea, vomiting, stomach pain; constipation; or headache. This is not a complete list of side effects and others may occur. Call your doctor for medical advice about side effects. You may report side effects to FDA at 9-129-NEG-3453. What other drugs will affect acetaminophen and oxycodone? You may have breathing problems or withdrawal symptoms if you start or stop taking certain other medicines. Tell your doctor if you also use an antibiotic, antifungal medication, heart or blood pressure medication, seizure medication, or medicine to treat HIV or hepatitis C. Opioid medication can interact with many other drugs and cause dangerous side effects or . Be sure your doctor knows if you also use: cold or allergy medicines, bronchodilator asthma/COPD medication, or a diuretic ('water pill'); medicines for motion sickness, irritable bowel syndrome, or overactive bladder; other opioids--opioid pain medicine or prescription cough medicine; a sedative like Valium--diazepam, alprazolam, lorazepam, Xanax, Klonopin, Versed, and others; drugs that make you sleepy or slow your breathing--a sleeping pill, muscle relaxer, medicine to treat mood disorders or mental illness; drugs that affect serotonin levels in your body--a stimulant, or medicine for depression, Parkinson's disease, migraine headaches, serious infections, or nausea and vomiting. This list is not complete. Other drugs may affect acetaminophen and oxycodone, including prescription and lqrq-lcp-tgkktfd medicines, vitamins, and herbal products. Not all possible interactions are listed here. Where can I get more information? Your doctor or pharmacist can provide more information about acetaminophen and oxycodone. Remember, keep this and all other medicines out of the reach of children, never share your medicines with others, and use this medication only for the indication prescribed. Every effort has been made to ensure that the information provided by [employer] is accurate, up-to-date, and complete, but no guarantee is made to that effect. Drug information contained herein may be time sensitive. [employer] information has been compiled for use by healthcare practitioners and consumers in the [place] and therefore [employer] does not warrant that uses outside of the [place] are appropriate, unless specifically indicated otherwise. [employer] drug information does not endorse drugs, diagnose patients or recommend therapy. [employer] drug information isan informational resource designed to assist licensed healthcare practitioners in caring for their p atients and/or to serve consumers viewing this service as a supplement to, and not a substitute for, the expertise, skill, knowledge and judgment of healthcare practitioners. The absence of a warningfor a given drug or drug combination in no way should be construed to indicate that the drug or drug combination is safe, effective or appropriate for any given patient. [employer] does not assume any responsibility for any aspect of healthcare administered with the aid of information [employer] provides. The information contained herein is not intended to cover all possible uses, directions, precautions, warnings, drug interactions, allergic reactions, or adverse effects. If you have questions about the drugs you are taking, check with your doctor, nurse or pharmacist. Copyright 9918-1096 [employer]. Version: 22.01. Revision Date: 02/10/2023. amoxicillin and clavulanate potassium (am OK i CHENG in KLAV ue FADY ate diego TAS ee um) Augmentin What is the most important information I should know about amoxicillin and clavulanate potassium? You should not use this medicine if you have severe kidney disease, if you have had liver problems or jaundice while taking amoxicillin and clavulanate potassium, or if you are allergic to any penicillin or cephalosporin antibiotic, such as Amoxil, Ceftin, Cefzil, Moxatag, Omnicef, and others. What is amoxicillin and clavulanate potassium? Amoxicillin is a penicillin antibiotic. Clavulanate potassium helps prevent certain bacteria from becoming resistant to amoxicillin. Amoxicillin and clavulanate potassium is a combination medicine used to treat many different infections caused by bacteria, such as sinusitis, pneumonia, ear infections, bronchitis, urinary tract infections, and infections of the skin. Amoxicillin and clavulanate potassium may also be used for purposes not listed in this medication guide. What should I discuss with my healthcare provider before taking amoxicillin and clavulanate potassium? You should not use this medicine if you are allergic to it, or if: you have severe kidney disease (or if you are on dialysis); you have had liver problems or jaundice while taking amoxicillin and clavulanate potassium; or you are allergic to any penicillin or cephalosporin antibiotic, such as Amoxil, Ceftin, Cefzil, Moxatag, Omnicef, and others. Tell your doctor if you have ever had: liver disease (hepatitis or jaundice); kidney disease; or mononucleosis. The liquid or chewable tablet may contain phenylalanine. Tell your doctor if you have phenylketonuria (PKU). Tell your doctor if you are or . Amoxicillin and clavulanate potassium can make control pills less effective. Ask your doctor about using a non-hormonal control (condom, diaphragm, cervical cap, or contraceptive sponge) to prevent . Do not give this medicine to a child without medical advice. How should I take amoxicillin and clavulanate potassium? Follow all directions on your prescription label and read all medication guides or instruction sheets. Use the medicine exactly as directed. Amoxicillin and clavulanate potassium may work best if you take it at the start of a meal. Take the medicine every 12 hours. Do not crush or chew the extended-release tablet. Swallow the pill whole, or break the pill in halfand take both halves one at a time. Tell your doctor if you have trouble swallowing a whole or halfpill. You must chew the chewable tablet before you swallow it. Shake the oral suspension (liquid) before you measure a dose. Use the dosing syringe provided, or use a medicine dose-measuring device (not a kitchen spoon). This medicine can affect the results of certain medical tests. Tell any doctor who treats you that you are using amoxicillin and clavulanate potassium. Use this medicine for the full prescribed length of time, even if your symptoms quickly improve. Skipping doses can increase your risk of infection that is resistant to medication. Amoxicillin and clavulanate potassium will not treat a viral infection such as the flu or a common cold. Store the tablets at room temperature away from moisture and heat. Store the liquid in the refrigerator. Throw away any unused liquid after 10 days. What happens if I miss a dose? Take the medicine as soon as you can, but skip the missed dose if it is almost time for your next dose. Do not take two doses at one time. What happens if I overdose? Seek emergency medical attention or call the Poison Help line at . Overdose can cause nausea, vomiting, stomach pain, diarrhea, skin rash, drowsiness, hyperactivity, and decreased urination. What should I avoid while taking amoxicillin and clavulanate potassium? Avoid taking this medicine together with or just after eating a high-fat meal. This will make it harder for your body to absorb the medication. Antibiotic medicines can cause diarrhea, which may be a sign of a new infection. If you have diarrhea that is watery or bloody, call your doctor before using anti-diarrhea medicine. What are the possible side effects of amoxicillin and clavulanate potassium? Get emergency medical help if you have signs of an allergic reaction (hives, difficult breathing, swelling in your face or throat) or a severe skin reaction (fever, sore throat, burning eyes, skin pain, red or purple skin rash with blistering and peeling). Stop using amoxicillin and clavulanate potassium and seek medical treatment if you have a serious drug reaction that can affect many parts of your body. Symptoms may include skin rash, fever, swollenglands, muscle aches, severe weakness, unusual bruising, or yellowing of your skin or eyes. Call your doctor at once if you have: severe stomach pain, diarrhea that is watery or bloody (even if it occurs months after your last dose); pale or yellowed skin, dark colored urine, fever, confusion or weakness; loss of appetite, upper stomach pain; little or no urination; or easy bruising or bleeding. Common side effects may include: nausea, vomiting; diarrhea; rash, itching; vaginal itching or discharge; or diaper rash. This is not a complete list of side effects and others may occur. Call your doctor for medical advice about side effects. You may report side effects to FDA at 9-530-CTX-4312. What other drugs will affect amoxicillin and clavulanate potassium? Tell your doctor about all your other medicines, especially: allopurinol; probenecid; or a blood thinner--warfarin, Coumadin, Jantoven. This list is not complete. Other drugs may affect amoxicillin and clavulanate potassium, including prescription and [id number] medicines, vitamins, and herbal products. Not all possible drug interactions are listed here. Where can I get more information? Your doctor or pharmacist can provide more information about amoxicillin and clavulanate potassium. Remember, keep this and all other medicines out of the reach of children, never share your medicines with others, and use this medication only for the indication prescribed. Every effort has been made to ensure that the information provided by [employer]. ('[employer]') is accurate, up-to-date, and complete, but no guarantee is made to that effect. Drug information contained herein may be time sensitive. [employer] information has been compiled for use by healthcare practitioners and consumers in the [place] and therefore [employer] does not warrant that uses outside of the [place] are appropriate, unless specifically indicated otherwise. [employer] drug information does not endorse drugs, diagnose patients or recommend therapy. [employer] drug information isan informational resource designed to assist licensed healthcare practitioners in caring for their p atients and/or to serve consumers viewing this service as a supplement to, and not a substitute for, the expertise, skill, knowledge and judgment of healthcare practitioners. The absence of a warningfor a given drug or drug combination in no way should be construed to indicate that the drug or drug combination is safe, effective or appropriate for any given patient. [facility] does not assume any responsibility for any aspect of healthcare administered with the aid of information [facility] provides. The information contained herein is not intended to cover all possible uses, directions, precautions, warnings, drug interactions, allergic reactions, or adverse effects. If you have questions about the drugs you are taking, check with your doctor, nurse or pharmacist. Copyright 6676-3107 [employer]. Version: 14.. Revision Date: 04/16/2022. Education Materials Diverticulitis Some people get pouches along the wall of the colon as they get older. The pouches, called diverticuli, usually cause no symptoms. If the pouches become blocked, you can get an infection. This infection is called diverticulitis. It causes pain in your lower abdomen and fever. If not treated, it canbecome a serious condition, causing an abscess to form inside the pouch. The abscess may block the intestinal tract even or rupture, spreading infection throughout the abdomen. When treatment is started early, oral antibiotics alone may be enough to cure diverticulitis. This method is tried first. But, if you don't improve or if your condition gets worse while using oral antibiotics, you may need to be admitted to the hospital for IV antibiotics. Severe cases may require surgery. Home care The following guidelines will help you care for yourself at home: During the acute illness, rest and follow your healthcare provider's instructions about diet. Sometimes you will need to follow a clear liquid diet to rest your bowel. Once your symptoms are better, you may be told to follow a low-fiber diet for some time. Include foods like: oFlake cereal, mashed potatoes, pancakes, waffles, pasta, white bread, rice, applesauce, bananas, eggs, fish, poultry, tofu, and cooked soft vegetables Take antibiotics exactly as instructed. Don't miss any doses or stop taking the medication, even ifyou feel better. Monitor your temperature and tell your healthcare provider if you have rising temperatures. Preventing future attacks Once you have an episode of diverticulitis, you are at risk for having it again. After you have recovered from this episode, you may be able to lower your risk by eating a high-fiber diet (20 gm/day to 35 gm/day of fiber). This cleans out the colon pouches that already exist and may prevent new ones from forming. Foods high in fiber include fresh fruits and edible peelings, raw or lightly cooked vegetables, whole grain cereals and breads, dried beans and peas, and bran. Other steps that can help prevent future attacks include: Take your medicines, such as antibiotics, as your healthcare provider says. Drink 6 to 8 glasses of water every day, unless told otherwise. Use a heating pad or hot water bottle to help abdominal cramping or pain. Begin an exercise program. Ask your healthcare provider how to get started. You can benefit from simple activities such as walking or gardening. Treat diarrhea with a bland diet. Start with liquids only; then slowly add fiber over time. Watch for changes in your bowel movements (constipation to diarrhea). Avoid constipation by eating a high fiber diet and taking a stool softener if needed. Get plenty of rest and sleep. Follow-up care Follow up with your healthcare provider as advised or sooner if you are not getting better in the next 2 days. When to seek medical advice Call your healthcare provider right away if any of these occur: Fever of 100.4 F (38 C) or higher, or as directed by your healthcare provider Repeated vomiting or swelling of the abdomen Weakness, dizziness, light-headedness Pain in your abdomen that gets worse, severe, or spreads to your back Pain that moves to the right lower abdomen Rectal bleeding (stools that are red, black or maroon color) Unexpected vaginal bleeding 1119-3042 [employer]. [address] [place] [address] 32076. All rights reserved. This information is not intended as a substitute for professional medical care. Always follow yourhealthcare professional's instructions. Additional Information VACCINATE! IT SAVES LIVES! Members of the community who have not yet received the COVID-19 vaccine and would like to receive it can visit one of [facility] vaccine clinics. There are many vaccine clinic locations within the [facility]. For locations and available times, please visit www.gettheshot.coronavirus.[place].gov/. It is important to note that some COVID mobile vaccine clinics are held outdoors and may be canceled in rainy or stormy conditions. To learn more about pediatric vaccinations (ages 5-11), we invite you to visit the [facility] webpage. https://www.[facility].org/pages/7298-Eknjy-Geqdgcfwecj-Ydskibnvzh-Gpnnq-Ifc stions.htmlTo learn more about the COVID-19 vaccine, we invite you to visit the CDC website for a list of frequently asked questions. https://www.cdc.gov/coronavirus/2019-ncov/vaccines/faq.html [facility] Patient Portal Access Instructions: Stay connected with your healthcare team and access your personal medical information anytime with the [facility] Patient Portal. If you would like a full copy of your medical records please contact the [facility] Medical Records Department Tuesday through Tuesday between 8a.m. and 4:30p.m. Please follow the directions below to access the portal: 1.Access the email account you provided upon registration to the [facility].2.Look for an invitation email from [facility].3.Open the email and access the invitation link: Accept Invitation to [facility]4.Fill in the required torre to create your account. Sign into www.[employer] with your username and password that you created in the above steps to stay up to date. You can then view a summary of results, a summary of your visits, and the ability to download your summaries to your computer or send the information securely to a physician. Remember that your healthcare information is confidential, so carefully consider who you will allow to register on the [facility] Patient Portal for access to your information. You can also access the [facility] Patient Portal on the [employer] Simply click on "Health Records" under "HealthData" and then click on the [employer] logo. HOW TO SAFELY DISPOSE OF PRESCRIPTION MEDICATIONS Please use one of the following methods to safely dispose of your unused medications. 1.Use a drug disposal kit: the drug disposal pouch allows you to safely discard your old and unuseddrugs. Ask your nurse to give you one when you are discharged.2.Visit a local take-back location: Many local pharmacies and police departments have programs that collect old and unwanted prescriptiondrugs. Call your local pharmacy or go to http://Kyte.ClearFit/1Y2Lr8w to find one close to you.3.Make use of household items: Use cat litter or old coffee grounds to dispose medications if other options arenot available. Mix your drugs with these household products, seal them in an airtight container andthrow it into the garbage. Call [facility]: [phone] to be sure your drugs can be disposed of in this way. Some medicines may require a different approach.4.Never flush your medications down the toilet. IF YOU HAVE BEEN PRESCRIBED AN OPIOIDS FOR PAIN If you have been prescribed an opioid (such as hydrocodone, oxycodone or morphine), it is critical to understand the possible side effects and risks of opioid pain medications. Even when taken as directed, opioids can have several side effects including: Tolerance, meaning you might need to take more of a medication for the same pain relief. Nausea, vomiting and/or constipation. Sleepiness, dizziness, dry mouth, confusion, depression or itching. Physical dependence, meaning you have withdrawal symptoms when a medication is stopped ? this can develop within a few days. KNOW YOUR RESPONSIBILITIES It is important to know exactly how much and how often to take the opioid pain medications you are prescribed. Never take opioids in higher amounts or more often than prescribed. Do not combine opioids with alcohol or other drugs that cause drowsiness, such as benzodiazepines, also known as benzos,including diazepam and alprazolam, muscle relaxants or sleep aids. Never sell or share prescriptionopioids. This is illegal. Store opioids in a secure place and out of reach of others (including children, family, friends and visitors). The last page(s) of this document has been signed and retained as a CHART COPY Signatures Patient Education Materials Diverticulitis Medication Leaflets amoxicillin and clavulanate potassium, acetaminophen and oxycodone, amoxicillin and clavulanate potassium My discharge plan and instructions have been reviewed and explained to me and I,HARIKA SALEH understand my current condition and have read and understand these discharge instructions. I have received a written copy of the plan/instructions. If I have questions, I am aware that I should contact my doctor. Patient/Academic Director Signature: Date/Time: Relationship to Patient: Witness Name/Signature: Date/Time: [facility]09-10-2024 Note ORIGINAL HISTORY: Pain COMPARISON: 11 October 2020 TECHNIQUE: CT of the Abdomen and Pelvis following uncomplicated administration of intravenous contrast, with sagittal and coronal reconstructions. This exam was performed according to our departmental dose optimization program, and includes the following measures where applicable: automated exposure control, adjustment of the mAs and/or kVp according to patient size and/or exam, and an iterative reconstruction algorithm. FINDINGS: There is scarring in the right lung base. The study is mildly degraded by motion. There are left renal cysts. The remaining abdominal organs are unremarkable in appearance. There is an appendectomy. Bowel is poorly evaluated in the absence of oral contrast. There is diverticulosis. There is questionable faint infiltration around the proximal sigmoid colon, along with questionable mild wall thickening. There is no free fluid. IMPRESSION: Diverticulosis, with questionable mild surrounding infiltration, at least suggestive of acute diverticulitis. Otherwise, no significant interval change. Interpreted by: Suzie Olguin MD Preliminary Report By: Suzie Olguin MD Electronically signed By Suzie Olguin MD Dictated Date: 03/20/2024 8:23:47 AM Prelim Date: 03/20/2024 8:26:45 AM Sign Date: 03/20/2024 8:26:45 AM Ordering Provider[facility] Discharge summary Author Jacob Bryant [facility] January 24, 2023 1:22pm Note Date/Time January 24, 2023 11:0 2am [facility] Medical Records Department [address] [place] [address] Emergency Department Summary 01/24/23 MR#: [id number] Acct: [id number] Name: HARIKA SALEH Rep #:[id number] : 1960 62 From: Jacob Bryant MD PCP: Dr. Jim Perez, DO Status:RE G ER Location: ED HPI HPI - GI History of Present Illness Chief Complaint: Abd Pain Detail of Chief Complaint: Right-sided abdominal pain. Informant: patient and spouse/S.O. Abdominal Pain/Flank Pain Onset: Weeks Context: Gradual Onset Timing: Intermittent Quality: Aching Location: RUQ and RLQ Current Severity: Mild Maximum Severity: Mild Worsened by: Nothing Relieved by: Nothing Nausea/Vomiting/Emesis GI Symptom: Positive for Nausea Onset: Days Severity: Mild Diarrhea/Melena/Hematochezia GI Symptom: Negative for Diarrhea, Melena or Hematochezia Associated Symptoms Associated Symptoms: Negative for Dysuria, Frequency, Hematuria or Urgency Narrative Narrative: 62-year-old male history of CAD, ID, lung cancer diagnosed in 2018 with brain mets in 2020. He had surgery for both. His only prior abdominal surgery was for an appendectomy. States the last several weeks he has had intermittent right-sided abdominal pain both lower and upper. Seems to be more upper. Associated nausea no vomiting. No diarrhea or documented fever. No dysuria or hematuria. Prior similar symptoms: Yes Recent Illness/Hospitalization: No PFSH PFSH Medical History Abdominal hernia Atherosclerosis of coronary artery of [place] without angina pectoris Brain metastases Bronchitis Cervical radiculitis Cervical stenosis of spine Chronic sinusitis Constipation Degenerative joint disease of spine Diverticular disease Diverticulitis Dyspnea Dyspnea on exertion Encounter for adjustment or management of vascular access device Essential (primary) hypertension EtOH dependence GERD (gastroesophageal reflux disease) HH (hiatus hernia) Hyperlipidemia Left shoulder pain Medial epicondylitis Nicotine dependence Old inferior wall myocardial infarction Pancoast tumor of right lung Paresthesia of left upper extremity Home Medications gabapentin 300 mg capsule 300 mg PO DAILY 03/22/22 [History Last Taken Unknown] ezetimibe 10 mg tablet (Zetia) 10 mg PO DAILY #30 tabs 08/23/22 [Rx Last Taken Unknown] amlodipine 5 mg tablet (Norvasc) 5 mg PO DAILY #90 tabs 08/30/22 [Rx Last Taken Unknown] clopidogrel 75 mg tablet 75 mg PO DAILY #90 tabs 10/12/22 [Rx Last Taken Unknown] olmesartan 40 mg tablet 40 mg PO DAILY HTN #90 tabs 04/04/23 [Rx Last Taken Unknown] flurbiprofen 100 mg tablet 100 mg PO TID PRN pain #90 tabs 11/29/22 [Rx Last Taken Unknown] levetiracetam 1,000 mg tablet (Keppra) 1,000 mg PO BID #60 tabs 11/29/22 [Rx Last Taken Unknown] icosapent ethyl 1 gram capsule (Vascepa) 2 g (2 x 1 gram) PO BID #120 caps 12/17/22 [Rx Last Taken Unknown] metoprolol tartrate 25 mg tablet 25 mg PO BID #180 tabs 01/12/23 [Rx Last Taken Unknown] amoxicillin 500 mg-potassium clavulanate 125 mg tablet (Augmentin) 1 tab PO TID #30 tabs 01/19/23 [Rx Last Taken Unknown] nitroglycerin 0.4 mg sublingual tablet 0.4 mg sublingual Q5M PRN chest pain #21 tabs 01/19/23 [Rx Last Taken Unknown] Allergy/AdvReac Type Severity Reaction Status Date / Time sulfamethoxazole AdvReac Intermediate hives Verified 01/24/23 10:41 [From Bactrim] trimethoprim [From Bactrim] AdvReac Intermediate hives Verified 01/24/23 10:41 Family History Grandfather Cancer Lung cancer Uncle Cancer Lung cancer Surgical History History of appendectomy History of colonoscopy History of coronary artery stent placement (10/26/16) History of craniotomy (10/2020) History of lobectomy of lung (05/2019) History of removal of Port-a-Cath History of vasectomy Social History Smoking Status: Light Smoker (<10/day) Tobacco: How many years used: 39 alcohol intake: current alcohol intake frequency: holidays/special occasions only details: occasionally substance use type: does not use caffeine: Yes Type: coffee Number of servings: 2 seatbelt use: always do you feel safe at home: Yes ROS ROS ED ROS Narrative Abdominal pain. Nausea. Review of Systems ROS Unobtainable: Denies due to encephalopathy Constitutional Constitutional ED: Denies chills or fever(s) ENT ENT ED: Denies ear pain Cardiovascular Cardiovascular: Denies chest pain Respiratory/Chest Respiratory/Chest: Denies cough or dyspnea Gastrointestinal Gastrointestinal: Reports abdominal pain, constipation and nausea; Denies diarrhea, melena or vomiting Genitourinary Genitourinary ED: Denies dysuria or hematuria Musculoskeletal Musculoskeletal: Denies arthralgias Integumentary Denies abscess Neurologic Neurologic: Denies headache(s) Psychiatric Psychiatric: Denies anxiety Endocrine Endocrinology: Denies polydipsia Hematologic/Lymphatic Hematologic/Lymphatic: Denies easy bleeding Allergic/Immunologic Allergic/Immunologic ED: Denies mouth swelling or tongue swelling EXAM Physical Exam Narrative Exam Narrative: Well-appearing 62-year-old male. Vital signs stable afebrile. Sitting upright in bed. at bedside. HEENT exam unremarkable. Moist with membranes. Lungs clear to auscultation. Heart regular rhythm rate about 70 no murmur. Chest wall nontender. Abdomen soft mild right upper quadrant tenderness. No peritoneal signs. No Huggins sign. No McBurney's point tenderness. No distention. No signs of obstruction. Positive bowel sounds. Moving all 4 extremities. No edema. He is awake alert. Normal motor strength. Const Vital Signs: 01/24/23 10:41 Temperature 97.8 F Temperature Source Temporal Pulse Rate 67 Respiratory Rate 18 Blood Pressure 159/86 H Blood Pressure Mean 110 Pulse Ox 100 Oxygen Delivery Method Room Air Positive well nourished and well developed; Negative for cachectic, contracturesor unkempt General Appearance ED: well developed and NAD; Negative for unkempt, cachectic, contractures or pallor Nutritional Appearance: Negative for cachectic HEENT Reports moist mucous membranes normocephalic and atraumatic; Negative for trauma or tenderness Eyes PERRL and EOMs intact bilaterally General Eye ED: Negative for pale conjunctiva or scleral icterus Neck no lymphadenopathy, supple and no JVD General: Negative for tenderness Carotids: Negative for other Lymph Lymphatic: Negative for other Resp normal respiratory effort and clear to auscultation bilaterally Effort and Inspection: Negative for respiratory distress Auscultation: Negative for rales, rhonchi or wheezes Cardio regular rate, regular rhythm, S1 normal heart sound, S2 normal heart sound and no murmurs GI non-distended; Negative for non-tender GI Narrative: Mild right upper quadrant tenderness. No peritoneal signs. Auscultation: normoactive bowel sounds Palpation: soft and tender Back/Spine no CVA tenderness General Back: Negative for CVA tenderness Cervical Spine: Negative for cervical spine tenderness Thoracic Spine / Upper Back: Negative for thoracic spinal tenderness Lumbar Spine / Lower Back: Negative for lumbar spinal tenderness Coccyx: Negative for other Extremity full ROM General Extremety ED: Negative for edema or tenderness General Extremity: Negative for edema Neuro CN's II-XII intact bilaterally and moves all extremities Sensorium / Orientation: alert, oriented to person, oriented to place and oriented to time; Negative for orientation impaired, confused, lethargic or stuporous Motor Exam: strength 5/5 throughout Psych mental status grossly normal and thought process normal Appearance: Negative for unkempt Attitude: No agitated Mood & Affect: Negative for depressed, anxious or tearful Skin General Skin Exam: Negative for jaundice or pallor Lesions: no lesions Rashes: no rashes Trauma: Negative for abrasion Nails: Negative for discolored MDM MDM MDM Narrative Medical decision making narrative: 62-year-old male with a history of a prior appendectomy, lung cancer with brain mets both surgically removed. Complaining of abdominal pain for the last several weeks primarily right upper quadrant. Differential would include gallbladder disease, liver disease versus other etiologies. CAT scan and labs are being obtained. He did request some for pain and nausea be given IV morphine and Zofran. Repeat exam at 1:15 PM patient doing well. We went over all his test results. His CAT scan was unremarkable. Normal white count. Normal liver enzymes. Normal lipase. I do not think he needs any further testing today. He can follow-up with his primary care physician for further outpatient testing as needed. History & Record Review Discussion w/independent historian: Patient and Family Lab Data Attestation: I reviewed the patient's lab results. Lab results narrative: CBC unremarkable. White count 9.4. H&H is 16 and 48. Platelets 261. Chemistries unremarkable gap 3. Normal BUN and creatinine. Glucose 104. Liverenzymes normal. Lipase normal at 57. CAT scan of his abdomen and pelvis showed no acute abnormality as read by the radiologist and reviewed by me. Labs: Laboratory Results - last 24 hr 01/24/23 10:50 WBC 9.4 RBC 5.22 Hgb 16.5 Hct 48.4 MCV 92.7 MCH 31.6 MCHC 34.1 RDW Std Deviation 46.9 H RDW Coeff of Morena 13.6 Plt Count 261 MPV 9.3 Immature Gran % (Auto) 0.400 Neut % (Auto) 49.6 Lymph % (Auto) 33.9 [place] % (Auto) 11.9 H Eos % (Auto) 3.0 Baso % (Auto) 1.2 H Absolute Neuts (auto) 4.7 Absolute Lymphs (auto) 3.20 Nucleated RBC % 0 Sodium 141 Potassium 3.7 Chloride 108 H Carbon Dioxide 30.0 Anion Gap 3 L BUN 14 Creatinine 0.96 Estim Creat Clear Calc 78.18 Est GFR (MDRD) Af Amer 102 Est GFR (MDRD) Non-Af 84 BUN/Creatinine Ratio 14.6 Glucose 104 Calcium 8.4 L Total Bilirubin 0.40 AST 17 ALT 24 Alkaline Phosphatase 64 Total Protein 6.9 Albumin 3.4 Globulin 3.5 Albumin/Globulin Ratio 1.0 Lipase 57 Radiography Diagnostic Testing: Clinical Impression(s) from Imaging Studies Abdomen/Pelvis CT 01/24/23 10:55 IMPRESSION: No evidence for acute intra-abdominal or pelvic pathology. Small hypodensity in the right lobe of the liver may represent hemangioma not as well seen on the prior study. CT or MRI with multiphase imaging can be obtained for further characterization. Small stable lung nodules. Clinical correlation and follow up recommended. Electronically Signed: Jaime Conn, at 12:09 EDT Reading Location ID and State: [address] [place] [address] Tel , Service support , Discharge Plan Triage Chief Complaint: Abd Pain ED Provider: Jacob Bryant Dx/Rx/DC Orders Clinical Impression: Abdominal pain Instructions: Abdominal Pain Prescriptions: No Action levetiracetam [Keppra] 1,000 mg tablet 1,000 mg PO BID Qty: 60 5RF flurbiprofen 100 mg tablet 100 mg PO TID PRN (Reason: pain) Qty: 90 4RF amoxicillin-pot clavulanate [Augmentin] 500-125 mg tablet 1 tab PO TID Qty: 30 0RF nitroglycerin 0.4 mg tablet, sublingual 0.4 mg SUBLINGUAL Q5M PRN (Reason: chest pain) Qty: 21 1RF Rx Instructions: until response; do not exceed 3 doses per event gabapentin 300 mg capsule 300 mg PO DAILY ezetimibe [Zetia] 10 mg tablet 10 mg PO DAILY Qty: 30 11RF amlodipine [Norvasc] 5 mg tablet 5 mg PO DAILY Qty: 90 3RF olmesartan 40 mg tablet 40 mg PO DAILY Qty: 90 3RF Rx Instructions: TAKE 1 TABLET DAILY clopidogrel 75 mg tablet 75 mg PO DAILY Qty: 90 3RF Patient Comments: STOPPED FOR PORT PLACEMENT icosapent ethyl [Vascepa] 1 gram capsule 2 g PO BID Qty: 120 11RF metoprolol tartrate 25 mg tablet 25 mg PO BID Qty: 180 3RF Primary Care Provider: Jim Perez Referrals: Jim Perez, [Primary Care Provider] - 1 Week if not improving Activity Restrictions/Additional Instructions: Your labs and CAT scan today are unremarkable. We do not have a specific cause for your pain. Motrin and Tylenol for pain. Follow-up with your primary care physician if not improving. Disposition Disposition: Home, Self Care What to do if you have Problems For any increased pain, shortness of breath, bleeding, nausea or vomiting, chestpain, or any unexpected problems, contact your Primary Care Provider. Call [facility] ([phone]) or report to the closest Emergency Room. Call 911 if necessary. 01/24/23 1322 <Electronically signed by Jacob Bryant MD> Cosigner Signature (if applicable): CC: Dr. Jim Perez DO ~ Signed [facility] Work Phone: [phone]) 860-249904-07-2021 Note. MICRO - Microbiology PROCEDURE: Blood Culture (bacterial) [*1] SOURCE: Blood BODY SITE: COLLECTED DATE/TIME: 10/10/2020 19:09 EDT RECEIVED DATE/TIME: 10/10/2020 21:43 EDT START DATE/TIME: 10/10/2020 21:43 EDT FREE TEXT SOURCE: FINAL REPORTS Final Report [] Verified Date/Time/Personnel: 10/15/2020 21:59 EDT Blood Culture: No Growth at 5 days. PRELIMINARY REPORTS Preliminary Report [] Verified Date/Time/Personnel: 10/10/2020 22:59 EDT Culture has been received in lab and is no growth to date. Routine cultures are held for 5 days. Performing Locations *1: This test was performed at: [address], [address] [place] [address] ([place])Comment on above:Performed By: #### GFR, ANEU, ADIFF, CBC, BMP #### [address] [id number] Note. MICRO - Microbiology PROCEDURE: Blood Culture (bacterial) [*1] SOURCE: Blood BODY SITE: COLLECTED DATE/TIME: 10/10/2020 19:09 EDT RECEIVED DATE/TIME: 10/10/2020 21:43 EDT START DATE/TIME: 10/10/2020 21:43 EDT FREE TEXT SOURCE: FINAL REPORTS Final Report [] Verified Date/Time/Personnel: 10/15/2020 21:59 EDT Blood Culture: No Growth at 5 days. PRELIMINARY REPORTS Preliminary Report [] Verified Date/Time/Personnel: 10/10/2020 22:59 EDT Culture has been received in lab and is no growth to date. Routine cultures are held for 5 days. Performing Locations *1: This test was performed at: [address], [address] [place] [address] ([place])Comment on above:Performed By: #### GFR, ANEU, ADIFF, CBC, BMP #### [address] [id number] Note. MICRO - Microbiology PROCEDURE: Urine Culture [*1] SOURCE: Urine, Clean Catch BODY SITE: COLLECTED DATE/TIME: 10/10/2020 19:34 EDT RECEIVED DATE/TIME: 10/10/2020 19:51 EDT START DATE/TIME: 10/10/2020 19:51 EDT FREE TEXT SOURCE: FINAL REPORTS Final Report [] Verified Date/Time/Personnel: 10/12/2020 08:57 EDT <10,000 cfu/ml. No Significant growth. Sensitivity not indicated. PRELIMINARY REPORTS Preliminary Report [] Verified Date/Time/Personnel: 10/11/2020 09:51 EDT No growth to date Performing Locations *1: This test was performed at: [address], [address] [place] [address] ([place])Comment on above:Performed By: #### GFR, ANEU, ADIFF, CBC, BMP #### [address] [id number] Note. MICRO - Microbiology PROCEDURE: Streptococcus Pneumoniae Urine Antig [^1 *1] SOURCE: Urine BODY SITE: COLLECTED DATE/TIME: 10/10/2020 19:34 EDT RECEIVED DATE/TIME: 10/10/2020 23:11 EDT START DATE/TIME: 10/10/2020 23:11 EDT FREE TEXT SOURCE: FINAL REPORTS Final Report [] Verified Date/Time/Personnel: 10/10/2020 23:29 EDT Presumptive negative for pneumococcal pneumonia, suggesting no current or recent pneumococcal infection. Infection due to Strep pneumoniae cannot be ruled out since the antigen present in the sample may be below the detection limit of the test. Interpretive Data ^1: Streptococcus Pneumoniae Urine Antig This test has not been evaluated on patients taking antibiotics for greater than 24 hours or on patients who have recently completed an antibiotic regimen. The accuracy of this test has not been proven in young children. Performing Locations *1: This test was performed at: [address], [address] [place] [address] ([place])Comment on above:Performed By: #### GFR, ANEU, ADIFF, CBC, BMP #### [address] [id number] Note. MICRO - Microbiology PROCEDURE: Legionella Urine Ag [*1] SOURCE: Urine BODY SITE: COLLECTED DATE/TIME: 10/10/2020 19:34 EDT RECEIVED DATE/TIME: 10/10/2020 23:10 EDT START DATE/TIME: 10/10/2020 23:11 EDT FREE TEXT SOURCE: FINAL REPORTS Final Report [] Verified Date/Time/Personnel: 10/10/2020 23:28 EDT Presumptive negative for L. pneumophila serogroup 1 antigen in urine, suggesting no recent or current infection. Legionnaire's disease cannot be ruled out since other serogroups and species may also cause disease. 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 Brain metastases acute Medial epicondylitis acute Chronic sinusitis [facility] Work Phone: Evaluation note* Diagnosis Onset Date Resolution Status Brain metastases acute Pancoast tumor of right lung chronic Brain metastases acute Medial epicondylitis acute Chronic sinusitis chronic Brain metastases acute Pancoast tumor of right lung chronic Pancoast tumor of right lung [facility] Work Phone: Evaluation note* Diagnosis Onset Date Resolution Status Brain metastases acute Medial epicondylitis acute Chronic sinusitis chronic Brain metastases acute 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 Brain metastases [facility] Work Phone: Evaluation note* Diagnosis Onset Date Resolution Status Medial epicondylitis acute Chronic sinusitis chronic Chronic mastoiditis noneacti ve Brain metastases acute 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 Work Phone: Evaluation note* Diagnosis Onset Date Resolution Status Cervical radiculitis acute Cervical stenosis of spine a cute Brain metastases chronic Pancoast tumor of right lung chronic C7 radiculopathy acute Cervical stenosis of spine a cute Brain metastases chronic [facility] Work Phone: Evaluation note* Diagnosis Onset Date Resolution Status Cervical radiculitis acute Cervical stenosis of spine a cute Brain metastases chronic Pancoast tumor of right lung chronic C7 radiculopathy acute Cervical stenosis of spine a cute Brain metastases chronic Brain metastases chronic Pancoast tumor of right lung chronic [facility] Work Phone: Evaluation note* Diagnosis Onset Date Resolution Status Brain metastases chronic Brain metastases chronic Pancoast tumor of right lung chronic URI (upper respiratory infection) noneactive Nausea noneactive [facility] Work Phone: Evaluation note* Diagnosis Onset Date Resolution Status Brain metastases chronic Pancoast tumor of right lung chronic URI (upper respiratory infection) noneactive Nausea noneactive Constipation acute COVID noneactive Acute bronchitis noneactive Chest tightness acute Atherosclerosis of coronary artery of [place] without angina pectoris chronic Dyspnea on exertion chronic Essential (primary) hypertension chronic Hyperlipidemia chronic History of coronary artery stent placement October 26, [address] [facility] Work Phone: Evaluation note* Diagnosis Onset Date Resolution Status Brain metastases chronic Pancoast tumor of right lung chronic URI (upper respiratory infection) noneactive Nausea noneactive Constipation acute COVID noneactive Acute bronchitis noneactive Chest tightness acute Atherosclerosis of coronary artery of [place] without angina pectoris chronic Dyspnea on exertion chronic Essential (primary) hypertension chronic Hyperlipidemia chronic History of coronary artery stent placement October 26, 2016 resolved Brain metastases chronic Brain metastases chronic Pancoast tumor of right lung chronic [facility] Work Phone: Evaluation note* Diagnosis Onset Date Resolution Status URI (upper respiratory infection) noneactive Nausea noneactive Constipation acute COVID noneactive Acute bronchitis noneactive Chest tightness acute Atherosclerosis of coronary artery of [place] without angina pectoris chronic Dyspnea on exertion chronic Essential (primary) hypertension chronic Hyperlipidemia chronic History of coronary artery stent placement October 26, 2016 resolved Brain metastases chronic Brain metastases chronic Pancoast tumor of right lung chronic [facility] Work Phone: Evaluation note* Diagnosis Onset Date Resolution Status Constipation acute COVID noneactive Acute bronchitis noneactive Chest tightness acute Atherosclerosis of coronary artery of [place] without angina pectoris chronic Dyspnea on exertion chronic Essential (primary) hypertension chronic Hyperlipidemia chronic History of coronary artery stent placement October 26, 2016 resolved Brain metastases chronic Brain metastases chronic Pancoast tumor of right lung chronic Brain metastases chronic Pancoast tumor of right lung chronic [facility] Work Phone: Evaluation note* Diagnosis Onset Date Resolution Status Brain metastases chronic Pancoast tumor of right lung chronic Tick bite acute Brain metastases chronic Epilepsy acute Left cervical radiculopathy acute Neck pain acute Brain metastases chronic [facility] Work Phone: Evaluation note* Diagnosis Onset Date Resolution Status Brain metastases chronic Pancoast tumor of right lung chronic Tick bite acute Brain metastases chronic Epilepsy acute Left cervical radiculopathy acute Neck pain acute Brain metastases chronic Diverticulitis acute Left cervical radiculopathy acute [facility] Work Phone: Evaluation note* Diagnosis Onset Date Resolution Status Tick bite acute Brain metastases chronic Epilepsy acute Left cervical radiculopathy acute Neck pain acute Brain metastases chronic Diverticulitis acute Left cervical radiculopathy acute Brain metastases chronic 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 Work Phone: Evaluation note* Diagnosis Onset Date Resolution Status Fatigue noneactive Hip bursitis, left acute Left hip pain acute Fatigue noneactive Fatigue noneactive [facility] Work Phone: Evaluation note* Diagnosis Onset Date Resolution Status Fatigue noneactive Hip bursitis, left acute Left hip pain acute Fatigue noneactive Fatigue noneactive Brain metastases chronic Pancoast tumor of right lung chronic Brain metastases chronic Pancoast tumor of right lung chronic [facility] Work Phone: Hospital Discharge instructions Additional Instructions Your labs and CAT scan today are unremarkable. We do not have a specific cause for your pain. Motrin and Tylenol for pain. Follow-up with your primary care physician if not improving.[facility] Work Phone: Hospital Discharge instructionsAmbulatory Orders* Abdomen Complete [US] Location: None Selected * ONC Referral: Pain Management Time Frame: 0 Days, Location: None Selected * ONC Referral: Radiation Oncology Time Frame: 0 Days, Location: None Selected * ONC Referral: Surgery Time Frame: 0 Days, Location: None Selected [facility] Work Phone: Reason for referral (narrative)No reason for referral information availableWMercy [facility] Work Phone: Summary Purpose Family History No Family History Records Found Relationship Condition Age at Onset Recorded Date/T olive grandfather Malignant neoplasm Unknown Malignant neoplasm of lung Unknown uncle Malignant neoplasm Unknown Advance Directives No Advanced Directives Records Found Advance Directive Response Recorded Date/ Time Advance Directives on File No Octob er 2018 9:35am Name of Medical Power of Beef Grinder Oma Orr david April 10, 2019 9:35am Advance Directives Yes April 10, 2019 9:35am Living Will Yes December 13, 2019 1 0:27am Power of Beef Grinder Yes December 13, 2019 10:27am Advance Directive Response Recorded Date/ Time Advance Directives Yes April 10, 2019 9:35am Living Will Yes December 13, 2019 1 0:27am Power of Beef Grinder Yes December 13, 2019 10:27am Advance Directive Response Recorded Date/ Time Advance Directives Yes April 10, 2019 8:35am Living Will Yes December 13, 2019 9 :27am Power of Beef Grinder Yes December 13, 2019 9:27am Advance Directive Response Recorded Date/ Time Name of Medical Power of Beef Grinder OMA ORR DAVID January 24, 2023 11:04am Advance Directives Yes April 10, 2019 9:35am Living Will Yes January 24, 2023 11:04am Power of Beef Grinder Yes January 24 11:04am Advance Directive Response Recorded Date/ Time Advance Directives on File No Octob er 2018 9:35am Name of Medical Power of Beef Grinder Oma hernandez April 10, 2019 9:35am Name of Medical Power of Beef Grinder OMA HERNANDEZ January 24, 2023 11:04am Advance Directives Yes April 10, 2019 9:35am Living Will Yes January 24, 2023 11:04am Power of Beef Grinder Yes January 24 11:04am Advance Directive Response Recorded Date/ Time Advance Directives Yes April 10, 2019 9:35am Living Will Yes January 24, 2023 11:04am Power of Beef Grinder Yes January 24 11:04am Advance Directive Response Recorded Date/ Time Advance Directives on File No Octob er 2018 9:35am Name of Medical Power of Beef Grinder Oma hernandez April 10, 2019 9:35am Advance Directives Yes April 10, 2019 9:35am Living Will Yes January 24, 2023 11:04am Power of Beef Grinder Yes January 24 11:04am Advance Directive Response Recorded Date/ Time Living Will Yes January 24, 2023 11:04am Do you have a Healthcare Pow er of Beef Grinder? Yes January 24, 2023 11:04am Advance Directives on File No Octob er 2018 9:35am Living Will Yes April 10 9:35am Do you have a Healthcare Pow er of Beef Grinder? Yes April 10, 2019 9:35am Name of Medical Power of Beef Grinder Oma hernandez April 10, 2019 9:35am Advance Directives Yes April 10, 2019 9:35am Chief Complaint and Reason for Visit Chief Complaint CHEST CONGESTION FOR 3WKS EORDER- COUGH 3 MO - LABS RESTATING LUNG CA BRAIN METASTASES F/U REVIEW MRI DISCUSS ELBOW ISSUES AND HEAD MRI RESTAGING LUNG CANCER RESTAGING LUNG CANCER Reason for Visit Bronchitis Brain metastases 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 Brain metastases Medial epicondylitis Chronic sinusitis Chief Complaint 3 MO - LABS BRAIN METASTASES F/U REVIEW MRI DISCUSS ELBOW ISSUES AND HEAD MRI RESTAGING LUNG CANCER RESTAGING LUNG CANCER 3 MO - LABS - REVIEW SCANS RESTATING LUNG CA Reason for Visit Brain metastases Pancoast tumor of right lung Brain metastases Medial epicondylitis Chronic sinusitis Brain metastases 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 Chief Complaint 3 MO - LABS BRAIN METASTASES F/U REVIEW MRI DISCUSS ELBOW ISSUES AND HEAD MRI RESTAGING LUNG CANCER RESTAGING LUNG CANCER 3 MO - LABS - REVIEW SCANS RESTATING LUNG CA E ORDER Reason for Visit Brain metastases Pancoast tumor of right lung Brain metastases Medial epicondylitis Chronic sinusitis Brain metastases 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 Chief Complaint BRAIN METASTASES F/U REVIEW MRI DISCUSS ELBOW ISSUES AND HEAD MRI RESTAGING LUNG CANCER RESTAGING LUNG CANCER 3 MO - LABS - REVIEW SCANS RESTATING LUNG CA E ORDER BRAIN METASTATES, MONITOR FOLLOWUP MRI Reason for Visit Brain metastases Medial epicondylitis Chronic sinusitis Brain metastases 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 Brain metastases Chief Complaint DISCUSS ELBOW ISSUES AND HEAD MRI RESTAGING LUNG CANCER RESTAGING LUNG CANCER 3 MO - LABS - REVIEW SCANS RESTATING LUNG CA E ORDER BRAIN METASTATES, MONITOR FOLLOWUP MRI STILL HAVING ISSUES W/ARM LEFT ELBOW xray CERVICAL PAIN CERVICAL SPINE Reason for Visit Medial epicondylitis Chronic sinusitis Chronic mastoiditis Brain metastases 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 Brain metastases Left shoulder pain Paresthesia of left upper extremity Lateral epicondylitis Cervical radiculitis Cervical stenosis of spine Chief Complaint STILL HAVING ISSUES W/ARM LEFT ELBOW xray CERVICAL PAIN CERVICAL SPINE 3 MO - NO LABS CERVICAL SPINE BRAIN METS Reason for Visit Left shoulder pain Paresthesia of left upper extremity Lateral epicondylitis Cervical radiculitis Cervical stenosis of spine Brain metastases Pancoast tumor of right lung C7 radiculopathy Cervical stenosis of spine Chief Complaint LEFT ELBOW xray CERVICAL PAIN CERVICAL SPINE 3 MO - NO LABS CERVICAL SPINE BRAIN METS f/u review MRI LUNG CANCER Reason for Visit Cervical radiculitis Cervical stenosis of spine Brain metastases Pancoast tumor of right lung C7 radiculopathy Cervical stenosis of spine Brain metastases Chief Complaint LEFT ELBOW xray CERVICAL PAIN CERVICAL SPINE 3 MO - NO LABS CERVICAL SPINE BRAIN METS f/u review MRI LUNG CANCER ABN CT 3 MO - REVIEW SCANS - LABS WITH CT Reason for Visit Cervical radiculitis Cervical stenosis of spine Brain metastases Pancoast tumor of right lung C7 radiculopathy Cervical stenosis of spine Brain metastases Brain metastases Pancoast tumor of right lung Chief Complaint f/u review MRI LUNG CANCER ABN CT 3 MO - REVIEW SCANS - LABS WITH CT SORE THROAT, NAUSEA, CONSTIPATED Reason for Visit Brain metastases Brain metastases Pancoast tumor of right lung URI (upper respiratory infection) Nausea Chief Complaint LUNG CANCER ABN CT 3 MO - REVIEW SCANS - LABS WITH CT SORE THROAT, NAUSEA, CONSTIPATED COVID +, WANTS PAXLAVID has not been seen since 2019/ med refills E ORDER BRAIN METS Review MRI from 07/27 Reason for Visit Brain metastases Pancoast tumor of right lung URI (upper respiratory infection) Nausea Constipation COVID Acute bronchitis Chest tightness Atherosclerosis of coronary artery of [place] without angina pectoris Dyspnea on exertion Essential (primary) hypertension Hyperlipidemia History of coronary artery stent placement Chief Complaint ABN CT 3 MO - REVIEW SCANS - LABS WITH CT SORE THROAT, NAUSEA, CONSTIPATED COVID +, WANTS PAXLAVID has not been seen since 2019/ med refills E ORDER BRAIN METS Review MRI from 07/27 3 MO - LABS PRIOR Reason for Visit Brain metastases Pancoast tumor of right lung URI (upper respiratory infection) Nausea Constipation COVID Acute bronchitis Chest tightness Atherosclerosis of coronary artery of [place] without angina pectoris Dyspnea on exertion Essential (primary) hypertension Hyperlipidemia History of coronary artery stent placement Brain metastases Brain metastases Pancoast tumor of right lung Chief Complaint SORE THROAT, NAUSEA, CONSTIPATED COVID +, WANTS PAXLAVID has not been seen since 2019/ med refills E ORDER BRAIN METS Review MRI from 07/27 3 MO - LABS PRIOR Reason for Visit URI (upper respirato ry infection) Nausea Constipation COVID Acute bronchitis Chest tightness Atherosclerosis of coronary artery of [place] without angina pectoris Dyspnea on exertion Essential (primary) hypertension Hyperlipidemia History of coronary artery stent placement Brain metastases Brain metastases Pancoast tumor of right lung Chief Complaint SORE THROAT, NAUSEA, CONSTIPATED COVID +, WANTS PAXLAVID has not been seen since 2019/ med refills E ORDER BRAIN METS Review MRI from 07/27 3 MO - LABS PRIOR CHEST TIGHTNESS Reason for Visit URI (upper respirato ry infection) Nausea Constipation COVID Acute bronchitis Chest tightness Atherosclerosis of coronary artery of [place] without angina pectoris Dyspnea on exertion Essential (primary) hypertension Hyperlipidemia History of coronary artery stent placement Brain metastases Brain metastases Pancoast tumor of right lung Chief Complaint COVID +, WANTS PAXLA VID has not been seen since 2019/ med refills E ORDER BRAIN METS Review MRI from 07/27 3 MO - LABS PRIOR CHEST TIGHTNESS F/U LUNG CANCER 3 MO - NO LABS - REVIEW CT SCAN Reason for Visit Constipation COVID Acute bronchitis Chest tightness Atherosclerosis of coronary artery of [place] without angina pectoris Dyspnea on exertion Essential (primary) hypertension Hyperlipidemia History of coronary artery stent placement Brain metastases Brain metastases Pancoast tumor of right lung Brain metastases Pancoast tumor of right lung Chief Complaint F/U LUNG CANCER 3 MO - NO LABS - REVIEW CT SCAN tick bite, redness BRAIN CA 4MO F/U -REVIEW MRI- secondary malignant neoplasm of brain EORDER EPILEPSY Reason for Visit Brain metastases Pancoast tumor of right lung Tick bite Brain metastases Epilepsy Left cervical radiculopathy Neck pain Brain metastases Chief Complaint F/U LUNG CANCER 3 MO - NO LABS - REVIEW CT SCAN tick bite, redness BRAIN CA 4MO F/U -REVIEW MRI- secondary malignant neoplasm of brain EORDER EPILEPSY STOMACH ISSUES abd pain Reason for Visit Brain metastases Pancoast tumor of right lung Tick bite Brain metastases Epilepsy Left cervical radiculopathy Neck pain Brain metastases Diverticulitis Left cervical radiculopathy Chief Complaint tick bite, redness BRAIN CA 4MO F/U -REVIEW MRI- secondary malignant neoplasm of brain EORDER EPILEPSY STOMACH ISSUES abd pain BRAIN METS 3 month f/u - review MRI Reason for Visit Tick bite Brain metastases Epilepsy Left cervical radiculopathy Neck pain Brain metastases Diverticulitis Left cervical radiculopathy Brain metastases Chief Complaint STOMACH ISSUES abd pain BRAIN METS 3 month f/u - review MRI 4 M FU MALIGNANT NEOPLASM OF UPPER LOBE 6 MO - LABS - REVIEW SCANS RESTATING LUNG CA GALLBLADDER STONES Reason for Visit Diverticulitis Left cervical radiculopathy Brain metastases Fatigue Brain metastases 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 Chief Complaint 4 M FU acute - severe left hip pain HIP XRAY- pain B12 Malignant neoplasm of upper lobe, right bronchus o F/U TREATED BRAIN METS; COMPARE TO PRIOR B12 inject Reason for Visit Fatigue Hip bursitis, left Left hip pain Fatigue Fatigue Chief Complaint 4 M FU acute - severe left hip pain HIP XRAY- pain B12 Malignant neoplasm of upper lobe, right bronchus o F/U TREATED BRAIN METS; COMPARE TO PRIOR B12 inject 6 MO - LABS - REVIEW CT 4 MONTH F/U, REVIEW SCANS RESTATING LUNG CA Reason for Visit Fatigue Hip bursitis, left Left hip pain Fatigue Fatigue Brain metastases Pancoast tumor of right lung Brain metastases Pancoast tumor of right lung Chief Complaint Admit Date F/U NSCLC; F/U TREATED BRAIN METS October 26, 2024 7:02am 6 MO - LABS - REVIEW CT November 01, 2024 10:35am 6 MONTH F/U, REVIEW MRI November 01, 2024 10:37am RESTATING LUNG CA November 01, 2024 10: 45am Reason for Visit Admit Date Brain metastases November 01, 2024 10: 35am Pancoast tumor of right lung November 01, 2024 10:35am Brain metastases November 01, 2024 10: 37am Pancoast tumor of right lung November 01, 2024 10:45am Chief Complaint Admit Date F/U NSCLC; F/U TREATED BRAIN METS October 26, 2024 7:02am 6 MO - LABS - REVIEW CT November 01, 2024 10:35am 6 MONTH F/U, REVIEW MRI November 01, 2024 10:37am RESTATING LUNG CA November 01, 2024 10: 45am OVERDUE FOR OV/LAST SEEN 08/02 2:47pm Reason for Visit Admit Date Brain metastases November 01, 2024 10: 35am Pancoast tumor of right lung November 01, 2024 10:35am Brain metastases November 01, 2024 10: 37am Pancoast tumor of right lung November 01, 2024 10:45am Essential (primary) hypertension February [id number] 2:47pm Hyperlipidemia February 04, 2025 2:47 pm History of coronary artery stent placeme nt February 04, 2025 2:47pm Chief Complaint Admit Date F/U NSCLC; F/U TREATED BRAIN METS October 26, 2024 7:02am 6 MO - LABS - REVIEW CT November 01, 2024 10:35am 6 MONTH F/U, REVIEW MRI November 01, 2024 10:37am RESTATING LUNG CA November 01, 2024 10: 45am OVERDUE FOR OV/LAST SEEN 08/02 2:47pm E ORDERS February 12, 2025 8:4 7am Reason for Visit Admit Date Brain metastases November 01, 2024 10: 35am Pancoast tumor of right lung November 01, 2024 10:35am Brain metastases November 01, 2024 10: 37am Pancoast tumor of right lung November 01, 2024 10:45am Essential (primary) hypertension February [id number] 2:47pm History of coronary artery stent placeme nt February 04, 2025 2:47pm Hyperlipidemia February 04, 2025 2:47 pm Additional Source Comments (unrecognized sect ion and content) No Status Records FoundNo Status Records FoundNo Status Records Found INFORMATION SOURCE (unrecogn ized section and content) DATE CREATED AUTHOR 04/30/2021 [facility] ([place]) DATE CREATED AUTHOR AUTHOR'S ORGANIZ ATION 04/06/2024 [facility] DATE CREATED AUTHOR AUTHOR'S ORGANIZ ATION 04/25/2025 [facility] Goals (unrecognized section and content) Goals may be documented in a n alternate sectionGoals may be documented in an alternate sectionGoals may be documented in an alternate sectionGoals may be documented in an alternate sectionGoals may be documented in an alternate sectionGoals may be documented in an alternate sectionGoals may be documented in an alternate sectionGoals may be documented in an alternate sectionGoals may be documented in an alternate sectionGoals may be documented in an alternate sectionGoals may be documented in an alternate sectionGoals may be documented in an alternate sectionGoals may be documented in an alternate sectionGoals may be documented in an alternate sectionGoals may be documented in an alternate sectionGoals may be documented in an alternate sectionGoals may be documented in an alternate sectionGoals may be documented in an alternate sectionGoals may be documented in an alternate sectionGoals may be documented in an alternate sectionGoals may be documented in an alternate sectionGoals may be documented in an alternate section No data available for this sectionGoals may be documented in an alternate sectionGoals may be documented in an alternate sectionGoals may be documented in an alternate section Care Teams (unrecognized sec tion and content) Team Status: Active Member Role Status Dates Dr. Jim Perez , DO Family Provider Active Dr. Jim Perez , DO Primary Care Provider Active Team Status: Inactive Member Role Status Dates Dr. Jim Perez , DO Primary Care Provider, Referr ing Provider Active Dr. Delilah Rodgers MD Attending Provider Active Team Status: Inactive Member Role Status Dates Dr. Jim Perez , DO Primary Care Provider, Referr ing Provider Active Deyanira Ford PLASTIC PRINTER, PLASTIC PRINTER-C Attending Provider Active Team Status: Active Member Role Status Dates Dr. Jim Perez , DO Primary Care Provider Active Dr. Xiang Erickson , DO Attending Provider Active Team Status: Inactive Member Role Status Dates Dr. Jim Perez , DO Primary Care Provider, Referr ing Provider Active Bravo Aleman PLASTIC PRINTER, PLASTIC PRINTER-C Attending Provider Active Team Status: Inactive Member Role Status Dates Dr. Jim Perez , DO Primary Care Provider Active Dr. Delilah Rodgers MD Attending Provider Active Team Status: Active Member Role Status Dates Dr. Jim Perez , DO Primary Care Provider Active Dr. Xiang Erickson , DO Attending Provider, Referring P rovider Active Team Status: Inactive Member Role Status Dates Dr. Jim Perez , DO Primary Care Provider Active Dr. Delilah Rodgers MD Attending Provider, Referrin g Provider Active Team Status: Inactive Member Role Status Dates Dr. Jim Perez , DO Primary Care Provider Active Bravo Aleman PLASTIC PRINTER, PLASTIC PRINTER-C Attending Provider, Referring Prov ider Active Team Status: Inactive Member Role Status Dates Dr. Jim Perez , DO Primary Care Provider Active Bravo Aleman PLASTIC PRINTER, PLASTIC PRINTER-C Attending Provider Active Team Status: Active Member Role Status Dates Dr. Jim Perez , DO Primary Care Provider Active Deyanira Ford PLASTIC PRINTER, PLASTIC PRINTER-C Attending Provider Active Team Status: Inactive Member Role Status Dates Dr. Jim Perez , DO Primary Care Provider Active Dr. Xiang Erickson , Attending Provider Active Team Status: Inactive Member Role Status Dates Dr. Jim Perez , DO Primary Care Provider Active Deyanira Ford PLASTIC PRINTER, PLASTIC PRINTER-C Attending Provider Active Team Status: Inactive Member Role Status Dates Dr. Jim Perez , DO Primary Care Provider Active Dr. Xiang Erickson , DO Attending Provider, Referring P rovider Active Team Status: Active Member Role Status Dates Dr. Jim Perez , DO Primary Care Provider Active Dr. Esau Lai MD Attending Provider Active Team Status: Active Member Role Status Dates Dr. Jim Perez , DO Primary Care Provider Active Dr. Esau Lai MD Attending Provider, Referring Pro vider Active Team Status: Inactive Member Role Status Dates Dr. Jim Perez , DO Primary Care Provider, Referr ing Provider Active Dr. Xiang Erickson , DO Attending Provider Active Team Status: Inactive Member Role Status Dates Dr. Jim Perez , DO Primary Care Pr ovider, Attending Provider, Referring Provider Active Team Status: Inactive Member Role Status Dates Dr. Jim Perez , DO Primary Care Provider, Referr ing Provider Active Dr. Conner Carpenter MD Attending Provider Active Team Status: Active Member Role Status Dates Dr. Jim Perez , DO Primary Care Provider Active Dr. Conner Carpenter MD Attending Provider, Referring Provider Active Team Status: Inactive Member Role Status Dates Dr. Jim Perez , DO Primary Care Provider Active Dr. Conner Carpenter MD Attending Provider, Referring Provider Active Team Status: Inactive Member Role Status Dates Dr. Jim Perez , DO Primary Care Provider Active Dr. Jacob Bryant MD Emergency Provider Active Team Status: Inactive Member Role Status Dates Dr. Jim Perez DO Primary Care Provider Active Dr. Jacob Bryant MD Attending Provider, Emergency Pro vider Active Team Status: Active Member Role Status Dates Dr. Jim Perez DO Primary Care Provider, Family Provider Active Dr. Delilah Rodgers MD Attending Provider, Referrin g Provider Active Team Status: Active Member Role Status Dates Dr. Jim Perez DO Primary Care Provider Active Dr. Delilah Rodgers MD Attending Provider, Referrin g Provider Active Team Status: Inactive Member Role Status Dates Dr. Jim Perze DO Primary Care Provider, Referr ing Provider Active EMPERATRIZ Bundy Attending Provider Active Team Status: Inactive Member Role Status Dates Dr. Jim Perez DO Primary Care Provider Active EMPERATRIZ Bundy Attending Provider, Referring Prov ider Active Team Status: Active Member Role Status Dates Dr. Jim Perez DO Primary Care Provider Active Team Status: Inactive Member Role Status Dates Dr. Jim Perez DO Primary Care Provider Active Start: October 26, 2024 End: October 26, 2024 Dr. Delilah Rodgers MD Attending Provider Active Start: October 26, 2024 End: October 26, 2024 Dr. Xiang Erickson DO Referring Provider Active Start: October 26, 2024 End: October 26, 2024 Dr. Xiang Erickson , Other Provider Active Sta rt: October 26, 2024 End: October 26, 2024 Team Status: Inactive Member Role Status Dates Dr. Jim Perez DO Primary Care Provider Active Start: November 01, 2024 End: November 01, 2024 Dr. Jim Perez DO Referring Provider Active Start: November 01, 2024 End: November 01, 2024 Dr. Delilah Rodgers MD Attending Provider Active Start: November 01, 2024 End: November 01, 2024 Team Status: Inactive Member Role Status Dates Dr. Jim Perez DO Primary Care Provider Active Start: November 01, 2024 End: November 01, 2024 Dr. Xiang Erickson DO Attending Provider Active Start: November 01, 2024 End: November 01, 2024 Team Status: Active Member Role Status Dates Dr. Jim Perez DO Primary Care Provider Active Start: November 01, 2024 Dr. Jim Perez DO Family Provider Active Start: November 01, 2024 Dr. Delilah Rodgers MD Attending Provider Active Start: November 01, 2024 Dr. Delilah Rodgers MD Referring Provider Active Start: November 01, 2024 Team Status: Active Member Role/Relationship Status Dates Dr. Jim Perez DO Primary Care Provider Active Team Status: Inactive Member Role/Relationship Status Dates Dr. Jim Perez DO Primary Care Provider Active Start: October 26, 2024 End: October 26, 2024 Dr. Delilah Rodgers MD Attending Provider Active Start: October 26, 2024 End: October 26, 2024 Dr. Xiang Erickson DO Referring Provider Active Start: October 26, 2024 End: October 26, 2024 Dr. Xiang Erickson DO Other Provider Active Sta rt: October 26, 2024 End: October 26, 2024 Team Status: Inactive Member Role/Relationship Status Dates Dr. Jim Perez DO Primary Care Provider Active Start: November 01, 2024 End: November 01, 2024 Dr. Jim Perez DO Referring Provider Active Start: November 01, 2024 End: November 01, 2024 Dr. Delilah Rodgers MD Attending Provider Active Start: November 01, 2024 End: November 01, 2024 Team Status: Inactive Member Role/Relationship Status Dates Dr. Jim Perez DO Primary Care Provider Active Start: November 01, 2024 End: November 01, 2024 Dr. Xiang Erickson DO Attending Provider Active Start: November 01, 2024 End: November 01, 2024 Team Status: Active Member Role/Relationship Status Dates Dr. Jim Perez DO Primary Care Provider Active Start: November 01, 2024 Dr. Jim Perez DO Family Provider Active Start: November 01, 2024 Dr. Delilah Rodgers MD Attending Provider Active Start: November 01, 2024 Dr. Delilah Rodgesr MD Referring Provider Active Start: November 01, 2024 Team Status: Inactive Member Role/Relationship Status Dates Dr. Jim Perez DO Primary Care Provider Active Start: February 04, 2025 End: February 04, 2025 Dr. Jim Perez DO Referring Provider Active Start: February 04, 2025 End: February 04, 2025 Deyanira Ford NP, PLASTIC PRINTER-C Attending Provider Active Start: February 04, 2025 End: February 04, 2025 Team Status: Inactive Member Role/Relationship Status Dates Dr. Jim Perez DO Primary Care Provider Active Start: February 12, 2025 End: February 12, 2025 Deyanira Ford NP PLASTIC PRINTER-C Attending Provider Active Start: February 12, 2025 End: February 12, 2025 Deyanira Ford NP PLASTIC PRINTER-C Referring Provider Active Start: February 12, 2025 End: February 12, 2025 FOR RECORDS PERTAINING TO PATIENTS WHO ARE OR HAVE BEEN ENROLLED IN A CHEMICAL DEPENDENCY/SUBSTANCEABUSE PROGRAM, SOME INFORMATION MAY BE OMITTED. This clinical summary was aggregated from multiple sources. Caution should be exercised in using it in the provision of clinical care. This summary normalizes information from multiple sources, and as a consequence, information in this document may materially change the coding, format and clinical context of patient data. In addition, data may be omitted in some cases. CLINICAL DECISIONS SHOULD BE BASED ON THE PRIMARY CLINICAL RECORDS. [employer] provides no warranty or guarantee of the accuracy or completeness of information in this document.
== END | disposition home or self-care (01) ==
LOC: OPMRI 07:21
PROVIDERS: PCP Family Medicine; Referring Provider Student in an Organized Health Care Education/Training Program; Visit Provider Student in an Organized Health Care Education/Training Program
DX: C79.31 Secondary malignant neoplasm of brain (principal)
CPT/HCPCS: 70553; A9575

== ENCOUNTER → 2025-07-02 | Outpatient (CLI) | payer BC, SELFPAY ==
[2019-03-06 08:56] VITALS: BMI 24.6
--- NOTE | 2025-07-02 11:12 | RAD_ITS ---
PROCEDURE: CHEST PA AND LATERAL 07/02/2025 REASON FOR EXAM: COUGH TECHNIQUE: Procedure Code: RADCXR Modality: DX Procedure: CHEST PA AND LATERAL COMPARISON: July 14, 2022 FINDINGS: Diffuse reticular opacities may reflect pulmonary interstitial edema versus atypical pneumonia. No focal consolidation. No pleural effusion or pneumothorax. Cardiac silhouette is within normal limits. No acute fractures. RAD/Chest PA and Lateral IMPRESSION: Diffuse reticular opacities may reflect pulmonary interstitial edema versus aty pical pneumonia. Reading Location: [facility]
== END | disposition home or self-care (01) ==
LOC: RAD 11:07
PROVIDERS: PCP Family Medicine; Referring Provider Physician Assistant; Visit Provider Physician Assistant
DX: R05.9 Cough, unspecified (principal)
CPT/HCPCS: 71046